=== PATIENT | male | born 1960 | race Caucasian/White ===

== ENCOUNTER → 2017-12-08 16:53 | Outpatient (CLI) | payer OTHER, SELFPAY ==
[2017-12-08 17:28] LABS: Absolute Lymphocyte Count 2.37 X10^3/ul (0.83-4.51); Absolute Neutrophil Count 6.5 X10^3/uL (2.0-7.7); Basophil# 0.03 X10^3/uL; Basophil% 0.3 % (0-1); Eosinophil# 0.15 X10^3/uL; Eosinophils% 1.6 % (0-5); Hematocrit 44.2 % (40-54); Hemoglobin 15.1 g/dl (13.0-16.5); Lymphocyte # 2.37 X10^3/ul (4.0); Lymphocyte % 24.6 % (19-41); Mean Corp Hgb Conc 34.2 g/gl (32-36); Mean Corpuscular Hgb 30.1 pg (27.0-32.0); Mean Corpuscular Volume 88.2 fL (80-94); Mean Platelet Vol. 11.3 fl (6.2-12.0); Monocyte# 0.55 X10^3/uL; Monocyte% 5.7 % (0-10); Neutrophil # 6.51 X10^3/uL (2.7-7.7); Neutrophil % 67.7 % (47-70); Platelet Count 203 K/mm3 (150-450); RBC Distribution Width SD 41.7 fl (35.1-43.9); Red Blood Count 5.01 M/mm3 (4.6-6.2); White Blood Count 9.6 K/mm3 (4.4-11.0)
[2017-12-08 17:31] LABS: POSITIVE COUNT NO; POSITIVE DIFFERENTIAL NO; POSITIVE MORPHOLOGY NO
[2017-12-08 18:34] LABS: AST(SGOT) 20 U/L (15-37); Alanine Aminotransfer ALT/SGPT 25 U/L (16-61); Albumin, Serum 3.4 g/dL (3.2-5.0); Alkaline Phosphatase 89 U/L (45-117); Anion Gap 7 (5-15); BUN 23 mg/dL (7-18); Calcium,Total 8.6 mg/dL (8.5-10.1); Chloride 107 mmol/L (98-107); Creatinine, Serum 0.96 mg/dL (0.70-1.30); EST Glomerular Filtration Rate 85 mL/min (>60); Est Glom Filt Rate - Afr Amer 103 mL/min (>60); Globulin 3.5 g/dL (2.2-4.2); Glucose 74 mg/dL (74-106); Potassium 4.2 mmol/L (3.5-5.1); Protein, Total 6.9 g/dL (6.4-8.2); Sodium Level 142 mmol/L (136-145); Thyroid Stim Hormone (TSH) 1.88 uIU/mL (0.358-3.74)
[2017-12-10 10:21] LABS: Hep C Antibodies <0.1 s/co ratio (0.0-0.9)
== END ==
PROVIDERS: Family Provider Family Medicine Geriatric Medicine; PCP Family Medicine Geriatric Medicine; Visit Provider Family Medicine Geriatric Medicine
DX: I10 Essential (primary) hypertension (principal); Z12.5 Encounter for screening for malignant neoplasm of prostate; Z13.89 Encounter for screening for other disorder
CPT/HCPCS: 36415; 80053; 84153; 84443; 85025; 86803; G0103

== ENCOUNTER → 2018-06-09 16:22 | Outpatient (CLI) | payer OTHER, SELFPAY ==
[2018-06-09 17:22] LABS: Absolute Lymphocyte Count 2.11 X10^3/ul (0.83-4.51); Absolute Neutrophil Count 6.9 X10^3/uL (2.0-7.7); Basophil# 0.03 X10^3/uL; Basophil% 0.3 % (0-1); Eosinophil# 0.15 X10^3/uL; Eosinophils% 1.5 % (0-5); Hematocrit 42.7 % (40-54); Hemoglobin 14.5 g/dl (13.0-16.5); Lymphocyte # 2.11 X10^3/ul (4.0); Lymphocyte % 21.4 % (19-41); Mean Corpuscular Hgb 29.9 pg (27.0-32.0); Mean Platelet Vol. 11.9 fl (6.2-12.0); Monocyte# 0.68 X10^3/uL; Monocyte% 6.9 % (0-10); Neutrophil # 6.85 X10^3/uL (2.7-7.7); Neutrophil % 69.7 % (47-70); Platelet Count 202 K/mm3 (150-450); RBC Distribution Width CV 12.7 % (11.6-14.6); RBC Distribution Width SD 40.1 fl (35.1-43.9); Red Blood Count 4.85 M/mm3 (4.6-6.2); White Blood Count 9.8 K/mm3 (4.4-11.0)
[2018-06-09 17:23] LABS: POSITIVE COUNT NO; POSITIVE DIFFERENTIAL NO; POSITIVE MORPHOLOGY NO
[2018-06-09 17:41] LABS: ALB/GLOB Ratio 0.9 RATIO (0.9-2.4); AST(SGOT) 23 U/L (15-37); Alanine Aminotransfer ALT/SGPT 37 U/L (16-61); Albumin, Serum 3.3 g/dL (3.2-5.0); Alkaline Phosphatase 93 U/L (45-117); Anion Gap 6 (5-15); BUN 17 mg/dL (7-18); BUN/Creat Ratio 19.1 RATIO (10-20); Calcium,Total 8.4 mg/dL (8.5-10.1); Chloride 108 mmol/L (98-107); Creatinine, Serum 0.89 mg/dL (0.70-1.30); EST Glomerular Filtration Rate 92 mL/min (>60); Est Glom Filt Rate - Afr Amer 112 mL/min (>60); Globulin 3.7 g/dL (2.2-4.2); Glucose 81 mg/dL (74-106); Potassium 3.8 mmol/L (3.5-5.1); Sodium Level 139 mmol/L (136-145); Thyroid Stim Hormone (TSH) 2.19 uIU/mL (0.358-3.74)
== END ==
PROVIDERS: Family Provider Family Medicine Geriatric Medicine; PCP Family Medicine Geriatric Medicine; Visit Provider Family Medicine Geriatric Medicine
DX: R53.83 Other fatigue (principal)
CPT/HCPCS: 36415; 80053; 84443; 85025

== ENCOUNTER 2018-11-20 08:35 | Day surgery (SDC) | payer OTHER, SELFPAY ==
[2018-10-29 15:04] VITALS: BMI 40.1
--- NOTE | 2018-11-19 20:01 | HP.PCM_ITS ---
History and Physical Date of Admission: 11/20/18 HISTORY OF PRESENT ILLNESS 58 year old man presents with a lesion on his right elbow that is erythematous and has increased in size over the last several months and has developed irregular borders. He has some discomfort when he bumps it. He is also concerned about a soft tissue mass left posterior neck that has increased in size over the last several months. There is some discomfort when he bumps it. He denies any fever. He denies any trauma. He denies any bleeding or drainage. He presents at this time for further evaluation and treatment. PAST MEDICAL HISTORY Back problem High cholesterol History of prostate disorder History of ulcer disease COPD (chronic obstructive pulmonary disease) Chronic bronchitis PAST SURGICAL HISTORY None. ALLERGIES Penicillins MEDICATIONS atorvastatin baclofen budesonide-formoterol HFA doxepin escitalopram tamsulosin FAMILY HISTORY Other - Alcoholism SOCIAL HISTORY Smoking Status: Former smoker alcohol intake: never substance use type: does not use REVIEW OF SYSTEMS General - Denies fever, fatigue, and weight loss. Eyes - Denies cataracts and glaucoma. ENT - Denies nasal congestion and sore throat. Endocrine - Denies excessive thirst and urination. Skin - Denies skin cancer. Has enlarging lesion right elbow and enlarging soft tissue mass left posterior neck. Musculoskeletal - Has joint pain and back pain. Denies joint stiffness, weakness of muscles and joints, and arthritis. Neuro - Denies headaches. Cardiovascular - Denies chest pain, fatigue, and shortness of breath with exertion. Psych - Denies anxiety and depression. Respiratory - Has chronic cough and shortness of breath. Has sleep apnea. He is a former smoker. Gastrointestinal - Denies nausea, vomiting, diarrhea, and constipation. Hematologic - Denies abnormal bruising and bleeding. Genitourinary - Denies hematuria and urinary frequency. PHYSICAL EXAMINATION General - Alert and Oriented. HEENT - PERRL. EOMI. Throat is clear. No suspicious lesions noted. Neck - Supple and nontender. No cervical adenopathy. On the left posterior neck is a soft tissue mass that measures 2 cm. It is mobile. Mild discomfort when bumped. No ulceration. No evidence of infection at this time. Has some firmness. Skin appears adherent to this soft tissue mass. Lungs - Clear to auscultation. Heart - Regular rate and rhythm. Abdomen - Soft and nondistended. Extremities - FROM. No axillary adenopathy. Radial pulses are palpable. On the right elbow is an erythematous lesion that measures 1.5 cm. Lesion is nodular. It has irregular borders. No ulceration. Mild tenderness when bumped. Patient is right hand dominant. Neuro - CN II-XII grossly intact. Psych - Normal mood and affect. ASSESSMENT 1. 1.5 cm lesion right elbow. 2. 2 cm painful soft tissue mass left posterior neck. 3. Former smoker. PLAN Recommend excision of this lesion right elbow and send it to Pathology for anal ysis to rule out carcinoma. If carcinoma is present, then further excision will be done with skin flap reconstruction. Will also excise the painful soft tissue mass left posterior neck and send it to Pathology as well for analysis to rule out carcinoma. Depending on the amount of overlying adherent skin needs to be removed, reconstruction may be with a local skin flap. Surgery will be done on an outpatient basis under local anesthesia and IV sedation. Patient was informed of the risks and complications of the procedure including alternatives to surgery. These were discussed with the patient personally. Patient voices understanding and wishes to proceed. Some of the risks and complications were included in a form from the [employer] [place] [employer].
[2018-11-20] VITALS (8 sets, daily range): BP systolic 100–127; BP diastolic 64–86; PULSE 78–86; RESP 16–18; TEMP 35.9–36.3; O2SAT 94–98; BMI 41.3
--- NOTE | 2018-11-20 10:20 | LES_PTH ---
PATIENT: AMANDA SANDOVAL [place] [facility] [place][id number] AGE/SX: 58/M ROOM: RE11/20/[address]: Dr. Kadeem Max MD : [id number] BED: DIS: 11/20/2018 SPEC #: [id number] RECD: 11/20/18 15:36 STATUS: ROYA REBela #: [id number] ROXI: 11/20/18 10:[address]: Kdaeem Max DEPT: SURGICAL PATHOLOGY RECD BY: Cal Melgar ENTERED: 11/23/18 08:51 SP TYPE: Lesion OTHR DR: Dr. Desmond De Guzman MD Tissues: A - Skin of arm B - Neck, NOS Procedures: Surgery Specimen Level III HEADER OPERATION: Excision lesion right elbow PRE-OP DIAGNOSIS: 1.5 cm lesion right elbow; 2 cm painful soft tissue mass left posterior neck TISSUE SUBMITTED: A - Right elbow infection, B - 2 cm soft tissue mass left posterior neck MICROSCOPIC DIAGNOSIS A. Right elbow lesion, biopsy: Consistent with ruptured epidermal inclusion cyst with chronic inflammation and foreign body giant cell reaction. B. Soft tissue mass left posterior neck, biopsy: Epidermal inclusion cyst. NOLAN:cluadia 11/24/18 MICROSCOPIC DESCRIPTION Slides are reviewed. GROSS DESCRIPTION A - Received in fixative is one container labeled with the patient's name and designated right elbow infection. The specimen consists of a single guerrero portion of skin and underlying soft tissue measuring 1.3 x 0.8 cm and excised to a depth of 0.6 cm. The skin surface is guerrero with a vague central umbilication. The base of the specimen is inked black and the tissue is serially cross-sectioned. The specimen is totally submitted in one cassette. B - Received in fixative is one container labeled with the patient's name and designated 2 cm soft tissue mass left posterior neck. The specimen consists of a guerrero portion of skin with underlying soft tissue. The skin surface measures 2 x 1.1 cm and contains a longitudinal central incision. The remainder of skin surface is guerrero and smooth. The underlying soft tissue measures 3.1 x 1.5 cm and is excised to a depth of 2.5 cm. The specimen is inked and serially cross-sectioned to reveal a dermal cystic structure measuring 1.2 cm in greatest dimension. The cyst content is guerrero and fairly homogenous. Rn Home Care sections are submitted in two cassettes. / CE:claudia 11/23/18 TC:5 CPT: 81680 x2
[2018-11-20] MEDS: Mupirocin Ointment 22gm Tube 1 APPLIC (11:31)
--- NOTE | 2018-11-20 11:37 | OP.PCM_ITS ---
Report of Operation Date of Procedure: 11/20/18 Pre-Operative Diagnosis: 1. 1.5 cm lesion right elbow. 2. 2 cm painful soft tissue mass left posterior neck. 3. Former smoker. Post-Operative Diagnosis: 1. 1.5 cm infected lesion abscess and bursa right elbow. 2. 3 cm painful cystic lesion left posterior neck. 3. Former smoker. Surgery/Procedure Performed:: 1. Surgical preparation right elbow with incision and drainage and excisional debridement underlying bursa and infected lesion abscess (2.25 cm2). 2. Excision 3 cm painful cystic lesion left posterior neck with 3 cm layered closure. Description of Surgical Findings:: 58 year old man presents with a lesion on his right elbow that is erythematous and has increased in size over the last several months and has developed irregular borders. He has some discomfort when he bumps it. He is also concerned about a soft tissue mass left posterior neck that has increased in size over the last several months. There is some discomfort when he bumps it. He denies any fever. He denies any trauma. He denies any bleeding or drainage. Patient was informed of the risks and complications of the procedure including alternatives to surgery. These were discussed with the patient personally. Patient voices understanding and wishes to proceed. Some of the risks and complications were included in a form from the [place] [employer]. Size of defect right elbow - 1.5 x 1.5 x 0.5 cm. color separation photographer: None Type of Anesthesia:: Local MAC - xylocaine with epinephrine and IV sedation. Specimen's removed: 1. Infected lesion abscess and bursa right elbow to Pathology and Microbiology. 2. Painful cystic lesion left posterior neck to Pathology. Drains: None. Estimated Blood Loss (mL): 10 ml. Description of Procedure: Patient was taken to OR in supine position and was given IV sedation. He was placed in the lateral position. The right elbow and left posterior neck areas were prepped and draped in the usual fashion. SCD's were placed for DVT prophylaxis. Perioperative antibiotics were given intravenously. The lesion right elbow and the soft tissue mass left posterior neck were infiltrated with xylocaine and epinephrine. After waiting 5 minutes for the anesthetic to take effect, I made an elliptical horizontal incision over the soft tissue mass left posterior neck. Dissection was carried into the subcutaneous tissue. The soft tissue mass was cystic in nature and was larger on the inside than what I could palpate clinically. The cystic lesion was multiloculated and adherent to the underlying muscle. It measured 3 cm. I had to extend the incision a little bit to get better exposure due to its size and the depth of the lesion down to and adherent to the muscle. A fair amount of scar tissue was present around the cystic lesion as well and was excised. The cystic lesion was sent to Pathology for analysis to rule out carcinoma. Hemostasis was obtained with electrocautery. The wound was irrigated with saline. The length of the wound for layered closure was 3 cm. I closed the deep subcutaneous tissue with 4-0 Monocryl figure of eight interrupted sutures to close the deep space to minimize seroma formation. The deep dermis and subcutaneous tissue was approximated with 4-0 Monocryl interrupted sutures. The skin was approximated with 4-0 Prolene simple interrupted and vertical mattress interrupted sutures. Antibiotic ointment was applied followed by a gauze dressing. I then proceeded with a frozen section of the right elbow lesion since it was firm and erythematous. I started an intradermal excision. It wasn't a solid lesion as copious pus was expressed from the wound. So no frozen section was done. I then proceeded with further incision and drainage of the abscess along with excisional debridement of the surrounding thinned out tissue as well as underlying abnormal infected bursa with a bursectomy. The underlying fascia and triceps tendinous insertion was intact. No exposed olecranon bone was seen. The size of the right elbow defect after incision and drainage and excisional debridement was 1.5 x 1.5 x 0.5 cm. Tissue was sent to Pathology for analysis to rule out carcinoma and to Microbiology for culture. A positive culture will necessitate antibiotic therapy. The wound was irrigated with saline. Hemostasis was obtained with electrocautery. With the amount of pus present, I don't want to close the wound today. After the infection has been treated and the inflammation has subsided, I can proceed with delayed secondary wound closure and possible skin flap reconstruction. The wound was packed with Aquacel Silver followed by gauze dressing and secured with 4-0 Nylon and 3-0 Nylon tie over stent suture dressing. This was followed by Kerlix gauze and a compression JESUS wrap. Patient tolerated the procedure well and was sent to PACU in satisfactory condition. Patient will be sent home on antibiotics and pain medication. Patient will followup in the office on Friday for a Silver dressing change and to instruct the patient and family on the Silver dressing changes. The left posterior neck sutures will be removed in 1-2 weeks. Will have a discussion of the pathology report and discussion of the Microbiology report. A positive culture will necessitate antibiotic therapy. Grafts/Implants Used: None. - Complications None. - Admit VTE Documentation VTE Present on Admission: No VTE Mechan Device Prophylaxis: SCD's VTE Pharm Prophylaxis ordered?: No Code Visit Surgery Charges CPT - 24790 ICD-10 - S51.001A, M71.021, Z87.891 48286 M71.021, S51.001A, Z87.891 35820 R22.1, Z87.891 00781 R22.1, Z87.891
--- NOTE | 2018-11-20 11:44 | PCM.DC ---
You will use the following diet at home:: No restrictions Discharge Activity: May not drive while taking narcotic pain medications., May Shower - in two days. Wear plastic bag over right arm when showering., - - elevate right arm. no heavy lifting right arm. May shower in (days): 2 - wear plastic bag over right arm when showering. May resume sexual activity in: No Restrictions Weight Bearing Status: Weight bearing as tolerated Lifting Restrictions: 20 lbs. Keep extremity elevated above heart level: Right Arm Call your doctor if your incision/area has: Continuous Slow Oozing, Sudden Increased Bleeding, Increased Pain/ Swelling, Increased Redness, Foul Smelling Discharge, Swelling at the incision site Call your doctor if you observe: Fever of 101 or Higher, Coldness, Increased Pain, Shortness of breath, Chest pain, Calf discomfort, Uncontrolled pain Suture Line Care: - - apply antibiotic ointment to suture line left posterior neck after operative dressing removed in two days. alaniz aquacel silver dressing changes to right elbow after operative dressing removed in office. Change Dressing in (Days):: 2 - left posterior neck dressing only. Remove Dressing in (days):: 3 - will remove right elbow dressing in office. Cleanse incision/area with: - - may get incision wet in the shower in two days. wear plastic bag over right arm when showering. Allergies/Adverse Reactions: Allergies Penicillins Adverse Reaction (Verified 11/20/18 08:54) GI UPSET Medications to take at Discharge atorvastatin 40 mg tablet 40 mg PO DAILY 10/26/18 baclofen 10 mg tablet 10 mg PO DAILY 10/26/18 budesonide-formoterol HFA 80 mcg-4.5 mcg/actuation aerosol inhaler 2 puff INHALATION BID 10/26/18 doxepin 25 mg capsule 25 mg PO QHS 10/26/18 escitalopram 10 mg tablet 10 mg PO DAILY 10/26/18 tamsulosin 0.4 mg capsule 0.8 mg PO QHS cap 10/26/18 Clindamycin HCl [Cleocin] 300 mg PO TID #42 cap 11/20/18 Lactobacillus Acidophilus/Fos [Acidophilus Probiotic Tablet] 1 ea PO BID #30 tab 11/20/18 Oxycodone HCl/Acetaminophen [Percocet 5/325] 1 - 2 tab PO 4X/DAY PRN PRN 5 Days #40 tab 11/20/18 The following prescriptions were given: Oxycodone HCl/Acetaminophen [Percocet 5/325] 1 - 2 tab PO 4X/DAY PRN PRN 5 Days #40 tab PRN Reason: Pain Lactobacillus Acidophilus/Fos [Acidophilus Probiotic Tablet] 1 ea PO BID #30 tab Clindamycin HCl [Cleocin] 300 mg PO TID #42 cap Primary Care Physician: Desmond De Guzman Chi, MD [Primary Care Provider] - Test Results: Test results from this visit will be discussed in further detail at your follow-up appointment, if applicable. Please Follow Up With: Kadeem Max MD When: friday11/23/18. call [phone] for appt. Proposed Discharge Date: 11/20/18
== END 2018-11-20 12:45 | disposition home or self-care (01) ==
LOC: SDC 08:41 → AC 08:58
PROVIDERS: Family Provider Family Medicine Geriatric Medicine; PCP Family Medicine Geriatric Medicine; Referring Provider Surgery; Visit Provider Surgery
PROC: (CPT 11423; principal; 2018-11-20 10:10)
DX: L72.0 Epidermal cyst (principal); L98.9 Disorder of the skin and subcutaneous tissue, unspecified; Z87.891 Personal history of nicotine dependence; E78.00 Pure hypercholesterolemia, unspecified; J44.9 Chronic obstructive pulmonary disease, unspecified; Z79.899 Other long term (current) drug therapy; R52 Pain, unspecified; L90.5 Scar conditions and fibrosis of skin; N40.0 Benign prostatic hyperplasia without lower urinary tract symptoms
CPT/HCPCS: 11423; 12042; 23931; 87070; 87075; 87102; 87176; 87205; 87206; 88304; 88305; J7120; J2405

== ENCOUNTER → 2018-12-10 | Outpatient (CLI) | payer OTHER, SELFPAY ==
[2018-12-09 08:40] VITALS: BMI 41.3
[2018-12-10 17:31] LABS: Absolute Lymphocyte Count 2.27 X10^3/ul (0.83-4.51); Absolute Neutrophil Count 4.4 X10^3/uL (2.0-7.7); Basophil# 0.03 X10^3/uL; Basophil% 0.4 % (0-1); Eosinophil# 0.14 X10^3/uL; Eosinophils% 1.9 % (0-5); Hematocrit 44.2 % (40-54); Hemoglobin 14.7 g/dl (13.0-16.5); Lymphocyte # 2.27 X10^3/ul (4.0); Lymphocyte % 31.1 % (19-41); Mean Corp Hgb Conc 33.3 g/gl (32-36); Mean Corpuscular Hgb 28.7 pg (27.0-32.0); Mean Corpuscular Volume 86.2 fL (80-94); Mean Platelet Vol. 11.4 fl (6.2-12.0); Monocyte# 0.42 X10^3/uL; Monocyte% 5.7 % (0-10); Neutrophil # 4.44 X10^3/uL (2.7-7.7); Neutrophil % 60.8 % (47-70); Platelet Count 227 K/mm3 (150-450); RBC Distribution Width CV 13.1 % (11.6-14.6); RBC Distribution Width SD 40.3 fl (35.1-43.9); Red Blood Count 5.13 M/mm3 (4.6-6.2); White Blood Count 7.3 K/mm3 (4.4-11.0)
[2018-12-10 17:32] LABS: POSITIVE COUNT NO; POSITIVE DIFFERENTIAL NO; POSITIVE MORPHOLOGY NO
[2018-12-10 17:55] LABS: Vitamin D,25 Hydroxy 11.5 ng/mL (29.95-100.01)
[2018-12-10 18:03] LABS: ALB/GLOB Ratio 0.8 RATIO (0.9-2.4); AST(SGOT) 18 U/L (15-37); Alanine Aminotransfer ALT/SGPT 30 U/L (16-61); Albumin, Serum 3.1 g/dL (3.2-5.0); Alkaline Phosphatase 116 U/L (45-117); Anion Gap 5 (5-15); BUN 14 mg/dL (7-18); BUN/Creat Ratio 15.7 RATIO (10-20); Calcium,Total 8.5 mg/dL (8.5-10.1); Chloride 111 mmol/L (98-107); Creatinine, Serum 0.89 mg/dL (0.70-1.30); EST Glomerular Filtration Rate 92 mL/min (>60); Est Glom Filt Rate - Afr Amer 112 mL/min (>60); Globulin 3.8 g/dL (2.2-4.2); Glucose 126 mg/dL (74-106); Potassium 3.9 mmol/L (3.5-5.1); Protein, Total 6.9 g/dL (6.4-8.2); Sodium Level 142 mmol/L (136-145); Thyroid Stim Hormone (TSH) 1.72 uIU/mL (0.358-3.74)
== END | disposition home or self-care (01) ==
LOC: POLAB3 16:29
PROVIDERS: Family Provider Family Medicine Geriatric Medicine; PCP Family Medicine Geriatric Medicine; Visit Provider Family Medicine Geriatric Medicine
DX: E55.9 Vitamin D deficiency, unspecified (principal); R53.83 Other fatigue; Z12.5 Encounter for screening for malignant neoplasm of prostate
CPT/HCPCS: 36415; 80053; 82306; 84153; 84443; 85025; G0103

== ENCOUNTER → 2019-06-10 16:32 | Outpatient (CLI) | payer OTHER, SELFPAY ==
[2019-01-14 16:32] VITALS: BMI 41.3
[2019-06-10 17:29] LABS: Absolute Lymphocyte Count 3.42 X10^3/uL (0.83-4.51); Absolute Neutrophil Count 9.6 X10^3/uL (2.0-7.7); Basophil# 0.04 X10^3/uL; Basophil% 0.3 % (0-1); Eosinophil# 0.06 X10^3/uL; Eosinophils% 0.4 % (0-5); Hematocrit 45.4 % (40-54); Hemoglobin 14.7 g/dL (13.0-16.5); Lymphocyte # 3.42 X10^3/ul (4.0); Lymphocyte % 24.3 % (19-41); Mean Corp Hgb Conc 32.4 g/dL (32-36); Mean Corpuscular Hgb 28.8 pg (27.0-32.0); Mean Corpuscular Volume 88.8 fL (80-94); Mean Platelet Vol. 11.2 fl (6.2-12.0); Monocyte% 6.4 % (0-10); NRBC Flagged by Analyzer 0 % (0-5); Neutrophil # 9.55 X10^3/uL (2.7-7.7); Platelet Count 217 K/mm3 (150-450); RBC Distribution Width SD 42.3 fl (35.1-43.9); Red Blood Count 5.11 M/mm3 (4.6-6.2); White Blood Count 14.1 K/mm3 (4.4-11.0)
[2019-06-10 17:50] LABS: ALB/GLOB Ratio 0.9 RATIO (0.9-2.4); AST(SGOT) 17 U/L (15-37); Alanine Aminotransfer ALT/SGPT 33 U/L (16-61); Albumin, Serum 3.3 g/dL (3.2-5.0); Alkaline Phosphatase 112 U/L (45-117); Anion Gap 6 (5-15); BUN 25 mg/dL (7-18); BUN/Creat Ratio 23.4 RATIO (10-20); Calcium,Total 8.3 mg/dL (8.5-10.1); Chloride 107 mmol/L (98-107); Creatinine, Serum 1.07 mg/dL (0.70-1.30); EST Glomerular Filtration Rate 75 mL/min (>60); Est Glom Filt Rate - Afr Amer 90 mL/min (>60); Globulin 3.7 g/dL (2.2-4.2); Glucose 78 mg/dL (74-106); Potassium 3.7 mmol/L (3.5-5.1); Sodium Level 142 mmol/L (136-145); Thyroid Stim Hormone (TSH) 3.55 uIU/mL (0.358-3.74)
== END ==
PROVIDERS: Family Provider Family Medicine Geriatric Medicine; PCP Family Medicine Geriatric Medicine; Visit Provider Family Medicine Geriatric Medicine
DX: R53.83 Other fatigue (principal)
CPT/HCPCS: 36415; 80053; 84443; 85025

== ENCOUNTER → 2019-06-22 17:30 | Outpatient (CLI) | payer OTHER, SELFPAY ==
[2019-01-14 16:32] VITALS: BMI 41.3
--- NOTE | 2019-06-22 17:33 | CT_ITS ---
STUDY: CT ABDOMEN AND PELVIS WITH CONTRAST REASON FOR EXAM: Male, 59 years old. Left lower quadrant pain RADIATION DOSAGE (If Supplied By Facility): CTDIvol = ( 16.60 ) mGy, DLP = ( 1099.33 ) mGycm TECHNIQUE: Transaxial images were obtained from the dome of the diaphragm to the symphysis pubis without oral contrast. Intravenous contrast was administered. Sagittal and coronal images were reconstructed. Individualized dose optimization techniques were used for this CT. COMPARISON: January 30, 2017. FINDINGS: The visualized lung bases are unremarkable. The visualized portions of the heart are within normal limits. Calcific foci are noted in the liver. 8mm right hepatic cyst. Normal gallbladder and extrahepatic biliary system. Normal spleen. Normal pancreas. Normal bilateral adrenal glands. Up to 2.5 cm cysts in the kidneys. Normal visualized stomach. Normal small intestine. Normal colon. The appendix is visualized and appears normal. Mildly calcified abdominal aorta. Normal inferior vena cava. Normal retroperitoneum. Mild anterior wall thickening of the urinary bladder. The prostate is 4.8 x 5.5 cm. Small fatty umbilical hernia. Normal osseous structures. CT/Abdomen/Pelvis WITH Contrast IMPRESSION: Renal and hepatic cysts. Mild wall thickening of the urinary bladder. Electronically Signed: Bj Baldwin DO at 23:48 EST Tel [phone], Service support ,
== END ==
PROVIDERS: Family Provider Family Medicine Geriatric Medicine; PCP Family Medicine Geriatric Medicine; Referring Provider Family Medicine Geriatric Medicine; Visit Provider Family Medicine Geriatric Medicine
DX: R10.9 Unspecified abdominal pain (principal)
CPT/HCPCS: 74177; Q9967

== ENCOUNTER → 2019-12-15 15:23 | Outpatient (CLI) | payer OTHER, SELFPAY ==
[2019-01-14 16:32] VITALS: BMI 41.3
[2019-12-15 15:53] LABS: Absolute Lymphocyte Count 2.03 X10^3/uL (0.83-4.51); Basophil# 0.06 X10^3/uL; Basophil% 0.6 % (0-1); Eosinophil# 0.18 X10^3/uL; Eosinophils% 1.8 % (0-5); Hematocrit 44.7 % (40-54); Hemoglobin 14.7 g/dL (13.0-16.5); Lymphocyte # 2.03 X10^3/ul (4.0); Lymphocyte % 20.4 % (19-41); Mean Corp Hgb Conc 32.9 g/dL (32-36); Mean Corpuscular Hgb 29.2 pg (27.0-32.0); Mean Corpuscular Volume 88.7 fL (80-94); Mean Platelet Vol. 11.4 fl (6.2-12.0); Monocyte# 0.64 X10^3/uL; Monocyte% 6.4 % (0-10); NRBC Flagged by Analyzer 0 % (0-5); Neutrophil # 6.99 X10^3/uL (2.7-7.7); Neutrophil % 70.5 % (47-70); Platelet Count 217 K/mm3 (150-450); RBC Distribution Width CV 12.9 % (11.6-14.6); RBC Distribution Width SD 41.9 fl (35.1-43.9); Red Blood Count 5.04 M/mm3 (4.6-6.2); White Blood Count 9.9 K/mm3 (4.4-11.0)
[2019-12-15 16:21] LABS: ALB/GLOB Ratio 0.8 RATIO (0.9-2.4); AST(SGOT) 18 U/L (15-37); Alanine Aminotransfer ALT/SGPT 26 U/L (16-61); Albumin, Serum 3.1 g/dL (3.2-5.0); Alkaline Phosphatase 114 U/L (45-117); Anion Gap 6 (5-15); BUN 16 mg/dL (7-18); BUN/Creat Ratio 16.9 RATIO (10-20); Calcium,Total 8.9 mg/dL (8.5-10.1); Chloride 110 mmol/L (98-107); Creatinine, Serum 0.95 mg/dL (0.70-1.30); EST Glomerular Filtration Rate 86 mL/min (>60); Est Glom Filt Rate - Afr Amer 104 mL/min (>60); Globulin 3.8 g/dL (2.2-4.2); Glucose 104 mg/dL (74-106); PSA,Total - Annual Screen 3.14 ng/mL (0.00-4.00); Protein, Total 6.9 g/dL (6.4-8.2); Sodium Level 141 mmol/L (136-145)
== END ==
PROVIDERS: PCP Family Medicine Geriatric Medicine; Visit Provider Family Medicine Geriatric Medicine
DX: R53.83 Other fatigue (principal); Z12.5 Encounter for screening for malignant neoplasm of prostate
CPT/HCPCS: 36415; 80053; 84153; 84443; 85025; G0103

== ENCOUNTER → 2020-06-14 10:43 | Outpatient (CLI) | payer OTHER, SELFPAY ==
[2019-01-14 16:32] VITALS: BMI 41.3
[2020-06-14 18:02] LABS: Absolute Lymphocyte Count 2.26 X10^3/uL (0.83-4.51); Absolute Neutrophil Count 5.5 X10^3/uL (2.0-7.7); Basophil# 0.06 X10^3/uL; Basophil% 0.7 % (0-1); Eosinophils% 2.3 % (0-5); Hematocrit 49.6 % (40-54); Hemoglobin 16.2 g/dL (13.0-16.5); Lymphocyte # 2.26 X10^3/ul (4.0); Lymphocyte % 25.9 % (19-41); Mean Corp Hgb Conc 32.7 g/dL (32-36); Mean Corpuscular Hgb 29.3 pg (27.0-32.0); Mean Corpuscular Volume 89.7 fL (80-94); Monocyte# 0.61 X10^3/uL; NRBC Flagged by Analyzer 0 % (0-5); Neutrophil # 5.54 X10^3/uL (2.7-7.7); Neutrophil % 63.6 % (47-70); Platelet Count 226 K/mm3 (150-450); RBC Distribution Width SD 42.6 fl (35.1-43.9); Red Blood Count 5.53 M/mm3 (4.6-6.2); White Blood Count 8.7 K/mm3 (4.4-11.0)
[2020-06-14 18:22] LABS: ALB/GLOB Ratio 0.9 RATIO (0.9-2.4); AST(SGOT) 14 U/L (15-37); Alanine Aminotransfer ALT/SGPT 28 U/L (16-61); Albumin, Serum 3.4 g/dL (3.2-5.0); Alkaline Phosphatase 125 U/L (45-117); Anion Gap 3 (5-15); BUN 18 mg/dL (7-18); BUN/Creat Ratio 18.7 RATIO (10-20); Calcium,Total 8.8 mg/dL (8.5-10.1); Chloride 110 mmol/L (98-107); Creatinine, Serum 0.96 mg/dL (0.70-1.30); EST Glomerular Filtration Rate 84 mL/min (>60); Est Glom Filt Rate - Afr Amer 102 mL/min (>60); Globulin 3.8 g/dL (2.2-4.2); Glucose 104 mg/dL (74-106); Potassium 3.8 mmol/L (3.5-5.1); Protein, Total 7.2 g/dL (6.4-8.2); Sodium Level 142 mmol/L (136-145); Thyroid Stim Hormone (TSH) 1.91 uIU/mL (0.358-3.74)
[2020-06-16 13:03] LABS: Vitamin D,25 Hydroxy 7.5 ng/mL
== END ==
PROVIDERS: PCP Family Medicine Geriatric Medicine; Visit Provider Family Medicine Geriatric Medicine
DX: R53.83 Other fatigue (principal); E55.9 Vitamin D deficiency, unspecified
CPT/HCPCS: 36415; 80053; 82306; 84443; 85025

== ENCOUNTER → 2020-07-25 10:26 | Outpatient (CLI) | payer OTHER, SELFPAY ==
[2019-01-14 16:32] VITALS: BMI 41.3
== END ==
PROVIDERS: PCP Family Medicine Geriatric Medicine; Referring Provider Family Medicine Geriatric Medicine; Visit Provider Family Medicine Geriatric Medicine
DX: U07.1 COVID-19 (principal)
CPT/HCPCS: 87633; 87635; C9803; U0005; U0003

== ENCOUNTER → 2020-12-20 14:20 | Outpatient (CLI) | payer OTHER, SELFPAY ==
[2019-01-14 16:32] VITALS: BMI 41.3
[2020-12-20 16:03] LABS: Absolute Lymphocyte Count 2.11 X10^3/uL (0.83-4.51); Absolute Neutrophil Count 6.2 X10^3/uL (2.0-7.7); Basophil# 0.05 X10^3/uL; Basophil% 0.6 % (0-1); Eosinophil# 0.11 X10^3/uL; Eosinophils% 1.2 % (0-5); Hematocrit 46.6 % (40-54); Hemoglobin 15.2 g/dL (13.0-16.5); Lymphocyte # 2.11 X10^3/ul (0.83-4.51); Lymphocyte % 23.3 % (19-41); Mean Corp Hgb Conc 32.6 g/dL (32-36); Mean Corpuscular Hgb 29.1 pg (27.0-32.0); Mean Corpuscular Volume 89.1 fL (80-94); Mean Platelet Vol. 11.6 fl (6.2-12.0); Monocyte# 0.52 X10^3/uL; Monocyte% 5.7 % (0-10); NRBC Flagged by Analyzer 0 % (0-5); Neutrophil # 6.24 X10^3/uL (2.7-7.7); Neutrophil % 68.8 % (47-70); Platelet Count 236 K/mm3 (150-450); RBC Distribution Width CV 12.8 % (11.6-14.6); RBC Distribution Width SD 41.8 fl (35.1-43.9); Red Blood Count 5.23 M/mm3 (4.6-6.2); White Blood Count 9.1 K/mm3 (4.4-11.0)
[2020-12-20 16:44] LABS: ALB/GLOB Ratio 0.8 RATIO (0.9-2.4); AST(SGOT) 18 U/L (15-37); Alanine Aminotransfer ALT/SGPT 26 U/L (16-61); Albumin, Serum 3.1 g/dL (3.2-5.0); Alkaline Phosphatase 104 U/L (45-117); Anion Gap 5 (5-15); BUN 16 mg/dL (7-18); BUN/Creat Ratio 13.2 RATIO (10-20); Calcium,Total 8.8 mg/dL (8.5-10.1); Chloride 106 mmol/L (98-107); Creatinine, Serum 1.21 mg/dL (0.70-1.30); EST Glomerular Filtration Rate 64 mL/min (>60); Est Glom Filt Rate - Afr Amer 78 mL/min (>60); Globulin 3.9 g/dL (2.2-4.2); Glucose 84 mg/dL (74-106); Potassium 3.9 mmol/L (3.5-5.1); Sodium Level 142 mmol/L (136-145); Thyroid Stim Hormone (TSH) 1.93 uIU/mL (0.358-3.74)
== END ==
PROVIDERS: PCP Family Medicine Geriatric Medicine; Visit Provider Family Medicine Geriatric Medicine
DX: R53.83 Other fatigue (principal); Z12.5 Encounter for screening for malignant neoplasm of prostate
CPT/HCPCS: 36415; 80053; 84153; 84443; 85025; G0103

== ENCOUNTER → 2021-06-20 09:53 | Outpatient (CLI) | payer OTHER, SELFPAY ==
[2021-06-20 14:09] LABS: Absolute Lymphocyte Count 1.78 X10^3/uL (0.83-4.51); Absolute Neutrophil Count 7.2 X10^3/uL (2.0-7.7); Basophil# 0.04 X10^3/uL; Basophil% 0.4 % (0-1); Eosinophil# 0.12 X10^3/uL; Eosinophils% 1.2 % (0-5); Hematocrit 43.7 % (40-54); Hemoglobin 14.8 g/dL (13.0-16.5); Lymphocyte # 1.78 X10^3/ul (0.83-4.51); Lymphocyte % 18.4 % (19-41); Mean Corp Hgb Conc 33.9 g/dL (32-36); Mean Corpuscular Hgb 29.2 pg (27.0-32.0); Mean Corpuscular Volume 86.2 fL (80-94); Monocyte# 0.55 X10^3/uL; Monocyte% 5.7 % (0-10); NRBC Flagged by Analyzer 0 % (0-5); Neutrophil # 7.18 X10^3/uL (2.7-7.7); Platelet Count 213 K/mm3 (150-450); RBC Distribution Width CV 12.9 % (11.6-14.6); Red Blood Count 5.07 M/mm3 (4.6-6.2); White Blood Count 9.7 K/mm3 (4.4-11.0)
[2021-06-20 14:29] LABS: ALB/GLOB Ratio 0.8 RATIO (0.9-2.4); AST(SGOT) 19 U/L (15-37); Alanine Aminotransfer ALT/SGPT 22 U/L (16-61); Albumin, Serum 2.9 g/dL (3.2-5.0); Alkaline Phosphatase 97 U/L (45-117); Anion Gap 9 (5-15); BUN 16 mg/dL (7-18); BUN/Creat Ratio 14.5 RATIO (10-20); Calcium,Total 8.9 mg/dL (8.5-10.1); Chloride 107 mmol/L (98-107); EST Glomerular Filtration Rate 72 mL/min (>60); Est Glom Filt Rate - Afr Amer 87 mL/min (>60); Globulin 3.8 g/dL (2.2-4.2); Glucose 121 mg/dL (74-106); Potassium 3.9 mmol/L (3.5-5.1); Protein, Total 6.7 g/dL (6.4-8.2); Sodium Level 141 mmol/L (136-145); Thyroid Stim Hormone (TSH) 1.71 uIU/mL (0.358-3.74)
== END ==
PROVIDERS: PCP Family Medicine Geriatric Medicine; Visit Provider Family Medicine Geriatric Medicine
DX: R53.83 Other fatigue (principal)
CPT/HCPCS: 36415; 80053; 84443; 85025

== ENCOUNTER → 2021-07-05 | Outpatient (CLI) | payer OTHER, SELFPAY | END | disposition home or self-care (01) | LOC: LABSPEC 16:53 | PROVIDERS: PCP Family Medicine Geriatric Medicine; Visit Provider Family Medicine Geriatric Medicine | DX: N39.0 Urinary tract infection, site not specified (principal) | CPT/HCPCS: 87086; 87088 ==

== ENCOUNTER → 2021-11-23 | Outpatient (CLI) | payer OTHER, SELFPAY ==
--- NOTE | 2021-11-23 13:59 | ART_ITS ---
Reason For Study: PVD Procedure A bilateral lower extremity continuous wave Doppler with analog waveform analysis,segmental pressures,and ankle brachial indexes with exercise. Left Segmental Pressures Left brachial= 142mmHg. Left posterior tibial artery = 169mmHg. Left dorsalis pedis artery = 165mmHg. Left digit = 122 mmHg. The left dorsalis pedis waveforms are triphasic. The left posterior tibial artery waveforms are triphasic. Right Segmental Pressures Right brachial= 140mmHg. Right posterior tibial artery = 161mmHg. Right dorsalis pedis artery = 149mmHg. Right digit = 115 mmHg. The right dorsalis pedis waveforms are triphasic. The right posterior tibial artery waveforms are triphasic. Indices The right ankle brachial index by the posterior tibial artery is 1.13. The right ankle brachial index by the dorsalis pedis is 1.05. The right digital-brachial index is .81. The right post exercise ankle brachial index is 1.27. The left ankle brachial index by the dorsalis pedis is 1.16. The left ankle brachial index by the posterior tibial artery is 1.19. The left digital-brachial index is .86. The left post exercise ankle brachial index is 1.24. VL/Lower Ext Art Exam w/ Exercise Interpretation Summary Normal right PT and DP ankle-brachial indices at rest of 1.13 and 1.05 respecti vely with normal triphasic Doppler waveforms. Normal right digital brachial index of 0.81. Sherron l post exercise index of 1.27 Normal left PT and DP ankle-brachial indices at rest at 1.16 and 1.19 respectiv aniyah. Normal triphasic left DP and PT Doppler waveforms. Normal left digital brachial index of 0.86. N ormal left post exercise index of 1.24 Ordering Physician: Kyle Hinton Performed By: Joselito Buchanan RVT
--- NOTE | 2021-11-23 14:50 | RAD_ITS ---
STUDY: COMPLETE LUMBOSACRAL SPINE SERIES OF 1504 HOURS ON 11/23/2021 REASON FOR EXAM: 61-year-old male with low back pain. TECHNIQUE: 5 view(s) of the lumbar spine were obtained. COMPARISON: None FINDINGS: Mild thoracolumbar dextroscoliosis. Mild demineralization. No vertebral body fractures or subluxations. Marked narrowing of the L5-S1 intervertebral disc space. Very mild osteophytic degenerative changes of the lumbar spine. Mild degenerative changes of the left L5-S1 facet. The other facets, pedicles and processes are intact. Normal sacrum. Normal sacroiliac joints. RAD/L/S Spine Min 4 Views IMPRESSION: 1. Mild thoracolumbar dextroscoliosis. 2. Mild demineralization and very mild osteophytic degenerative changes of the lumbar spine. 3. No fractures or subluxations. 4. Marked narrowing of the L5-S1 intervertebral disc space with mild degenerative changes of the left L5-S1 facet. 5. The other intervertebral disc spaces, facets, pedicles, and processes are normal. 6. Normal sacrum and sacroiliac joints. Electronically Signed: Yevgeniy Burnett MD at 17:38 EDT ,
== END | disposition home or self-care (01) ==
PROVIDERS: PCP Family Medicine Geriatric Medicine; Referring Provider Podiatrist; Visit Provider Podiatrist
DX: M54.16 Radiculopathy, lumbar region (principal); I73.9 Peripheral vascular disease, unspecified
CPT/HCPCS: 72110; 93924

== ENCOUNTER → 2021-12-26 | Outpatient (CLI) | payer OTHER, SELFPAY ==
[2021-12-26 17:17] LABS: Absolute Lymphocyte Count 2.01 X10^3/uL (0.83-4.51); Absolute Neutrophil Count 6.1 X10^3/uL (2.0-7.7); Basophil# 0.05 X10^3/uL; Basophil% 0.6 % (0-1); Eosinophil# 0.17 X10^3/uL; Eosinophils% 1.9 % (0-5); Hematocrit 43.8 % (40-54); Hemoglobin 14.1 g/dL (13.0-16.5); Lymphocyte # 2.01 X10^3/ul (0.83-4.51); Lymphocyte % 22.6 % (19-41); Mean Corp Hgb Conc 32.2 g/dL (32-36); Mean Corpuscular Hgb 29.1 pg (27.0-32.0); Mean Corpuscular Volume 90.5 fL (80-94); Mean Platelet Vol. 11.5 fl (6.2-12.0); Monocyte# 0.58 X10^3/uL; Monocyte% 6.5 % (0-10); NRBC Flagged by Analyzer 0 % (0-5); Neutrophil # 6.05 X10^3/uL (2.7-7.7); Neutrophil % 68.1 % (47-70); Platelet Count 248 K/mm3 (150-450); RBC Distribution Width CV 12.8 % (11.6-14.6); RBC Distribution Width SD 42.1 fl (35.1-43.9); Red Blood Count 4.84 M/mm3 (4.6-6.2); White Blood Count 8.9 K/mm3 (4.4-11.0)
[2021-12-26 17:21] LABS: Vitamin D,25 Hydroxy 10.1 ng/mL
[2021-12-26 17:28] LABS: ALB/GLOB Ratio 0.9 RATIO (0.9-2.4); AST(SGOT) 21 U/L (15-37); Alanine Aminotransfer ALT/SGPT 26 U/L (16-61); Albumin, Serum 3.2 g/dL (3.2-5.0); Alkaline Phosphatase 93 U/L (45-117); Anion Gap 3 (5-15); BUN 16 mg/dL (7-18); BUN/Creat Ratio 15.4 RATIO (10-20); Calcium,Total 8.9 mg/dL (8.5-10.1); Chloride 108 mmol/L (98-107); Creatinine, Serum 1.04 mg/dL (0.70-1.30); EST Glomerular Filtration Rate 76 mL/min (>60); Est Glom Filt Rate - Afr Amer 93 mL/min (>60); Globulin 3.7 g/dL (2.2-4.2); Glucose 106 mg/dL (74-106); Potassium 4.2 mmol/L (3.5-5.1); Protein, Total 6.9 g/dL (6.4-8.2); Sodium Level 141 mmol/L (136-145); Thyroid Stim Hormone (TSH) 2.15 uIU/mL (0.358-3.74)
== END | disposition home or self-care (01) ==
LOC: POLAB3 12:50
PROVIDERS: PCP Family Medicine Geriatric Medicine; Visit Provider Family Medicine Geriatric Medicine
DX: R53.83 Other fatigue (principal); E55.9 Vitamin D deficiency, unspecified; Z12.5 Encounter for screening for malignant neoplasm of prostate
CPT/HCPCS: 36415; 80053; 82306; 84153; 84443; 85025; G0103

== ENCOUNTER → 2022-01-02 | Outpatient (CLI) | payer OTHER, SELFPAY ==
--- NOTE | 2022-01-02 13:46 | NEURO ---
NCS and/or EMG Patient Report Ordering Doctor: Kyle Hinton DATE OF SERVICE: 01/02/22 Paulo presents for electrodiagnostic testing of the lower limbs. He reports burning sensation in both feet. Electrodiagnostic findings: Peroneal motor nerve demonstrates normal distal latency, amplitude and conduction velocity bilaterally. Normal tibial motor response bilaterally. Normal peroneal and tibial F waves. H reflex within normal limits. Sensory responses are normal On needle EMG, all muscles tested normal lower limbs as well as lumbar paraspinal showed no evidence of denervation with normal motor unit action potentials Electrodiagnostic impression: This is a normal electrodiagnostic study of the lower limbs. There is no electrodiagnostic evidence for peripheral neuropathy or lumbosacral radiculopathy.
== END | disposition home or self-care (01) ==
LOC: PSN 08:50
PROVIDERS: PCP Family Medicine Geriatric Medicine; Visit Provider Podiatrist
DX: M79.2 Neuralgia and neuritis, unspecified (principal); R20.2 Paresthesia of skin
CPT/HCPCS: 95886; 95912

== ENCOUNTER 2022-02-06 16:00 | Outpatient (RCR) | payer OTHER, SELFPAY ==
--- NOTE | 2022-01-02 11:33 | HP.PTEVAL_ITS ---
Patient's Visit Information AMANDA SANDOVAL is a 61 year old M referred to Physical Therapy by Dr. Desmond De Guzman MD with a diagnosis of R lumbar radiculopathy, R foot pain N/T. Date of Evaluation: 01/01/22 Physical Therapist: Zen Freire DPT - Visit Plan Frequency: 2x /Week Duration: 6 Weeks Plan: Start with neutral spine core stability exercises. Add in flexion based exercises as rescue maneuvers. Progress ROM of lumbar spine as tolerated. re check after EMG study is completed. - Subjective Pt. is here today for his initial evaluation with diagnosis R lumbar radiculopathy, R foot pain N/T. Amanda reports having pain in his R foot for a few months ago, no mech of injury. Pt. reports starting out with podiatry who did a vascular test and xray. He felt that this was more of a back issue than a foot issue. He was given lidocaine compound for his feet, some mild change. Xray: degenerative change through out lumbar spine decreased disc height at L4- L5. He reports increased pain with standing and sitting. Decreased pain: with ly ing down and with walking. Minimal pain in AMs, worsens as the day goes on. He is having an EMG study tomorrow as well. He has had some back pain in the past, but is hard to correlate current symptoms to his back. He talks about his foot turning red when it hurts and this reduces with elevation. Pt. is hopeful to reduce foot pain in order to tolerate all recreational and household work activities without limitations. - Pain R foot Pain Intensity (Out of 10): 2 Comment: nerve pain - Objective POSTURE: Pt tafoya reduced lumbar lordosis. Pt. has FH. Equal iliac crest heights. PALPATION: Pt. has slight tenderness to B lumbar paraspinals R worse than L. NEURO: Pt. has decreased sensation to light touch at medial distal LE on R side, normal on L. Pt. had decreased DTR of BLEs both patellar and Achilles. ROM: LUMBAR SPINE: flexion min loss NE, ext min/mod loss increase NW, SB L mod loss increase NW, SB R mod loss increase NW, rotation mod loss bilat increase NW. Tight B HS noted. Normal hip ROM bilaterally. MMT: Pt. has equal distal LE strength without noted myotomal weakness. Core strength- poor. GAIT: Pt. had increased lateral sway of hips, patient slight flexed posture. He reports increased in big toe pain on R side with walking he irritated it. - Special Tests L/S Slump test left side: Negative L/S Slump test right side: Positive L/S Left Straight Leg Raise: Negative L/S Right Straight Leg Raise: Negative Lumbar Standing: Flexion - Mechanical Response: No effect Lumbar Standing: Flexion - Symptoms During Testing: Increases Lumbar Standing: Flexion - Symptoms After Testing: No effect Lumbar Standing: Extension - Mechanical Response: No effect Lumbar Standing: Extension - Symptoms During Testing: Increases Lumbar Standing: Extension - Symptoms After Testing: Worse Lumbar Standing: Right Side Glides - Mechanical Response: No effect Lumbar Standing: Right Side [place] - Symptoms During Testing: Increases Lumbar Standing: Right Side [place] - Symptoms After Testing: No worse Lumbar Standing: Left Side [place] - Mechanical Response: No effect Lumbar Standing: Left Side [place] - Symptoms During Testing: Increases Lumbar Standing: Left Side [place] - Symptoms After Testing: No worse Lumbar Lying: Flexion - Mechanical Response: No effect Lumbar Lying: Flexion - Symptoms During Testing: Decreases Lumbar Lying: Flexion - Symptoms After Testing: Better Lumbar Lying: Extension - Mechanical Response: No effect Lumbar Lying: Extension - Symptoms During Testing: Increases Lumbar Lying: Extension - Symptoms After Testing: Worse - Balance/Special Test Scores Oswestry Low Back Score: 19 - Goals Goal 1:: LTG: Pt. to be I with HEP. Goal Time Frame: 2-4 Weeks Goal 2:: STG: Pt. to have increased lumbar ROM by 25% without increase in symptoms. Goal Time Frame: 2 Weeks Goal 3:: LTG: pt. to be able to stand/walk for unlimited time frames without increase in RLE pain. 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 Goal Time Frame: 2-4 Weeks Goal 5:: LTG: Pt. to have increased core strength to fair in order to reduce stress to lumbar spine with all functional activities. Goal Time Frame: 4-6 Weeks - Rehabilitation Potential Physical Therapy Diagnosis: Pt. appears to have R lumbar radiculopathy at the lower segments of his lumbar spine. Pt. did have reduced symptoms with flexion exercises, and increased symptoms with extension of the lumbar spine. No change in symptoms with ankle mobility and no foot tenderness to palpation. He is to have an EMG study tomorrow which should also assist with diagnosis. Pt. would benefit from PT to work on directional preference to reduce symptoms and core stability to reduce stress to lumbar spine with all standing and functional mobility. Rehabilitation Potential: Good - Anticipated Interventions Patient/Client Instruction: Educate patient on: Condition, Plan of Care, Risk Factors, Benefits of Fitness Program For the Purpose of:: To foster healthy habits, To improve decision making, To facilitate caregiver knowledge, To improve self management, To prevent re- injury, To improve ability to perform tasks related to life management, To improve tolerance to ADL's Therapeutic Exercise to Include: Strength training, Power training, Body mechanics, Postural training, Flexibilty training, Gait and locomotor training, Passive ROM, Active ROM, Dynamic Lumbar Stabilization, John Exercises For the Purpose of:: To decrease pain, To decrease swelling/inflammation, To increase ROM, To improve nutrient delivery to tissue, To increase oxygenation perfusion, To improve muscle performance and motor function, To improve ability to perform ADL's, To improve gait and locomotor functions, To improve health of tissue, To decrease soft tissue restriction, To increase flexibility/ROM Manual Therapy Techniques to Include: Mobilization, Passive ROM, Soft tissue mobilization For the Purpose of:: To decrease pain, To decrease swelling/inflammation, To increase ROM, To improve nutrient delivery to tissue, To increase oxygenation perfusion, To improve muscle performance and motor function, To improve health of tissue, To decrease soft tissue restriction Thank you for the opportunity to evaluate your patient. For Medicare and Medicare HMO plans, please review the plan of care and approve it. It will need to be FAXED BACK to us at [phone] for Medicare purposes. For Medicare only, by signing this I certify the plan of care. Please let me know if there are questions or concerns regarding this plan of care. Physician Signature: Date:
== END 2022-02-06 19:00 | disposition home or self-care (01) ==
LOC: PT 16:00
PROVIDERS: PCP Family Medicine Geriatric Medicine; Referring Provider Family Medicine Geriatric Medicine; Visit Provider Family Medicine Geriatric Medicine
DX: M54.16 Radiculopathy, lumbar region (principal)
CPT/HCPCS: 97110; 97161

== ENCOUNTER → 2022-03-06 | Outpatient (CLI) | payer OTHER, SELFPAY ==
--- NOTE | 2022-03-06 14:50 | RAD_ITS ---
INDICATION: BULLET IN THIGH EXAMINATION/TECHNIQUE: X-RAY - RIGHT XR Femur Min 2 Views 4 VIEWS COMPARISON: None. FINDINGS: SOFT TISSUES: No soft tissue swelling or gas. Radiopaque foreign bodies are seen, no overlying soft tissue opacification, no underlying osseous abnormality.. BONES/JOINTS: No acute fracture or subluxation.. Normal alignment. Preservation of the joint space.. No sclerotic or destructive changes observed. RAD/Femur Min 2 Views IMPRESSION: Radiopaque foreign bodies visualized within the thigh soft tissues, Electronically Signed: William King MD at 15:13 EDT ,
== END | disposition home or self-care (01) ==
PROVIDERS: PCP Family Medicine Geriatric Medicine; Visit Provider Family Medicine Geriatric Medicine
DX: S70.351A Superficial foreign body, right thigh, initial encounter (principal)
CPT/HCPCS: 73552

== ENCOUNTER → 2022-03-22 | Outpatient (CLI) | payer OTHER, SELFPAY ==
--- NOTE | 2022-03-22 12:51 | CT_ITS ---
STUDY: CT LUMBAR SPINE WITHOUT CONTRAST REASON FOR EXAM: Male, 62 years old. SPINAL STENOSIS RADIATION DOSAGE (If Supplied By Facility): CTDIvol = ( 45.52 ) mGy, DLP = ( 1390.54 ) mGycm TECHNIQUE: The patient was scanned in a multi detector CT scanner. High resolution transaxial imaging was performed. Images were obtained from T12 to S1 vertebral level. Sagittal and coronal images were reconstructed. Individualized dose optimization techniques were used for this CT. COMPARISON: None FINDINGS: There is straightening of the normal lumbar lordosis. There is no substantial scoliosis. Normal vertebrae of the lumbar spine. L1-2: Mild degree of disc space narrowing. Minimal anterior spondylosis. No significant stenosis is seen. L2-3: Mild degree of disc space narrowing. Mild degree of spondylosis. No significant stenosis is seen. L3-4: Mild degree of the disc space narrowing. Mild anterior spondylosis. Mild degree of central canal stenosis due to mild degree of diffuse posterior disc bulge and facet joint osteoarthritis as well as hypertrophy of the ligamentum flavum. L4-5: Mild degree of disc space narrowing. Mild degree of the central canal stenosis due to a combination of hypertrophy of the facet joints as well as the ligamentum flavum. Mild degree of diffuse posterior disc bulge. L5-S1: Moderate degree of disc space narrowing and disc degeneration. No evidence of spinal stenosis. Normal visualized paraspinous soft tissue structures. CT/Spine Lumbar without Contrast IMPRESSION: Multilevel degenerative changes, as described above. Electronically Signed: Braydon Parada MD at 14:17 EDT ,
== END | disposition home or self-care (01) ==
PROVIDERS: PCP Family Medicine Geriatric Medicine; Visit Provider Family Medicine Geriatric Medicine
DX: M48.061 Spinal stenosis, lumbar region without neurogenic claudication (principal)
CPT/HCPCS: 72131

== ENCOUNTER → 2022-04-12 | Outpatient (CLI) | payer OTHER, SELFPAY ==
--- NOTE | 2022-04-12 14:17 | RAD_ITS ---
EXAM: XR THORACIC SPINE, 3 VIEWS CLINICAL INDICATION: BACK PAIN TECHNIQUE: Frontal, lateral and swimmer''s views of the thoracic spine. This report was created using [employer] technology. COMPARISON: None. FINDINGS: VERTEBRAE: Unremarkable. Preserved vertebral body height. No fracture. No spondylolisthesis. Preservation of the normal thoracic kyphosis. No significant facet arthropathy. DISC SPACES: Unremarkable. Disc spaces are maintained. RAD/Thoracic Spine 3 Views IMPRESSION: Normal thoracic spine radiographs. Electronically Signed: Aldair Alamo MD at 17:13 EDT ,
== END | disposition home or self-care (01) ==
LOC: RAD 14:14
PROVIDERS: PCP Family Medicine Geriatric Medicine; Referring Provider Family Medicine Geriatric Medicine; Visit Provider Family Medicine Geriatric Medicine
DX: M54.6 Pain in thoracic spine (principal)
CPT/HCPCS: 72072

== ENCOUNTER → 2022-06-26 | Outpatient (CLI) | payer OTHER, SELFPAY ==
[2022-06-26 17:23] LABS: Absolute Lymphocyte Count 1.97 X10^3/uL (0.83-4.51); Absolute Neutrophil Count 7.6 X10^3/uL (2.0-7.7); Basophil# 0.04 X10^3/uL; Basophil% 0.4 % (0-1); Eosinophil# 0.08 X10^3/uL; Eosinophils% 0.8 % (0-5); Hematocrit 45.2 % (40-54); Hemoglobin 14.9 g/dL (13.0-16.5); Lymphocyte # 1.97 X10^3/ul (0.83-4.51); Lymphocyte % 19.2 % (19-41); Mean Corpuscular Hgb 29.1 pg (27.0-32.0); Mean Corpuscular Volume 88.3 fL (80-94); Mean Platelet Vol. 11.3 fl (6.2-12.0); Monocyte# 0.58 X10^3/uL; Monocyte% 5.6 % (0-10); NRBC Flagged by Analyzer 0 % (0-5); Neutrophil # 7.55 X10^3/uL (2.7-7.7); Neutrophil % 73.4 % (47-70); Platelet Count 229 K/mm3 (150-450); RBC Distribution Width CV 13.2 % (11.6-14.6); RBC Distribution Width SD 42.9 fl (35.1-43.9); Red Blood Count 5.12 M/mm3 (4.6-6.2); White Blood Count 10.3 K/mm3 (4.4-11.0)
[2022-06-26 18:12] LABS: ALB/GLOB Ratio 0.9 RATIO (0.9-2.4); AST(SGOT) 10 U/L (15-37); Alanine Aminotransfer ALT/SGPT 22 U/L (16-61); Albumin, Serum 3.2 g/dL (3.2-5.0); Alkaline Phosphatase 93 U/L (45-117); Anion Gap 7 (5-15); BUN 18 mg/dL (7-18); BUN/Creat Ratio 18.8 RATIO (10-20); Calcium,Total 9.1 mg/dL (8.5-10.1); Chloride 107 mmol/L (98-107); Creatinine, Serum 0.96 mg/dL (0.70-1.30); EST Glomerular Filtration Rate 84 mL/min (>60); Est Glom Filt Rate - Afr Amer 101 mL/min (>60); Globulin 3.5 g/dL (2.2-4.2); Glucose 115 mg/dL (74-106); Potassium 3.4 mmol/L (3.5-5.1); Protein, Total 6.7 g/dL (6.4-8.2); Sodium Level 139 mmol/L (136-145); Thyroid Stim Hormone (TSH) 1.74 uIU/mL (0.358-3.74)
== END | disposition home or self-care (01) ==
LOC: POLAB3 13:46
PROVIDERS: PCP Family Medicine Geriatric Medicine; Visit Provider Family Medicine Geriatric Medicine
DX: R53.83 Other fatigue (principal)
CPT/HCPCS: 36415; 80053; 84443; 85025

== ENCOUNTER → 2022-12-31 | Outpatient (CLI) | payer OTHER, SELFPAY ==
[2022-12-31 16:13] LABS: Absolute Neutrophil Count 6.3 X10^3/uL (2.0-7.7); Basophil# 0.06 X10^3/uL; Basophil% 0.7 % (0-1); Eosinophil# 0.23 X10^3/uL; Eosinophils% 2.5 % (0-5); Hematocrit 45.9 % (40-54); Hemoglobin 14.5 g/dL (13.0-16.5); Mean Corp Hgb Conc 31.6 g/dL (32-36); Mean Corpuscular Hgb 27.9 pg (27.0-32.0); Mean Corpuscular Volume 88.4 fL (80-94); Mean Platelet Vol. 10.7 fl (6.2-12.0); Monocyte# 0.51 X10^3/uL; Monocyte% 5.6 % (0-10); NRBC Flagged by Analyzer 0 % (0-5); Neutrophil # 6.27 X10^3/uL (2.7-7.7); Neutrophil % 68.9 % (47-70); Platelet Count 243 K/mm3 (150-450); RBC Distribution Width CV 13.3 % (11.6-14.6); RBC Distribution Width SD 43.3 fl (35.1-43.9); Red Blood Count 5.19 M/mm3 (4.6-6.2); White Blood Count 9.1 K/mm3 (4.4-11.0)
[2022-12-31 16:48] LABS: ALB/GLOB Ratio 0.8 RATIO (0.9-2.4); AST(SGOT) 18 U/L (15-37); Alanine Aminotransfer ALT/SGPT 21 U/L (16-61); Albumin, Serum 3.1 g/dL (3.2-5.0); Alkaline Phosphatase 119 U/L (45-117); Anion Gap 4 (5-15); BUN 17 mg/dL (7-18); BUN/Creat Ratio 16.2 RATIO (10-20); Chloride 110 mmol/L (98-107); Creatinine, Serum 1.05 mg/dL (0.70-1.30); EST Glomerular Filtration Rate 75 mL/min (>60); Est Glom Filt Rate - Afr Amer 91 mL/min (>60); Globulin 3.7 g/dL (2.2-4.2); Glucose 101 mg/dL (74-106); PSA,Total - Annual Screen 4.17 ng/mL (0.00-4.00); Potassium 4.2 mmol/L (3.5-5.1); Protein, Total 6.8 g/dL (6.4-8.2); Sodium Level 140 mmol/L (136-145); Thyroid Stim Hormone (TSH) 1.83 uIU/mL (0.358-3.74)
== END | disposition home or self-care (01) ==
LOC: LAB 15:51
PROVIDERS: PCP Family Medicine Geriatric Medicine; Referring Provider Family Medicine Geriatric Medicine; Visit Provider Family Medicine Geriatric Medicine
DX: R53.83 Other fatigue (principal)
CPT/HCPCS: 36415; 80053; 84153; 84443; 85025; G0103

== ENCOUNTER → 2023-07-02 | Outpatient (CLI) | payer OTHER, SELFPAY ==
[2023-07-02 11:05] LABS: Absolute Lymphocyte Count 1.74 X10^3/uL (0.83-4.51); Absolute Neutrophil Count 7.1 X10^3/uL (2.0-7.7); Basophil# 0.04 X10^3/uL; Basophil% 0.4 % (0-1); Eosinophil# 0.08 X10^3/uL; Eosinophils% 0.8 % (0-5); Hematocrit 47.3 % (40-54); Hemoglobin 14.7 g/dL (13.0-16.5); Lymphocyte # 1.74 X10^3/ul (0.83-4.51); Lymphocyte % 18.4 % (19-41); Mean Corp Hgb Conc 31.1 g/dL (32-36); Mean Corpuscular Hgb 27.6 pg (27.0-32.0); Mean Corpuscular Volume 88.9 fL (80-94); Monocyte# 0.47 X10^3/uL; NRBC Flagged by Analyzer 0 % (0-5); Neutrophil # 7.12 X10^3/uL (2.7-7.7); Neutrophil % 75.1 % (47-70); Platelet Count 218 K/mm3 (150-450); RBC Distribution Width CV 13.2 % (11.6-14.6); RBC Distribution Width SD 42.7 fl (35.1-43.9); Red Blood Count 5.32 M/mm3 (4.6-6.2); White Blood Count 9.5 K/mm3 (4.4-11.0)
[2023-07-02 11:52] LABS: ALB/GLOB Ratio 0.8 RATIO (0.9-2.4); AST(SGOT) 16 U/L (15-37); Alanine Aminotransfer ALT/SGPT 22 U/L (16-61); Albumin, Serum 3.2 g/dL (3.2-5.0); Alkaline Phosphatase 110 U/L (45-117); Anion Gap 7 (5-15); BUN 15 mg/dL (7-18); BUN/Creat Ratio 16.5 RATIO (10-20); Calcium,Total 8.7 mg/dL (8.5-10.1); Chloride 109 mmol/L (98-107); Creatinine, Serum 0.91 mg/dL (0.70-1.30); EST Glomerular Filtration Rate 89 mL/min (>60); Est Glom Filt Rate - Afr Amer 108 mL/min (>60); Glucose 115 mg/dL (74-106); PSA,Total- Diagnostic 4.39 ng/mL (0.0-4.0); Protein, Total 7.2 g/dL (6.4-8.2); Sodium Level 140 mmol/L (136-145); Thyroid Stim Hormone (TSH) 2.87 uIU/mL (0.358-3.74)
== END | disposition home or self-care (01) ==
LOC: POLAB3 09:24
PROVIDERS: PCP Family Medicine Geriatric Medicine; Visit Provider Family Medicine Geriatric Medicine
DX: R97.20 Elevated prostate specific antigen [PSA] (principal); R53.83 Other fatigue; E55.9 Vitamin D deficiency, unspecified
CPT/HCPCS: 36415; 80053; 82306; 84153; 84443; 85025

== ENCOUNTER → 2023-08-08 | Outpatient (CLI) | payer OTHER, SELFPAY ==
--- OUTSIDE RECORDS SUMMARY | 2023-08-08 07:20 | XMS RPT_ITS | CCD ---
Author Name Unknown Address [address] [place] [address] Organization [facility] Care Team Providers Care Retail Administrative Assistant Name Role Phone DENIA, DR HECTOR Kerr Attending Unavaila ble DENIA, DR HECTOR Kerr Primary Care Unavaila ble DENIA, DR HECTOR Kerr Admitting Unavaila ble DENIA, DR HECTOR Kerr Attending Unavaila ble DENIA, DR HECTOR Kerr Primary Care Unavaila ble DENIA, DR HECTOR Kerr Admitting Unavaila ble Unavailable Primary Care Provider Unavailabl e Allergies Allergy Classification Reported Allergen(s) Allergy Type Date of Onset Reaction(s) Facility (1 source) Penicillins Drug Intolerance 2 GI Upset [facility] Work Phone: Medications Current Medications Medication Drug Class(es) Dates Sig (Normalized) Sig (Original) cyclobenzaprine hydrochloride 10 mg oral tablet (1 source) Muscle Relaxant Start: 04-06-2022 End: 04-11-2022 take 1 tablet by mouth every eight hours as needed cyclobenzaprine (FLEXERIL) 10 mg tablet Take 1 tablet by mouth every 8 hours as needed for up to 5 days. 10 tablet 0 04/06/2022 04/11/2022 Active Completed/Discontinued Medications Medication Drug Class(es) Dates Sig (Normalized) Sig (Original) 200 actuat albuterol 0.09 mg/actuat dry powder inhaler (1 source) beta2-Adrenergic Agonist albuterol sulfate 90 mcg/actuation breath activated powder inhaler Inhale as instructed. 0 Active Problems Problem Classification Problem Date Documented Da te Episodic/Chronic Spondylosis; intervertebral disc disorders; other back problems (1 source) Acute thoracic back pain; Translations: [Pain in thoracic spine] Episodic Results Test Name Value Interpretation Reference Range Facil ity Vital Signs Date Time Vital Sign Value Performing Clinician Arnaldo anderson 04-06-2022 09:26-0400 Body temperature 97 [degF] Denae Mcdaniel SOLUTION ARCHITECT.RAILROAD REPAIRER Work Phone: [facility] 04-06-2022 09:26-0400 Body weight 127.46 kg Denae Mcdaniel SOLUTION ARCHITECT.RAILROAD REPAIRER Work Phone: [facility] 04-06-2022 09:26-0400 Diastolic blood pressure 84 mm[Hg] Denae Mcdaniel SOLUTION ARCHITECT.RAILROAD REPAIRER Work Phone: [facility] 04-06-2022 09:26-0400 Heart rate 78 /min Denae Mcdaniel SOLUTION ARCHITECT.RAILROAD REPAIRER Work Phone: [facility] 04-06-2022 09:26-0400 Respiratory rate 18 /min Denae Mcdaniel SOLUTION ARCHITECT.RAILROAD REPAIRER Work Phone: [facility] 04-06-2022 09:26-0400 SaO2% (BldA) [Mass fraction] 98 % Denae Mcdaniel SOLUTION ARCHITECT.RAILROAD REPAIRER Work Phone: [facility] 04-06-2022 09:26-0400 Systolic blood pressure 142 mm[Hg] Denae Mcdaniel SOLUTION ARCHITECT.RAILROAD REPAIRER Work Phone: [facility] Encounters Encounter Date Encounter Type Care Provider Facility Start: 04-06-2022 End: 04-06-2022 ambulatory Facility:[facility] Start: 04-06-2022 End: 04-06-2022 Patient encounter procedure Denae Mcdaniel APRN.RAILROAD REPAIRER Work Phone: [facility] Plan of Treatment Date Care Activity Detail Author Start: 03-21-2022 Influenza vaccination INFLUENZA (#1) [facility] Start: 2013 PROSTATE CANCER SCRE ENING DISCUSSION PROSTATE CANCER SCREENING DISCUSSION [facility] Start: 01-23-2008 SHINGRIX VACCINE (1 of 2) SHINGRIX V ACCINE (1 of 2) [facility] Start: 2003 COLOGUARD (FIT-DNA) COLOGUARD (FIT-D NA) [facility] Start: 2003 Colonoscopy COLONOSCOPY [facility] Start: 2003 COLORECTAL CANCER SCREENING COLORECTAL CANCER SCREENING [facility] Start: [address] COLONOGRAPHY [facility] Start: 2003 DIABETES SCREEN DIABETES SCREEN [facility] Start: 2003 FECAL OCCULT BLOOD FECAL OCCULT BLOO D [facility] Start: 2003 SIGMOIDOSCOPY SIGMOIDOSCOPY [facility] Start: 1993 LIPID SCREEN LIPID SCREEN [facility] Start: 1977 Urine microalbumin profile DTAP,TDAP ,TD (1 - Tdap) [facility] Start: 01-23-1976 HEPATITIS C SCREENING HEPATITIS C SC REENING [facility] Start: 01-23-1976 HIV SCREENING HIV SCREENING [facility] Start: 1970 Adult depression scr eening assessment DEPRESSION SCREENING [facility] Start: 1960 COVID-19 VACCINE (#1) COVID-19 VACCI NE (#1) [facility] Payers Date Payer Category Payer Private Health Insurance [employer] PPO [id number] 2022-Present [phone] [address] [place] [address] PPO [id number] 2022 Private Health Insurance [id number] 1960 Unknown [id number] 1960 Unknown [id number] Unknown [id number] Social History Date Type Detail Facility Start: 04-06-2022 Tobacco smoking status NHIS Ex-smoker [facility] Work Phone: History of tobacco use Current smoker [facility] Work Phone: History of tobacco use Cigarette Smoker [facility] Work Phone: Start: 1960 Sex Assigned At Not on file C [facility] NEGATED: Highlighted rowStart: NINF History of tobacco use Passive smoker [facility] Work Phone: Progress note 04-06-2022 Note Date & Type Note Facility 04-06-2022 Note HNO ID: [id number] Author: Denae Mcdaniel APRN.RAILROAD REPAIRER Service: ? Author Type: Nurse Practitioner Type: Progress Notes Filed: 04/06/2022 9:50 AM Note Text: This note was created using [employer]. Subjective Amanda Pollard is a 62 year old male. 62 year old male with PMH hyperlipidemia, BPH, presents for back pain. Acute onset 5 days ago Left upper back States when he woke up in the morning he felt tight Aching pain Has used ice. States that he has had similar in past. 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 Denies inability to ambulate, fever or chills, drug usage, or history of DM. Denies sx. Denies skin rash or lesions. The history is provided by the patient. Back Pain This is a recurrent problem. The current episode started more than 2 days ago. The problem occurs constantly. The problem has not changed since onset.The pain is present in the thoracic spine. The quality of the pain is described as aching and stabbing. The pain is at a severity of 7/10. The pain is mild. The symptoms are aggravated by bending, twisting and certain positions. The pain is The same all the time. Stiffness is present All day. Pertinent negatives include no chest pain, no fever, no numbness, no weight loss, no headaches, no abdominal pain, no abdominal swelling, no bowel incontinence, no perianal numbness, no bladder incontinence, no dysuria, no pelvic pain, no leg pain, no paresthesias, no paresis, no tingling and no weakness. He has tried ice for the symptoms. The treatment provided no relief. Risk factors include poor posture, lack of exercise and obesity. No past medical history on file. No past surgical history on file. ALLERGIES Penicillins MEDICATIONS baclofen (LIORESAL) 10 mg tablet TAKE 1 TABLET ORALLY ONCE PER DAY FOR 7 DAYS TAKE AT BEDTIME. pantoprazole DR (PROTONIX) 40 mg tablet TAKE 1 TABLET ORALLY ONCE PER DAY FOR 7 DAYS pravastatin (PRAVACHOL) 40 mg tablet Take 40 mg by mouth daily at bedtime. tamsulosin (FLOMAX) 0.4 mg TAKE 2 CAPSULES ORALLY ONCE PER DAY FOR 90 DAYS AT BEDTIME topiramate (TOPAMAX) 25 mg tablet Take 25 mg by mouth once daily. albuterol sulfate 90 mcg/actuation breath activated powder inhaler Inhale as instructed. cyclobenzaprine (FLEXERIL) 10 mg tablet Take 1 tablet by mouth every 8 hours as needed for up to 5 days. lidocaine (SALONPAS) 4 % patch Apply 1 Patch as directed once daily for 5 days. Remove patch after 12 hours predniSONE (DELTASONE) 10 mg tablet Take 4 tabs daily for 3 days, then 2 tabs daily for 3 days, then 1 tab daily for 3 days with food. No family history on file. Social History Tobacco Use Smoking status: Former Types: Cigarettes Passive exposure: Never Review of Systems Constitutional: Negative for activity change, appetite change, chills, fever and weight loss. Eyes: Negative for photophobia, pain, discharge, redness, itching and visual disturbance. Respiratory: Negative for apnea, cough, choking and chest tightness. Cardiovascular: Negative for chest pain. Gastrointestinal: Negative for abdominal pain, bowel incontinence, diarrhea, nausea and vomiting. Genitourinary: Negative for bladder incontinence, dysuria and pelvic pain. Musculoskeletal: Positive for back pain. Skin: Negative for color change, pallor, rash and wound. Allergic/Immunologic: Negative for environmental allergies, food allergies and immunocompromised state. Neurological: Negative for tingling, weakness, numbness, headaches and paresthesias. Hematological: Negative for adenopathy. Does not bruise/bleed easily. Psychiatric/Behavioral: Negative for agitation and behavioral problems. Objective BP 142/84 Pulse 78 Temp 36.1 ?C (97 ?F) Resp 18 Wt 127.5 kg (281 lb) SpO2 98% Physical Exam Vitals and nursing note reviewed. Constitutional: General: He is not in acute distress. Appearance: Normal appearance. He is not ill-appearing, toxic-appearing or diaphoretic. HENT: Head: Normocephalic and atraumatic. Right Ear: External ear normal. Left Ear: External ear normal. Nose: Nose normal. No congestion or rhinorrhea. Mouth/Throat: Mouth: Mucous membranes are moist. Pharynx: Oropharynx is clear. No oropharyngeal exudate or posterior oropharyngeal erythema. Eyes: General: Right eye: No discharge. Left eye: No discharge. Extraocular Movements: Extraocular movements intact. Conjunctiva/sclera: Conjunctivae normal. Pupils: Pupils are equal, round, and reactive to light. Cardiovascular: Rate and Rhythm: Normal rate and regular rhythm. Pulses: Normal pulses. Heart sounds: Normal heart sounds. No murmur heard. No friction rub. No gallop. Pulmonary: Effort: Pulmonary effort is normal. No respiratory distress. Breath sounds: Normal breath sounds. No stridor. No wheezing, rhonchi or rales. Chest: Chest wall: No tenderness. Abdominal: General: Ab (more content not included)... [facility] History of Present illness Narrative 04-06-2022 Denae Mcdaniel APRN.RAILROAD REPAIRER - 04/06/2022 9:32 AM EDT Note Date & Type Note Facility 04-06-2022 History of Presen t illness Narrative This note was created using [employer]. Subjective Amanda Pollard is a 62 year old male. 62 year old male with PMH hyperlipidemia, BPH, presents for back pain. Acute onset 5 days ago Left upper back States when he woke up in the morning he felt tight Aching pain Has used ice. States that he has had similar in past. 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 Denies inability to ambulate, fever or chills, drug usage, or history of DM. Denies sx. Denies skin rash or lesions. The history is provided by the patient. Back Pain This is a recurrent problem. The current episode started more than 2 days ago. The problem occurs constantly. The problem has not changed since onset.The pain is present in the thoracic spine. The quality of the pain is described as aching and stabbing. The pain is at a severity of 7/10. The pain is mild. The symptoms are aggravated by bending, twisting and certain positions. The pain is The same all the time. Stiffness is present All day. Pertinent negatives include no chest pain, no fever, no numbness, no weight loss, no headaches, no abdominal pain, no abdominal swelling, no bowel incontinence, no perianal numbness, no bladder incontinence, no dysuria, no pelvic pain, no leg pain, no paresthesias, no paresis, no tingling and no weakness. He has tried ice for the symptoms. The treatment provided no relief. Risk factors include poor posture, lack of exercise and obesity. No past medical history on file. No past surgical history on file. ALLERGIES Penicillins MEDICATIONS baclofen (LIORESAL) 10 mg tablet TAKE 1 TABLET ORALLY ONCE PER DAY FOR 7 DAYS TAKE AT BEDTIME. pantoprazole DR (PROTONIX) 40 mg tablet TAKE 1 TABLET ORALLY ONCE PER DAY FOR 7 DAYS pravastatin (PRAVACHOL) 40 mg tablet Take 40 mg by mouth daily at bedtime. tamsulosin (FLOMAX) 0.4 mg TAKE 2 CAPSULES ORALLY ONCE PER DAY FOR 90 DAYS AT BEDTIME topiramate (TOPAMAX) 25 mg tablet Take 25 mg by mouth once daily. albuterol sulfate 90 mcg/actuation breath activated powder inhaler Inhale as instructed. cyclobenzaprine (FLEXERIL) 10 mg tablet Take 1 tablet by mouth every 8 hours as needed for up to 5 days. lidocaine (SALONPAS) 4 % patch Apply 1 Patch as directed once daily for 5 days. Remove patch after 12 hours predniSONE (DELTASONE) 10 mg tablet Take 4 tabs daily for 3 days, then 2 tabs daily for 3 days, then 1 tab daily for 3 days with food. No family history on file. Social History Tobacco Use Smoking status: Former Types: Cigarettes Passive exposure: Never Review of Systems Constitutional: Negative for activity change, appetite change, chills, fever and weight loss. Eyes: Negative for photophobia, pain, discharge, redness, itching and visual disturbance. Respiratory: Negative for apnea, cough, choking and chest tightness. Cardiovascular: Negative for chest pain. Gastrointestinal: Negative for abdominal pain, bowel incontinence, diarrhea, nausea and vomiting. Genitourinary: Negative for bladder incontinence, dysuria and pelvic pain. Musculoskeletal: Positive for back pain. Skin: Negative for color change, pallor, rash and wound. Allergic/Immunologic: Negative for environmental allergies, food allergies and immunocompromised state. Neurological: Negative for tingling, weakness, numbness, headaches and paresthesias. Hematological: Negative for adenopathy. Does not bruise/bleed easily. Psychiatric/Behavioral: Negative for agitation and behavioral problems. Objective BP 142/84 Pulse 78 Temp 36.1 C (97 F) Resp 18 Wt 127.5 kg (281 lb) SpO2 98% Physical Exam Vitals and nursing note reviewed. Constitutional: General: He is not in acute distress. Appearance: Normal appearance. He is not ill-appearing, toxic-appearing or diaphoretic. HENT: Head: Normocephalic and atraumatic. Right Ear: External ear normal. Left Ear: External ear normal. Nose: Nose normal. No congestion or rhinorrhea. Mouth/Throat: Mouth: Mucous membranes are moist. Pharynx: Oropharynx is clear. No oropharyngeal exudate or posterior oropharyngeal erythema. Eyes: General: Right eye: No discharge. Left eye: No discharge. Extraocular Movements: Extraocular movements intact. Conjunctiva/sclera: Conjunctivae normal. Pupils: Pupils are equal, round, and reactive to light. Cardiovascular: Rate and Rhythm: Normal rate and regular rhythm. Pulses: Normal pulses. Heart sounds: Normal heart sounds. No murmur heard. No friction rub. No gallop. Pulmonary: Effort: Pulmonary effort is normal. No respiratory distress. Breath sounds: Normal breath sounds. No stridor. No wheezing, rhonchi or rales. Chest: Chest wall: No tenderness. Abdominal: General: Abdomen is flat. There is no distension. Palpations: Abdomen is soft. There is no mass. Tenderness: There is no abdominal tenderness. There is no guarding or rebound. Hernia: No hernia is present. Musculoskeletal: General: No swelling, tenderness, deformity or signs of injury. Normal range of motion. Cervical back: Normal range of motion and neck supple. No rigidity or tenderness. Right lower leg: No edema. Left lower leg: No edema. Comments: Diffuse upper left thoracic paraspinal muscle tenderness and tightness No midline cervical, thoracici or lumbar TTP Ambulatory as well. Neuro intact. Sensation intact. Lymphadenopathy: Cervical: No cervical adenopathy. Skin: General: Skin is warm and dry. Capillary Refill: Capillary refill takes less than 2 seconds. Coloration: Skin is not jaundiced or pale. Findings: No bruising, lesion or rash. Neurological: General: No focal deficit present. Mental Status: He is alert and oriented to person, place, and time. Cranial Nerves: No cranial nerve deficit. Sensory: No sensory deficit. Motor: No weakness. Coordination: Coordination normal. Gait: Gait normal. Deep Tendon Reflexes: Reflexes normal. Psychiatric: Mood and Affect: Mood normal. Behavior: Behavior normal. Thought Content: Thought content normal. Assessment and Plan ASSESSMENT/PLAN: 1. Acute left-sided thoracic back pain - ICD9: 724.1, ICD10: M54.6 Thoracic Muscular No red flags - Ice for localized tenderness - Warm moist heat for 20 min three times a day - Prednisone burst- see orders - Muscle relaxant- see orders Lidocaine patches - Patient given instructions use of medications as ordered, back care exercise program, weight loss, improved posture, proper lifting techniques, intermittent use of heat, and avoiding sleeping on a heating pad - Follow up in 3 days or sooner if symptoms persist or worsen Denae Mcdaniel APRN.LUKAS documented in this encounter [facility] Evaluation note Note Date & Type Note Facility documented in this encounter [facility] Summary Purpose Family History No Family History Records FoundNo Family History Records Found Advance Directives No Advanced Directives Records FoundNo Advanced Directives Records Found Additional Source Comments (unrecognized sect ion and content) No Status Records FoundNo Status Records Found INFORMATION SOURCE (unrecogn ized section and content) DATE CREATED AUTHOR AUTHOR'S ORGANIZ ATION 04/20/2022 [facility] Source Comments (unrecognize d section and content) In the event this informatio n is protected by the Federal Confidentiality of Alcohol and Drug Abuse Patient Records regulations: The Federal rules restrict any use of the information to criminally investigate or prosecute any alcohol or drug abuse patient.[facility] Reason for Visit (unrecogniz ed section and content) FOR RECORDS PERTAINING TO PATIENTS WHO ARE OR HAVE BEEN ENROLLED IN A CHEMICAL DEPENDENCY/SUBSTANCEABUSE PROGRAM, SOME INFORMATION MAY BE OMITTED. This clinical summary was aggregated from multiple sources. Caution should be exercised in using it in the provision of clinical care. This summary normalizes information from multiple sources, and as a consequence, information in this document may materially change the coding, format and clinical context of patient data. In addition, data may be omitted in some cases. CLINICAL DECISIONS SHOULD BE BASED ON THE PRIMARY CLINICAL RECORDS. [facility] [employer] [facility]. provides no warranty or guarantee of the accuracy or completeness of information in this document.
== END | disposition home or self-care (01) ==
LOC: PSN 07:09
PROVIDERS: PCP Family Medicine Geriatric Medicine; Referring Provider Family Medicine Geriatric Medicine; Visit Provider Family Medicine Geriatric Medicine
DX: R68.83 Chills (without fever) (principal)
CPT/HCPCS: 87631

== ENCOUNTER 2023-09-05 07:24 | Day surgery (SDC) | payer OTHER, SELFPAY ==
--- NOTE | 2023-09-05 | COLBX_PTH ---
PATHOLOGY RESULTS PATIENT: AMANDA SANDOVAL LOC: EN U#:[id number] AGE/SX: 63/M ROOM: RE09/05/[address]: Dr. Payam Marino MD : 1960 BED: DIS: 09/05/2023 SPEC #: [id number] RECD: 09/05/23 13:24 STATUS: ROYA KELLIE #: [id number] ROXI: 09/05/23 00:[address]: Payam Marino DEPT: SURGICAL PATHOLOGY RECD BY: Son Woodward ENTERED: 09/08/23 08:00 SP TYPE: COLON BX OTHR DR: Dr. Desmond De Guzman MD Tissues: Sigmoid colon biopsy Sigmoid colon biopsy Procedures: Surgery Specimen Level IV HEADER OPERATION: Colonoscopy - open access, biopsy PRE-OP DIAGNOSIS: Screening, history of colon polyps TISSUE SUBMITTED: A - Sigmoid colon polyp biopsy, B - Sigmoid mucosa 18.0 cm biopsy MICROSCOPIC DIAGNOSIS A. Sigmoid colon polyp, biopsy: Fragments of hyperplastic polyp. B. Sigmoid mucosa at 18.0 cm, biopsy: Fragments of hyperplastic polyp. AM:claudia 09/09/2023 MICROSCOPIC DESCRIPTION Slides are reviewed. GROSS DESCRIPTION A - Received in fixative is one container labeled with the patient's name and designated sigmoid colon polyp. The specimen consists of multiple irregular fragments of light guerrero soft tissue that in aggregate measure 0.8 x 0.3 x 0.1 cm. The specimen is totally submitted in one cassette. B - Received in fixative is one container labeled with the patient's name and designated sigmoid mucosa biopsy. The specimen consists of multiple irregular fragments of light guerrero soft tissue that in aggregate measure 1.5 x 0.4 x 0.1 cm. The specimen is totally submitted in one cassette. / SJ:claudia 09/08/2023 TC:5 [facility]: [id number] [id number]
--- OUTSIDE RECORDS SUMMARY | 2023-09-05 07:42 | XMS RPT_ITS | CCD ---
Author Name Unknown Address [address] [place] [address] Organization [facility] Care Team Providers Care Circuit Manager Name Role Phone DENIA, DR HECTOR Kerr [...] source) Penicillins Drug Intolerance 2 GI Upset [facility] Work Phone: Medications Current Medications Medication [...] 09:26-0400 Body temperature 97 [degF] Denae Mcdaniel AIX SYSTEM ADMINISTRATOR.WEATHER FORECASTER Work Phone: [facility] 04-06-2022 09:26-0400 Body weight 127.46 kg Denae Mcdaniel AIX SYSTEM ADMINISTRATOR.WEATHER FORECASTER Work Phone: [facility] 04-06-2022 09:26-0400 Diastolic blood pressure 84 mm[Hg] Denae Mcdaniel AIX SYSTEM ADMINISTRATOR.WEATHER FORECASTER Work Phone: [facility] 04-06-2022 09:26-0400 Heart rate 78 /min Denae Mcdaniel AIX SYSTEM ADMINISTRATOR.WEATHER FORECASTER Work Phone: [facility] 04-06-2022 09:26-0400 Respiratory rate 18 /min Denae Mcdaniel AIX SYSTEM ADMINISTRATOR.WEATHER FORECASTER Work Phone: [facility] 04-06-2022 09:26-0400 SaO2% (BldA) [Mass fraction] 98 % Denae Mcdaniel AIX SYSTEM ADMINISTRATOR.WEATHER FORECASTER Work Phone: [facility] 04-06-2022 09:26-0400 Systolic blood pressure 142 mm[Hg] Denae Mcdaniel AIX SYSTEM ADMINISTRATOR.WEATHER FORECASTER Work Phone: [facility] Encounters Encounter Date Encounter Type Care Provider Facility Start: 04-06-2022 End: 04-06-2022 ambulatory Facility:[facility] Start: 04-06-2022 End: 04-06-2022 Patient encounter procedure Denae Mcdaniel APRN.WEATHER FORECASTER Work Phone: [facility] Plan of Treatment Date Care Activity Detail Author Start: 03-21-2022 Influenza vaccination INFLUENZA (#1) [facility] Start: 2013 PROSTATE CANCER SCRE ENING DISCUSSION PROSTATE CANCER SCREENING DISCUSSION [facility] Start: 01-23-2008 SHINGRIX VACCINE (1 of 2) SHINGRIX V ACCINE (1 of 2) [facility] Start: 2003 COLOGUARD (FIT-DNA) COLOGUARD (FIT-D NA) [facility] Start: 2003 Colonoscopy COLONOSCOPY [facility] Start: 2003 COLORECTAL CANCER SCREENING COLORECTAL CANCER SCREENING [facility] Start: [address] COLONOGRAPHY [facility] Start: 2003 DIABETES SCREEN DIABETES SCREEN [facility] Start: 2003 FECAL OCCULT BLOOD FECAL OCCULT BLOO D [facility] Start: 2003 SIGMOIDOSCOPY SIGMOIDOSCOPY [facility] Start: 1993 LIPID SCREEN LIPID SCREEN [facility] Start: 1977 Urine microalbumin profile DTAP,TDAP ,TD (1 - Tdap) [facility] Start: 01-23-1976 HEPATITIS C SCREENING HEPATITIS C SC REENING [facility] Start: 01-23-1976 HIV SCREENING HIV SCREENING [facility] Start: 1970 Adult depression scr eening assessment DEPRESSION SCREENING [facility] Start: 1960 COVID-19 VACCINE (#1) COVID-19 VACCI NE (#1) [facility] Payers Date Payer Category Payer Private Health Insurance [employer] PPO [id number] 2022-Present [phone] [address] [place] [address] PPO [id number] 2022 Private Health Insurance [id number] 1960 Unknown [id number] 1960 Unknown [id number] Unknown 2083 Social History Date Type Detail Facility Start: 04-06-2022 Tobacco smoking status NHIS Ex-smoker [facility] Work Phone: History of tobacco use Current smoker [facility] Work Phone: History of tobacco use Cigarette Smoker [facility] Work Phone: Start: 1960 Sex Assigned At Not on file [facility] NEGATED: Highlighted rowStart: NINF History of tobacco use Passive smoker [facility] Work Phone: Progress note 04-06-2022 Note Date & Type Note Facility 04-06-2022 Note HNO ID: [id number] Author: Denae Mcdaniel APRN.WEATHER FORECASTER Service: ? Author Type: Nurse Practitioner Type: Progress Notes Filed: 04/06/2022 9:50 AM Note Text: This note was created using [employer]riter. Subjective Amanda Pollard is a 62 year [...] Abdominal: General: Ab (more content not included)... [facility] History of Present illness Narrative 04-06-2022 Denae Mcdaniel APRN.WEATHER FORECASTER - 04/06/2022 9:32 AM EDT Note Date & Type Note Facility 04-06-2022 History of Presen t illness Narrative This note was created using [employer]riter. Subjective Amanda Pollard is a 62 year [...] Denae Mcdaniel APRN.LUKAS documented in this encounter [facility] Evaluation note Note Date & Type Note Facility documented in this encounter [facility] Summary Purpose Family History No Family History Records FoundNo Family History Records Found Advance Directives No Advanced Directives Records FoundNo Advanced Directives Records Found Additional Source Comments (unrecognized sect ion and content) No Status Records FoundNo Status Records Found INFORMATION SOURCE (unrecogn ized section and content) DATE CREATED AUTHOR AUTHOR'S ORGANIZ ATION 04/20/2022 [facility] Source Comments (unrecognize d section and content) In the event this informatio n is protected by the Federal Confidentiality of Alcohol and Drug Abuse Patient Records regulations: The Federal rules restrict any use of the information to criminally investigate or prosecute any alcohol or drug abuse patient.[facility] Reason for Visit (unrecogniz ed section [...] BE BASED ON THE PRIMARY CLINICAL RECORDS. [facility] [employer] [facility]. provides no warranty or guarantee of the accuracy or completeness of information in this document.
[2023-09-05 07:48] VITALS: BP 132/76; PULSE 88; RESP 16; TEMP 36.2; O2SAT 100; BMI 44.1
[2023-09-05] MEDS: Lactated Ringers 1,000 ML 15 ML IV (07:52)
--- NOTE | 2023-09-05 08:31 | HP.PCM_ITS ---
[facility] - General General Date of Admission: 09/05/23 HPI Narrative AMANDA POLLARD, is a 63 M who presents for screening colonoscopy. He confirms his preappointment questionnaire that he has not experienced any change in his bowel habits-and particularly denies any notice of blood. He has had prior colonoscopy approximately 4 years ago with gastroenterology and was found to have a benign polyp not otherwise specified . He was given a 4 to 5-year follow-up and presents today for that purpose. He also denies any family history of GI illness to include diverticulitis, inflammatory bowel disease, or colon cancer. Lastly he confirms that his prep was completed successfully and that his output is now clear/slightly cloudy. Mr. Pollard does note a remote history of a laparotomy for a perforated upper GI ulcer. He shares that he was kept on antacids for many years but then successfu lly treated for H. pylori and has had no reflux issues since his 30s. He has not undergone an EGD. He does have a remote smoking history of 40 pack years. [facility] Medical History (Updated 09/05/23 @ 08:[address] Payam Marino MD) Alcohol use Arthritis Back pain Back problem BPH (benign prostatic hyperplasia) Chronic bronchitis COPD (chronic obstructive pulmonary disease) Easy bruising Former smoker Heartburn High cholesterol History of pain when walking History of steroid therapy History of stress test History of ulceration Pain Prostate disease Restless legs Shortness of breath on exertion Tinnitus Wears glasses Home Medications atorvastatin 40 mg tablet 40 mg PO DAILY 10/26/18 [History Last Taken Unknown] tamsulosin 0.4 mg capsule (Flomax) 0.8 mg PO QHS 10/26/18 [History Last Taken Unknown] albuterol sulfate 90 mcg/actuation aerosol inhaler 2 puff inhalation Q4H PRN shortness of breath or wheezing 07/31/23 [History Last Taken Unknown] gabapentin 300 mg capsule 300 mg PO QHS 07/31/23 [History Last Taken Unknown] melatonin 10 mg tablet,extended release 10 mg PO QHS 07/31/23 [History Last Taken Unknown] Allergy/AdvReac Type Severity Reaction Status Date / Time latex Allergy Rash Verified 09/05/23 07:47 Penicillins AdvReac GI UPSET Verified 09/05/23 07:47 Family History Other Alcoholism Surgical History (Updated 08/29/23 @ 13:25 by Paz Franco) History of tonsillectomy and adenoidectomy Hx of colonoscopy Hx of elbow surgery Social History (Updated 07/31/23 @ 12:54 by Vane Summers) household members: spouse Smoking Status: Former smoker alcohol intake: never substance use type: does not use additional social history: DOES NOT USE ASPIRIN DOES USE IBUPROFEN Past Medical/Surgical History Planned Operation Planned Operative Procedure/s: CSCOPE OA S.O.S: No Previous Hospitalizations/Surgeries HX Hospitalizations: No HX of Surgeries: duodenal ulcer surgery colonoscopy Any Problems With Anesthesia: No You/Your Family Experience Fever (Hyperthermia) With Anes: No Cholinesterase deficiency: No Cardiovascular Hx Chest Pain within Last 2 months: No Hx of Irregular Heartbeat and/or Afib: No Hx Heart Attack: No Hx Congestive Heart Failure: No Hx Rheumatic Fever: No Hx Hypertension: No Hx Internal Defibrillator: No Hx Pacemaker: No Hx Cardiac Catheterization: No Hx Cardiac Surgery/Stents/Etc.: No Hx Stress Test: Yes (20 yrs ago) Hx Pain in Legs when Walking/Leg Cramps: Yes Respiratory Chronic Cough: No HX of Shortness of Breath: Yes (sob with 2 flights of stairs) Hoarseness: No Hx Chronic Obstructive Pulmonary Disease (COPD): Yes Hx Asthma: No Hx Emphysema: No Hx Sleep Apnea: No Hx Respiratory Tract Infection/Cold (presently): Yes (BRONCHITIS/RELATED TO COPD) Do You Snore Loudly (louder than talking or can be heard): Yes Do You Often Feel Tired/ Fatigued/ Sleepy Dring Daytime?: No Has Anyone Observed You Stop Breathing During Sleep?: No Result (for STOP score): Negative Hx Smoking: Yes (quit 8 months ago) Smoking Status: Former smoker Gastrointestinal Hx Gastrointestinal Disorders: No Hx Gastrointestinal Bleed: Yes (in the past) Hx Ulcer: Yes (in the past) Hx Hiatal Hernia: No Difficulty Chewing/Swallowing: No Special diet followed at home: No Hx Unplanned Weight Loss of 20#: No HX Unplanned Weight Gain of 20#: No Neurological Hx Seizures: No HX Syncope/Blackout Spells/Unconsciousness: No Hx Transient Ischemic Attacks (TIA): No Hx Multiple Sclerosis: No Hx Parkinson's Disease: No Hx Head/Neck Injury: No Hx Headaches: No Hx Back Injury/Pain: Yes (chronic back pain) Recent Onset of Speech Difficulty: No Restless Legs: No Does patient have nerve stimulator: No Blood Disorder Hx Leukemia: No Bleeding Tendencies: No Hx Deep Vein Thrombosis: No Hx High Cholesterol: Yes (on med) Blood Transmitted Disease: No Hx Hepatitis: No Hx Cirrhosis: No Hx Anemia: No Hx Blood Disorders: No Reproduction : No Genitourinary Hx Renal Disease: No (enlarged prostate) Musculoskeletal Hx Arthritis: No Hx Rheumatoid Arthritis: No Hx Gout: No Recent Onset of an Orthopedic Problem: No Endocrine Hx Diabetes: No Thyroid Disease: No Hx Steroid Therapy: No Psycho/Social Hx Substance Use: No Hx Alcohol Use: No Hx Anxiety: Yes (on med) Hx Depression: No Mental Illness: No Hx Dementia: No Miscellaneous Hx Cancer: No Recent Exposure to Contagious Disease: No Hx of C-Diff: No Any Loose Teeth: No Allergies latex Allergy (Verified 09/05/23 07:47) Rash Penicillins Adverse Reaction (Verified 09/05/23 07:47) GI UPSET Discharge Is Pt Admitted From a [facility]fp, or a Prison: No After D/C, Where Do you Plan to Go: Return Home From the [facility] History Number of Risk Factors: 5 Vital Signs Vital Signs Vital Signs: 09/05/23 07:48 09/05/23 07:48 Temperature 97.1 F L Temperature Source Temporal Pulse Rate 88 Respiratory Rate 16 Respiratory Pattern Normal Blood Pressure 132/76 H Blood Pressure Mean 94 Blood Pressure Source Monitor Blood Pressure Position Semi-Fowlers Blood Pressure Location Right Arm Pulse Ox 100 Oxygen Delivery Method Room Air Weight Weight: 265 lb Body Mass Index (BMI) 44.1 Physical Exam Const alert, oriented x3 and no apparent distress Resp normal respiratory effort GI GI Narrative: Obese, laparotomy incision well-healed, nondistended, soft, nontender to palpation x 4 quadrants Assessment & Plan Assessment/Plan (1) Encounter for screening for malignant neoplasm of colon: PLAN: Patient is a 63-year-old male who presents for screening/surveillance as he does have a history of a benign colon polyp at his last colonoscopy approximately 5 years ago. He has had no change to his bowel habits. He has completed a prep in anticipation of today's procedure. I briefly shared with him that there may be a loose indication to pursue EGD at the time of his next colonoscopy given his history of perforated upper GI ulcer, smoking history, and status as a male. He says he will give some thought to this. For now we will proceed with endoscopy suite for planned colonoscopy as discussed in greater detail in HPI above. (2) History of colon polyps: Surgery Risks - Colonoscopy Risks Include but are not Limited To: Risks include but are not limited to: Bleeding, perforation requiring further surgery, inability to complete colonoscopy requiring barium enema.
[2023-09-05 09:30] VITALS: BP 132/76; BP 160/54; PULSE 85; RESP 16; TEMP 36.1; O2SAT 95
--- NOTE | 2023-09-05 09:32 | OP.COLON_ITS ---
Patient Name: Paulo Pollard Procedure Date: 09/05/2023 8:09 AM Date of : 1960 Age: 63 Procedure: Colonoscopy Indications: High risk colon cancer surveillance: Personal history of colonic polyps Providers: Payam Marino MD Referring MD: Desmond De Guzman MD Medicines: See the Anesthesia note for documentation of the administered medications Patient Profile: Refer to note in patient chart for documentation of history and physical. Last Colonoscopy: more than 3 years ago. Complications: No immediate complications. Estimated blood loss: Minimal. Procedure: Pre-Anesthesia Assessment: - The heart rate, respiratory rate, oxygen saturations, blood pressure, adequacy of pulmonary ventilation, and response to care were monitored throughout the procedure. After I obtained informed consent, the scope was passed under direct vision. Throughout the procedure, the patient's blood pressure, pulse, and oxygen saturations were monitored continuously. The Colonoscope was introduced through the anus and advanced to the cecum, identified by the appendiceal orifice, ileocecal valve and palpation. The colonoscopy was somewhat difficult due to significant looping. Successful completion of the procedure was aided by using manual pressure. The patient tolerated the procedure well. The quality of the bowel preparation was adequate to identify polyps. Scope In: 8:43:04 AM Scope Withdrawal Time 0 hours 22 minutes 59 seconds Scope Out: 9:24:38 AM Total Procedure Duration Time 0 hours 41 minutes 34 seconds Findings: The digital rectal exam findings include enlarged prostate. Pertinent negatives include normal sphincter tone. A 5 mm polyp was found in the sigmoid colon. The polyp was sessile. Biopsies were taken with a cold forceps for histology. Estimated blood loss was minimal. A 5 mm polypoid lesion was found in the sigmoid colon. The lesion was sessile. No bleeding was present. Mucosa was biopsied with a cold forceps for histology. One specimen bottle was sent to pathology. Internal hemorrhoids were found during retroflexion. The hemorrhoids were Grade I (internal hemorrhoids that do not prolapse). No biopsies or other specimens were collected for this exam. Impression: - Enlarged prostate found on digital rectal exam. - One 5 mm polyp in the sigmoid colon. Biopsied. - Likely benign polypoid lesion in the sigmoid colon. Biopsied. - Internal hemorrhoids. No specimens collected. Recommendation: - Discharge patient to home (via wheelchair). - Resume previous diet today. - Continue present medications. - Await pathology results. - Repeat colonoscopy date to be determined after pending pathology results are reviewed for surveillance based on pathology results. - Telephone my office for pathology results in 1 week. Procedure Code(s): --- Professional --- 91042, Colonoscopy, flexible; with biopsy, single or multiple Diagnosis Code(s): --- Professional --- Z86.010, Personal history of colonic polyps D12.5, Benign neoplasm of sigmoid colon D49.0, Neoplasm of unspecified behavior of digestive system K64.0, First degree hemorrhoids N40.0, Benign prostatic hyperplasia without lower urinary tract symptoms CPT copyright 2021 [employer]. All rights reserved. The codes documented in this report are preliminary and upon c developer review may be revised to meet current compliance requirements. Payam Marino MD 09/05/2023 9:32:31 AM This report has been signed electronically. Number of Addenda: 0 Note Initiated On: 09/05/2023 8:09 AM
--- NOTE | 2023-09-05 09:33 | OP.CCLET_ITS ---
09/05/2023 Desmond De Guzman MD [address] [place] [address] Re : Colonoscopy procedure for Paulo Pollard Dear Dr. De Guzman This procedure was performed on Tuesday, September 05, 2023. My impressions and recommendations are as follows: Impressions : - Enlarged prostate found on digital rectal exam. - One 5 mm polyp in the sigmoid colon. Biopsied. - Likely benign polypoid lesion in the sigmoid colon. Biopsied. - Internal hemorrhoids. No specimens collected. Recommendations : - Discharge patient to home (via wheelchair). - Resume previous diet today. - Continue present medications. - Await pathology results. - Repeat colonoscopy date to be determined after pending pathology results are reviewed for surveillance based on pathology results. - Telephone my office for pathology results in 1 week. My findings are described in the full procedure note, which is enclosed. If I can be of further assistance, please feel free to contact me at Doctor phone number(s): , Work: . Sincerely, Payam Marino MD 09/05/2023 9:32:31 AM This report has been signed electronically.
[2023-09-05 09:35] VITALS: BP 113/59; BP 132/76; PULSE 91; RESP 16; O2SAT 98
[2023-09-05 09:41] VITALS: BP 113/65; BP 132/76; PULSE 78; RESP 16; TEMP 36.6; O2SAT 99
[2023-09-05 09:52] VITALS: BP 132/76
== END 2023-09-05 10:28 | disposition home or self-care (01) ==
LOC: EN 07:26 → AC 07:26
PROVIDERS: PCP Family Medicine Geriatric Medicine; Referring Provider Family Medicine Geriatric Medicine; Visit Provider Surgery
PROC: 0DJD8ZZ Inspection of Lower Intestinal Tract, Via Natural or Artificial Opening Endoscopic (ICD-10-PCS; CPT 45378; principal; 2023-09-05 08:25)
DX: Z12.11 Encounter for screening for malignant neoplasm of colon (principal); J44.9 Chronic obstructive pulmonary disease, unspecified; K63.5 Polyp of colon; Z86.010 Personal history of colon polyps; Z87.891 Personal history of nicotine dependence; K64.0 First degree hemorrhoids; N40.0 Benign prostatic hyperplasia without lower urinary tract symptoms; E78.00 Pure hypercholesterolemia, unspecified; Z79.899 Other long term (current) drug therapy
CPT/HCPCS: 45380; 88305; J7120; J2405

== ENCOUNTER → 2023-11-28 | Outpatient (CLI) | payer OTHER, SELFPAY ==
--- NOTE | 2023-11-28 14:56 | RAD_ITS ---
STUDY: X-RAY CHEST REASON FOR EXAM: Male, 63 years old. SOB TECHNIQUE: PA and lateral views of the chest. COMPARISON: None. FINDINGS: The lungs are clear and expanded. There is no demonstrated pleural abnormality. Normal size heart. Normal mediastinum and anusha. Normal visualized pulmonary arteries. Normal visualized aortic arch and descending thoracic aorta. Normal visualized thoracic spine. Normal visualized ribs, clavicles, and shoulders. There is no demonstrated abnormality of the visualized soft tissue structures of the upper abdomen. RAD/Chest PA and Lateral IMPRESSION: Normal x-ray examination of the chest. Electronically Signed: Levi Kennedy MD at 15:13 EDT ,
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
== END | disposition home or self-care (01) ==
LOC: RAD 14:51
PROVIDERS: PCP Family Medicine Geriatric Medicine; Referring Provider Family Medicine Geriatric Medicine; Visit Provider Family Medicine Geriatric Medicine
DX: M25.561 Pain in right knee (principal); R06.02 Shortness of breath
CPT/HCPCS: 71046; 73562

== ENCOUNTER → 2024-01-05 | Outpatient (CLI) | payer OTHER, SELFPAY ==
[2024-01-05 10:14] LABS: Absolute Lymphocyte Count 2.21 X10^3/uL (0.83-4.51); Absolute Neutrophil Count 6.6 X10^3/uL (2.0-7.7); Basophil# 0.05 X10^3/uL; Basophil% 0.5 % (0-1); Eosinophil# 0.14 X10^3/uL; Eosinophils% 1.5 % (0-5); Hematocrit 47.9 % (40-54); Hemoglobin 15.2 g/dL (13.0-16.5); Lymphocyte # 2.21 X10^3/ul (0.83-4.51); Lymphocyte % 23.1 % (19-41); Mean Corp Hgb Conc 31.7 g/dL (32-36); Mean Corpuscular Hgb 28.5 pg (27.0-32.0); Mean Corpuscular Volume 89.9 fL (80-94); Mean Platelet Vol. 10.3 fl (6.2-12.0); Monocyte# 0.59 X10^3/uL; Monocyte% 6.2 % (0-10); NRBC Flagged by Analyzer 0 % (0-5); Neutrophil # 6.55 X10^3/uL (2.7-7.7); Neutrophil % 68.3 % (47-70); Platelet Count 234 K/mm3 (150-450); RBC Distribution Width CV 13.2 % (11.6-14.6); RBC Distribution Width SD 43.5 fl (35.1-43.9); Red Blood Count 5.33 M/mm3 (4.6-6.2); White Blood Count 9.6 K/mm3 (4.4-11.0)
[2024-01-05 10:41] LABS: Vitamin D,25 Hydroxy 9.4 ng/mL
[2024-01-05 12:23] LABS: ALB/GLOB Ratio 0.8 RATIO (0.9-2.4); AST(SGOT) 13 U/L (15-37); Alanine Aminotransfer ALT/SGPT 24 U/L (16-61); Albumin, Serum 3.3 g/dL (3.2-5.0); Alkaline Phosphatase 89 U/L (45-117); Anion Gap 6 (5-15); BUN 17 mg/dL (7-18); BUN/Creat Ratio 16.8 RATIO (10-20); Calcium,Total 9.5 mg/dL (8.5-10.1); Chloride 104 mmol/L (98-107); Cholesterol 175 mg/dL (200); Creatinine, Serum 1.01 mg/dL (0.70-1.30); EST Glomerular Filtration Rate 79 mL/min (>60); Est Glom Filt Rate - Afr Amer 95 mL/min (>60); Glucose 129 mg/dL (74-106); High Density Lipoprotein 48 mg/dL; Potassium 4.2 mmol/L (3.5-5.1); Protein, Total 7.3 g/dL (6.4-8.2); Sodium Level 140 mmol/L (136-145); Thyroid Stim Hormone (TSH) 2.48 uIU/mL (0.358-3.74); Triglycerides 138 mg/dL; Very Low Density Lipoprotein 28 mg/dL (5-40)
== END | disposition home or self-care (01) ==
PROVIDERS: PCP Family Medicine Geriatric Medicine; Referring Provider Family Medicine Geriatric Medicine; Visit Provider Family Medicine Geriatric Medicine
DX: R53.83 Other fatigue (principal); E55.9 Vitamin D deficiency, unspecified
CPT/HCPCS: 36415; 80053; 80061; 82306; 84443; 85025

== ENCOUNTER 2024-02-05 16:30 | Outpatient (RCR) | payer SELFPAY, OTHER | END 2024-02-05 19:00 | disposition home or self-care (01) | LOC: PT 16:30 | PROVIDERS: PCP Family Medicine Geriatric Medicine; Referring Provider Family Medicine Geriatric Medicine; Visit Provider Family Medicine Geriatric Medicine | DX: M17.11 Unilateral primary osteoarthritis, right knee (principal) | CPT/HCPCS: 97110; 97162 ==

== ENCOUNTER → 2024-04-16 | Outpatient (CLI) | payer OTHER, SELFPAY ==
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
== END | disposition home or self-care (01) ==
LOC: CT 18:45
PROVIDERS: PCP Family Medicine Geriatric Medicine; Referring Provider Family Medicine Geriatric Medicine; Visit Provider Family Medicine Geriatric Medicine
DX: M25.561 Pain in right knee (principal)
CPT/HCPCS: 73700

== ENCOUNTER → 2024-04-26 | Outpatient (CLI) | payer OTHER, SELFPAY | END | disposition home or self-care (01) | LOC: POLAB3 16:09 | PROVIDERS: PCP Family Medicine Geriatric Medicine; Visit Provider Family Medicine Geriatric Medicine | DX: R68.83 Chills (without fever) (principal) | CPT/HCPCS: 87631 ==

== ENCOUNTER → 2024-07-05 | Outpatient (CLI) | payer OTHER, SELFPAY ==
[2024-07-05 15:40] LABS: Absolute Lymphocyte Count 1.63 X10^3/uL (0.83-4.51); Absolute Neutrophil Count 8.4 X10^3/uL (2.0-7.7); Basophil# 0.04 X10^3/uL; Basophil% 0.4 % (0-1); Eosinophil# 0.21 X10^3/uL; Eosinophils% 1.9 % (0-5); Hematocrit 45.3 % (40-54); Hemoglobin 14.2 g/dL (13.0-16.5); Lymphocyte # 1.63 X10^3/ul (0.83-4.51); Lymphocyte % 14.9 % (19-41); Mean Corp Hgb Conc 31.3 g/dL (32-36); Mean Corpuscular Hgb 28.3 pg (27.0-32.0); Mean Corpuscular Volume 90.2 fL (80-94); Mean Platelet Vol. 10.8 fl (6.2-12.0); Monocyte# 0.63 X10^3/uL; Monocyte% 5.8 % (0-10); NRBC Flagged by Analyzer 0 % (0-5); Neutrophil # 8.35 X10^3/uL (2.7-7.7); Neutrophil % 76.5 % (47-70); Platelet Count 225 K/mm3 (150-450); RBC Distribution Width CV 13.4 % (11.6-14.6); RBC Distribution Width SD 44.7 fl (35.1-43.9); Red Blood Count 5.02 M/mm3 (4.6-6.2); White Blood Count 10.9 K/mm3 (4.4-11.0)
[2024-07-05 16:31] LABS: PSA,Total- Diagnostic 6.51 ng/mL (0.0-4.0)
[2024-07-05 16:39] LABS: ALB/GLOB Ratio 0.8 RATIO (0.9-2.4); AST(SGOT) 12 U/L (15-37); Alanine Aminotransfer ALT/SGPT 20 U/L (16-61); Alkaline Phosphatase 98 U/L (45-117); Anion Gap 3 (5-15); BUN 19 mg/dL (7-18); BUN/Creat Ratio 19.3 RATIO (10-20); Chloride 107 mmol/L (98-107); Cholesterol 170 mg/dL (200); Creatinine, Serum 0.99 mg/dL (0.70-1.30); EST Glomerular Filtration Rate 81 mL/min (>60); Est Glom Filt Rate - Afr Amer 98 mL/min (>60); Globulin 3.9 g/dL (2.2-4.2); Glucose 167 mg/dL (74-106); High Density Lipoprotein 46 mg/dL; Potassium 4.1 mmol/L (3.5-5.1); Protein, Total 6.9 g/dL (6.4-8.2); Sodium Level 139 mmol/L (136-145); Triglycerides 238 mg/dL; Very Low Density Lipoprotein 48 mg/dL (5-40)
[2024-07-05 19:12] LABS: Vitamin D,25 Hydroxy 26.6 ng/mL
[2024-07-06 10:06] LABS: Hemoglobin A1c 6.3 % (3.8-5.6)
== END | disposition home or self-care (01) ==
PROVIDERS: PCP Family Medicine Geriatric Medicine; Visit Provider Nurse Practitioner
DX: R53.83 Other fatigue (principal); E55.9 Vitamin D deficiency, unspecified; E78.5 Hyperlipidemia, unspecified; R97.20 Elevated prostate specific antigen [PSA]; R73.09 Other abnormal glucose
CPT/HCPCS: 36415; 80053; 80061; 82306; 83036; 84153; 84443; 85025

== ENCOUNTER → 2024-08-06 | Outpatient (CLI) | payer OTHER, SELFPAY ==
--- NOTE | 2024-08-06 06:50 | CT_ITS ---
STUDY: LOW DOSE CT LUNG CANCER SCREENING REASON FOR EXAM: Male, 64 years old. Personal history of nicotine dependence. Former smoker. Patient smoked 1 pack per day for 35 years. COPD. RADIATION DOSAGE (If Supplied By Facility): CTDIvol = ( 4.02 ) mGy, DLP = ( 144.96 ) mGycm TECHNIQUE: No contrast was administered. Low dose technique was utilized (average mAS-38 and kVp 120). 1.25 mm axial source images with a slice interval of 1.25-mm were reconstructed in lung windows. 2.5 mm axial source images with a slice interval of 2.5-mm were reconstructed in lung windows. 5.0 mm axial source images with a slice interval of 5.0-mm were reconstructed in soft tissue windows. COMPARISON: Comparison is made with prior chest radiograph dated November 28, 2023. NODULES: No suspicious nodules are seen. Emphysema: Hyperinflation. Emphysematous changes more pronounced in the upper lobes. Linear density in the anterior aspect of the right lower lobe extending to the pleural surface. This most likely a transscarring. There is also evidence of linear scarring in the posterior medial segment of the right lower lobe. Endobronchial lesion: None Aorta: Minimal atherosclerotic plaque of the aortic arch. CORONARY ARTERIES: Coronary artery calcification coronary calcification. Heart: Unremarkable. Pulmonary artery: Unremarkable. Mediastinal nodes: Small mediastinal lymph nodes. Other chest and abdominal findings: CT/Low Dose CT Lung Screening IMPRESSION: Lung-RADS category 2 - Continue annual screening with LDCT in 12 months. IMPORTANT NOTES FOR USE: ACR Lung-RADS Version 1.1 Assessment Categories Release Date: 2018 Category: Coded 0-4 bases on nodule(s) with highest degree of suspicion. Negative screen is defined as categories 1 and 2; a positive screen is defined as categories 3 and 4. Category 3 and 4A nodules that are unchanged on interval CT should be coded as category 2, and individuals returned to screening in 12 months. Category 4X: Category 3 or 4 nodules with additional imaging findings that increase the suspicion of lung cancer, such as spiculation, GGN that doubles in size in 1 year, enlarged lymph notes, etc. Category Modifiers: S (significant finding unrelated to lung cancer) Electronically Signed: Braydon Parada MD at 11:21 EST ,
== END | disposition home or self-care (01) ==
PROVIDERS: PCP Family Medicine Geriatric Medicine; Referring Provider Internal Medicine Pulmonary Disease; Visit Provider Internal Medicine Pulmonary Disease
DX: Z87.891 Personal history of nicotine dependence (principal)
CPT/HCPCS: 71271

== ENCOUNTER → 2024-08-31 | Outpatient (CLI) | payer OTHER, SELFPAY ==
[2024-08-31 17:50] LABS: D-Dimer Quantitative (DVT/PE) 0.55 FEU/ug/m (0.27-0.49)
== END | disposition home or self-care (01) ==
LOC: POLAB3 16:33
PROVIDERS: PCP Family Medicine Geriatric Medicine; Visit Provider Family Medicine Geriatric Medicine
DX: R06.02 Shortness of breath (principal); R68.83 Chills (without fever)
CPT/HCPCS: 36415; 85379; 87631

== ENCOUNTER → 2024-09-02 | Outpatient (CLI) | payer OTHER, SELFPAY ==
--- NOTE | 2024-09-02 12:52 | CT_ITS ---
PROCEDURE: CTA CHEST W/WO CONTRAST TECHNIQUE: CTA imaging of the chest with intravenous contrast. 3D reconstructions. CONTRAST: 100 cc of Isovue 370. COMPARISON: None. FINDINGS: Hardware: None. Lymph nodes: No mediastinal hilar or axillary lymphadenopathy. Heart: Normal heart size. No pericardial effusion. Coronary artery calcification. RV/LV Diameter Ratio: N/A Thoracic Aorta: No thoracic aortic aneurysm or dissection. Pulmonary Vessels: No evidence of acute pulmonary emboli through the major subsegmental branches. Most Proximal Level of Embolus (if embolus present): N/A Lungs and Airways: The lungs are normally expanded and clear. Pleura: No pleural effusion. No pneumothorax. Upper Abdomen: Small cyst in the upper anterior medial aspect of the left kidney. Patient is status post cholecystectomy. Bones: Degenerative changes of the thoracic spine. CT/CTA Chest W/WO Contrast IMPRESSION: No evidence of pulmonary embolism. One or more dose reduction techniques were used (e.g., Automated exposure contr ol, adjustment of the mA and/or kV according to patient size, use of iterative reconstruction technique). Reading Location: [place] [id number]
== END | disposition home or self-care (01) ==
LOC: CT 12:51
PROVIDERS: PCP Family Medicine Geriatric Medicine; Referring Provider Family Medicine Geriatric Medicine; Visit Provider Family Medicine Geriatric Medicine
DX: R79.89 Other specified abnormal findings of blood chemistry (principal)
CPT/HCPCS: 71275; Q9967

== ENCOUNTER 2024-09-11 09:44 | Emergency (ER) | payer OTHER, SELFPAY ==
[2024-09-11 09:45] VITALS: BP 188/102; PULSE 94; RESP 18; TEMP 37; O2SAT 100; BMI 45.8
--- NOTE | 2024-09-11 10:15 | CT_ITS ---
EXAM: BRAIN/HEAD WITHOUT CONTRAST CLINICAL HISTORY: Headache with hypertension COMPARISON: None. TECHNIQUE: Noncontrast images of the head with multiplanar reconstructions. Dose reduction techniques were used including intermediate exposure control (AEC),iterative reconstruction technique, and/or mA and/or KV dose adjustments based on patient's size. FINDINGS: CT HEAD FINDINGS: No acute intracranial hemorrhage, mass, mass effect, midline shift or pathologic extra-axial fluid collection. No hydrocephalus. Age- appropriate cerebral volume and white matter. Visualized paranasal sinuses and mastoid air cells are clear. The calvarium is grossly intact. CT/Brain/Head without Contrast IMPRESSION: No CT evidence of acute intracranial pathology. Reading Location: [facility]
--- NOTE | 2024-09-11 10:16 | EKG12_ITS ---
Test Reason : HTN Blood Pressure : */* mmHG Vent. Rate : 87 BPM Atrial Rate : 87 BPM P-R Int : 170 ms QRS Dur : 98 ms QT Int : 364 ms P-R-T Axes : 53 40 47 degrees QTcB Int : 438 ms Normal sinus rhythm Normal ECG Confirmed by Payam Yeung ([id number]), technical editor [facility] [place] ([id number]) on 09/13/2024 10:17:38 AM Referred By: Confirmed By: Payam Yeung
--- NOTE | 2024-09-11 10:17 | EX.ED.DYSGE1 ---
HPI History of Present Illness Chief Complaint: Hypertension Narrative Narrative: 64-year-old male past medical history of hyperlipidemia, COPD presents with fluctuating blood pressure. He states that he was seeing his rfid technician and his primary care provider and always had slightly elevated blood pressure just above normal/borderline. He has been having problems with shortness of breath and cough. He states he recently had a CTA of his lungs which did not show a blood clot. He had a D-dimer performed as an outpatient which was slightly elevated. While he was put on an antibiotic and prednisone, and his elevated blood pressure was thought to be secondary to medication, he saw his primary care provider and it was elevated as well. He has been on losartan 100 mg which she takes at night since Friday, approximately 6 days ago. He was concerned because he still had constant chest tightness consistent with his COPD, but his blood pressure was fluctuating. This morning when he took it it was 98 systolic, but then he took it again and it was in the 160s. When he came to the emergency department was elevated in the 180s but has now lowered to 154 systolic. States he has slight headache, or as if he is lightheaded and is going to get a headache. No exacerbating or alleviating factors. [facility] Medical History Hypertension Tinnitus Wears glasses Alcohol use History of steroid therapy Arthritis Prostate disease Easy bruising Restless legs Back pain Heartburn History of ulceration Former smoker Shortness of breath on exertion History of pain when walking History of stress test Pain BPH (benign prostatic hyperplasia) High cholesterol COPD (chronic obstructive pulmonary disease) Chronic bronchitis Back problem Home Medications ?Medication ?Instructions ?Recorded ?Last Taken ?Type tamsulosin 0.4 mg capsule (Flomax) 0.8 mg PO QHS 10/26/18 Unknown History albuterol sulfate 90 mcg/actuation 2 puff inhalation Q4H PRN 07/31/23 Unknown History aerosol inhaler shortness of breath or wheezing gabapentin 300 mg capsule 300 mg PO QHS 07/31/23 Unknown History melatonin 10 mg tablet,extended 10 mg PO QHS 07/31/23 Unknown History release cholecalciferol (vitamin D3) 25 25 mcg PO QDAY 01/27/24 Unknown History mcg (1,000 unit) tablet (Vitamin D3) pravastatin 40 mg tablet 40 mg PO QHS 01/27/24 Unknown History Allergy/AdvReac Type Severity Reaction Status Date / Time latex Allergy Rash Verified 09/11/24 09:44 Penicillins AdvReac GI UPSET Verified 09/11/24 09:44 Family History Other Alcoholism Surgical History S/P laparotomy Hx of elbow surgery History of tonsillectomy and adenoidectomy Hx of colonoscopy Social History household members: spouse Smoking Status: Former smoker alcohol intake: never substance use type: does not use additional social history: DOES NOT USE ASPIRIN DOES USE IBUPROFEN ROS ROS ED ROS Narrative Constitutional: No fever, no chills. HEENT: No sore throat. No neck pain. No loss of vision. Cardiovascular: Positive chest tightness/chest pain. No palpitations. No pedal edema. Respiratory: Positive cough, no shortness of breath. Abdominal: No abdominal pain. No nausea. No vomiting. Genitourinary: No dysuria. No hematuria. Musculoskeletal: No myalgias. No arthralgias. Neurologic: Positive headaches. No dizziness. Positive lightheadedness. Skin: No rash. No change in color. EXAM Physical Exam Narrative Exam Narrative: Afebrile. Vital signs noted. Nontoxic-appearing. HEENT: Normocephalic. Atraumatic. PERRL, EOMI. Neck soft and supple. No point tenderness or step off. Cardiovascular: Regular rate and rhythm. No murmurs, rubs, or gallops appreciated. Respiratory: No tachypnea. Lungs clear to auscultation bilaterally. Gastrointestinal: Abdomen soft, nontender, with normoactive bowel sounds. No rebound or guarding. Neurological: Awake. Alert. Nonfocal, nonlateralizing. Moves all extremities. Skin: No rash. Normal color. No pallor. Musculoskeletal: No pedal edema. Full range of motion extremities. Const Vital Signs: 09/11/24 09:45 09/11/24 09:50 09/11/24 10:53 Temperature 98.6 F Temperature Source Temporal Pulse Rate 94 86 Respiratory Rate 18 12 Respiratory Effort Short of Breath Respiratory Pattern Normal Blood Pressure 188/102 H 159/71 H Blood Pressure Mean 130 100 Pulse Ox 100 99 Oxygen Delivery Method Room Air Room Air MDM MDM MDM Narrative Medical decision making narrative: Differential diagnosis includes but not limited to asymptomatic labile hypertension versus ACS versus COPD exacerbation versus hypertensive encephalopathy versus hypertensive intracranial hemorrhage. Blood pressure currently is 154 systolic. Pulse ox 100% on room air. Comprehensive workup was pursued. EKG was obtained and interpreted by myself independently as normal sinus rhythm at 87 bpm without ectopy or acute ST changes. No STEMI. QTc normal at 438 ms. I reviewed his laboratory work and he has a normal white count of 9.9 with hemoglobin 15.6, hematocrit 48.6, platelet count 228. Sodium is normal at 139 with potassium 4.1, normal BUN of 16 and creatinine 0.96. Glucose is elevated at 123 but he has a low anion gap of 4 so I doubt diabetic ketoacidosis. AST low at 10 which I think is nonspecific. High-sensitivity troponin is 6. I do not feel he needs serial enzymes. He has had the chest tightness and shortness of breath associated with his COPD for greater than 6 hours. I reviewed the radiology report of the CT of the brain and there is no acute process, no hemorrhage. Chest x-ray interpreted by myself independently shows no pneumonia or pneumothorax. I reviewed the radiology report which confirms my independent interpretation. While it comments on vascular congestion possibly, his pulse ox is 99% on room air 200% on room air. Repeat examination at approximately 11:45 AM shows his systolic blood pressure at 129. At this point in time, I do feel he can follow-up with his primary care provider regarding his blood pressure. He was told to take his blood pressure twice a day, once in the morning and once in the evening and keep a log for his primary care provider. He has a follow-up appointment on Friday, 3 days from now. Return instructions to the emergency department were reviewed. Disposition is discharged home in stable condition. History & Record Review Discussion w/independent historian: Patient Lab Data Attestation: I reviewed the patient's lab results. Labs: Laboratory Results - last 24 hr 09/11/24 10:00 WBC 9.9 RBC 5.47 Hgb 15.6 Hct 48.6 MCV 88.8 MCH 28.5 MCHC 32.1 RDW Std Deviation 42.5 RDW Coeff of Ryan 13.0 Plt Count 228 MPV 10.7 Immature Gran % (Auto) 0.900 Neut % (Auto) 67.8 Lymph % (Auto) 22.9 [place] % (Auto) 6.0 Eos % (Auto) 1.9 Baso % (Auto) 0.5 Absolute Neuts (auto) 6.7 Absolute Lymphs (auto) 2.26 Nucleated RBC % 0 Sodium 139 Potassium 4.1 Chloride 106 Carbon Dioxide 28.0 Anion Gap 4 L BUN 16 Creatinine 0.96 Estim Creat Clear Calc 91.50 Est GFR (MDRD) Af Amer 101 Est GFR (MDRD) Non-Af 83 BUN/Creatinine Ratio 16.6 Glucose 123 H Calcium 8.9 Total Bilirubin 0.50 AST 10 L ALT 20 Alkaline Phosphatase 97 Troponin I High Sens 6 Total Protein 7.0 Albumin 3.2 Globulin 3.8 Albumin/Globulin Ratio 0.8 L Radiography Diagnostic Testing: Clinical Impression(s) from Imaging Studies Brain CT 09/11/24 10:15 IMPRESSION: No CT evidence of acute intracranial pathology. [facility] 09/11/24 10:35 IMPRESSION: Cardiomegaly with moderate pulmonary vascular congestion. Reading Location: [facility] Discharge Plan Triage Chief Complaint: Hypertension ED Provider: Aldair Bryan Dx/Rx/DC Orders Clinical Impression: Labile blood pressure, Headache Instructions: ED High Blood Pressure Hypertension, ED Pain, Acute, Uncertain Cause Prescriptions: No Action tamsulosin [Flomax] 0.4 mg capsule 0.8 mg PO QHS gabapentin 300 mg capsule 300 mg PO QHS albuterol sulfate 90 mcg/actuation HFA aerosol inhaler 2 puff inhalation Q4H PRN (Reason: shortness of breath or wheezing) melatonin 10 mg tablet extended release 10 mg PO QHS pravastatin 40 mg tablet 40 mg PO QHS cholecalciferol (vitamin D3) [Vitamin D3] 25 mcg (1,000 unit) tablet 25 mcg PO QDAY Primary Care Provider: Desmond De Guzman Chi Referrals: Desmond De Guzman Chi, MD [Primary Care Provider] - 09/14/24 Activity Restrictions/Additional Instructions: Keep a log of your blood pressure for your primary care provider. Only take it twice a day, once in the morning, and once in the evening preferably at the same time. Return to the emergency department with elevated blood pressure reading above 200 systolic, increasing chest pain, shortness of breath, or any new or worsening symptoms. Continue your losartan as previously directed. Print Language: Mongolian Disposition Disposition: Home, Self Care
--- NOTE | 2024-09-11 10:35 | RAD_ITS ---
PROCEDURE: CHEST 1 VIEW (PORTABLE) REASON FOR EXAM: Shortness of breath TECHNIQUE: Frontal view of the chest. COMPARISON: 11/28/2023 FINDINGS: Heart size is moderately enlarged. The mediastinal contour is unremarkable. Pulmonary vasculature is congested. The bones are unremarkable. RAD/Chest 1 View (Portable) IMPRESSION: Cardiomegaly with moderate pulmonary vascular congestion. Reading Location: [facility]
[2024-09-11 10:37] LABS: Absolute Lymphocyte Count 2.26 X10^3/uL (0.83-4.51); Absolute Neutrophil Count 6.7 X10^3/uL (2.0-7.7); Basophil# 0.05 X10^3/uL; Basophil% 0.5 % (0-1); Eosinophil# 0.19 X10^3/uL; Eosinophils% 1.9 % (0-5); Hematocrit 48.6 % (40-54); Hemoglobin 15.6 g/dL (13.0-16.5); Lymphocyte # 2.26 X10^3/ul (0.83-4.51); Lymphocyte % 22.9 % (19-41); Mean Corp Hgb Conc 32.1 g/dL (32-36); Mean Corpuscular Hgb 28.5 pg (27.0-32.0); Mean Corpuscular Volume 88.8 fL (80-94); Mean Platelet Vol. 10.7 fl (6.2-12.0); Monocyte# 0.59 X10^3/uL; NRBC Flagged by Analyzer 0 % (0-5); Neutrophil # 6.71 X10^3/uL (2.7-7.7); Neutrophil % 67.8 % (47-70); Platelet Count 228 K/mm3 (150-450); RBC Distribution Width SD 42.5 fl (35.1-43.9); Red Blood Count 5.47 M/mm3 (4.6-6.2); White Blood Count 9.9 K/mm3 (4.4-11.0)
[2024-09-11 10:52] LABS: ALB/GLOB Ratio 0.8 RATIO (0.9-2.4); AST(SGOT) 10 U/L (15-37); Alanine Aminotransfer ALT/SGPT 20 U/L (16-61); Albumin, Serum 3.2 g/dL (3.2-5.0); Alkaline Phosphatase 97 U/L (45-117); Anion Gap 4 (5-15); BUN 16 mg/dL (7-18); BUN/Creat Ratio 16.6 RATIO (10-20); Calcium,Total 8.9 mg/dL (8.5-10.1); Chloride 106 mmol/L (98-107); Creatinine, Serum 0.96 mg/dL (0.70-1.30); EST Glomerular Filtration Rate 83 mL/min (>60); Est Glom Filt Rate - Afr Amer 101 mL/min (>60); Globulin 3.8 g/dL (2.2-4.2); Glucose 123 mg/dL (74-106); Potassium 4.1 mmol/L (3.5-5.1); Sodium Level 139 mmol/L (136-145); Troponin-I HS 6 pg/mL (3.0-78.0)
[2024-09-11 10:53] VITALS: BP 159/71; PULSE 86; RESP 12; O2SAT 99
[2024-09-11 11:51] VITALS: BP 127/74; PULSE 74; RESP 14; TEMP 36.9; O2SAT 96
== END 2024-09-11 12:07 | disposition home or self-care (01) ==
PROVIDERS: Emergency Provider Emergency Medicine; PCP Family Medicine Geriatric Medicine; Visit Provider Emergency Medicine
DX: I10 Essential (primary) hypertension (principal); J44.9 Chronic obstructive pulmonary disease, unspecified; Z87.891 Personal history of nicotine dependence; E78.00 Pure hypercholesterolemia, unspecified; R51.9 Headache, unspecified; N40.0 Benign prostatic hyperplasia without lower urinary tract symptoms; Z79.899 Other long term (current) drug therapy
CPT/HCPCS: 70450; 71045; 80053; 84484; 85025; 93005; 99284; A4216

== ENCOUNTER → 2024-10-11 | Outpatient (CLI) | payer OTHER, SELFPAY | END | disposition home or self-care (01) | LOC: POLAB3 15:35 | PROVIDERS: PCP Family Medicine Geriatric Medicine; Visit Provider Family Medicine Geriatric Medicine | DX: R68.83 Chills (without fever) (principal) | CPT/HCPCS: 87631 ==

== ENCOUNTER → 2024-10-21 | Outpatient (CLI) | payer OTHER, SELFPAY ==
[2024-10-22 13:08] LABS: PSA, Free 0.96 ng/mL; PSA, Free % 18.3 % (.)
== END | disposition home or self-care (01) ==
LOC: LAB 11:54
PROVIDERS: PCP Family Medicine Geriatric Medicine; Referring Provider Family Medicine Geriatric Medicine; Visit Provider Family Medicine Geriatric Medicine
DX: N40.1 Benign prostatic hyperplasia with lower urinary tract symptoms (principal)
CPT/HCPCS: 36415; 84153; 84154

== ENCOUNTER → 2024-12-15 | Outpatient (CLI) | payer OTHER, SELFPAY ==
[2024-12-15 17:19] LABS: Microalbumin,Random Urine 94.2 mg/L (NO RANGE EST.); Microalbumin:Creatinine Ratio 514.8 mg/g CRE
== END | disposition home or self-care (01) ==
LOC: LAB 15:29
PROVIDERS: PCP Family Medicine Geriatric Medicine; Referring Provider Family Medicine Geriatric Medicine; Visit Provider Family Medicine Geriatric Medicine
DX: E11.65 Type 2 diabetes mellitus with hyperglycemia (principal)
CPT/HCPCS: 82043; 82570

== ENCOUNTER → 2024-12-22 | Outpatient (CLI) | payer OTHER, SELFPAY ==
--- NOTE | 2024-12-22 11:05 | RAD_ITS ---
PROCEDURE: HIP, UNI W/ PELVIS 2-3 VIEWS 12/22/2024 REASON FOR EXAM: PAIN TECHNIQUE: Three views of the left hip COMPARISON: None FINDINGS: No displaced fracture or traumatic malalignment. Mild joint space narrowing in both hips. Phleboliths project over the pelvis. There are punctate metallic fragments in the right thigh. RAD/HIP, UNI W/ Pelvis 2-3 Views IMPRESSION: 1. No displaced fracture. 2. Mild bilateral hip osteoarthritis. 3. Punctate metallic fragments in the right thigh soft tissues. Reading Location: [id number]
--- OUTSIDE RECORDS SUMMARY | 2024-12-22 20:25 | XMS RPT_ITS | CCD ---
Author Organization [facility] Care Team Providers Care Taxicab Dispatcher Name Role Phone Dr. Desmond Fraire Chi Primary Care Provider Dr. Guillermo Lo Attending Provider Dr. Kyle Hinton Referring Provider Unavailable Primary Care Provider UnavailDr. Desmond Donahue Chi Primary Care Provider Vane Summers Attending Provider Unavailable Dr. Desmond Fraire Chi Referring Provider Dr. Payam Marino Attending Provider Dr. Payam Marino Other Provider [phone] Dr. Desmond Fraire MD, Chi Primary Care Provider Najma Delaney Attending Provider Dr. Guillermo Lai MD, V Attending Provider Dr. Guillermo Lai MD, V Referring Provider [phone] Dr. Desmond Fraire MD, Chi Attending Provider Dr. Desmond Fraire MD, Chi Referring Provider Aldair Bryan MD Attending Provider Aldair Bryan MD Emergency Provider [phone] GAB, DESMOND CHI Consulting Unavailable GAB, DESMOND CHI Referring Unavailable MIMI ALFORD MD Admitting Unavailable MIMI ALFORD MD Attending Unavailable MIMI ALFORD MD Primary Care Unavailable PROVIDER, UNKNOWN Consulting Unavailable PROVIDER, UNKNOWN Consulting Unavailable Gab, Desmond Chi Attending Unavailable Gab, Desmond Chi Referring Unavailable Gab, Desmond Chi Primary Care Unavailable Gab, Desmond Chi Attending Unavailable Gab, Desmond Chi Referring Unavailable Gab, Desmond Chi Primary Care Unavailable Gab, Desmond Chi Attending Unavailable Gab, Desmond Chi Referring Unavailable Gab, Desmond Chi Primary Care Unavailable Payam Marino Attending Unavailable Gab, Desmond Chi Referring Unavailable Gab, Desmond Chi Primary Care Unavailable Heath Bourne Attending Unavailable Gab, Desmond Chi Referring Unavailable Gab, Desmond Chi Primary Care Unavailable Gab, Desmond Chi Attending Unavailable Gab, Desmond Chi Referring Unavailable Gab, Desmond Chi Primary Care Unavailable Gab, Desmond Chi Attending Unavailable Gab, Desmond Chi Primary Care Unavailable Najma Delaney Attending Unavailable Gab, Desmond Chi Primary Care Unavailable Aldair Bryan Attending Unavailable Gab, Desmond Chi Primary Care Unavailable Gab, Desmond Chi Primary Care Unavailable Guillermo Lai V Attending Unavailable SibiliaGuillermo V Referring Unavailable Gab, Desmond Chi Attending Unavailable Gab, Desmond Chi Primary Care Unavailable Gba, Desmond Chi Attending Unavailable Gab, Desmond Chi Referring Unavailable Gab, Desmond Chi Primary Care Unavailable Gab, Desmond Chi Attending Unavailable Gab, Desmond Chi Primary Care Unavailable Gab, Desmond Chi Referring Unavailable Gab, Desmond Chi Attending Unavailable Gab, Desmond Chi Primary Care Unavailable Gab, Desmond Chi Attending Unavailable Gab, Desmond Chi Primary Care Unavailable Gab, Desmond Chi Referring Unavailable Allergies Allergy Classification Reported Allergen(s) Allergy Type Date of Onset Reaction(s) Facility (14 sources) Penicillins; Translations: [Penicillins] Propensity to adverse reactions [address] [facility] Work Phone: (4 sources) Latex Allergy to substance 4 [facility] (1 source) Penicillin Drug Allergy [facility] Repository (1 source) Latex Drug allergy (disorder) [address] [place] [address] Repository Medications Current Medications Medication Drug Class(es) Dates Sig (Normalized) Sig (Original) [id number] actuat albuterol 0.09 mg/actuat metered dose inhaler (5 sources) beta2-Adrenergic Agonist Start: 07-31-2023 Albuterol Sulfate 90 mcg/actuation HFA aerosol inhaler Active 2 NMA INHALATION Q4H as needed for shortness of breath or wheezing July 31, 2023 1:00am Start: 07-31-2023 take 1 puff(s) by in halation every four hours Albuterol Sulfate Active 2 PUFF INHALATION Q4H July 31, 2023 12:00am albuterol sulfat e 90 mcg/actuation breath activated powder inhaler Inhale as instructed. 0 Active Comment on above: Inhale as instructed . 120 actuat budesonide 0.08 mg/actuat / formoterol fumarate 0.0045 mg/actuat metered dose inhaler (9 sources) Corticosteroid, beta2-Adrenergic Agonist Start: 2018 take 1 puff(s) by inhalation twice daily Budesonide-Formoterol (Symbicort) 80-4.5 mcg/actuation HFA aerosol inhaler Active 2 PUFF INHALATION TWICE A DAY October 25, 2018 11:00pm cholecalciferol 0.025 mg oral tablet (2 sources) Vitamin D Start: 2023 take 1 tablet by mouth once daily Cholecalciferol (Vitamin D3) (Vitamin D3) 25 mcg (1,000 unit) tablet Active 25 ug PO daily January 27, 2024 12:00am cyclobenzaprine hydrochloride 10 mg oral tablet (1 source) Muscle Relaxant Start: 2021 End: 2021 take 1 tablet by mouth every eight hours as needed cyclobenzaprine (FLEXERIL) 10 mg tablet Take 1 tablet by mouth every 8 hours as needed for up to 5 days. 10 tablet 0 04/06/2022 04/11/2022 Active Comment on above: Take 1 tablet by iris th every 8 hours as needed for up to 5 days. diazePAM 5 mg oral tablet (1 source) Benzodiazepine Start: 2023 take 1 tablet by mouth once Diazepam (Valium) 5 mg tablet Active 5 MG PO ONCE July 31, 2023 12:00am gabapentin 300 mg oral capsule (4 sources) Anti-epileptic Agent Start: 2023 take 1 capsule by mouth at bedtime Gabapentin 300 mg capsule Active 300 mg PO AT BEDTIME July 31, 2023 1:00am Lactobac Acidoph-Fructooligos (9 sources) Start: 2018 Lactobac Acidoph-Fructooligos Active 1 EACH PO TWICE A DAY November 20, 2018 11:41am Start: 11-20-2018 Lactobac Acido ph-Fructooligos Active 1 EACH PO TWICE A DAY November 19, 2018 11:00pm Start: 11-20-2018 Lactobac Acido ph-Fructooligos Active 1 EACH PO TWICE A DAY November 20, 2018 12:00am lidocaine 0.04 mg/mg medicated patch (1 source) Antiarrhythmic, Amide Local Anesthetic Start: 04-06-2022 End: 04-11-2022 apply 1 dose transdermal route once daily, then apply 1 dose transdermal route every twelve hours lidocaine (SALONPAS) 4 % patch Apply 1 Patch as directed once daily for 5 days. Remove patch after 12 hours 5 Patch 0 04/06/2022 04/11/2022 Active Comment on above: Apply 1 Patch as dir ected once daily for 5 days. Remove patch after 12 hours melatonin 10 mg extended release oral tablet (4 sources) Start: 07-31-2023 take 1 tablet by mouth at bedtime Melatonin 10 mg tablet extended release Active 10 mg PO AT BEDTIME July 31, 2023 1:00am pravastatin sodium 40 mg oral tablet (3 sources) HMG-CoA Reductase Inhibitor Start: 01-27-2024 take 1 tablet by mouth at bedtime Pravastatin 40 mg tablet Active 40 mg PO AT BEDTIME January 27, 2024 12:00am Start: 03-15-2022 take 1 tablet by iris th once daily at bedtime pravastatin (PRAVACHOL) 40 mg tablet Take 40 mg by mouth daily at bedtime. 0 03/15/2022 Active Comment on above: Take 40 mg by mouth daily at bedtime. predniSONE 10 mg oral tablet (1 source) Start: 04-06-2022 predniSONE (DELTASONE) 10 mg tablet Take 4 tabs daily for 3 days, then 2 tabs daily for 3 days, then 1 tab daily for 3 days with food. 21 tablet 0 04/06/2022 Active Start: 04-06-2022 predniSONE (DE LTASONE) 10 mg tablet Take 4 tabs daily for 3 days, then 2 tabs daily for 3 days, then 1 tab daily for 3 days with food. 21 tablet 0 04/06/2022 Active Comment on above: Take 4 tabs daily fo r 3 days, then 2 tabs daily for 3 days, then 1 tab daily for 3 days with food. topiramate 25 mg oral tablet (2 sources) Start: 07-31-2023 take 25 mg by mouth once daily Topiramate Active 25 MG PO DAILY July 31, 2023 12:00am Start: 02-12-2022 take 1 tablet by iris once daily topiramate (TOPAMAX) 25 mg tablet Take 25 mg by mouth once daily. 0 02/12/2022 Active Comment on above: Take 25 mg by mouth once daily. Completed/Discontinued Medications Medication Drug Class(es) Dates Sig (Normalized) Sig (Original) acetaminophen 325 mg / oxyCODONE hydrochloride 5 mg oral tablet (20 sources) Opioid Agonist Start: 11-23-2018 End: 12-01-2018 take 1-2 tablets by mouth once daily as needed for pain Oxycodone-Acetamino phen (Percocet) 5-325 mg tablet Discontinued 0 PO 4 TIMES DAILY as needed for pain 40 November 25, 2018 November 30, 2018 12:00am December 01, 2018 12:06am 1-2 tabs PO 4X/DAY PRN; 40 tabs (forty) Dispense 11/25/18 Start: 11-20-2018 End: 11-25-2018 Oxycodone-Acetaminophen 1 TA BLET tablet Discontinued 1 - 2 {tbl} PO 4 TIMES DAILY NEEDED as needed for Pain 40 November 20, 2018 11:41am November 24, 2018 12:00am November 25, 2018 12:06am 40 tabs (forty) Start: 11-20-2018 End: 11-25-2018 take 1 tablet by mouth four times daily as needed Oxycodone-Acetaminophen Discontinued 1 - 2 TABLET PO 4 TIMES DAILY NEEDED 40 November 20, 2018 10:41am November 24, 2018 11:06pm 40 tabs (forty) atorvastatin 40 mg oral tablet (12 sources) HMG-CoA Reductase Inhibitor Start: 10-26-2018 End: 01-27-2024 take 1 tablet by mouth once daily Atorvastatin 40 mg tablet Discontinued 40 mg PO DAILY October 26, 2018 12:00am January 27, 2024 3:14pm baclofen 10 mg oral tablet (13 sources) gamma-Aminobutyric Acid-ergic Agonist Start: 10-26-2018 End: 07-31-2023 take 1 tablet by mouth once daily Baclofen 10 mg tablet Discontinued 10 mg PO DAILY October 26, 2018 12:00am July 31, 2023 1:59pm Comment on above: TAKE 1 TABLET ORALLY ONCE PER DAY FOR 7 DAYS TAKE AT BEDTIME. clindamycin 300 mg oral capsule (12 sources) Lincosamide Antibacterial Start: 11-20-2018 End: 01-14-2019 take 1 capsule by mouth three times daily Clindamycin Hcl 300 MG capsule Discontinued 300 mg PO THREE TIMES A DAY November 20, 2018 12:00am January 14, 2019 4:32pm doxepin hydrochloride 25 mg oral capsule (12 sources) Tricyclic Antidepressant Start: 10-26-2018 End: 07-31-2023 take 1 capsule by mouth at bedtime Doxepin 25 mg capsule Discontinued 25 mg PO AT BEDTIME October 26, 2018 12:00am July 31, 2023 2:02pm escitalopram 10 mg oral tablet (12 sources) Serotonin Reuptake Inhibitor Start: 10-26-2018 End: 07-31-2023 take 1 tablet by mouth once daily Escitalopram Oxalate 10 mg tablet Discontinued 10 mg PO DAILY October 26, 2018 12:00am July 31, 2023 1:59pm nystatin [id number] unt/ml oral suspension (12 sources) Polyene Antifungal Start: 12-02-2018 End: 12-30-2018 take [id number] [IU] by mouth three times daily Nystatin 100,000 unit/mL suspension Discontinued [id number] U PO THREE TIMES A DAY 210 December 02, 2018 12:00am December 29, 2018 12:00am December 30, 2018 12:06am swish and swallow pantoprazole 40 mg delayed release oral tablet (1 source) Proton Pump Inhibitor Start: 01-05-2022 take 1 tablet by mouth once daily pantoprazole DR (PROTONIX) 40 mg tablet TAKE 1 TABLET ORALLY ONCE PER DAY FOR 7 DAYS 0 01/05/2022 Active Comment on above: TAKE 1 TABLET ORALLY ONCE PER DAY FOR 7 DAYS tamsulosin hydrochloride 0.4 mg oral capsule (13 sources) alpha-Adrenergic Dwain Start: 03-15-2022 take 2 capsules by mouth once daily at bedtime tamsulosin (FLOMAX) 0.4 mg TAKE 2 CAPSULES ORALLY ONCE PER DAY FOR 90 DAYS AT BEDTIME 0 03/15/2022 Active Start: 10-26-2018 take 2 capsules by m outh at bedtime Tamsulosin (Flomax) 0.4 mg capsule Active 0.8 mg PO AT BEDTIME October 26, 2018 12:00am Comment on above: TAKE 2 CAPSULES ORAL LY ONCE PER DAY FOR 90 DAYS AT BEDTIME Problems Active Problems Problem Classification Problem Date Documented Date Episodic/Chronic Abdominal hernia (2 sources) Umbilical hernia; Translations: [Umbilical hernia without obstruction or gangrene] 01-27-2024 Episodic Comment on above: Patient is a 64-year -old male who presents for evaluation of possible ventral hernia, however, on exam this appears to be primarily his diastases of the rectus muscles. Inferiorly, I do identify a small hernia but this appears stable in size. This hernia is identified in CT imaging available from 2017 at roughly the same size. However, I have recommended to Mr. Sandoval that he consider an elective repair once several other health items are optimized. Notably, I have recommended that he proceed with additional evaluation for his knee discomfort as it is severely limiting his mobility while at the same time I have recommended that he began looking to lose weight. I shared with him that there is a inflection point around a BMI of 40 for abdominal hernia repairs and the risk for recurrence. Mr. Sandoval expresses understanding and agrees to a follow-up in 6 months to reevaluate. In the interim I have provided him with red flag warning signs that should move him to the emergency department should anything develop in that time, however, I do take encouragement for the fact that this appears to have been stable for the last 7+ years. Acute and unspecified renal failure (1 source) Acute kidney failure, unspecified; Translations: [Acute kidney failure, unspecified] Onset: 12-12-2024 Episodic Allergic reactions (1 source) Allergy status to penicillin; Translations: [Allergy status to penicillin] Onset: 12-12-2024 Episodic Chronic obstructive pulmonary disease and bronchiectasis (1 source) Chronic obstructive pulmonary disease, unspecified; Translations: [Chronic obstructive pulmonary disease, unspecified] Onset: 12-12-2024 Chronic Diabetes mellitus with complications (5 sources) Type 2 diabetes mellitus with hyperosmolarity without nonketotic hyperglycemic-hyperos molar coma (NKHHC); Translations: [Type 2 diabetes mellitus with hyperglycemia] Onset: 12-12-2024 Chronic Disorders of lipid metabolism (1 source) Pure hypercholesterolemia, unspecified; Translations: [Pure hypercholesterolemia, unspecified] Onset: 12-12-2024 Chronic Essential hypertension (2 sources) Essential (primary) hypertension; Translations: [Essential (primary) hypertension] Onset: 09-23-2024 Chronic Fluid and electrolyte disorders (1 source) Hypo-osmolality and hyponatremia; Translations: [Hypo-osmolality and hyponatremia] Onset: 12-12-2024 Episodic Headache; including migraine (2 sources) Headache; Translations: [Headache] 09-19-2024 Episodic Hyperplasia of prostate (1 source) Benign prostatic hyperplasia with lower urinary tract symptoms; Translations: [Benign prostatic hyperplasia with lower urinary tract symptoms] Onset: 10-26-2024 Chronic Malaise and fatigue (1 source) Other fatigue; Translations: [Other fatigue] Onset: 12-06-2024 Episodic Neoplasms of unspecified nature or uncertain behavior (12 sources) Neoplastic disease; Translations: [Neoplasm of unspecified behavior of bone, soft tissue, and skin] 11-21-2018 Episodic Comment on above: 1.5 cm lesion right elbow Open wounds of extremities (12 sources) Open wound of elbow with complication; Translations: [Unspecified open wound of right elbow, initial encounter] 11-21-2018 Episodic Osteoarthritis (1 source) Unilateral primary osteoarthritis, right knee; Translations: [Unilateral primary osteoarthritis, right knee] Onset: 12-06-2024 Chronic Other and unspecified benign neoplasm (3 sources) History of polyp of colon; Translations: [Personal history of colonic polyps] 09-05-2023 Episodic Other and unspecified benign neoplasm (1 source) Personal history of colonic polyps; Translations: [Personal history of colonic polyps] 09-05-2023 Episodic Other circulatory disease (2 sources) Labile blood pressure; Translations: [Other specified symptoms and signs involving the circulatory and respiratory systems] 09-19-2024 Episodic Other connective tissue disease (12 sources) Abscess of bursa of elbow; Translations: [Abscess of bursa, right elbow] 11-21-2018 Episodic Other connective tissue disease (2 sources) Diastasis recti; Translations: [Separation of muscle (nontraumatic), other site] 01-27-2024 Episodic Comment on above: Patient seems to be primarily concerned for a hernia that is actually represented by diastases of the rectus muscles. Patient is advised that any intervention undertaken for diastases is largely cosmetic. I reassured him that this should not pose any risk to his bowel. Other nervous system disorders (1 source) Other chronic pain; Translations: [Other chronic pain] Onset: 12-12-2024 Chronic Other non-traumatic joint disorders (1 source) Pain in right knee; Translations: [Pain in right knee] Onset: 12-06-2024 Episodic Other nutritional; endocrine; and metabolic disorders (1 source) Body mass index (BMI) 40.0-44.9, adult; Translations: [Body mass index [BMI]40.0-44.9, adult] Onset: 12-12-2024 Chronic Other nutritional; endocrine; and metabolic disorders (1 source) Morbid (severe) obesity due to excess calories; Translations: [Morbid (severe) obesity due to excess calories] Onset: 12-12-2024 Chronic Other skin disorders (12 sources) Mass of neck; Translations: [Localized swelling, mass and lump, neck] 11-21-2018 Episodic Comment on above: 2 cm painful soft ti ssue mass left posterior neck Other skin disorders (12 sources) Epidermoid cyst; Translations: [Epidermal cyst] 12-04-2018 Episodic Comment on above: 1.5 cm ruptured epid ermal inclusion cyst right elbow2 cm painful epidermal inclusion cyst left posterior neck Residual codes; unclassified (1 source) Chills (without fever); Translations: [Chills (without fever)] Onset: 12-06-2024 Episodic Spondylosis; intervertebral disc disorders; other back problems (3 sources) Acute thoracic back pain; Translations: [Pain in thoracic spine] Onset: 12-12-2024 Episodic Unclassified (1 source) Other intervertebral disc degeneration, lumbar region with discogenic back pain only; Translations: [Other intervertebral disc degeneration, lumbar region with discogenic back pain only] Onset: 12-12-2024 Past or Other Problems Problem Classification Problem Date Documented Da te Episodic/Chronic Other lower respiratory disease (1 source) Shortness of breath; Translations: [Shortness of breath] Onset: 09-15-2024 Episodic Other screening for suspected conditions (not mental disorders or infectious disease) (6 sources) Patient encounter status; Translations: [Encounter for screening for malignant neoplasm of colon] Onset: 09-16-2024 07-31-2023 Episodic Screening and history of mental health and substance abuse codes (14 sources) Ex-smoker; Translations: [Personal history of nicotine dependence] Onset: 08-30-2024 11-21-2018 Episodic Results Test Name Value Interpretation Reference Range Facility Microalb:Creat Ratio,Random URon 12-15-2024 Creatinine [Mass/Vol] 183.00 mg/dL Normal 39.00- 259.0 0 [facility] Comment on above: Performed By: #### L 502.0250 ####[facility] [id number] [place], [place], [address] MALB:CREAT 514.8 mg/g CRE Normal [facility] Comment on above: Performed By: #### L 502.0250 ####[facility] [address] [place], [place], [id number] MICROALBUMIN,UR 94.2 mg/L Normal NO RANGE EST. [facility] Comment on above: Performed By: #### L 502.0250 ####[facility] [address] [place], [place], [id number] BMP with eGFR DAILYon 2024 AGE 64 years Normal [facility] Comment on above: Performed By: #### 2 [id number] #### [facility],[address] [place] [address] Anion gap [Moles/Vol] 15 mmol/L Normal 10 - 20 [facility] Comment on above: Performed By: #### 2 [id number] #### [facility],[address] [place] [address] BMP with eGFR DAILY Normal [facility] Comment on above: Result Comment: BASI C METABOLIC PANEL Performed By: #### 2 [id number] #### [facility],[address] [place] [address] Calcium [Mass/Vol] 9.2 mg/dL Normal 8.5 - 10.1 [facility] Comment on above: Performed By: #### 2 [id number] #### [facility],[address] [place] [address] Chloride [Moles/Vol] 101 mmol/L Normal 98 - 107 [facility] Comment on above: Performed By: #### 2 [id number] #### [facility],[address] [place], [place] [id number] CO2 [Moles/Vol] 23.8 mmol/L Normal 21.0 - 32.0 [facility] Comment on above: Performed By: #### 2 [id number] #### [facility],[address] [place] [address] Creatinine [Mass/Vol] 0.80 mg/dL Normal 0.70 - 1.30 [facility] Comment on above: Performed By: #### 2 [id number] #### [facility],[address] [place] [address] GFR/1.73 sq M.predicted among non-blacks MDRD (S/P/Bld) [Vol rate/Area] mL/min/{1.73_m2} Normal 60 - 999 [facility] Comment on above: Performed By: #### 2 [id number] #### [facility],[address] [place] [address] Result Comment: ACCO RDING TO THE NATIONAL KIDNEY DISEASE EDUCATION PROGRAM(NKDE), A NORMAL eGFR IS A VALUE GREATER THAN OR EQUAL TO 60 ML/MIN/1.73 SQ METERS. CHRONIC KIDNEY DISEASE: <60mL/MIN/1.73 SQ METERS KIDNEY FAILURE: <15mL/MIN/1.73 SQ METERS THIS TEST SHOULD ONLY BE USED FOR PATIENTS 18 YEARS OF AGE AND OLDER. Glucose [Mass/Vol] 286 mg/dL High 74 - 106 [facility] Comment on above: Performed By: #### 2 [id number] #### [facility],[address] [place], [place] [id number] Potassium [Moles/Vol] 3.9 mmol/L Normal 3.5 - 5.1 [facility] Comment on above: Performed By: #### 2 01305 #### [facility],[address] [place] [address] Sodium [Moles/Vol] 136 mmol/L Normal 136 - 145 [facility] Comment on above: Performed By: #### 2 [id number] #### [facility],[address] [place] [address] Urea nitrogen [Mass/Vol] 13 mg/dL Normal 7 - 18 [facility] Comment on above: Performed By: #### 2 [id number] #### [facility],[address] [place], [place] [id number] CBC + DIFF DAILYon 5 Baso # 0.01 x10EE3/UL Normal 0.00 - 0.10 [facility] Comment on above: Performed By: #### 2 [id number] #### [facility],[address] [place], [place] [id number] Basophils/100 WBC (Bld) 0.2 % Normal 0.0 - 2.0 [facility] Comment on above: Performed By: #### 2 [id number] #### [facility],[address] [place] [address] CBC + DIFF DAILY Normal [facility] Comment on above: Result Comment: CBC- COMPLETE BLOOD COUNT Performed By: #### 2 [id number] #### [facility],[address] [place] [address] EO # 0.16 x10EE3/UL Normal 0.00 - 0.50 [facility] Comment on above: Performed By: #### 2 [id number] #### [facility],[address] [place] [address] Eosinophils/100 WBC (Bld) 2.4 % Normal 0.0 - 7.0 [facility] Comment on above: Performed By: #### 2 [id number] #### [facility],[address] [place] [address] Erythrocyte distribution width (RBC) [Ratio] 13.7 % Normal 12.0 - 15.6 [facility] Comment on above: Performed By: #### 2 [id number] #### [facility],[address] [place] [address] Hematocrit (Bld) [Volume fraction] 34.8 % Low 40.0 - 52.0 [facility] Comment on above: Performed By: #### 2 [id number] #### [facility],[address] [place] [address] Hemoglobin (Bld) [Mass/Vol] 12.4 g/dL Low 13.0 - 17.5 [facility] Comment on above: Performed By: #### 2 [id number] #### [facility],[address] [place] [address] Lymph # 1.44 x10EE3/UL Normal 0.80 - 2.80 [facility] Comment on above: Performed By: #### 2 [id number] #### [facility],[address] [place] [address] Lymphocytes/100 WBC (Bld) 21.0 % Normal 20.0 - 45.0 [facility] Comment on above: Performed By: #### 2 19702 #### [facility],[address] [place] [address] MANUAL DIFF N/A Normal [facility] Comment on above: Performed By: #### 2 [id number] #### [facility],[address] [place] [address] MCH (RBC) [Entitic mass] 31 pg Normal 27 - 33 [facility] Comment on above: Performed By: #### 2 [id number] #### [facility],[address] [place] [address] MCHC 36 X10 3 Normal 32 - 36 [facility] Comment on above: Performed By: #### 2 [id number] #### [facility],[address] [place] [address] MCV (RBC) [Entitic vol] 85 fL Normal 81 - 98 [facility] Comment on above: Performed By: #### 2 [id number] #### [facility],[address] [place] [address] [place] # 0.51 x10EE3/UL Normal 0.20 - 1.00 [facility] Comment on above: Performed By: #### 2 24575 #### [facility],[address] [place] [address]605 MONOS % 7.5 % Normal 0.0 - 10.0 [facility] Comment on above: Performed By: #### 2 04676 #### [facility],[address] [place] [address] 21271 Morphology Jensen (Bld) [Interp] N/A Normal [facility] Comment on above: Performed By: #### 2 52642 #### [facility],[address] [place] [address] 80056 Neut # 4.75 x10EE3/UL Normal 1.50 - 7.10 [facility] Comment on above: Performed By: #### 2 65543 #### [address] [address] Neutrophils/100 WBC (Bld) 69.0 % Normal 46.0 - 76.0 [facility] Comment on above: Performed By: #### 2 19400 #### [facility],[address] [place] [address] 37117 PLATELET 182 x10EE3/UL Normal 150 - 450 [facility] Comment on above: Performed By: #### 2 13349 #### [facility],[address] [place] [address] 58476 Platelet mean volume (Bld) [Entitic vol] 8.8 fL Normal 6.4 - 10.5 [facility] Comment on above: Result Comment: AUTO MATED DIFFERENTIAL Performed By: #### 2 73668 #### [facility],[address] [place] [address] 05235 RBC 4.08 x 10EE6/UL Low 4.50 - 6.00 [facility] Comment on above: Performed By: #### 2 62151 #### [facility],[address] [place] [address] 26238 WBC 6.9 x 10EE3/UL Normal 4.5 - 10.8 [facility] Comment on above: Performed By: #### 2 11939 #### [facility],[address] [place] [address] 92571 BMP with eGFRon 12-11-2024 AGE 64 years Normal [facility] Comment on above: Performed By: #### 2 90828 ####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 interpreted by the radiologist. Interpretation time: 23:29 12/10/2024. Laboratory Tests: CBC + DIFF Final ROXI: 12/10/2024 21:35:00 EDT MsgRcvd: 12/10/2024 22:19 EDT Lab Test Result Reference Status Received Comments 12/10/2024 22:19 CBC-COMPLETE CBC + DIFF Final EDT BLOOD COUNT 3 of 13 Narrative Lab Test Result Reference Status Received Comments 12/10/2024 22:19 WBC 7.5 x 10/UL 4.5 - 10.8 Final EDT 12/10/2024 22:19 RBC 4.62 x 10/UL 4.50 - 6.00 Final EDT 12/10/2024 22:19 HEMOGLOBIN 14.2 g/dl 13.0 - 17.5 Final EDT 12/10/2024 22:19 HEMATOCRIT 40.0 % 40.0 - 52.0 Final EDT 12/10/2024 22:19 MCV 87 fl 81 - 98 Final EDT 12/10/2024 22:19 MCH 31 pg 27 - 33 Final EDT 12/10/2024 22:19 MCHC 35 X10 3 32 - 36 Final EDT 12/10/2024 22:19 RDW/CV 13.7 % 12.0 - 15.6 Final EDT 12/10/2024 22:19 PLATELET 229 x10/UL 150 - 450 Final EDT 12/10/2024 22:19 AUTOMATED MPV 9.6 fl 6.4 - 10.5 Final EDT DIFFERENTIAL 77.8 % 12/10/2024 22:19 NEUT % 46.0 - 76.0 Final Above high normal EDT 12.8 % 12/10/2024 22:19 (more content not included)... Normal [facility] ED SUPER BILLon 12-11-2024 [facility] [address] [place] [address] [phone] 12/10/2024 Patient: AMANDA SANDOVAL Sex: Male : 1960 Age: 64y Facility Professional Category Item Description Code Code Quantity Fee Total Drugs Normal Saline 821321 2 $0.00 $0.00 1000cc (701827) Nurse/E/M EMERGENCY 156005 1 $0.00 $0.00 DEPT VISIT HIGH SEVERITYFUNCJ (68026-95) Nurse/IV/IM/Infusions Hydration 360228 3 $0.00 $0.00 additional hour (41666) Nurse/IV/IM/Infusions IM/SQ (37632) 732927 2 $0.00 $0.00 Nurse/IV/IM/Infusions IVP additional 368751 1 $0.00 $0.00 push (10819) Nurse/IV/IM/Infusions IVP initial (04675) 934437 1 $0.00 $0.00 Nurse/IV/IM/Infusions IVP same med 532427 1 $0.00 $0.00 (31 min apart) (56925) Grand $0.00 Total 1 of 2 [facility] Providers Amanda Ontiveros D.O. Chief Complaint BACK PAIN. Principal Diagnosis New onset, poorly controlled type 2 diabetes with hyperglycemia. 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 ICD-10 Codes M47.896: Other spondylosis, lumbar region 2 of 2 Normal [facility] ED VISIT SUMMARYon ED VISIT SUMMARY Visit Overview Visit Overview [place] [address] 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 Patient fell on Friday but denies any injury and went to the chiropractor on Friday.) ALLERGIES Penicillins HOME MEDICATIONS of 4 Visit Overview Contrave 8 mg-90 mg tablet,extended release: PLEASE SEE ATTACHED FOR DETAILED DIRECTIONS gabapentin 300 mg capsule: TAKE 1 CAPSULE BY MOUTH TWICE A DAY losartan 100 mg tablet: TAKE 1 TABLET BY MOUTH EVERY DAY pravastatin 40 mg tablet: TAKE 1 TABLET BY MOUTH AT BEDTIME tamsulosin 0.4 mg capsule: TAKE 2 CAPSULES ORALLY ONCE PER DAY FOR 90 DAYS AT BEDTIME PAST MEDICAL HISTORY / PROBLEMS Back Pain COPD - Chronic Obstructive Pulmonary Disease Hypercholesterolemia Hypertension Immunizations: up-to-date Prostate Disease See nurses notes PAST SURGICAL HISTORY Adenoidectomy Duodenal Ulcer Perforation: Performed 1981 Tonsillectomy SOCIAL HISTORY Smoking status: No Alcohol use: No Drug use: No ED COURSE MEDICATIONS GIVEN IN EMERGENCY DEPARTMENT 21:43 12/10/24 IV NS 0.9 % 1000 mL 999 mL/hr 21:44 12/10/24 Ondansetron IVP 4 mg 21:46 12/10/24 HYDROmorphone (Dilaudid) IVP 0.5 mg 22:46 12/10/24 Regular Insulin Subcut 8 unit 00:11 12/11/24 IV NS 0.9 % 1000 mL 999 mL/hr 2 of 4 Visit Overview 01:30 12/11/24 Regular Insulin Subcut 5 unit 01:34 12/11/24 Flomax PO 0.8 mg 01:49 12/11/24 Losartan PO 100 mg 01:49 12/11/24 HYDROmorphone (Dilaudid) IVP 0.5 mg IV SITE INFORMATION 21:29 12/10/24 Site #1 right AC, 18g. Saline lock. INTAKE OUTPUT REASSESMENT (most recent) 21:31 12/10/24. ( Patient presents to ER with low back pain that radiates down left leg. Pain started when he bent down to pick something up 1 week prior. He does report he slipped but did not fall on Friday.). GENERAL / NEURO / PSYCH: Alert. Oriented X 4. Appears in no acute distress. HEENT: No facial asymmetry noted. RESPIRATORY: Respirations not labored. Chest nontender. Breath sounds within normal limits. CVS: Normal sinus rhythm noted. Capillary refill less than 2 seconds. Pulses within normal limits. GI / : Abdomen soft and nontender and normal bowel sounds. Pain with urination (hesitancy due to enlarged prostate with some pain). SKIN: Skin is warm and dry. VITAL SIGNS First Vitals Last Vitals Temp 20:46 12/10/24 Temp 02:10 12/11/24 BP 20:46 12/10/24 145/126 BP 02:10 12/11/24 HR 20:46 12/10/24 122 HR 02:10 12/11/24 RR 20:46 12/10/24 RR 02:10 12/11/24 20 O2 Sat 20:46 12/10/24 O2 Sat 02:10 12/11/24 Pain 20:46 12/10/24 Pain 02:10 12/11/24 4 ETCO2 20:46 12/10/24 ETCO2 02:10 12/11/24 GCS 20:46 12/10/24 GCS 02:10 12/11/24 RTS 20:46 12/10/24 RTS 02:10 12/11/24 PROCEDURES NURSING INTERVENTIONS LABS / STUDIES LABS / STUDIES ORDERED 3 of 4 Visit Overview BMP CBC w Diff CMP CT L-Spine wo Cont Ketones, Serum Urinalysis LABS - ABNORMAL RESULTS BMP with eGFR GLUCOSE 526 mg/dl () , CMP with eGFR GLUCOSE 824 mg/dl () CLINICAL IMPRESSION ACUTE FLARE OF MODERATE SECONDARY DEGENERATIVE JOINT DISEASE INVOLVING THE LUMBAR SPINE NEW ONSET, POORLY CONTROLLED TYPE 2 DIABETES WITH HYPERGLYCEMIA 4 of 4 Normal [facility] ED VITALS FLOW SHEET 12-11 ED VITALS FLOW SHEET Vitals Vital Sign Flow Sheet [facility] [address] [place] [address] [phone] 12/10/2024 [id number] Sex[facility] Male : 1960 Age: 64y Measurements Wt: 117.9 kg, Ht/Grabiel: 65.0 in, BMI: 43.27 Measured Time BP MAP HR RR O2Sat ETCO2 Temp Pain GCS RTS 02:10 12/11/2024 20 4 02:05 12/11/2024 103 95% 02:00 12/11/2024 103 95% 01:55 12/11/2024 115 98% 01:53 12/11/2024 162/93 105 113 01:50 12/11/2024 107 95% 00:55 12/11/2024 112 96% 00:53 12/11/2024 196/104 134 101 00:50 12/11/2024 102 98% 00:45 12/11/2024 105 98% 00:40 12/11/2024 100 97% 00:38 12/11/2024 178/97 124 100 00:35 12/11/2024 101 98% 00:30 12/11/2024 103 97% 00:25 12/11/2024 100 96% 1 of 4 Vitals Measured Time BP MAP HR RR O2Sat ETCO2 Temp Pain GCS RTS 00:23 12/11/2024 187/105 130 97 00:20 12/11/2024 101 97% 00:15 12/11/2024 99 97% 00:10 12/11/2024 99 98% 00:09 12/11/2024 193/96 129 100 00:00 12/11/2024 101 97% 23:55 12/10/2024 98 96% 23:25 12/10/2024 101 95% 23:23 12/10/2024 156/94 116 96 23:20 12/10/2024 101 96% 23:15 12/10/2024 95 96% 23:10 12/10/2024 97 95% 23:08 12/10/2024 162/88 112 93 23:05 12/10/2024 100 98% 23:00 12/10/2024 98 95% 22:55 12/10/2024 101 96% 22:53 12/10/2024 151/85 98 101 22:50 12/10/2024 100 94% 22:46 12/10/2024 137/92 107 105 22:45 12/10/2024 100 96% 22:40 12/10/2024 101 94% 22:35 12/10/2024 109 94% 22:31 12/10/2024 161/99 119 104 22:30 12/10/2024 108 94% 22:25 12/10/2024 105 93% 2 of 4 Vitals Measured Time BP MAP HR RR O2Sat ETCO2 Temp Pain GCS RTS 22:20 12/10/2024 111 94% 22:16 12/10/2024 168/112 130 105 22:15 12/10/2024 109 96% 22:14 12/10/2024 105 95% 22:09 12/10/2024 107 99% 22:04 12/10/2024 105 96% 22:00 12/10/2024 130/73 81 102 22:00 12/10/2024 104 93% 21:55 12/10/2024 108 92% 21:50 12/10/2024 116 93% 21:45 12/10/2024 115/68 83 110 21:45 12/10/2024 112 95% 21:40 12/10/2024 109 94% 21:31 12/10/2024 112/64 82 118 21:30 12/10/2024 119 96% 21:26 12/10/2024 131/72 90 120 21:25 12/10/2024 127 93% 21:20 12/10/2024 119 94% 21:16 12/10/2024 136/70 94 116 21:15 12/10/2024 113 95% 21:12 12/10/2024 139/90 106 125 18 95% RA 98.0 F 8 21:10 12/10/2024 117 96% 21:05 12/10/2024 119 96% 21:01 12/10/2024 142/87 103 118 21:00 12/10/2024 116 95% 3 of 4 Vitals Measured Time BP MAP HR RR O2Sat ETCO2 Temp Pain GCS RTS 20:59 12/10/2024 139/90 106 113 20:55 12/10/2024 128 95% 20:50 12/10/2024 120 95% 20:46 12/10/2024 145/126 131 122 4 of 4 Normal [facility] HEMOGLOBIN A1C (POM)on 12-11 Glucose [Mass/Vol] 314.9 mg/dL High 0.0 - 0.0 [facility] Comment on above: Result Comment: Do HEMOGLOBIN A1C REFERENCE RANGESBLDo Suggested Diagnosis HbA1c(%) HbA1C (mmol/mol Diabetic >/=6.5 >/=48 Prediabetes 5.7 - 6.4 39 - 47 Normal <5.7 <39 Performed By: #### 2 [id number] ####[facility],[address] [place] [address] HbA1c (Bld) [Mass fraction] 12.6 % High 0.0 - 6.5 [facility] Comment on above: Performed By: #### 2 84993 ####[facility],[address] [place] [address] CBC + DIFFon 12-10-2024 Baso # 0.02 x10EE3/UL Normal 0.00 - 0.10 [facility] Comment on above: Performed By: #### 2 76147 #### [facility],[address] [place] [address] Basophils/100 WBC (Bld) 0.3 % Normal 0.0 - 2.0 [facility] Comment on above: Performed By: #### 2 56060 #### [facility],[address] [place] [address] CBC + DIFF Normal [facility] Comment on above: Result Comment: CBC- COMPLETE BLOOD COUNT Performed By: #### 2 53329 #### [facility],[address] [place] [address] EO # 0.11 x10EE3/UL Normal 0.00 - 0.50 [facility] Comment on above: Performed By: #### 2 34720 #### [facility],[address] [place] [address] Eosinophils/100 WBC (Bld) 1.5 % Normal 0.0 - 7.0 [facility] Comment on above: Performed By: #### 2 62055 #### [facility],[address] [place] [address] Erythrocyte distribution width (RBC) [Ratio] 13.7 % Normal 12.0 - 15.6 [facility] Comment on above: Performed By: #### 2 53553 #### [facility],[address] [place] [address] Hematocrit (Bld) [Volume fraction] 40.0 % Normal 40.0 - 52.0 [facility] Comment on above: Performed By: #### 2 69017 #### [facility],[address] [place] [address] Hemoglobin (Bld) [Mass/Vol] 14.2 g/dL Normal 13.0 - 17.5 [facility] Comment on above: Performed By: #### 2 46740 #### [facility],[address] [place] [address] Lymph # 0.95 x10EE3/UL Normal 0.80 - 2.80 [facility] Comment on above: Performed By: #### 2 99400 #### [facility],[address] [place], [place] [id number] Lymphocytes/100 WBC (Bld) 12.8 % Low 20.0 - 45.0 [facility] Comment on above: Performed By: #### 2 30414 #### [facility],[address] [place] [address] MANUAL DIFF N/A Normal [facility] Comment on above: Performed By: #### 2 10277 #### [facility],[address] [place], [place] [id number] MCH (RBC) [Entitic mass] 31 pg Normal 27 - 33 [facility] Comment on above: Performed By: #### 2 71917 #### [facility],[address] [place] [address] MCHC 35 X10 3 Normal 32 - 36 [facility] Comment on above: Performed By: #### 2 15296 #### [facility],[address] [place] [address] MCV (RBC) [Entitic vol] 87 fL Normal 81 - 98 [facility] Comment on above: Performed By: #### 2 63506 #### [facility],[address] [place] [address] [place] # 0.56 x10EE3/UL Normal 0.20 - 1.00 [facility] Comment on above: Performed By: #### 2 97088 #### [facility],[address] [place] [address]143 MONOS % 7.6 % Normal 0.0 - 10.0 [facility] Comment on above: Performed By: #### 2 13681 #### [facility],[address] [place] [address]57 Morphology Jensen (Bld) [Interp] N/A Normal [facility] Comment on above: Performed By: #### 2 60531 #### [facility],[address] [place] [address]252 Neut # 5.80 x10EE3/UL Normal 1.50 - 7.10 [facility] Comment on above: Performed By: #### 2 34845 #### [facility],[address] [place] [address] Neutrophils/100 WBC (Bld) 77.8 % High 46.0 - 76.0 [facility] Comment on above: Performed By: #### 2 74538 #### [facility],[address] [place] [address]302 PLATELET 229 x10EE3/UL Normal 150 - 450 [facility] Comment on above: Performed By: #### 2 95310 #### [facility],[address] [place] [address] 73408 Platelet mean volume (Bld) [Entitic vol] 9.6 fL Normal 6.4 - 10.5 [facility] Comment on above: Result Comment: AUTO MATED DIFFERENTIAL Performed By: #### 2 42196 #### [facility],[address] [place] [address] 58257 RBC 4.62 x 10EE6/UL Normal 4.50 - 6.00 [facility] Comment on above: Performed By: #### 2 95502 #### [facility],[address] [place] [address] 98454 WBC 7.5 x 10EE3/UL Normal 4.5 - 10.8 [facility] Comment on above: Performed By: #### 2 53923 #### [facility],[address] [place] [address] 45239 CMP with eGFRon 12-10-2024 AGE 64 years Normal [facility] Comment on above: Performed By: #### 2 84654 #### [facility],[address] [place] [address] 66233 Albumin [Mass/Vol] 2.9 g/dL Low 3.4 - 5.0 [facility] Comment on above: Performed By: #### 2 59658 #### [facility],[address] [place] [address]48 Albumin/Globulin [Mass ratio] 0.8 {ratio} Low 0.9 - 1.6 [facility] Comment on above: Performed By: #### 2 19757 #### [facility],[address] [place] [address] 47938 ALK PHOS 138 U/L High 46 - 116 [facility] Comment on above: Performed By: #### 2 55893 #### [facility],[address] [place] [address] 12063 ALT [Catalytic activity/Vol] 34 U/L Normal 16 - 63 [facility] Comment on above: Performed By: #### 2 52118 #### [facility],[address] [place] [address] 97260 Anion gap [Moles/Vol] 14 mmol/L Normal 10 - 20 [facility] Comment on above: Performed By: #### 2 81291 #### [facility],[address] [place] [address] 06015 AST [Catalytic activity/Vol] 15 U/L Normal 15 - 37 [facility] Comment on above: Performed By: #### 2 27598 #### [facility],[address] [place] [address] 23076 B/C RATIO 14 ratio Normal 0 - 30 [facility] Comment on above: Performed By: #### 2 32600 #### [facility],[address] [place] [address]13 Bilirubin [Mass/Vol] 0.7 mg/dL Normal 0.2 - 1.0 [facility] Comment on above: Performed By: #### 2 40018 #### [facility],[address] [place] [address]65 Calcium [Mass/Vol] 9.1 mg/dL Normal 8.5 - 10.1 [facility] Comment on above: Performed By: #### 2 40476 #### [facility],[address] [place] [address] 14293 Chloride [Moles/Vol] 96 mmol/L Low 98 - 107 [facility] Comment on above: Performed By: #### 2 13949 #### [facility],[address] [place] [address] 56099 CMP with eGFR Normal [facility] Comment on above: Result Comment: COMP REHENSIVE METABOLIC PANEL Performed By: #### 2 43357 #### [facility],[address] [place] [address] 68174 CO2 [Moles/Vol] 25.3 mmol/L Normal 21.0 - 32.0 [facility] Comment on above: Performed By: #### 2 00866 #### [address] [address] Creatinine [Mass/Vol] 1.51 mg/dL High 0.70 - 1.30 [facility] Comment on above: Performed By: #### 2 14469 #### [address] [address] eGFR 46 ML/MINUTE Low 60 - 999 [facility] Comment on above: Performed By: #### 2 50735 #### [address] [address] eGFR(AA) 56 ML/MINUTE Low 60 - 999 [facility] Comment on above: Result Comment: ACCO RDING TO THE NATIONAL KIDNEY DISEASE EDUCATION PROGRAM(NKDE), A NORMAL eGFR IS A VALUE GREATER THAN OR EQUAL TO 60 ML/MIN/1.73 SQ METERS. CHRONIC KIDNEY DISEASE: <60mL/MIN/1.73 SQ METERS KIDNEY FAILURE: <15mL/MIN/1.73 SQ METERS THIS TEST SHOULD ONLY BE USED FOR PATIENTS 18 YEARS OF AGE AND OLDER. Performed By: #### 2 20918 #### [address] [address] Globulin (S) [Mass/Vol] 3.7 g/dL Normal 1.5 - 3.8 [facility] Comment on above: Performed By: #### 2 41419 #### [address] [address] Glucose [Mass/Vol] 824 mg/dL Critically high 74 - 106 [facility] Comment on above: Result Comment: { CA LLED TO LEONOR IDAMOND BY SO AT 2229 { READ BACK BY LEONOR DIAMOND RA AT 2229 Performed By: #### 2 58406 #### [address] [address] Potassium [Moles/Vol] 4.8 mmol/L Normal 3.5 - 5.1 [facility] Comment on above: Performed By: #### 2 27178 #### [facility],[address] [place] [address]16 Protein [Mass/Vol] 6.6 g/dL Normal 6.4 - 8.2 [facility] Comment on above: Performed By: #### 2 09609 #### [facility],[address] [place] [address]34 Sodium [Moles/Vol] 130 mmol/L Low 136 - 145 [facility] Comment on above: Performed By: #### 2 78888 #### [address] [address] Urea nitrogen [Mass/Vol] 21 mg/dL High 7 - 18 [facility] Comment on above: Performed By: #### 2 42401 #### [place] [id number] CT LUMBAR W/O CONTRAST CT LUMBAR W/O CONTRAST [place] [address] Patient: AMANDA SANDOVAL Phone#: : 1960 Age: 64 Gender: M Pt. Type: ER Account: [id number] Location: [facility] Ordering: AMANDA ONTIVEROS Exam Date: 12/10/2024/22:07 Family Phys: DESMOND FRAIRE Charge Code: 610035 Physician: Chelan Order #: [id number] Dose#: [id number] PROCEDURE: CT LUMBAR SPINE WITHOUT CONTRAST COMPARISON: None. INDICATIONS: Pain in back. TECHNIQUE: After obtaining the patient's consent, multi-planar CT images were created without intravenous contrast material. All CT scans at this facility use dose modulation, iterative reconstruction, and/or weight based dosing when appropriate to reduce radiation dose to as low as reasonably achievable. IV CONTRAST: No IV contrast used,0ml TOTAL DOSE: 61.30 CTDIvol(mGy) FINDINGS: PARASPINAL AREA: Normal with no visible mass. BONES: Vertebral bodies are maintained in height and alignment. No fracture or subluxation. Schmorl's node is seen at the inferior endplate of L1. OTHER: Low-attenuation lesions in the kidneys, incompletely characterized without contrast. Atherosclerotic calcifications of the aorta. LUMBAR DISC LEVELS: L1-L2: Disc height loss contributes to at least mild osseous foraminal narrowing L2-L3: No significant disc/facet abnormality, spinal stenosis, or foraminal stenosis. L3-L4: Disc height loss and circumferential disc bulge contributes to moderate bilateral osseous foraminal narrowing there is at least mild to moderate spinal canal narrowing L4-L5: No significant disc/facet abnormality, spinal stenosis, or foraminal stenosis. L5-S1: Disc height loss posterior disc osteophyte complex contributes to at least moderate bilateral osseous foraminal narrowing. CONCLUSION: 1. No acute osseous abnormality 2. Multilevel degenerative changes of the lumbar spine. There appears to be spinal canal narrowing at L3-4. Consider follow-up MRI for further characterization. 3. L5-S1 at least moderate osseous foraminal narrowing. [place] [address] Patient: AMANDA SANDOVAL Phone#: : 1960 Age: 64 Gender: M Pt. Type: ER Account: [id number] Location: [facility] Ordering: AMANDA ONTIVEROS Exam Date: 12/10/2024/22:07 Family Phys: DESMOND FRAIRE Charge Code: 326248 Physician: Chelan Order #: [id number] Dose#: [id number] Dictated by: Delia Agosto MD on 12/11/2024 at 15:15 Approved by: Delia Agosto MD on 12/11/2024 at 15:21 Normal [facility] KETONE, BLOOD, QUALon 2024 Ketones Ql (U) Negative Normal HERB - NEGATIVE [facility] Comment on above: Result Comment: SPEC IMEN SERUM Performed By: #### 2 75661 #### [facility],[address] [place] [address] URINALYSISon 12-10-2024 Bilirubin Ql (U) Negative Normal NORMAL: NEGATIVE [facility] Comment on above: Performed By: #### 2 86239 ####[facility],[address] [place], [place] [address] Clarity (U) clear Normal NORMAL: CLEAR [facility] Comment on above: Performed By: #### 2 81932 ####[facility],[address] [place] [address] Color (U) p.yel Normal NORMAL: YELLOW [facility] Comment on above: Performed By: #### 2 01510 ####[facility],[address] [place], [place] [address] Glucose Ql (U) 1000 Abnormal NORMAL: NORMAL [facility] Comment on above: Performed By: #### 2 45256 ####[facility],[address] [place] [address] Hemoglobin Ql (U) Negative Normal NORMAL: NEGATIVE [facility] Comment on above: Performed By: #### 2 71167 ####[facility],[address] [place] [address] Ketone 5 Abnormal NORMAL: NEGATIVE [facility] Comment on above: Performed By: #### 2 56466 ####[facility],[address] [place] [address] Leukocytes Negative Normal NORMAL: NEGATIVE [facility] Comment on above: Performed By: #### 2 06170 ####[facility],[address] [place] [address] Nitrite Ql (U) Negative Normal NORMAL: NEGATIVE [facility] Comment on above: Performed By: #### 2 18776 ####[facility],[address] [place] [address] pH (U) 6 [pH] Normal NORMAL: 5.0-8.0 [facility] Comment on above: Performed By: #### 2 14728 ####[facility],[address] [place] [address] Protein Ql (U) Negative Normal NORMAL: NEGATIVE [facility] Comment on above: Performed By: #### 2 10474 ####[facility],[address] [place] [address] Sp [place] 1.010 Normal NORMAL: 1.010-1.030 [facility] Comment on above: Performed By: #### 2 15910 ####[facility],[address] [place] [address] Specimen Type R Normal [facility] Comment on above: Performed By: #### 2 32320 ####[facility],[address] [place] [address] Urinalysis dipstick W Reflex Microscopic panel (U) NOT INDICATED Normal [facility] Comment on above: Performed By: #### 2 44368 ####[facility],[address] [place] [address] Urobilinog NORM Normal NORMAL: NORMAL [facility] Comment on above: Performed By: #### 2 66300 ####[facility],[address] [place], [place] [address] PSA Total+%Freeon 10-22-2024 PSA, FREE 0.96 ng/mL Normal N/A [facility] Comment on above: Result Comment: Jeanine BANDA methodology. Performed By: #### L 3110.0500 #### [facility] [address] [place], [address] PSA, FREE % 18.3 Normal . [facility] Comment on above: Result Comment: The table below lists the probability of prostate cancer for men with non-suspicious LOPEZ results and total PSA between 4 and 10 ng/mL, by patient age (Og et al, JAY 1998, 279:1542). % Free PSA 50-64 yr 65-75 yr 0.00-10.00% 56% 55% 10.01-15.00% 24% 35% 15.01-20.00% 17% 23% 20.01-25.00% 10% 20% >25.00% 5% 9% Please note: Og et al did not make specific recommendations regarding the use of percent free PSA for any other population of men. Performed at: [facility] [address] [place], [place] [id number] Assistant Store Director: Dontrell Kent PhD, Phone: [phone] Performed By: #### L 3110.0500 #### [facility] [address] [place], [address] PSA, TOTAL ULTR 5.260 ng/mL Abnormal 0.000-4.000 [facility] Comment on above: Result Comment: Jeanine BANDA methodology. According to the [employer], Serum PSA should decrease and remain at undetectable levels after radical prostatectomy. The AUA defines biochemical recurrence as an initial PSA value 0.200 ng/mL or greater followed by a subsequent confirmatory PSA value 0.200 ng/mL or greater. Values obtained with different assay methods or kits cannot be used interchangeably. Results cannot be interpreted as absolute evidence of the presence or absence of malignant disease. Performed By: #### L 3110.0500 #### [facility] [address] [place], [address] Free PSA/Total PSA [Mass fra ction]Ordered By: Desmond Fraire on 10-21-2024 % Free Prostate Specific Ag Calc 18.3 % . [facility] Comment on above: The table below list s the probability of prostate cancer formen with non-suspicious LOPEZ results and total PSA between4 and 10 ng/mL, by patient age (Og et al, JAY 1998,279:1542). % Free PSA 50-64 yr 65-75 yr 0.00-10.00% 56% 55% 10.01-15.00% 24% 35% 15.01-20.00% 17% 23% 20.01-25.00% 10% 20% >25.00% 5% 9%Please note: Og et al did not make specific recommendations regarding the use of percent free PSA for any other population of men.Performed at: [facility] [id number] [place], [place] [id number] Director: Dontrell Kent PhD, Phone: [phone] Free prostate specific antig en (PSA) measurementOrdered By: Desmond Fraire on 10-21-2024 Free Prostate Specific Antigen 0.96 ng/mL N/A [facility] Comment on above: Anny ECLIA methodol ogy. PSA, totalOrdered By: Desmond grove on 10-21-2024 Prostate Specific Ag, Ultra-Sensitv 5.260 ng/mL High 0.000-4.000 [facility] Comment on above: Anny ECLIA methodol ogy.According to the [employer], Serum PSAshould decrease and remain at undetectable levels afterradical prostatectomy. The AUA defines biochemicalrecurrence as an initial PSA value 0.200 ng/mL or greaterfollowed by a subsequent confirmatory PSA value 0.200 ng/mLor greater. Values obtained with different assay methods orkits cannot be used interchangeably. Results cannot beinterpreted as absolute evidence of the presence or absenceof malignant disease. Influenza virus A and B and SARS-CoV-2 (COVID-19) and Respiratory syncytial virus RNAOrdered By: Desmond Fraire on 10-11-2024 SARS-CoV-2 (COVID-19) RNA SHARON+probe Ql (Unsp spec) [facility] M100.678on 10-11-2024 M100.678 Pending SARS-CoV-2 (COVID 19) Negative INFLUENZA A Negative INFLUENZA B Negative RSV PCR Negative Normal [facility] Comment on above: Performed By: #### M 100.678 #### [facility] [address] [facility] [place], [address] 12 Lead EKGon 09-11-2024 12 Lead EKG [facility] Cardi[facility] Services [address] [place] [address] 12 Lead EKG 09/11/24 1055 MR#: [id number] Acct: [id number] Name: AMANDA SANDOVAL Rep #: [id number] : 1960 64 From: Payam Yeung MD Attending Dr: Status: DEP ER Ordering Dr: Aldair Bryan MD Date: 09/11/24 Location: ED Sex: M C Admitted: Test Reason : HTN Blood Pressure : */* mmHG Vent. Rate : 87 BPM Atrial Rate : 87 BPM P-R Int : 170 ms QRS Dur : 98 ms QT Int : 364 ms P-R-T Axes : 53 40 47 degrees QTcB Int : 438 ms Normal sinus rhythm Normal ECG Confirmed by Payam Yeung ([id number]), news editor ELMA ELAINE ([id number]) on 09/13/2024 10:17:38 AM Referred By: Confirmed By: Payam Yeung 09/13/24 1017 Date Payam Yeung MD CC: Dr. Aldair Bryan MD; Dr. Desmond Fraire MD Signed Normal [facility] Absolute neutrophil countOrd ered By: Adlair Bryan on 09-11-2024 Neutrophils (Bld) [#/Vol] 6.7 10*3/uL 2.0-7.7 [facility] Albumin to globulin ratioOrd ered By: Aldair Bryan on 09-11-2024 Albumin/Globulin [Mass ratio] 0.8 {ratio} Low 0.9-2.4 [facility] Comment on above: Order Comment: 'TROP ' Serial specimen #1, #2 or #3: 1 Performed By: #### L 100.0100, L501.4020, L500.4050 ####[facility] [address] [place], [place], [address] Automated blood erythrocyte countOrdered By: Aldair Bryan on 09-11-2024 RBC (Bld) [#/Vol] 5.47 10*6/uL Normal 4.6-6.2 [facility] Comment on above: Performed By: #### L 100.0100, L501.4020, L500.4050 ####[facility] [address] [place], [place], [address] Automated blood hematocrit ( percentage)Ordered By: Aldair Bryan on 09-11-2024 Hematocrit (Bld) [Volume fraction] 48.6 % Normal 40-54 [facility] Comment on above: Performed By: #### L 100.0100, L501.4020, L500.4050 ####[facility] [address] [place], [address] Automated lymphocyte count a s percentage of total leukocytesOrdered By: Aldair Randi on 09-11-2024 Lymphocytes/100 WBC (Bld) 22.9 % Normal 19-41 [facility] Comment on above: Performed By: #### L 100.0100, L501.4020, L500.4050 ####[facility] [address] [place], [address] Basophil percentageOrdered B y: Aldair Bryan on 09-11-2024 Basophils/100 WBC (Bld) 0.5 % Normal 0-1 [facility] Comment on above: Performed By: #### L 100.0100, L501.4020, L500.4050 ####[facility] [address] [place], [address] Bilirubin, totalOrdered By: Aldair Bryan on 09-11-2024 Bilirubin [Mass/Vol] 0.50 mg/dL Normal 0.20-1.00 [facility] Comment on above: For patients on eltr ombopag therapy, use of Dimension [place] TBIL is not recommended. Order Comment: 'TROP ' Serial specimen #1, #2 or #3: 1 Result Comment: For patients on eltrombopag therapy, use of Dimension [place] TBIL is not recommended. Performed By: #### L 100.0100, L501.4020, L500.4050 ####[facility] [address] [place], [address] Blood urea nitrogen (BUN)/cr eatinine ratioOrdered By: Aldair Bryan on 09-11-2024 Urea nitrogen/Creatinine [Mass ratio] 16.6 mg/mg 10-20 [facility] Brain/Head without Contrasto n 09-11-2024 Brain/Head without Contrast [facility] Imaging Services [address] [place] [address] Brain/Head without Contrast MR#: [id number] Acct: [id number] Name: AMANDA SANDOVAL Rep #: [id number] : 1960 M 64 From: Jun Muñiz MD PCP: Dr. Desmond Fraire MD Status: REG ER Study: Brain/Head without Contrast Date of Exam: 08/22 09/14 Exam# [id number] Ordering Dr: Aldair Bryan MD EXAM: BRAIN/HEAD WITHOUT CONTRAST CLINICAL HISTORY: Headache with hypertension COMPARISON: None. TECHNIQUE: Noncontrast images of the head with multiplanar reconstructions. Dose reduction techniques were used including intermediate exposure control (AEC),iterative reconstruction technique, and/or mA and/or KV dose adjustments based on patient's size. FINDINGS: CT HEAD FINDINGS: No acute intracranial hemorrhage, mass, mass effect, midline shift or pathologic extra-axial fluid collection. No hydrocephalus. Age- appropriate cerebral volume and white matter. Visualized paranasal sinuses and mastoid air cells are clear. The calvarium is grossly intact. CT/Brain/Head without Contrast IMPRESSION: No CT evidence of acute intracranial pathology. Reading Location: [facility] CC: Dr. Aldair Bryan MD; Dr. Desmond Fraire MD Education Administrative Assistant: Signed Normal [facility] CBC W/Diff, Automatedon 08-22 Absolute Lymph 2.26 X10 3/uL Normal 0.83-4.51 [facility] Comment on above: Performed By: #### L 100.0100, L501.4020, L500.4050 ####[facility] [address] [place], [address] Absolute Neut 6.7 X10 3/uL Normal 2.0-7.7 [facility] Comment on above: Performed By: #### L 100.0100, L501.4020, L500.4050 ####[facility] [address] [place], [address] IG% 0.900 Normal 0.0-0.9 [facility] Comment on above: Result Comment: IG% - Immature Granulocytes (promyelocytes, myelocytes and metamyelocytes) > 1% indicates that a LEFT SHIFT is Present. Performed By: #### L 100.0100, L501.4020, L500.4050 ####[facility] [address] [place], [address] Nucleated RBC (Bld) [#/Vol] 0 10*3/uL Normal 0-5 [facility] Comment on above: Performed By: #### L 100.0100, L501.4020, L500.4050 ####[facility] [address] [place], [address] RDW SD 42.5 fl Normal 35.1-43.9 [facility] Comment on above: Performed By: #### L 100.0100, L501.4020, L500.4050 ####[facility] [address] [place], [address] Carbon dioxide measurementOr dered By: Aldair Bryan on 09-11-2024 CO2 [Moles/Vol] 28.0 mmol/L Normal 21.0-32.0 [facility] Comment on above: Order Comment: 'TROP ' Serial specimen #1, #2 or #3: 1 Performed By: #### L 100.0100, L501.4020, L500.4050 ####[facility] [address] [place], [address] Chest 1 View (Portable)on Chest 1 View (Portable) [facility] Imaging Services [address] [place] [address] Chest 1 View (Portable) MR#: [id number] Acct: [id number] Name: AMANDA SANDOVAL Rep #: [id number] : 1960 M 64 From: Jun Muñiz MD PCP: Dr. Desmond Fraire MD Status: REG ER Study: Chest 1 View (Portable) Date of Exam: 09/11/24 Exam# [id number] Ordering Dr: Aldair Bryan MD PROCEDURE: CHEST 1 VIEW (PORTABLE) REASON FOR EXAM: Shortness of breath TECHNIQUE: Frontal view of the chest. COMPARISON: 11/28/2023 FINDINGS: Heart size is moderately enlarged. The mediastinal contour is unremarkable. Pulmonary vasculature is congested. The bones are unremarkable. RAD/Chest 1 View (Portable) IMPRESSION: Cardiomegaly with moderate pulmonary vascular congestion. Reading Location: [facility] CC: Dr. Aldair Bryan MD; Dr. Desmond Fraire MD Education Administrative Assistant: Signed Normal [facility] Chloride measurementOrdered By: Aldair Bryan on 09-11-2024 Chloride [Moles/Vol] 106 mmol/L Normal 98-107 [facility] Comment on above: Order Comment: 'TROP ' Serial specimen #1, #2 or #3: 1 Performed By: #### L 100.0100, L501.4020, L500.4050 ####[facility] [address] [place], [address] Comprehensive Metabolic Prof ilon 09-11-2024 ALK P 97 U/L Normal 45-117 [facility] Comment on above: Order Comment: 'TROP ' Serial specimen #1, #2 or #3: 1 Performed By: #### L 100.0100, L501.4020, L500.4050 ####[facility] [address] [place], [address] BUN/CRE 16.6 RATIO Normal 10-20 [facility] Comment on above: Order Comment: 'TROP ' Serial specimen #1, #2 or #3: 1 Performed By: #### L 100.0100, L501.4020, L500.4050 ####[facility] [address] [place], [address] CA,Total 8.9 mg/dL Normal 8.5-10.1 [facility] Comment on above: Order Comment: 'TROP ' Serial specimen #1, #2 or #3: 1 Performed By: #### L 100.0100, L501.4020, L500.4050 ####[facility] [address] [place], [address] ECRCL 91.50 ml/min Normal [facility] Comment on above: Order Comment: 'TROP ' Serial specimen #1, #2 or #3: 1 Performed By: #### L 100.0100, L501.4020, L500.4050 ####[facility] [address] [place], [address] EST GFR - AA 101 mL/min Normal >60 [facility] Comment on above: Order Comment: 'TROP ' Serial specimen #1, #2 or #3: 1 Result Comment: Afri can Chinese GFR Calc Performed By: #### L 100.0100, L501.4020, L500.4050 ####[facility] [address] [place], [address] GAP 4 Low 5-15 [facility] Comment on above: Order Comment: 'TROP ' Serial specimen #1, #2 or #3: 1 Performed By: #### L 100.0100, L501.4020, L500.4050 ####[facility] [address] [place], [address] GFR/1.73 sq M.predicted among non-blacks MDRD (S/P/Bld) [Vol rate/Area] 83 mL/min/{1.73_m2} Normal >60 [facility] Comment on above: Order Comment: 'TROP ' Serial specimen #1, #2 or #3: 1 Result Comment: Non- GFR Calc Performed By: #### L 100.0100, L501.4020, L500.4050 ####[facility] [address] [place], [address] T PROT 7.0 g/dL Normal 6.4-8.2 [facility] Comment on above: Order Comment: 'TROP ' Serial specimen #1, #2 or #3: 1 Performed By: #### L 100.0100, L501.4020, L500.4050 ####[facility] [address] [place], [address] Comprehensive Metabolic Prof ilOrdered By: Aldair Bryan on 09-11-2024 AST [Catalytic activity/Vol] 10 U/L Low 15-37 [facility] Comment on above: Order Comment: 'TROP ' Serial specimen #1, #2 or #3: 1 Performed By: #### L 100.0100, L501.4020, L500.4050 ####[facility] [address] [facility] [place], [address] Emergency Department Summary on 09-11-2024 Emergency Department Summary [facility] Medical Records Department [address] [place] [address] Emergency Department Summary 09/11/24 MR#: [id number] Acct: [id number] Name: AMANDA SANDOVAL Rep #: [id number] : 1960 64 From: Aldair Bryan MD PCP: Dr. Desmond Fraire MD Status:REG ER Location: ED HPI History of Present Illness Chief Complaint: Hypertension Narrative Narrative: 64-year-old male past medical history of hyperlipidemia, COPD presents with fluctuating blood pressure. 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 He has been having problems with shortness of breath and cough. He states he recently had a CTA of his lungs which did not show a blood clot. He had a D-dimer performed as an outpatient which was slightly elevated. While he was put on an antibiotic and prednisone, and his elevated blood pressure was thought to be secondary to medication, he saw his primary care provider and it was elevated as well. He has been on losartan 100 mg which she takes at night since Friday, approximately 6 days ago. He was concerned because he still had constant chest tightness consistent with his COPD, but his blood pressure was fluctuating. This morning when he took it it was 98 systolic, but then he took it again and it was in the 160s. When he came to the emergency department was elevated in the 180s but has now lowered to 154 systolic. States he has slight headache, or as if he is lightheaded and is going to get a headache. No exacerbating or alleviating factors. PFSH PFSH Medical History Hypertension Tinnitus Wears glasses Alcohol use History of steroid therapy Arthritis Prostate disease Easy bruising Restless legs Back pain Heartburn History of ulceration Former smoker Shortness of breath on exertion History of pain when walking History of stress test Pain BPH (benign prostatic hyperplasia) High cholesterol COPD (chronic obstructive pulmonary disease) Chronic bronchitis Back problem Home Medications ???Medication ???Instructions ???Recorded ???Last Taken ???Type tamsulosin 0.4 mg capsule (Flomax) 0.8 mg PO QHS 10/26/18 Unknown H istory albuterol sulfate 90 mcg/actuation 2 puff inhalation Q4H PRN Unknown History aerosol inhaler shortness of breath or wheezing gabapentin 300 mg capsule 300 mg PO QHS 07/31/23 Unknown His tory melatonin 10 mg tablet,extended 10 mg PO QHS 07/31/23 Unknown Hist ory release cholecalciferol (vitamin D3) 25 25 mcg PO QDAY 01/27/24 Unknown Hi story mcg (1,000 unit) tablet (Vitamin D3) pravastatin 40 mg tablet 40 mg PO QHS 01/27/24 Unknown Hist ory Allergy/AdvReac Type Severity Reaction Status Date / Time latex Allergy Rash Verified 09/11/24 09:44 Penicillins AdvReac GI UPSET Verified 09/11/24 09:44 Family History Other Alcoholism Surgical History S/P laparotomy Hx of elbow surgery History of tonsillectomy and adenoidectomy Hx of colonoscopy Social History household members: spouse Smoking Status: Former smoker alcohol intake: never substance use type: does not use additional social history: DOES NOT USE ASPIRIN DOES USE IBUPROFEN ROS ROS ED ROS Narrative Constitutional: No fever, no chills. HEENT: No sore throat. No neck pain. No loss of vision. Cardiovascular: Positive chest tightness/chest pain. No palpitations. No pedal edema. Respiratory: Positive cough, no shortness of breath. Abdominal: No abdominal pain. No nausea. No vomiting. Genitourinary: No dysuria. No hematuria. Musculoskeletal: No myalgias. No arthralgias. Neurologic: Positive headaches. No dizziness. Positive lightheadedness. Skin: No rash. No change in color. EXAM Physical Exam Narrative Exam Narrative: Afebrile. Vital signs noted. Nontoxic-appearing. HEENT: Normocephalic. Atraumatic. PERRL, EOMI. Neck soft and supple. No point tenderness or step off. Cardiovascular: Regular rate and rhythm. No murmurs, rubs, or gallops appreciated. Respiratory: No tachypnea. Lungs clear to auscultation bilaterally. Gastrointestinal: Abdomen soft, nontender, with normoactive bowel sounds. No rebound or guarding. Neurological: Awake. Alert. Nonfocal, nonlateralizing. Moves all extremities. Skin: No rash. Normal color. No pallor. Musculoskeletal: No pedal edema. Full range of motion extremities. Const Vital Signs: 09/11/24 09:45 09/11/24 09:50 09/11/24 10:53 Temperature 98.6 F Temperature Source Temporal Pulse Rate 94 86 Respiratory Rate 18 12 Respiratory Effort Sh (more content not included)... Normal [facility] Eosinophil percentageOrdered By: Aldair Bryan on 09-11-2024 Eosinophils/100 WBC (Bld) 1.9 % Normal 0-5 [facility] Comment on above: Performed By: #### L 100.0100, L501.4020, L500.4050 ####[facility] [address] [place], [address] Erythrocyte distribution wid th ratioOrdered By: Aldair Bryan on 09-11-2024 Erythrocyte distribution width (RBC) [Ratio] 13.0 % Normal 11.6-14.6 [facility] Comment on above: Performed By: #### L 100.0100, L501.4020, L500.4050 ####[facility] [address] [place], [address] Erythrocyte distribution wid th standard deviationOrdered By: Aldair Gonzalezdago on 09-11-2024 Erythrocyte distribution width (RBC) [Entitic vol] 42.5 fL 35.1-43.9 [facility] Estimated glomerular filtrat ion rate (GFR) AmericanOrdered By: Aldair Bryan on 09-11-2024 Estimated GFR (MDRD) Amer 101 mL/min >60 [facility] Comment on above: GFR Calc Estimation of creatinine beryl aranceOrdered By: Aldair Bryan on 09-11-2024 Estimated Creatinine Clearance Calc 91.50 ml/min [facility] Glomerular filtration rate ( GFR) estimationOrdered By: Aldair Bryan on 09-11-2024 Estimated GFR (MDRD) Non-Af Amer 83 mL/min >60 [facility] Comment on above: Non- GFR Calc Glucose measurementOrdered B y: Aldair Bryan on 09-11-2024 Glucose [Mass/Vol] 123 mg/dL High 74-106 [facility] Comment on above: Fasting Glucose resu lt from 100 to 125 mg/dL suggests IMPAIRED HOMEOSTASIS per A.D.A. criteria. Order Comment: 'TROP ' Serial specimen #1, #2 or #3: 1 Result Comment: Fast ing Glucose result from 100 to 125 mg/dL suggests IMPAIRED HOMEOSTASIS per A.D.A. criteria. Performed By: #### L 100.0100, L501.4020, L500.4050 ####[facility] [address] [place], [address] Hemoglobin measurementOrdere d By: Aldair Bryan on 09-11-2024 Hemoglobin (Bld) [Mass/Vol] 15.6 g/dL Normal 13.0-16.5 [facility] Comment on above: Performed By: #### L 100.0100, L501.4020, L500.4050 ####[facility] [address] [place], [address] Immature granulocytes/100 WB C Auto (Bld)Ordered By: Aldair Bryan on 09-11-2024 Immature granulocytes/100 WBC (Bld) 0.900 % 0.0-0.9 [facility] [facility] Comment on above: IG% - Immature Granu locytes (promyelocytes, myelocytes and metamyelocytes) > 1% indicates that a LEFT SHIFT is Present. L501.4020on 09-11-2024 TROPONIN-I HS 6 pg/mL Normal 3.0-78.0 [facility] Comment on above: Order Comment: 'TROP ' Serial specimen #1, #2 or #3: 1 Result Comment: Catarino harman Note: New Test Units and Gender Specific Reference Ranges. For more information see Policy Stat Procedure [place] High Sensitivity Troponin (TNIH) and attachments. Performed By: #### L 100.0100, L501.4020, L500.4050 ####[facility] [address] [place], [address] Lymphocytes Auto (Unsp spec) [#/Vol]Ordered By: Aldair Bryan on 09-11-2024 Lymphocytes (Bld) [#/Vol] 2.26 10*3/uL 0.83-4.51 [facility] MCV (mean corpuscular volume ) determinationOrdered By: Aldair Bryan on 09-11-2024 MCV (RBC) [Entitic vol] 88.8 fL Normal 80-94 [facility] Comment on above: Performed By: #### L 100.0100, L501.4020, L500.4050 ####[facility] [address] [place], [address] Mean corpuscular hemoglobin (MCH) determinationOrdered By: Aldair Bryan on 09-11-2024 MCH (RBC) [Entitic mass] 28.5 pg Normal 27.0-32.0 [facility] Comment on above: Performed By: #### L 100.0100, L501.4020, L500.4050 ####[facility] [address] [place], [address] Mean corpuscular hemoglobin concentration (MCHC) determinationOrdered By: Aldair Bryan on 09-11-2024 MCHC (RBC) [Mass/Vol] 32.1 g/dL Normal 32-36 [facility] Comment on above: Performed By: #### L 100.0100, L501.4020, L500.4050 ####[facility] [address] [place], [address] Mean platelet volume determi nationOrdered By: Aldair Bryan on 09-11-2024 Platelet mean volume (Bld) [Entitic vol] 10.7 fL Normal 6.2-12.0 [facility] Comment on above: Performed By: #### L 100.0100, L501.4020, L500.4050 ####[facility] [address] [place], [address] Monocyte percentageOrdered B y: Aldair Bryan on 09-11-2024 Monocytes/100 WBC (Bld) 6.0 % Normal 0-10 [facility] Comment on above: Performed By: #### L 100.0100, L501.4020, L500.4050 ####[facility] [address] [place], [address] Neutrophil percentageOrdered By: Aldair Bryan on 09-11-2024 Neutrophils/100 WBC (Bld) 67.8 % Normal 47-70 [facility] Comment on above: Performed By: #### L 100.0100, L501.4020, L500.4050 ####[facility] [address] [place], [address] Nucleated red blood cell per centageOrdered By: Aldair Bryan on 09-11-2024 Nucleated RBC/100 WBC (Bld) [Ratio] 0 % 0-5 [facility] Platelet countOrdered By: Santos Bryan on 09-11-2024 Platelets (Bld) [#/Vol] 228 10*3/uL Normal 150-450 [facility] Comment on above: Performed By: #### L 100.0100, L501.4020, L500.4050 ####[facility] [address] [place], [address] Potassium measurementOrdered By: Aldair Bryan on 09-11-2024 Potassium [Moles/Vol] 4.1 mmol/L Normal 3.5-5.1 [facility] Comment on above: Order Comment: 'TROP ' Serial specimen #1, #2 or #3: 1 Performed By: #### L 100.0100, L501.4020, L500.4050 ####[facility] [address] [place], [address] Serum anion gap measurementO rdered By: Aldair Bryan on 09-11-2024 Anion gap [Moles/Vol] 4 mmol/L Low 5-15 [facility] Serum globulin measurementOr dered By: Aldair Bryan on 09-11-2024 Globulin (S) [Mass/Vol] 3.8 g/dL Normal 2.2-4.2 [facility] Comment on above: Order Comment: 'TROP ' Serial specimen #1, #2 or #3: 1 Performed By: #### L 100.0100, L501.4020, L500.4050 ####[facility] [address] [place], [address] Serum or plasma alanine smith otransferase (ALT) measurementOrdered By: Aldair Bryan on 09-11-2024 ALT [Catalytic activity/Vol] 20 U/L Normal 16-61 [facility] Comment on above: Order Comment: 'TROP ' Serial specimen #1, #2 or #3: 1 Performed By: #### L 100.0100, L501.4020, L500.4050 ####[facility] [address] [place], [address] Serum or plasma albumin mak urement (mass/volume)Ordered By: Aldair Bryan on 09-11-2024 Albumin [Mass/Vol] 3.2 g/dL Normal 3.2-5.0 [facility] Comment on above: Order Comment: 'TROP ' Serial specimen #1, #2 or #3: 1 Performed By: #### L 100.0100, L501.4020, L500.4050 ####[facility] [address] [place], [address] Serum or plasma alkaline carmen sphatase measurementOrdered By: Aldair Bryan on 09-11-2024 ALP [Catalytic activity/Vol] 97 U/L 45-117 [facility] Serum or plasma calcium mak urement (mass/volume)Ordered By: Aldair Bryan on 09-11-2024 Calcium [Mass/Vol] 8.9 mg/dL 8.5-10.1 [facility] Serum or plasma creatinine m easurement (mass/volume)Ordered By: Aldair Bryan on 09-11-2024 Creatinine [Mass/Vol] 0.96 mg/dL Normal 0.70-1.30 [facility] Comment on above: The validity of the calculated GFR & GFRAA in patients over 70 years has not been determined. Clinical correlation is essential. Order Comment: 'TROP ' Serial specimen #1, #2 or #3: 1 Result Comment: The validity of the calculated GFR GFRAA in patients over 70 years has not been determined. Clinical correlation is essential. Performed By: #### L 100.0100, L501.4020, L500.4050 ####[facility] [address] [place], [address] Serum or plasma urea nitroge n measurement (mass/volume)Ordered By: Aldair Bryan on 09-11-2024 Urea nitrogen [Mass/Vol] 16 mg/dL Normal 7-18 [facility] Comment on above: Order Comment: 'TROP ' Serial specimen #1, #2 or #3: 1 Performed By: #### L 100.0100, L501.4020, L500.4050 ####[facility] [address] [place], [address] Sodium levelOrdered By: Aldair Bryan on 09-11-2024 Sodium [Moles/Vol] 139 mmol/L Normal 136-145 [facility] Comment on above: Order Comment: 'TROP ' Serial specimen #1, #2 or #3: 1 Performed By: #### L 100.0100, L501.4020, L500.4050 ####[facility] [address] [place], [address] Total proteinOrdered By: Danielle Bryan on 09-11-2024 Protein [Mass/Vol] 7.0 g/dL 6.4-8.2 [facility] Troponin IOrdered By: Aldair camacho on 09-11-2024 Troponin I High Sensitivity 6 pg/mL 3.0-78.0 [facility] Comment on above: Please Note: New Emilia t Units and Gender Specific Reference Ranges. For more information see Policy Stat Procedure [place] High Sensitivity Troponin (TNIH) and attachments. White blood cell (WBC) count Ordered By: Aldair Bryan on 09-11-2024 WBC (Bld) [#/Vol] 9.9 10*3/uL Normal 4.4-11.0 [facility] Comment on above: Performed By: #### L 100.0100, L501.4020, L500.4050 ####[facility] [address] [place], [address] CTA Chest W/WO Contraston CTA Chest W/WO Contrast [facility] Imaging Services [address] [place] [address] CTA Chest W/WO Contrast MR#: [id number] Acct: [id number] Name: AMANDA SANDOVAL Rep #: [id number] : 1960 M 64 From: Braydon oscar MD PCP: Dr. Desmond Fraire MD Status: REG CLI Study: CTA Chest W/WO Contrast Date of Exam: 09/02/24 Exam# [id number] Ordering Dr: Desmond Fraire MD PROCEDURE: CTA CHEST W/WO CONTRAST TECHNIQUE: CTA imaging of the chest with intravenous contrast. 3D reconstructions. CONTRAST: 100 cc of Isovue 370. COMPARISON: None. FINDINGS: Hardware: None. Lymph nodes: No mediastinal hilar or axillary lymphadenopathy. Heart: Normal heart size. No pericardial effusion. Coronary artery calcification. RV/LV Diameter Ratio: N/A Thoracic Aorta: No thoracic aortic aneurysm or dissection. Pulmonary Vessels: No evidence of acute pulmonary emboli through the major subsegmental branches. Most Proximal Level of Embolus (if embolus present): N/A Lungs and Airways: The lungs are normally expanded and clear. Pleura: No pleural effusion. No pneumothorax. Upper Abdomen: Small cyst in the upper anterior medial aspect of the left kidney. Patient is status post cholecystectomy. Bones: Degenerative changes of the thoracic spine. CT/CTA Chest W/WO Contrast IMPRESSION: No evidence of pulmonary embolism. One or more dose reduction techniques were used (e.g., Automated exposure control, adjustment of the mA and/or kV according to patient size, use of iterative reconstruction technique). Reading Location: [place] [address] CC: Dr. Desmond Fraire MD Education Administrative Assistant: Signed Normal [facility] D-Dimer Quantitative (DVT/PE )on 08-31-2024 D-DIMER QUANT 0.55 FEU/ug/m Invalid Interpretation Code 0.27-0.49 [facility] Comment on above: Result Comment: D-Di samina ELEVATED (>0.49): Additional studies and clinical assessments are indicated to conclude diagnosis of: Deep Vein Thrombosis (DVT) or Pulmonary Embolism (PE) CRITICAL VALUE CALLED TO DR. FRAIRE 08/31/24 1749 Otilia Staley. RESULTS READ BACK BY SAME. Performed By: #### L 300.8000, M100.678 ####[facility] [address] [facility]. [place], [place], [id number] D-dimer measurement for deep venous thrombosisOrdered By: Desmond Fraire on 08-31-2024 D-Dimer Quantitative (PE/DVT) 0.55 FEU/ug/m High 0.27-0.49 [facility] Comment on above: D-Dimer ELEVATED (>0 .49): Additional studies and clinicalassessments are indicated to conclude diagnosis of:Deep Vein Thrombosis (DVT) or Pulmonary Embolism (PE)CRITICAL VALUE CALLED TO DR. FRAIRE08/31/24 1749 Otilia Staley.RESULTS READ BACK BY SAME. Influenza virus A and B and SARS-CoV-2 (COVID-19) and Respiratory syncytial virus RNAOrdered By: Desmond Fraire on 08-31-2024 SARS-CoV-2 (COVID-19) RNA SHARON+probe Ql (Unsp spec) [facility] M100.678on 08-31-2024 M100.678 SARS-CoV-2 (COVID 19 ) Negative INFLUENZA A Negative INFLUENZA B Negative RSV PCR Negative Normal [facility] Comment on above: Performed By: #### L 300.8000, M100.678 ####[facility] [address] [facility] [place], [place], [id number] Low Dose CT Lung Screeningon 08-06-[address] Lung Screening [facility] Imaging Services [address] [place], [place] [address] Low Dose CT Lung Screening MR#: [id number] Acct: [id number] Name: AMANDA SANDOVAL Rep #: [id number] : 1960 M 64 From: Braydon oscar MD PCP: Dr. Desmond Fraire MD Status: [facility] Study: Low Dose CT Lung Screening Date of Exam: 08/06 Exam# [id number] Ordering [place]: [place] [id number] STUDY: LOW DOSE CT LUNG CANCER SCREENING REASON FOR EXAM: Male, 64 years old. Personal history of nicotine dependence. Former smoker. Patient smoked 1 pack per day for 35 years. COPD. RADIATION DOSAGE (If Supplied By Facility): CTDIvol = ( 4.02 ) mGy, DLP = ( 144.96 ) mGycm TECHNIQUE: No contrast was administered. Low dose technique was utilized (average mAS-38 and kVp 120). 1.25 mm axial source images with a slice interval of 1.25-mm were reconstructed in lung windows. 2.5 mm axial source images with a slice interval of 2.5-mm were reconstructed in lung windows. 5.0 mm axial source images with a slice interval of 5.0-mm were reconstructed in soft tissue windows. COMPARISON: Comparison is made with prior chest radiograph dated November 28, 2023. NODULES: No suspicious nodules are seen. Emphysema: Hyperinflation. Emphysematous changes more pronounced in the upper lobes. Linear density in the anterior aspect of the right lower lobe extending to the pleural surface. This most likely a transscarring. There is also evidence of linear scarring in the posterior medial segment of the right lower lobe. Endobronchial lesion: None Aorta: Minimal atherosclerotic plaque of the aortic arch. CORONARY ARTERIES: Coronary artery calcification coronary calcification. Heart: Unremarkable. Pulmonary artery: Unremarkable. Mediastinal nodes: Small mediastinal lymph nodes. Other chest and abdominal findings: CT/Low Dose CT Lung Screening IMPRESSION: Lung-RADS category 2 - Continue annual screening with LDCT in 12 months. IMPORTANT NOTES FOR USE: ACR Lung-RADS Version 1.1 Assessment Categories Release Date: 2018 Category: Coded 0-4 bases on nodule(s) with highest degree of suspicion. Negative screen is defined as categories 1 and 2; a positive screen is defined as categories 3 and 4. Category 3 and 4A nodules that are unchanged on interval CT should be coded as category 2, and individuals returned to screening in 12 months. Category 4X: Category 3 or 4 nodules with additional imaging findings that increase the suspicion of lung cancer, such as spiculation, GGN that doubles in size in 1 year, enlarged lymph notes, etc. Category Modifiers: S (significant finding unrelated to lung cancer) Electronically Signed: Braydon Parada MD at 11:21 EST , CC: Dr. Guillermo Lai MD; Dr. Desmond Fraire MD Education Administrative Assistant: Signed Normal [facility] Hemoglobin A1con 07-06-2024 HbA1c (Bld) [Mass fraction] 6.3 % High 3.8-5.6 [facility] Comment on above: Order Comment: BLOOD IN LABADD ON FROM 07/05/24 [id number] Result Comment: Norm al < 5.7 % Prediabetic 5.7 - 6.4 % Diabetic >or= 6.5 % Please note range changes. Performed By: #### L 500.4050, L500.4100, L100.0100, L501.9520, L501.9985, L506.1000 ####[facility] [address] [place], [address] 12-TI-Wecyvoi DOrdered By: Mamta Fraire on 07-05-2024 Vitamin D 25-Hydroxy 26.6 ng/mL [facility] Comment on above: Vitamin D 25(OH) Sta tus Range Deficiency <20 ng/mL (50nmol/L) Insufficiency 20 - 30 ng/mL (50 - 75 nmol/L) Sufficiency 30 - 100 ng/mL (75 - 250 nmol/L) Toxicity >100 ng/mL (>250 nmol/L) Absolute neutrophil countOrd ered By: Desmond Fraire on 07-05-2024 Neutrophils (Bld) [#/Vol] 8.4 10*3/uL High 2.0-7.7 [facility] Albumin to globulin ratioOrd ered By: Desmond Fraire on 07-05-2024 Albumin/Globulin [Mass ratio] 0.8 {ratio} Low 0.9-2.4 [facility] Basophil percentageOrdered B y: Desmond Fraire on 07-05-2024 Basophils/100 WBC (Bld) 0.4 % 0-1 [facility] Bilirubin, totalOrdered By: Desmond Fraire on 07-05-2024 Bilirubin [Mass/Vol] 0.30 mg/dL 0.20-1.00 [facility] Comment on above: For patients on eltr ombopag therapy, use of Dimension [place] TBIL is not recommended. Blood urea nitrogen (BUN)/cr eatinine ratioOrdered By: Desmond Fraire on 07-05-2024 Urea nitrogen/Creatinine [Mass ratio] 19.3 mg/mg 10-20 [facility] CBC W/Diff, Automatedon 06-20 Absolute Lymph 1.63 X10 3/uL Normal 0.83-4.51 [facility] Comment on above: Performed By: #### L 500.4050, L500.4100, L100.0100, L501.9520, L501.9985, L506.1000 #### [facility] [address] [place], [address] Absolute Neut 8.4 X10 3/uL High 2.0-7.7 [facility] Comment on above: Performed By: #### L 500.4050, L500.4100, L100.0100, L501.9520, L501.9985, L506.1000 #### [facility] [address] [place], [address] Basophils/100 WBC (Bld) 0.4 % Normal 0-1 [facility] Comment on above: Performed By: #### L 500.4050, L500.4100, L100.0100, L501.9520, L501.9985, L506.1000 #### [facility] [address] [place], [address] Eosinophils/100 WBC (Bld) 1.9 % Normal 0-5 [facility] Comment on above: Performed By: #### L 500.4050, L500.4100, L100.0100, L501.9520, L501.9985, L506.1000 #### [facility] [address] [place], [address] Erythrocyte distribution width (RBC) [Ratio] 13.4 % Normal 11.6-14.6 [facility] Comment on above: Performed By: #### L 500.4050, L500.4100, L100.0100, L501.9520, L501.9985, L506.1000 #### [facility] [address] [place], [address] Hematocrit (Bld) [Volume fraction] 45.3 % Normal 40-54 [facility] Comment on above: Performed By: #### L 500.4050, L500.4100, L100.0100, L501.9520, L501.9985, L506.1000 #### [facility] [address] [place], [address] Hemoglobin (Bld) [Mass/Vol] 14.2 g/dL Normal 13.0-16.5 [facility] Comment on above: Performed By: #### L 500.4050, L500.4100, L100.0100, L501.9520, L501.9985, L506.1000 #### [facility] [address] [place], [address] IG% 0.500 Normal 0.0-0.9 [facility] Comment on above: Result Comment: IG% - Immature Granulocytes (promyelocytes, myelocytes and metamyelocytes) > 1% indicates that a LEFT SHIFT is Present. Performed By: #### L 500.4050, L500.4100, L100.0100, L501.9520, L501.9985, L506.1000 #### [facility] [address] [place], [address] Lymphocytes/100 WBC (Bld) 14.9 % Low 19-41 [facility] Comment on above: Performed By: #### L 500.4050, L500.4100, L100.0100, L501.9520, L501.9985, L506.1000 #### [facility] [address] [place], [address] MCH (RBC) [Entitic mass] 28.3 pg Normal 27.0-32.0 [facility] Comment on above: Performed By: #### L 500.4050, L500.4100, L100.0100, L501.9520, L501.9985, L506.1000 #### [facility] [address] [place], [address] MCHC (RBC) [Mass/Vol] 31.3 g/dL Low 32-36 [facility] Comment on above: Performed By: #### L 500.4050, L500.4100, L100.0100, L501.9520, L501.9985, L506.1000 #### [facility] [address] [place], [address] MCV (RBC) [Entitic vol] 90.2 fL Normal 80-94 [facility] Comment on above: Performed By: #### L 500.4050, L500.4100, L100.0100, L501.9520, L501.9985, L506.1000 #### [facility] [address] [place], [address] Monocytes/100 WBC (Bld) 5.8 % Normal 0-10 [facility] Comment on above: Performed By: #### L 500.4050, L500.4100, L100.0100, L501.9520, L501.9985, L506.1000 #### [facility] [address] [place], [address] Neutrophils/100 WBC (Bld) 76.5 % High 47-70 [facility] Comment on above: Performed By: #### L 500.4050, L500.4100, L100.0100, L501.9520, L501.9985, L506.1000 #### [facility] [address] [place], [address] Nucleated RBC (Bld) [#/Vol] 0 10*3/uL Normal 0-5 [facility] Comment on above: Performed By: #### L 500.4050, L500.4100, L100.0100, L501.9520, L501.9985, L506.1000 #### [facility] [address] [place], [address] Platelet mean volume (Bld) [Entitic vol] 10.8 fL Normal 6.2-12.0 [facility] Comment on above: Performed By: #### L 500.4050, L500.4100, L100.0100, L501.9520, L501.9985, L506.1000 #### [facility] [address] [place], [address] Platelets (Bld) [#/Vol] 225 10*3/uL Normal 150-450 [facility] Comment on above: Performed By: #### L 500.4050, L500.4100, L100.0100, L501.9520, L501.9985, L506.1000 #### [facility] [address] [place], [address] RBC (Bld) [#/Vol] 5.02 10*6/uL Normal 4.6-6.2 [facility] Comment on above: Performed By: #### L 500.4050, L500.4100, L100.0100, L501.9520, L501.9985, L506.1000 #### [facility] [address] [place], [address] RDW SD 44.7 fl High 35.1-43.9 [facility] Comment on above: Performed By: #### L 500.4050, L500.4100, L100.0100, L501.9520, L501.9985, L506.1000 #### [facility] [address] [place], [address] WBC (Bld) [#/Vol] 10.9 10*3/uL Normal 4.4-11.0 [facility] Comment on above: Performed By: #### L 500.4050, L500.4100, L100.0100, L501.9520, L501.9985, L506.1000 #### [facility] [address] [place], [address] Carbon dioxide measurementOr dered By: Desmond Gab on 07-05-2024 CO2 [Moles/Vol] 29.0 mmol/L 21.0-32.0 [facility] Chloride measurementOrdered By: Desmond Fraire on 07-05-2024 Chloride [Moles/Vol] 107 mmol/L 98-107 [facility] Comprehensive Metabolic Prof ilon 07-05-2024 Albumin [Mass/Vol] 3.0 g/dL Low 3.2-5.0 [facility] Comment on above: Performed By: #### L 500.4050, L500.4100, L100.0100, L501.9520, L501.9985, L506.1000 #### [facility] [address] [place], [address] Albumin/Globulin [Mass ratio] 0.8 {ratio} Low 0.9-2.4 [facility] Comment on above: Performed By: #### L 500.4050, L500.4100, L100.0100, L501.9520, L501.9985, L506.1000 #### [facility] [address] [place], [address] ALK P 98 U/L Normal 45-117 [facility] Comment on above: Performed By: #### L 500.4050, L500.4100, L100.0100, L501.9520, L501.9985, L506.1000 #### [facility] [address] [place], [address] ALT [Catalytic activity/Vol] 20 U/L Normal 16-61 [facility] Comment on above: Performed By: #### L 500.4050, L500.4100, L100.0100, L501.9520, L501.9985, L506.1000 #### [facility] [address] [place], [address] AST [Catalytic activity/Vol] 12 U/L Low 15-37 [facility] Comment on above: Performed By: #### L 500.4050, L500.4100, L100.0100, L501.9520, L501.9985, L506.1000 #### [facility] [address] [place], [address] Bilirubin [Mass/Vol] 0.30 mg/dL Normal 0.20-1.00 [facility] Comment on above: Result Comment: For patients on eltrombopag therapy, use of Dimension [place] TBIL is not recommended. Performed By: #### L 500.4050, L500.4100, L100.0100, L501.9520, L501.9985, L506.1000 #### [facility] [address] [place], [address] BUN/CRE 19.3 RATIO Normal 10-20 [facility] Comment on above: Performed By: #### L 500.4050, L500.4100, L100.0100, L501.9520, L501.9985, L506.1000 #### [facility] [address] [place], [address] CA,Total 9.0 mg/dL Normal 8.5-10.1 [facility] Comment on above: Performed By: #### L 500.4050, L500.4100, L100.0100, L501.9520, L501.9985, L506.1000 #### [facility] [address] [place], [address] Chloride [Moles/Vol] 107 mmol/L Normal 98-107 [facility] Comment on above: Performed By: #### L 500.4050, L500.4100, L100.0100, L501.9520, L501.9985, L506.1000 #### [facility] [address] [place], [address] CO2 [Moles/Vol] 29.0 mmol/L Normal 21.0-32.0 [facility] Comment on above: Performed By: #### L 500.4050, L500.4100, L100.0100, L501.9520, L501.9985, L506.1000 #### [facility] [address] [place], [address] Creatinine [Mass/Vol] 0.99 mg/dL Normal 0.70-1.30 [facility] Comment on above: Result Comment: The validity of the calculated GFR GFRAA in patients over 70 years has not been determined. Clinical correlation is essential. Performed By: #### L 500.4050, L500.4100, L100.0100, L501.9520, L501.9985, L506.1000 #### [facility] [address] [place], [address] EST GFR - AA 98 mL/min Normal >60 [facility] Comment on above: Result Comment: Afri can Chinese GFR Calc Performed By: #### L 500.4050, L500.4100, L100.0100, L501.9520, L501.9985, L506.1000 #### [facility] [address] [place], [address] GAP 3 Low 5-15 [facility] Comment on above: Performed By: #### L 500.4050, L500.4100, L100.0100, L501.9520, L501.9985, L506.1000 #### [facility] [address] [place], [address] GFR/1.73 sq M.predicted among non-blacks MDRD (S/P/Bld) [Vol rate/Area] 81 mL/min/{1.73_m2} Normal >60 [facility] Comment on above: Result Comment: Non- GFR Calc Performed By: #### L 500.4050, L500.4100, L100.0100, L501.9520, L501.9985, L506.1000 #### [facility] [address] [place], [address] Globulin (S) [Mass/Vol] 3.9 g/dL Normal 2.2-4.2 [facility] Comment on above: Performed By: #### L 500.4050, L500.4100, L100.0100, L501.9520, L501.9985, L506.1000 #### [facility] [address] [place], [address] Glucose [Mass/Vol] 167 mg/dL High 74-106 [facility] Comment on above: Result Comment: Fast ing Glucose result greater than or equal to 126 mg/dL suggests DIABETES MELLITUS per A.D.A. criteria. Performed By: #### L 500.4050, L500.4100, L100.0100, L501.9520, L501.9985, L506.1000 #### [facility] [address] [place], [address] Potassium [Moles/Vol] 4.1 mmol/L Normal 3.5-5.1 [facility] Comment on above: Performed By: #### L 500.4050, L500.4100, L100.0100, L501.9520, L501.9985, L506.1000 #### [facility] [address] [place], [address] Sodium [Moles/Vol] 139 mmol/L Normal 136-145 [facility] Comment on above: Performed By: #### L 500.4050, L500.4100, L100.0100, L501.9520, L501.9985, L506.1000 #### [facility] [address] [place], [address] T PROT 6.9 g/dL Normal 6.4-8.2 [facility] Comment on above: Performed By: #### L 500.4050, L500.4100, L100.0100, L501.9520, L501.9985, L506.1000 #### [facility] [address] [place], [address] Urea nitrogen [Mass/Vol] 19 mg/dL High 7-18 [facility] Comment on above: Performed By: #### L 500.4050, L500.4100, L100.0100, L501.9520, L501.9985, L506.1000 #### [facility] [address] [place], [address] Diagnostic total prostate sp ecific antigen (PSA) measurementOrdered By: Najma Delaney on 07-05-2024 Prostate Specific Antigen Total 6.51 ng/mL High 0.0-4.0 [facility] Comment on above: This test was perfor med using the TPSA assay method for the[employer] chemistry system. Values obtained with differentassay methods cannot be used interchangably.When changing PSA assays in the course of monitoring apatient, additional sequential testing should be carriedout to confirm baseline values. Eosinophil percentageOrdered By: Desmond Fraire on 07-05-2024 Eosinophils/100 WBC (Bld) 1.9 % 0-5 [facility] Erythrocyte distribution wid th ratioOrdered By: Desmond Fraire on 07-05-2024 Erythrocyte distribution width (RBC) [Ratio] 13.4 % 11.6-14.6 [facility] Erythrocyte distribution wid th standard deviationOrdered By: Desmond Fraire on 07-05-2024 Erythrocyte distribution width (RBC) [Entitic vol] 44.7 fL High 35.1-43.9 [facility] Estimated glomerular filtrat ion rate (GFR) AmericanOrdered By: Desmond Fraire on 07-05-2024 Estimated GFR (MDRD) Amer 98 mL/min >60 [facility] Comment on above: GFR Calc Glomerular filtration rate ( GFR) estimationOrdered By: Desmond Fraire on 07-05-2024 Estimated GFR (MDRD) Non-Af Amer 81 mL/min >60 [facility] Comment on above: Non- GFR Calc Glucose measurementOrdered B y: Desmond Fraire on 07-05-2024 Glucose [Mass/Vol] 167 mg/dL High 74-106 [facility] Comment on above: Fasting Glucose resu lt greater than or equal to 126 mg/dL suggests DIABETES MELLITUS per A.D.A. criteria. Hematocrit Auto (Bld) [Volum e fraction]Ordered By: Desmond Gab on 07-05-2024 Hematocrit (Bld) [Volume fraction] 45.3 % 40-54 [facility] Hemoglobin A1c percentageOrd ered By: Desmond Gab on 07-05-2024 HbA1c (Bld) [Mass fraction] 6.3 % High 3.8-5.6 [facility] Comment on above: Normal < 5.7 % Predi abetic 5.7 - 6.4 % Diabetic >or= 6.5 % Please note range changes. Hemoglobin measurementOrdere d By: Desmond Fraire on 07-05-2024 Hemoglobin (Bld) [Mass/Vol] 14.2 g/dL 13.0-16.5 [facility] High density lipoprotein (HD L) measurementOrdered By: Desmond Gab on 07-05-2024 Cholesterol in HDL [Mass/Vol] 46 mg/dL >40 [facility] Comment on above: The drugs N-Acetylcy steine and Metamizole may falsely depress this assay. Reference Range HDL <40 mg/dL Low HDL Cholesterol HDL >or= 60 mg/dL High HDL Cholesterol Immature granulocytes/100 WB C Auto (Bld)Ordered By: Desmond Gab on 07-05-2024 Immature granulocytes/100 WBC (Bld) 0.500 % 0.0-0.9 [facility] Comment on above: IG% - Immature Granu locytes (promyelocytes, myelocytes and metamyelocytes) > 1% indicates that a LEFT SHIFT is Present. Laboratory - Chemistry and C hemistry - challengeOrdered By: Desmond Fraire on 07-05-2024 AST [Catalytic activity/Vol] 12 U/L Low 15-37 [facility] Lipid Profileon 07-05-2024 Cholesterol [Mass/Vol] 170 mg/dL Normal 200 [facility] Comment on above: Result Comment: <200 mg/dL Desirable 200-240 mg/dL Borderline >240 mg/dL High Risk Performed By: #### L 500.4050, L500.4100, L100.0100, L501.9520, L501.9985, L506.1000 #### [facility] [address] [place], [address] Cholesterol in HDL [Mass/Vol] 46 mg/dL Normal [facility] Comment on above: Result Comment: The drugs N-Acetylcysteine and Metamizole may falsely depress this assay. Reference Range HDL <40 mg/dL Low HDL Cholesterol HDL >or= 60 mg/dL High HDL Cholesterol Performed By: #### L 500.4050, L500.4100, L100.0100, L501.9520, L501.9985, L506.1000 #### [facility] [address] [place], [address] Cholesterol in LDL [Mass/Vol] 76 mg/dL Normal 0-130 [facility] Comment on above: Performed By: #### L 500.4050, L500.4100, L100.0100, L501.9520, L501.9985, L506.1000 #### [facility] [address] [place], [address] Cholesterol in VLDL [Mass/Vol] 48 mg/dL High 5-40 [facility] Comment on above: Performed By: #### L 500.4050, L500.4100, L100.0100, L501.9520, L501.9985, L506.1000 #### [facility] [address] [place], [address] Triglyceride [Mass/Vol] 238 mg/dL High [facility] Comment on above: Result Comment: The drugs N-Acetylcysteine and Metamizole may falsely depress this assay. Serum Triglycerides Reference Interval Normal <150 mg/dL Borderline high 150 - 199 mg/dL High 200 - 499 mg/dL Very High > or = 500 mg/dL Performed By: #### L 500.4050, L500.4100, L100.0100, L501.9520, L501.9985, L506.1000 #### [facility] [place], [address] Low density lipoprotein (LDL ) cholesterol measurementOrdered By: Desmond Fraire on 07-05-2024 Cholesterol in LDL [Mass/Vol] 76 mg/dL 0-130 [facility] Lymphocytes Auto (Unsp spec) [#/Vol]Ordered By: Desmond Fraire on 07-05-2024 Lymphocytes (Bld) [#/Vol] 1.63 10*3/uL 0.83-4.51 [facility] Lymphocytes/100 WBC Auto (Un sp spec)Ordered By: Desmond Fraire on 07-05-2024 Lymphocytes/100 WBC (Bld) 14.9 % Low 19-41 [facility] MCV (mean corpuscular volume ) determinationOrdered By: Desmond Fraire on 07-05-2024 MCV (RBC) [Entitic vol] 90.2 fL 80-94 [facility] Mean corpuscular hemoglobin (MCH) determinationOrdered By: Desmond Fraire on 07-05-2024 MCH (RBC) [Entitic mass] 28.3 pg 27.0-32.0 [facility] Mean corpuscular hemoglobin concentration (MCHC) determinationOrdered By: Desmond Fraire on 07-05-2024 MCHC (RBC) [Mass/Vol] 31.3 g/dL Low 32-36 [facility] Mean platelet volume determi nationOrdered By: Desmnod Fraire on 07-05-2024 Platelet mean volume (Bld) [Entitic vol] 10.8 fL 6.2-12.0 [facility] Monocyte percentageOrdered B y: Desmond Fraire on 07-05-2024 Monocytes/100 WBC (Bld) 5.8 % 0-10 [facility] Neutrophil percentageOrdered By: Desmond Fraire on 07-05-2024 Neutrophils/100 WBC (Bld) 76.5 % High 47-70 [facility] Nucleated red blood cell per centageOrdered By: Desmond Fraire on 07-05-2024 Nucleated RBC/100 WBC (Bld) [Ratio] 0 % 0-5 [facility] PSA,Total- Diagnosticon 06-20 PSA, DIAGNOSTIC 6.51 ng/mL High 0.0-4.0 [facility] Comment on above: Result Comment: This test was performed using the TPSA assay method for the [employer] chemistry system. Values obtained with different assay methods cannot be used interchangably. When changing PSA assays in the course of monitoring a patient, additional sequential testing should be carried out to confirm baseline values. Performed By: #### L 501.9986 #### [facility] [address] [place], [address] Platelet countOrdered By: Edson Fraire on 07-05-2024 Platelets (Bld) [#/Vol] 225 10*3/uL 150-450 [facility] Potassium measurementOrdered By: Desmond Fraire on 07-05-2024 Potassium [Moles/Vol] 4.1 mmol/L 3.5-5.1 [facility] RBC Auto (Bld) [#/Vol]Ordere d By: Desmond Fraire on 07-05-2024 RBC (Bld) [#/Vol] 5.02 10*6/uL 4.6-6.2 [facility] Serum anion gap measurementO rdered By: Desmond Fraire 07-05-2024 Anion gap [Moles/Vol] 3 mmol/L Low 5-15 [facility] Serum globulin measurementOr dered By: Desmond Fraire 07-05-2024 Globulin (S) [Mass/Vol] 3.9 g/dL 2.2-4.2 [facility] Serum or plasma alanine smith otransferase (ALT) measurementOrdered By: Desmond Fraire 07-05-2024 ALT [Catalytic activity/Vol] 20 U/L 16-61 [facility] Serum or plasma albumin mak urement (mass/volume)Ordered By: Desmond Fraire 07-05-2024 Albumin [Mass/Vol] 3.0 g/dL Low 3.2-5.0 [facility] Serum or plasma alkaline carmen sphatase measurementOrdered By: Desmond Fraire 07-05-2024 ALP [Catalytic activity/Vol] 98 U/L 45-117 [facility] Serum or plasma calcium mak urement (mass/volume)Ordered By: Desmond Fraire on 07-05-2024 Calcium [Mass/Vol] 9.0 mg/dL 8.5-10.1 [facility] Serum or plasma cholesterol measurement (mass/volume)Ordered By: Desmond Fraire on 07-05-2024 Cholesterol [Mass/Vol] 170 mg/dL <200 [facility] Comment on above: <200 mg/dL Desirable 200-240 mg/dL Borderline >240 mg/dL High Risk Serum or plasma creatinine m easurement (mass/volume)Ordered By: Desmond Fraire on 07-05-2024 Creatinine [Mass/Vol] 0.99 mg/dL 0.70-1.30 [facility] Comment on above: The validity of the calculated GFR & GFRAA in patients over 70 years has not been determined. Clinical correlation is essential. Serum or plasma urea nitroge n measurement (mass/volume)Ordered By: Desmond Fraire on 07-05-2024 Urea nitrogen [Mass/Vol] 19 mg/dL High 7-18 [facility] Sodium levelOrdered By: Desmond Fraire on 07-05-2024 Sodium [Moles/Vol] 139 mmol/L 136-145 [facility] TSH QnOrdered By: Desmond Fraire o n 07-05-2024 Thyroid Stimulating Hormone (TSH) 1.580 uIU/mL 0.358-3.740 [facility] Thyroid Stim Hormone (TSH)on 07-05-2024 TSH 1.580 uIU/mL Normal 0.358-3.740 [facility] Comment on above: Performed By: #### L 500.4050, L500.4100, L100.0100, L501.9520, L501.9985, L506.1000 ####[facility] [address] [place], [place], [id number] Total proteinOrdered By: Desmond Fraire on 07-05-2024 Protein [Mass/Vol] 6.9 g/dL 6.4-8.2 [facility] Triglycerides measurementOrd ered By: Desmond Fraire on 07-05-2024 Triglyceride [Mass/Vol] 238 mg/dL High <199 [facility] Comment on above: The drugs N-Acetylcy steine and Metamizole may falsely depress this assay.Serum Triglycerides Reference Interval Normal <150 mg/dL Borderline high 150 - 199 mg/dL High 200 - 499 mg/dL Very High > or = 500 mg/dL Very low density lipoprotein (VLDL) cholesterol measurementOrdered By: Desmond Fraire on 07-05-2024 VLDL Cholesterol 48 mg/dL High 5-40 [facility] Vitamin D,25 Hydroxyon 07-05 Vitamin D 25-OH 26.6 ng/mL Normal [facility] Comment on above: Result Comment: Scarlet min D 25(OH) Status Range Deficiency <20 ng/mL (50nmol/L) Insufficiency 20 - 30 ng/mL (50 - 75 nmol/L) Sufficiency 30 - 100 ng/mL (75 - 250 nmol/L) Toxicity >100 ng/mL (>250 nmol/L) Performed By: #### L 500.4050, L500.4100, L100.0100, L501.9520, L501.9985, L506.1000 ####[facility] [id number] [place], [place], [address] White blood cell (WBC) count Ordered By: Desmond Fraire on 07-05-2024 WBC (Bld) [#/Vol] 10.9 10*3/uL 4.4-11.0 [facility] M100.678on 04-26-2024 M100.678 Pending SARS-CoV-2 (COVID 19) Negative INFLUENZA A Negative INFLUENZA B Negative RSV PCR Negative Normal [facility] Comment on above: Performed By: #### M 100.678 #### [facility] [address] [place], [place], [address] Orthopedic Visit Reporton Orthopedic Visit Report [facility] [address] [place] [address] [address] [place], [place] [address] OFFICE VISIT Date of Service: 04/19/24 MR#: [id number] Acct: [id number] Name: AMANDA SANDOVAL Rep #: [id number] : 1960 Provider: Dr. Heath Fountain so, DO Age/Sex: 64/M Location: [facility] Status: Signed Intake Vital Signs 01/27/24 15:13 04/19/24 08:24 Height 5 ft 5 in 5 ft 5 in Weight: 275 lb 268 lb BMI 45.7 44.6 BP 153/89 H Blood Pressure Location Rt brachial Position Sitting Respiration 18 Intake Visit Reasons: RIGHT KNEE Accompanied by: Self Is patient in pain?: Yes Pain scale (1-10): 4 Allergies latex Allergy (Verified 04/19/24 08:26) Rash Penicillins Adverse Reaction (Verified 04/19/24 08:26) GI UPSET Medications ???Medication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 60 mg/dL High HDL Cholesterol Performed By: #### L 506.1000, L500.4100, L500.4050, L501.9520, L100.0100 ####[facility] [address] [place], [address] Cholesterol in LDL [Mass/Vol] 99 mg/dL Normal 0-130 [facility] Comment on above: Performed By: #### L 506.1000, L500.4100, L500.4050, L501.9520, L100.0100 ####[facility] [address] [place], [address] Cholesterol in VLDL [Mass/Vol] 28 mg/dL Normal 5-40 [facility] Comment on above: Performed By: #### L 506.1000, L500.4100, L500.4050, L501.9520, L100.0100 ####[facility] [address] [place], [address] Triglyceride [Mass/Vol] 138 mg/dL Normal [facility] Comment on above: Result Comment: The drugs N-Acetylcysteine and Metamizole may falsely depress this assay. Serum Triglycerides Reference Interval Normal <150 mg/dL Borderline high 150 - 199 mg/dL High 200 - 499 mg/dL Very High > or = 500 mg/dL Performed By: #### L 506.1000, L500.4100, L500.4050, L501.9520, L100.0100 ####[facility] [address] [place], [address] Thyroid Stim Hormone (TSH)on 01-05-2024 TSH 2.48 uIU/mL Normal 0.358-3.74 [facility] Comment on above: Performed By: #### L 506.1000, L500.4100, L500.4050, L501.9520, L100.0100 ####[facility] [address] [place], [address] Vitamin D,25 Hydroxyon 01-04 Vitamin D 25-OH 9.4 ng/mL Normal [facility] Comment on above: Result Comment: Scarlet min D 25(OH) Status Range Deficiency <20 ng/mL (50nmol/L) Insufficiency 20 - 30 ng/mL (50 - 75 nmol/L) Sufficiency 30 - 100 ng/mL (75 - 250 nmol/L) Toxicity >100 ng/mL (>250 nmol/L) Performed By: #### L 506.1000, L500.4100, L500.4050, L501.9520, L100.0100 ####[facility] [address] [place], [address] Laboratory - Microbiology an d Antimicrobial susceptibilityOrdered By: Desmond Fraire on 08-08-2023 SARS-CoV-2 (COVID-19) RNA SHARON+probe Ql (Unsp spec) [facility] Absolute lymphocyte countOrd ered By: Desmond Fraire on 07-02-2023 Lymphocytes Auto (Unsp spec) [#/Vol] 1.74 10*3/uL 0.83-4.51 [facility] Basophil percentageOrdered B y: Desmond Fraire on 07-02-2023 Basophils/100 WBC (Bld) 0.4 % 0-1 [facility] Bilirubin [Mass/Vol] 0.60 mg/dL 0.20-1.00 [facility] Comment on above: For patients on eltr ombopag therapy, use of Dimension [place] TBIL is not recommended. Chloride [Moles/Vol] 109 mmol/L 98-107 [facility] Eosinophils/100 WBC (Bld) 0.8 % 0-5 [facility] Glucose [Mass/Vol] 115 mg/dL 74-106 [facility] Comment on above: Fasting Glucose resu lt from 100 to 125 mg/dL suggests IMPAIRED HOMEOSTASIS per A.D.A. criteria. Neutrophils (Bld) [#/Vol] 7.1 10*3/uL 2.0-7.7 [facility] Neutrophils/100 WBC (Bld) 75.1 % 47-70 [facility] Potassium [Moles/Vol] 4.0 mmol/L 3.5-5.1 [facility] Protein [Mass/Vol] 7.2 g/dL 6.4-8.2 [facility] Sodium [Moles/Vol] 140 mmol/L 136-145 [facility] WBC (Bld) [#/Vol] 9.5 10*3/uL 4.4-11.0 [facility] Blood erythrocytes count (nu mber/volume)Ordered By: Desmond Fraire on 07-02-2023 RBC (Bld) [#/Vol] 5.32 10*6/uL 4.6-6.2 [facility] Blood hemoglobin measurement (mass/volume)Ordered By: Desmond Fraire on 07-02-2023 Hemoglobin (Bld) [Mass/Vol] 14.7 g/dL 13.0-16.5 [facility] Blood lymphocytes/100 leukoc ytesOrdered By: Desmond Fraire on 07-02-2023 Lymphocytes/100 WBC (Bld) 18.4 % 19-41 [facility] Blood monocytes/100 leukocyt esOrdered By: Desmond Fraire on 07-02-2023 Monocytes/100 WBC (Bld) 5.0 % 0-10 [facility] Blood platelet mean volumeOr dered By: Desmond Fraire on 07-02-2023 Platelet mean volume (Bld) [Entitic vol] 11.0 fL 6.2-12.0 [facility] Determination of erythrocyte mean corpuscular volume (MCV)Ordered By: Desmond Fraire on 07-02-2023 MCV (RBC) [Entitic vol] 88.9 fL 80-94 [facility] Hematocrit Auto (Bld) [Volum e fraction]Ordered By: Desmond Fraire on 07-02-2023 Hematocrit (Bld) [Volume fraction] 47.3 % 40-54 [facility] Laboratory - Chemistry and C hemistry - challengeOrdered By: Desmond Fraire on 07-02-2023 ALP [Catalytic activity/Vol] 110 U/L 45-117 [facility] ALT [Catalytic activity/Vol] 22 U/L 16-61 [facility] CO2 [Moles/Vol] 24.0 mmol/L 21.0-32.0 [facility] Globulin (S) [Mass/Vol] 4.0 g/dL 2.2-4.2 [facility] Urea nitrogen/Creatinine [Mass ratio] 16.5 mg/mg 10-20 [facility] Laboratory - Hematology and Cell countsOrdered By: Desmond Fraire on 07-02-2023 Erythrocyte distribution width (RBC) [Entitic vol] 42.7 fL 35.1-43.9 [facility] Erythrocyte distribution width (RBC) [Ratio] 13.2 % 11.6-14.6 [facility] Immature granulocytes/100 WBC (Bld) 0.300 % 0.0-0.9 [facility] Comment on above: IG% - Immature Granu locytes (promyelocytes, myelocytes and metamyelocytes) > 1% indicates that a LEFT SHIFT is Present. MCH (RBC) [Entitic mass] 27.6 pg 27.0-32.0 [facility] Nucleated RBC/100 WBC (Bld) [Ratio] 0 % 0-5 [facility] MCHC Auto (RBC) [Mass/Vol]Or dered By: Desmond Fraire on 07-02-2023 MCHC (RBC) [Mass/Vol] 31.1 g/dL 32-36 [facility] No Panel InformationOrdered By: Desmond Fraire on 07-02-2023 Estimated GFR (MDRD) Amer 108 mL/min >60 [facility] Comment on above: GFR Calc Estimated GFR (MDRD) Non-Af Amer 89 mL/min >60 [facility] Comment on above: Non- GFR Calc Prostate Specific Antigen Total 4.39 ng/mL 0.0-4.0 [facility] Comment on above: This test was perfor med using the TPSA assay method for the[facility] chemistry [facility]. Values obtained with differentassay methods cannot be used interchangably.When changing PSA assays in the course of monitoring apatient, additional sequential testing should be carriedout to confirm baseline values. Thyroid Stimulating Hormone (TSH) 2.87 uIU/mL 0.358-3.74 [facility] Vitamin D 25-Hydroxy 10.0 ng/mL [facility] Comment on above: Vitamin D 25(OH) Sta tus Range Deficiency <20 ng/mL (50nmol/L) Insufficiency 20 - 30 ng/mL (50 - 75 nmol/L) Sufficiency 30 - 100 ng/mL (75 - 250 nmol/L) Toxicity >100 ng/mL (>250 nmol/L) Platelets bldOrdered By: Desmond Fraire on 07-02-2023 Platelets (Bld) [#/Vol] 218 10*3/uL 150-450 [facility] Serum or plasma albumin mak urement (mass/volume)Ordered By: Desmond Fraire on 07-02-2023 Albumin [Mass/Vol] 3.2 g/dL 3.2-5.0 [facility] Serum or plasma albumin/glob ulin mass ratioOrdered By: Desmond Fraire on 07-02-2023 Albumin/Globulin [Mass ratio] 0.8 {ratio} 0.9-2.4 [facility] Serum or plasma calcium mak urement (mass/volume)Ordered By: Desmond Fraire on 07-02-2023 Calcium [Mass/Vol] 8.7 mg/dL 8.5-10.1 [facility] Serum or plasma creatinine m easurement (mass/volume)Ordered By: Desmond Fraire on 07-02-2023 Creatinine [Mass/Vol] 0.91 mg/dL 0.70-1.30 [facility] Comment on above: The validity of the calculated GFR & GFRAA in patients over 70 years has not been determined. Clinical correlation is essential. Serum or plasma urea nitroge n measurement (mass/volume)Ordered By: Desmond Fraire on 07-02-2023 Urea nitrogen [Mass/Vol] 15 mg/dL 7-18 [facility] Thin prep Papanicolaou smear with manual screeningOrdered By: Desmond Fraire on 07-02-2023 Thin prep Papanicolaou smear with manual screening 16 U/L 15-37 [facility] Thin prep Papanicolaou smear with manual screening 7 5-15 [facility] Absolute lymphocyte countOrd ered By: Dr. Fraire on 12-31-2022 Lymphocytes Auto (Unsp spec) [#/Vol] 2.00 10*3/uL 0.83-4.51 [facility] Basophil percentageOrdered B y: Dr. Fraire on 12-31-2022 Basophils/100 WBC (Bld) 0.7 % 0-1 [facility] Bilirubin [Mass/Vol] 0.30 mg/dL 0.20-1.00 [facility] Comment on above: For patients on eltr ombopag therapy, use of Dimension [place] TBIL is not recommended. Chloride [Moles/Vol] 110 mmol/L 98-107 [facility] Eosinophils/100 WBC (Bld) 2.5 % 0-5 [facility] Glucose [Mass/Vol] 101 mg/dL 74-106 [facility] Comment on above: Fasting Glucose resu lt from 100 to 125 mg/dL suggests IMPAIRED HOMEOSTASIS per A.D.A. criteria. Neutrophils (Bld) [#/Vol] 6.3 10*3/uL 2.0-7.7 [facility] Neutrophils/100 WBC (Bld) 68.9 % 47-70 [facility] Potassium [Moles/Vol] 4.2 mmol/L 3.5-5.1 [facility] Protein [Mass/Vol] 6.8 g/dL 6.4-8.2 [facility] Sodium [Moles/Vol] 140 mmol/L 136-145 [facility] WBC (Bld) [#/Vol] 9.1 10*3/uL 4.4-11.0 [facility] Blood erythrocytes count (nu mber/volume)Ordered By: Dr. Fraire on 12-31-2022 RBC (Bld) [#/Vol] 5.19 10*6/uL 4.6-6.2 [facility] Blood hemoglobin measurement (mass/volume)Ordered By: Dr. Fraire on 12-31-2022 Hemoglobin (Bld) [Mass/Vol] 14.5 g/dL 13.0-16.5 [facility] Blood lymphocytes/100 leukoc ytesOrdered By: Dr. Fraire on 12-31-2022 Lymphocytes/100 WBC (Bld) 22.0 % 19-41 [facility] Blood monocytes/100 leukocyt esOrdered By: Dr. Fraire on 12-31-2022 Monocytes/100 WBC (Bld) 5.6 % 0-10 [facility] Blood platelet mean volumeOr dered By: Dr. Fraire on 12-31-2022 Platelet mean volume (Bld) [Entitic vol] 10.7 fL 6.2-12.0 [facility] Determination of erythrocyte mean corpuscular volume (MCV)Ordered By: Dr. Fraire on 12-31-2022 MCV (RBC) [Entitic vol] 88.4 fL 80-94 [facility] Hematocrit Auto (Bld) [Volum e fraction]Ordered By: Dr. Fraire on 12-31-2022 Hematocrit (Bld) [Volume fraction] 45.9 % 40-54 [facility] Laboratory - Chemistry and C hemistry - challengeOrdered By: Dr. Fraire on 12-31-2022 ALP [Catalytic activity/Vol] 119 U/L 45-117 [facility] ALT [Catalytic activity/Vol] 21 U/L 16-61 [facility] CO2 [Moles/Vol] 26.0 mmol/L 21.0-32.0 [facility] Globulin (S) [Mass/Vol] 3.7 g/dL 2.2-4.2 [facility] Urea nitrogen/Creatinine [Mass ratio] 16.2 mg/mg 10-20 [facility] - Hematology and Cell countsOrdered By: Dr. Fraire on 12-31-2022 Erythrocyte distribution width (RBC) [Entitic vol] 43.3 fL 35.1-43.9 [facility] Erythrocyte distribution width (RBC) [Ratio] 13.3 % 11.6-14.6 [facility] Immature granulocytes/100 WBC (Bld) 0.300 % 0.0-0.9 [facility] Comment on above: IG% - Immature Granu locytes (promyelocytes, myelocytes and metamyelocytes) > 1% indicates that a LEFT SHIFT is Present. MCH (RBC) [Entitic mass] 27.9 pg 27.0-32.0 [facility] Nucleated RBC/100 WBC (Bld) [Ratio] 0 % 0-5 [facility] MCHC Auto (RBC) [Mass/Vol]Or dered By: Dr. Fraire on 12-31-2022 MCHC (RBC) [Mass/Vol] 31.6 g/dL 32-36 [facility] No Panel InformationOrdered By: Dr. Fraire on 12-31-2022 Estimated GFR (MDRD) Amer 91 mL/min >60 [facility] Comment on above: GFR Calc Estimated GFR (MDRD) Non-Af Amer 75 mL/min >60 [facility] Comment on above: Non- GFR Calc Prostate Specific Antigen Screen 4.17 ng/mL 0.00-4.00 [facility] Comment on above: This test was perfor med using the TPSA assay method for the[employer] chemistry system. Values obtained with differentassay methods cannot be used interchangably.When changing PSA assays in the course of monitoring apatient, additional sequential testing should be carriedout to confirm baseline values. Thyroid Stimulating Hormone (TSH) 1.83 uIU/mL 0.358-3.74 [facility] Platelets bldOrdered By: Dr. Fraire on 12-31-2022 Platelets (Bld) [#/Vol] 243 10*3/uL 150-450 [facility] Serum or plasma albumin mak urement (mass/volume)Ordered By: Dr. Fraire on 12-31-2022 Albumin [Mass/Vol] 3.1 g/dL 3.2-5.0 [facility] Serum or plasma albumin/glob ulin mass ratioOrdered By: Dr. Fraire on 12-31-2022 Albumin/Globulin [Mass ratio] 0.8 {ratio} 0.9-2.4 [facility] Serum or plasma calcium mak urement (mass/volume)Ordered By: Dr. Fraire on 12-31-2022 Calcium [Mass/Vol] 9.0 mg/dL 8.5-10.1 [facility] Serum or plasma creatinine m easurement (mass/volume)Ordered By: Dr. Fraire on 12-31-2022 Creatinine [Mass/Vol] 1.05 mg/dL 0.70-1.30 [facility] Comment on above: The validity of the calculated GFR & GFRAA in patients over 70 years has not been determined. Clinical correlation is essential. Serum or plasma urea nitroge n measurement (mass/volume)Ordered By: Dr. Fraire on 12-31-2022 Urea nitrogen [Mass/Vol] 17 mg/dL 7-18 [facility] Thin prep Papanicolaou smear with manual screeningOrdered By: Dr. Fraire on 12-31-2022 Thin prep Papanicolaou smear with manual screening 18 U/L 15-37 [facility] Thin prep Papanicolaou smear with manual screening 4 5-15 [facility] Absolute lymphocyte counton 06-26-2022 Lymphocytes Auto (Unsp spec) [#/Vol] 1.97 10*3/uL 0.83-4.51 [facility] Work Phone: [phone] Basophil percentageon 2021 Basophils/100 WBC (Bld) 0.4 % 0-1 [facility] Work Phone: Bilirubin [Mass/Vol] 0.50 mg/dL 0.20-1.00 [facility] Work Phone: Comment on above: For patients on eltr ombopag therapy, use of Dimension [place] TBIL is not recommended. Chloride [Moles/Vol] 107 mmol/L 98-107 [facility] Work Phone: Eosinophils/100 WBC (Bld) 0.8 % 0-5 [facility] Work Phone: Glucose [Mass/Vol] 115 mg/dL 74-106 [facility] Work Phone: [phone] Comment on above: Fasting Glucose resu lt from 100 to 125 mg/dL suggests IMPAIRED HOMEOSTASIS per A.D.A. criteria. Neutrophils (Bld) [#/Vol] 7.6 10*3/uL 2.0-7.7 [facility] Work Phone: Neutrophils/100 WBC (Bld) 73.4 % 47-70 [facility] Work Phone: Potassium [Moles/Vol] 3.4 mmol/L 3.5-5.1 [facility] Work Phone: Protein [Mass/Vol] 6.7 g/dL 6.4-8.2 [facility] Work Phone: Sodium [Moles/Vol] 139 mmol/L 136-145 [facility] Work Phone: WBC (Bld) [#/Vol] 10.3 10*3/uL 4.4-11.0 [facility] Work Phone: Blood erythrocytes count (nu mber/volume)on 06-26-2022 RBC (Bld) [#/Vol] 5.12 10*6/uL 4.6-6.2 [facility] Work Phone: Blood hemoglobin measurement (mass/volume)on 06-26-2022 Hemoglobin (Bld) [Mass/Vol] 14.9 g/dL 13.0-16.5 [facility] Work Phone: Blood lymphocytes/100 leukoc yteson 06-26-2022 Lymphocytes/100 WBC (Bld) 19.2 % 19-41 [facility] Work Phone: Blood monocytes/100 leukocyt eson 06-26-2022 Monocytes/100 WBC (Bld) 5.6 % 0-10 [facility] Work Phone: Blood platelet mean volumeon 06-26-2022 Platelet mean volume (Bld) [Entitic vol] 11.3 fL 6.2-12.0 [facility] Work Phone: Determination of erythrocyte mean corpuscular volume (MCV)on 06-26-2022 MCV (RBC) [Entitic vol] 88.3 fL 80-94 [facility] Work Phone: Hematocrit Auto (Bld) [Volum e fraction]on 06-26-2022 Hematocrit (Bld) [Volume fraction] 45.2 % 40-54 [facility] Work Phone: Laboratory - Chemistry and C hemistry - challengeon 06-26-2022 ALP [Catalytic activity/Vol] 93 U/L 45-117 [facility] Work Phone: ALT [Catalytic activity/Vol] 22 U/L 16-61 [facility] Work Phone: CO2 [Moles/Vol] 25.0 mmol/L 21.0-32.0 [facility] Work Phone: Globulin (S) [Mass/Vol] 3.5 g/dL 2.2-4.2 [facility] Work Phone: Urea nitrogen/Creatinine [Mass ratio] 18.8 mg/mg 10-20 [facility] Work Phone: Laboratory - Hematology and Cell countson 06-26-2022 Erythrocyte distribution width (RBC) [Entitic vol] 42.9 fL 35.1-43.9 [facility] Work Phone: Erythrocyte distribution width (RBC) [Ratio] 13.2 % 11.6-14.6 [facility] Work Phone: Immature granulocytes/100 WBC (Bld) 0.600 % 0.0-0.9 [facility] Work Phone: Comment on above: IG% - Immature Granu locytes (promyelocytes, myelocytes and metamyelocytes) > 1% indicates that a LEFT SHIFT is Present. MCH (RBC) [Entitic mass] 29.1 pg 27.0-32.0 [facility] Work Phone: Nucleated RBC/100 WBC (Bld) [Ratio] 0 % 0-5 [facility] Work Phone: MCHC Auto (RBC) [Mass/Vol]on 06-26-2022 MCHC (RBC) [Mass/Vol] 33.0 g/dL 32-36 [facility] Work Phone: No Panel Informationon 06-26 Estimated GFR (MDRD) Amer 101 mL/min >60 [facility] Work Phone: Comment on above: GFR Calc Estimated GFR (MDRD) Non-Af Amer 84 mL/min >60 [facility] Work Phone: Comment on above: Non- GFR Calc Thyroid Stimulating Hormone (TSH) 1.74 uIU/mL 0.358-3.74 [facility] Work Phone: Platelets bldon 06-26-2022 Platelets (Bld) [#/Vol] 229 10*3/uL 150-450 [facility] Work Phone: Serum or plasma albumin mak urement (mass/volume)on 06-26-2022 Albumin [Mass/Vol] 3.2 g/dL 3.2-5.0 [facility] Work Phone: Serum or plasma albumin/glob ulin mass ratioon 06-26-2022 Albumin/Globulin [Mass ratio] 0.9 {ratio} 0.9-2.4 [facility] Work Phone: Serum or plasma calcium mak urement (mass/volume)on 06-26-2022 Calcium [Mass/Vol] 9.1 mg/dL 8.5-10.1 [facility] Work Phone: Serum or plasma creatinine m easurement (mass/volume)on 06-26-2022 Creatinine [Mass/Vol] 0.96 mg/dL 0.70-1.30 [facility] Work Phone: Comment on above: The validity of the calculated GFR & GFRAA in patients over 70 years has not been determined. Clinical correlation is essential. Serum or plasma urea nitroge n measurement (mass/volume)on 06-26-2022 Urea nitrogen [Mass/Vol] 18 mg/dL 7-18 [facility] Work Phone: Thin prep Papanicolaou smear with manual screeningon 06-26-2022 Thin prep Papanicolaou smear with manual screening 10 U/L 15-37 [facility] Work Phone: Thin prep Papanicolaou smear with manual screening 7 5-15 [facility] Work Phone: CNOVon 04-06-2022 CNOV Office Visit ([facility] ) AMANDA SANDOVAL ([id number]) 1960 Date Time Provider Department 04/06/22 9:15 AM DENAE SONI [facility] During your visit today, we recorded the following information about you: Temperature Pulse Respiration Blood pressure 97 degrees 78/minute 18/minute 142/84 Weight 127.5 kg Denae Soni APRN.CNP 04/06/2022 9:50 AM Signed This note was created using WEbookriter. Subjective Amanda Sandoval is a 62 year old male. 62 [...] rhythm. Pulses: Normal pulses. Heart sounds: Normal hear (more content not included)... Normal [facility] Absolute lymphocyte counton 12-26-2021 Lymphocytes Auto (Unsp spec) [#/Vol] 2.01 10*3/uL 0.83-4.51 [facility] Work Phone: Basophil percentageon 2021 Basophils/100 WBC (Bld) 0.6 % 0-1 [facility] Work Phone: Bilirubin [Mass/Vol] 0.30 mg/dL 0.20-1.00 [facility] Work Phone: Comment on above: For patients on eltr ombopag therapy, use of Dim[employer] [place] TBIL is not recommended. Chloride [Moles/Vol] 108 mmol/L 98-107 [facility] Work Phone: Eosinophils/100 WBC (Bld) 1.9 % 0-5 [facility] Work Phone: Glucose [Mass/Vol] 106 mg/dL 74-106 [facility] Work Phone: Comment on above: Fasting Glucose resu lt from 100 to 125 mg/dL suggests IMPAIRED HOMEOSTASIS per A.D.A. criteria. Neutrophils (Bld) [#/Vol] 6.1 10*3/uL 2.0-7.7 [facility] Work Phone: Neutrophils/100 WBC (Bld) 68.1 % 47-70 [facility] Work Phone: Potassium [Moles/Vol] 4.2 mmol/L 3.5-5.1 [facility] Work Phone: [phone] Protein [Mass/Vol] 6.9 g/dL 6.4-8.2 [facility] Work Phone: Sodium [Moles/Vol] 141 mmol/L 136-145 [facility] Work Phone: WBC (Bld) [#/Vol] 8.9 10*3/uL 4.4-11.0 [facility] Work Phone: Blood erythrocytes count (nu mber/volume)on 12-26-2021 RBC (Bld) [#/Vol] 4.84 10*6/uL 4.6-6.2 [facility]: Blood hemoglobin measurement (mass/volume)on 12-26-2021 Hemoglobin (Bld) [Mass/Vol] 14.1 g/dL 13.0-16.5 [facility] Work Phone: Blood lymphocytes/100 leukoc yteson 12-26-2021 Lymphocytes/100 WBC (Bld) 22.6 % 19-41 [facility] Work Phone: Blood monocytes/100 leukocyt eson 12-26-2021 Monocytes/100 WBC (Bld) 6.5 % 0-10 [facility] Work Phone: Blood platelet mean volumeon 12-26-2021 Platelet mean volume (Bld) [Entitic vol] 11.5 fL 6.2-12.0 [facility] Work Phone: Determination of erythrocyte mean corpuscular volume (MCV)on 12-26-2021 MCV (RBC) [Entitic vol] 90.5 fL 80-94 [facility] Work Phone: Hematocrit Auto (Bld) [Volum e fraction]on 12-26-2021 Hematocrit (Bld) [Volume fraction] 43.8 % 40-54 [facility] Work Phone: [phone] Laboratory - Chemistry and C hemistry - challengeon 12-26-2021 ALP [Catalytic activity/Vol] 93 U/L 45-117 [facility] Work Phone: [phone] ALT [Catalytic activity/Vol] 26 U/L 16-61 [facility] Work Phone: CO2 [Moles/Vol] 30.0 mmol/L 21.0-32.0 [facility] Work Phone: Globulin (S) [Mass/Vol] 3.7 g/dL 2.2-4.2 [facility] Work Phone: Urea nitrogen/Creatinine [Mass ratio] 15.4 mg/mg 10-20 [facility] Work Phone: Laboratory - Hematology and Cell countson 12-26-2021 Erythrocyte distribution width (RBC) [Entitic vol] 42.1 fL 35.1-43.9 [facility] Work Phone: Erythrocyte distribution width (RBC) [Ratio] 12.8 % 11.6-14.6 [facility] Work Phone: Immature granulocytes/100 WBC (Bld) 0.300 % 0.0-0.9 [facility] Work Phone: Comment on above: IG% - Immature Granu locytes (promyelocytes, myelocytes and metamyelocytes) > 1% indicates that a LEFT SHIFT is Present. MCH (RBC) [Entitic mass] 29.1 pg 27.0-32.0 [facility] Work Phone: Nucleated RBC/100 WBC (Bld) [Ratio] 0 % 0-5 [facility] Work Phone: MCHC Auto (RBC) [Mass/Vol]on 12-26-2021 MCHC (RBC) [Mass/Vol] 32.2 g/dL 32-36 [facility] Work Phone: No Panel Informationon 12-26 Estimated GFR (MDRD) Amer 93 mL/min >60 [facility] Work Phone: Comment on above: GFR Calc Estimated GFR (MDRD) Non-Af Amer 76 mL/min >60 [facility] Work Phone: Comment on above: Non- GFR Calc Prostate Specific Antigen Screen 2.90 ng/mL 0.00-4.00 [facility] Work Phone: Comment on above: This test was perfor med using the TPSA assay method for the[employer] chemistry system. Values obtained with differentassay methods cannot be used interchangably.When changing PSA assays in the course of monitoring apatient, additional sequential testing should be carriedout to confirm baseline values. Thyroid Stimulating Hormone (TSH) 2.15 uIU/mL 0.358-3.74 [facility] Work Phone: Vitamin D 25-Hydroxy 10.1 ng/mL [facility] Work Phone: Comment on above: Vitamin D 25(OH) Sta tus Range Deficiency <20 ng/mL (50nmol/L) Insufficiency 20 - 30 ng/mL (50 - 75 nmol/L) Sufficiency 30 - 100 ng/mL (75 - 250 nmol/L) Toxicity >100 ng/mL (>250 nmol/L) Platelets bldon 12-26-2021 Platelets (Bld) [#/Vol] 248 10*3/uL 150-450 [facility] Work Phone: Serum or plasma albumin mak urement (mass/volume)on 12-26-2021 Albumin [Mass/Vol] 3.2 g/dL 3.2-5.0 [facility] Work Phone: Serum or plasma albumin/glob ulin mass ratioon 12-26-2021 Albumin/Globulin [Mass ratio] 0.9 {ratio} 0.9-2.4 [facility] Work Phone: Serum or plasma calcium mak urement (mass/volume)on 12-26-2021 Calcium [Mass/Vol] 8.9 mg/dL 8.5-10.1 [facility] Work Phone: Serum or plasma creatinine m easurement (mass/volume)on 12-26-2021 Creatinine [Mass/Vol] 1.04 mg/dL 0.70-1.30 [facility] Work Phone: Comment on above: The validity of the calculated GFR & GFRAA in patients over 70 years has not been determined. Clinical correlation is essential. Serum or plasma urea nitroge n measurement (mass/volume)on 12-26-2021 Urea nitrogen [Mass/Vol] 16 mg/dL 7-18 [facility] Work Phone: Thin prep Papanicolaou smear with manual screeningon 12-26-2021 Thin prep Papanicolaou smear with manual screening 21 U/L 15-37 [facility] Work Phone: Thin prep Papanicolaou smear with manual screening 3 5-15 [facility] Work Phone: Vital Signs Date Time Vital Sign Value Performing Clinician Faci lity 09-11-2024 11:51-0500 Body temperature 98.5 [degF] Dr. Desmond Fraire MD Work Phone: [facility] 09-11-2024 11:51-0500 Diastolic blood pressure 74 mm[Hg] Dr. Desmond Fraire MD Work Phone: [facility] 09-11-2024 11:51-0500 Heart rate 74 /min Dr. Desmond Fraire MD Work Phone: [facility] 09-11-2024 11:51-0500 Respiratory rate 14 /min Dr. Desmond Fraire MD Work Phone: [facility] 09-11-2024 11:51-0500 SaO2% (BldA) [Mass fraction] 96 % Dr. Desmond Fraire MD Work Phone: [facility] 09-11-2024 11:51-0500 Systolic blood pressure 127 mm[Hg] Dr. Desmond Fraire MD Work Phone: [facility] 09-11-2024 09:45-0500 Body height [address] Desmond Fraire MD Work Phone: [facility] 09-11-2024 09:45-0500 Body mass index (BMI) [Ratio] 45.8 kg/m2 Dr. Desmond Fraire MD Work Phone: [facility] 09-11-2024 09:45-0500 Body weight 124.[address] Desmond Fraire MD Work Phone: [facility] 09-05-2023 09:41-0500 Body temperature 98 [degF] Dr. Desmond Fraire Work Phone: [facility] 09-05-2023 09:41-0500 Diastolic blood pressure 65 mm[Hg] Dr. Desmond Fraire Work Phone: [facility] 09-05-2023 09:41-0500 Heart rate 78 /min Dr. Desmond Fraire Work Phone: [facility] 09-05-2023 09:41-0500 Respiratory rate 16 /min Dr. Desmond Fraire Work Phone: [facility] 09-05-2023 09:41-0500 SaO2% (BldA) [Mass fraction] 99 % Dr. Desmond Fraire Work Phone: [facility] 09-05-2023 09:41-0500 Systolic blood pressure 113 mm[Hg] Dr. Desmond Fraire Work Phone: [phone] [place] [address] 09-05-2023 07:48-0500 Body height 165.[address] Desmond Fraire Work Phone: [phone] [place] [address] 09-05-2023 07:48-0500 Body mass index (BMI) [Ratio] 44.1 kg/m2 Dr. Desmond Fraire Work Phone: [phone] [place] [address] 09-05-2023 07:48-0500 Body weight 120.[address] Desmond Fraire Work Phone: [phone] [place] [address] 07-31-2023 13:11-0500 Body height 165.[address] Desmond Fraire Work Phone: [facility] 07-31-2023 13:11-0500 Body mass index (BMI) [Ratio] 43.7 kg/m2 Dr. Desmond Fraire Work Phone: [facility] 07-31-2023 13:11-0500 Body weight 119.[address] Desmond Fraire Work Phone: [facility] 04-06-2022 09:26-0400 Body temperature 97 [degF] Denae Soni APRNErastoPOPULATION HEALTH COACH Work Phone: [facility] 04-06-2022 09:26-0400 Body weight 127.46 kg Denae Soni ACUTE CARE PHYSICAL THERAPIST.POPULATION HEALTH COACH Work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 Dr. Desmond Fraire MD Primary Care Provider Active Start: September 02, 2024 End: September 02, 2024 Dr. Desmond Fraire MD Attending Provider Active Start: September 02, 2024 End: September 02, 2024 Dr. Desmnod Fraire MD Referring Provider Active Start: September 02, 2024 End: September 02, 2024 Team Status: Inactive Member Role Status Dates Dr. Desmond Fraire MD Primary Care Provider Active Start: September 11, 2024 End: September 11, 2024 Aldair Bryan MD Attending Provider Active Star t: September 11, 2024 End: September 11, 2024 Aldair Bryan MD Emergency Provider Active Star t: September 11, 2024 End: September 11, 2024 Team Status: Inactive Member Role Status Dates Dr. Desmond Fraire MD Primary Care Provider Active Start: October 11, 2024 End: October 11, 2024 Dr. Desmond Fraire MD Attending Provider Active Start: October 11, 2024 End: October 11, 2024 Team Status: Inactive Member Role Status Dates Dr. Desmond Fraire MD Primary Care Provider Active Start: October 21, 2024 End: October 21, 2024 Dr. Desmond Fraire MD Attending Provider Active Start: October 21, 2024 End: October 21, 2024 Dr. Desmond Fraire MD Referring Provider Active Start: October 21, 2024 End: October 21, 2024 FOR RECORDS PERTAINING TO PATIENTS WHO ARE [...] ON THE PRIMARY CLINICAL RECORDS. [facility] [employer] [facility]. provides no warranty or guarantee of the accuracy or completeness of information in this document.
== END | disposition home or self-care (01) ==
LOC: RAD 11:03
PROVIDERS: PCP Family Medicine Geriatric Medicine; Referring Provider Anesthesiology Pain Medicine; Visit Provider Anesthesiology Pain Medicine
DX: M25.552 Pain in left hip (principal)
CPT/HCPCS: 73502

== ENCOUNTER → 2025-01-05 | Outpatient (CLI) | payer OTHER, SELFPAY ==
[2025-01-05 18:00] LABS: Absolute Neutrophil Count 7.9 X10^3/uL (2.0-7.7); Basophil# 0.07 X10^3/uL; Basophil% 0.6 % (0-1); Eosinophil# 0.12 X10^3/uL; Eosinophils% 1.1 % (0-5); Hematocrit 40.2 % (40-54); Hemoglobin 13.1 g/dL (13.0-16.5); Lymphocyte % 18.5 % (19-41); Mean Corp Hgb Conc 32.6 g/dL (32-36); Mean Platelet Vol. 10.7 fl (6.2-12.0); Monocyte# 0.66 X10^3/uL; Monocyte% 6.1 % (0-10); NRBC Flagged by Analyzer 0 % (0-5); Neutrophil # 7.92 X10^3/uL (2.7-7.7); Neutrophil % 73.1 % (47-70); Platelet Count 254 K/mm3 (150-450); RBC Distribution Width SD 47.3 fl (35.1-43.9); Red Blood Count 4.37 M/mm3 (4.6-6.2); White Blood Count 10.8 K/mm3 (4.4-11.0)
[2025-01-05 18:36] LABS: ALB/GLOB Ratio 1.4 RATIO (0.9-2.4); AST(SGOT) 20 U/L (<=37); Alanine Aminotransfer ALT/SGPT 16 U/L (<=46); Albumin, Serum 3.9 g/dL (3.4-4.8); Alkaline Phosphatase 73 U/L (40-129); Anion Gap 13 (5-15); BUN 23 mg/dL (4-19); BUN/Creat Ratio 23.5 RATIO (10-20); Calcium,Total 9.5 mg/dL (7.6-11.0); Carbon Dioxide 22.3 mmol/L (21.0-32.0); Chloride 102 mmol/L (98-108); Creatinine, Serum 0.97 mg/dL (0.70-1.20); EST Glomerular Filtration Rate 86 (>60); Globulin 2.9 g/dL (2.2-4.2); Glucose 91 mg/dL (70-99); Potassium 4.3 mmol/L (3.3-5.1); Protein, Total 6.7 g/dL (5.9-8.4); Sodium Level 137 mmol/L (133-145); Total Bilirubin 0.43 mg/dL (0.00-1.30)
[2025-01-05 18:54] LABS: Cholesterol 167 mg/dL (<=200); High Density Lipoprotein 44 mg/dL; Low Density Lipoprotein Calc. 101 mg/dL; Triglycerides 111 mg/dL; Very Low Density Lipoprotein 22 mg/dL (5-40); cholesterol:hdl ratio screen 3.77
[2025-01-05 18:56] LABS: Vitamin D,25 Hydroxy 32.5 ng/mL (30-100)
[2025-01-05 19:15] LABS: Hemoglobin A1c 9.1 % (<=5.6)
== END | disposition home or self-care (01) ==
LOC: LAB 17:11
PROVIDERS: PCP Family Medicine Geriatric Medicine; Referring Provider Family Medicine Geriatric Medicine; Visit Provider Family Medicine Geriatric Medicine
DX: E78.5 Hyperlipidemia, unspecified (principal); E11.65 Type 2 diabetes mellitus with hyperglycemia; I10 Essential (primary) hypertension; E55.9 Vitamin D deficiency, unspecified
CPT/HCPCS: 36415; 80053; 80061; 82306; 83036; 84443; 85025

== ENCOUNTER → 2025-01-06 | Outpatient (CLI) | payer OTHER, SELFPAY ==
--- OUTSIDE RECORDS SUMMARY | 2025-01-06 17:33 | XMS RPT_ITS | CCD ---
Author Organization [facility] Care Team Providers [employer] Supervisor Name Role Phone Dr. Desmond Fraire Chi Primary Care Provider Dr. Guillermo Lo Attending Provider Dr. Kyle Hinton Referring Provider Unavailable Primary Care Provider UnavailDr. Desmond Donahue Chi Primary Care Provider Vane Summers Attending Provider Unavailable Dr. Desmond Fraire Chi Referring Provider Dr. Payam Marino Attending Provider Dr. Payam Marino Other Provider Dr. Desmond Fraire MD, Chi Primary Care Provider Najma Delaney Attending Provider Dr. Guillermo Lai MD, V Attending Provider [phone] Dr. Guillermo Lai MD, V Referring Provider [phone] Dr. Desmond Fraire MD, Chi Attending Provider Dr. Desmond Fraire MD, Chi Referring Provider [phone] Aldair Bryan MD Attending Provider Aldair Bryan MD Emergency Provider DESMOND FRAIRE CHI Referring Unavailable MIMI ALFORD MD Admitting Unavailable MIMI ALFORD MD Primary Care Unavailable MIMI ALFORD MD Attending Unavailable DESMOND FRAIRE [facility] Consulting Unavailable PROVIDER, UNKNOWN Consulting Unavailable PROVIDER, UNKNOWN Consulting Unavailable Dr. Desmond Fraire MD, Chi Primary Care Provider [phone] Dr. Brenden Amador MD Attending Provider Perry GUERRERO, Dr. Wilcox Referring Provider Gab, Desmond Chi Attending Unavailable Gab, Desmond Chi Primary Care Unavailable Gab, Desmond Chi Primary Care Unavailable Gab, Desmond Chi Referring Unavailable Payam Marino Attending Unavailable Gab, Desmond Chi Primary Care Unavailable Gab, Desmond Chi Referring Unavailable Heath Bourne Attending Unavailable Gab, Desmond Chi Attending Unavailable Gab, Desmond Chi Referring Unavailable Gab, Desmond Chi Primary Care Unavailable Gab, Desmond Chi Primary Care Unavailable Aldair Bryan Attending Unavailable Gab, Desmond Chi Attending Unavailable Gab, Desmond Chi Primary Care Unavailable Gab, Desmond Chi Attending Unavailable Gab, Desmond Chi Referring Unavailable Gab, Desmond Chi Primary Care Unavailable Gab, Desmond Chi Attending Unavailable Gab, Desmond Chi Referring Unavailable Gab, Desmond Chi Primary Care Unavailable Brenden Amador Attending Unavailable Gab, Desmond Chi Primary Care Unavailable Brenden Amador Referring Unavailable Gab, Desmond Chi Primary Care Unavailable Gab, Desmond Chi Referring Unavailable Gab, Desmond Chi Attending Unavailable Gab, Desmond Chi Primary Care Unavailable Gab, Desmond Chi Attending Unavailable Gab, Desmond Chi Attending Unavailable Gab, Desmond Chi Primary Care Unavailable Gab, Desmond Chi Referring Unavailable Gab, Desmond Chi Attending Unavailable Gab, Desmond Chi Primary Care Unavailable Gab, Desmond Chi Referring Unavailable Gab, Desmond Chi Attending Unavailable Gab, Desmond Chi Primary Care Unavailable Gab, Desmond Chi Referring Unavailable Najma Delaney Attending Unavailable Gab, Desmond Chi Primary Care Unavailable Gab, Desmond Chi Primary Care Unavailable Sibilia, Guillermo V Referring Unavailable Sibilia, Guillermo V Attending Unavailable Gab, Desmond Chi Primary Care Unavailable Gab, Desmond Chi Referring Unavailable Gab, Desmond Chi Attending Unavailable Allergies Allergy Classification Reported Allergen(s) Allergy Type Date of Onset Reaction(s) Facility (16 sources) Penicillins; Translations: [Penicillins] Propensity to adverse reactions 0 GI Upset [facility] Work Phone: (6 sources) Latex Allergy to substance 4 [facility] (1 source) Penicillin Drug Allergy [facility] (1 source) Latex Drug allergy (disorder) 5 [facility] Repository Medications Current Medications Medication Drug Class(es) Dates Sig (Normalized) Sig (Original) [id number] 200 actuat albuterol 0.09 mg/actuat metered dose inhaler (7 sources) beta2-Adrenergic Agonist Start: 07-31-2023 Albuterol Sulfate [...] 2018 11:00pm cholecalciferol 0.025 mg oral tablet (4 sources) Vitamin D Start: 2023 take 1 [...] 2023 12:00am gabapentin 300 mg oral capsule (6 sources) Anti-epileptic Agent Start: 2023 take 1 [...] melatonin 10 mg extended release oral tablet (6 sources) Start: 07-31-2023 take 1 tablet by mouth at bedtime Melatonin 10 mg tablet extended release Active 10 mg PO AT BEDTIME July 31, 2023 1:00am pravastatin sodium 40 mg oral tablet (5 sources) HMG-CoA Reductase Inhibitor Start: 01-27-2024 take 1 tablet by mouth at bedtime Pravastatin 40 mg tablet Active 40 mg PO AT BEDTIME January 27, 2024 12:00am Start: 03-15-2022 take 1 tablet by iris once daily at bedtime pravastatin (PRAVACHOL) 40 [...] 2 TABLET PO 4 TIMES DAILY NEEDED November 20, 2018 10:41am November 24, 2018 11:06pm 40 tabs (forty) atorvastatin 40 mg oral tablet (14 sources) HMG-CoA Reductase Inhibitor Start: 10-26-2018 End: 01-27-2024 take 1 tablet by mouth once daily Atorvastatin 40 mg tablet Discontinued 40 mg PO DAILY October 26, 2018 12:00am January 27, 2024 3:14pm baclofen 10 mg oral tablet (15 sources) gamma-Aminobutyric Acid-ergic Agonist Start: 10-26-2018 End: 07-31-2023 take 1 tablet by mouth once daily Baclofen 10 mg tablet Discontinued 10 mg PO DAILY October 26, 2018 12:00am July 31, 2023 1:59pm Comment on above: TAKE 1 TABLET ORALLY ONCE PER DAY FOR 7 DAYS TAKE AT BEDTIME. clindamycin 300 mg oral capsule (14 sources) Lincosamide Antibacterial Start: 11-20-2018 End: 01-14-2019 take 1 capsule by mouth three times daily Clindamycin Hcl 300 MG capsule Discontinued 300 mg PO THREE TIMES A DAY November 20, 2018 12:00am January 14, 2019 4:32pm doxepin hydrochloride 25 mg oral capsule (14 sources) Tricyclic Antidepressant Start: 10-26-2018 End: 07-31-2023 take 1 capsule by mouth at bedtime Doxepin 25 mg capsule Discontinued 25 mg PO AT BEDTIME October 26, 2018 12:00am July 31, 2023 2:02pm escitalopram 10 mg oral tablet (14 sources) Serotonin Reuptake Inhibitor Start: 10-26-2018 End: 07-31-2023 take 1 tablet by mouth once daily Escitalopram Oxalate 10 mg tablet Discontinued 10 mg PO DAILY October 26, 2018 12:00am July 31, 2023 1:59pm nystatin [id number] unt/ml oral suspension (14 sources) Polyene Antifungal Start: 12-02-2018 End: 12-30-2018 take [id number] [IU] by mouth three times daily Nystatin 100,000 unit/mL suspension Discontinued [id number] U PO THREE TIMES A DAY December 02, 2018 12:00am December 29, 2018 [...] DAYS tamsulosin hydrochloride 0.4 mg oral capsule (15 sources) alpha-Adrenergic Dwain Start: 08-26-2022 take 2 capsules by mouth once daily [...] Problem Date Documented Date Episodic/Chronic Abdominal hernia (4 sources) Umbilical hernia; Translations: [Umbilical hernia without [...] unspecified; Translations: [Acute kidney failure, unspecified] Onset: 12-10-2024 Episodic Allergic reactions (1 source) Allergy status to penicillin; Translations: [Allergy status to penicillin] Onset: 12-10-2024 Episodic Chronic obstructive pulmonary disease and bronchiectasis (1 source) Chronic obstructive pulmonary disease, unspecified; Translations: [Chronic obstructive pulmonary disease, unspecified] Onset: 12-10-2024 Chronic Diabetes mellitus with complications (6 sources) Type 2 diabetes mellitus with hyperosmolarity without nonketotic hyperglycemic-hyperos molar coma (NKHHC); Translations: [Type 2 diabetes mellitus with hyperglycemia] Onset: 12-10-2024 Chronic Disorders of lipid metabolism (2 sources) Pure hypercholesterolemia, unspecified; Translations: [Hyperlipidemia, unspecified] Onset: 12-10-2024 Chronic Essential hypertension (3 sources) Essential (primary) hypertension; Translations: [Essential (primary) hypertension] Onset: 09-23-2024 Chronic Fluid and electrolyte disorders (1 source) Hypo-osmolality and hyponatremia; Translations: [Hypo-osmolality and hyponatremia] Onset: 12-10-2024 Episodic Headache; including migraine (4 sources) Headache; Translations: [Headache] 09-19-2024 Episodic Hyperplasia of prostate (1 source) Benign prostatic hyperplasia with lower urinary tract symptoms; Translations: [Benign prostatic hyperplasia with lower urinary tract symptoms] Onset: 10-26-2024 Chronic Malaise and fatigue (1 source) Other fatigue; Translations: [Other fatigue] Onset: 12-06-2024 Episodic Neoplasms of unspecified nature or uncertain behavior (14 sources) Neoplastic disease; Translations: [Neoplasm of unspecified behavior of bone, soft tissue, and skin] 11-21-2018 Episodic Comment on above: 1.5 cm lesion right elbow Nutritional deficiencies (1 source) Vitamin D deficiency, unspecified; Translations: [Vitamin D deficiency, unspecified] Onset: 01-05-2025 Chronic Open wounds of extremities (14 sources) Open wound of elbow with complication; Translations: [Unspecified open wound of right elbow, initial encounter] 11-21-2018 Episodic Osteoarthritis (1 source) Unilateral primary osteoarthritis, right knee; Translations: [Unilateral primary osteoarthritis, right knee] Onset: 01-04-2025 Chronic Other and unspecified benign neoplasm (5 sources) History of polyp of colon; Translations: [Personal history of colonic polyps] 09-05-2023 Episodic Other and unspecified benign neoplasm (1 source) Personal history of colonic polyps; Translations: [Personal history of colonic polyps] 09-05-2023 Episodic Other circulatory disease (4 sources) Labile blood pressure; Translations: [Other specified symptoms and signs involving the circulatory and respiratory systems] 09-19-2024 Episodic Other connective tissue disease (14 sources) Abscess of bursa of elbow; Translations: [Abscess of bursa, right elbow] 11-21-2018 Episodic Other connective tissue disease (4 sources) Diastasis recti; Translations: [Separation of muscle [...] chronic pain; Translations: [Other chronic pain] Onset: 12-10-2024 Chronic Other non-traumatic joint disorders (1 source) Pain in left hip; Translations: [Pain in left hip] Onset: 12-24-2024 Episodic Other non-traumatic joint disorders (1 source) Pain in right knee; Translations: [Pain in right knee] Onset: 12-06-2024 Episodic Other nutritional; endocrine; and metabolic disorders (1 source) Body mass index (BMI) 40.0-44.9, adult; Translations: [Body mass index [BMI]40.0-44.9, adult] Onset: 12-10-2024 Chronic Other nutritional; endocrine; and metabolic disorders (1 source) Morbid (severe) obesity due to excess calories; Translations: [Morbid (severe) obesity due to excess calories] Onset: 12-10-2024 Chronic Other skin disorders (14 sources) Mass of neck; Translations: [Localized swelling, mass and lump, neck] 11-21-2018 Episodic Comment on above: 2 cm painful soft ti ssue mass left posterior neck Other skin disorders (14 sources) Epidermoid cyst; Translations: [Epidermal cyst] 12-04-2018 Episodic Comment on above: 1.5 cm ruptured epid ermal inclusion cyst right elbow2 cm painful epidermal inclusion cyst left posterior neck Residual codes; unclassified (1 source) Chills (without fever); Translations: [Chills (without fever)] Onset: 12-06-2024 Episodic Spondylosis; intervertebral disc disorders; other back problems (3 sources) Acute thoracic back pain; Translations: [Pain in thoracic spine] Onset: 12-10-2024 Episodic Unclassified (1 source) Other intervertebral disc degeneration, lumbar region with discogenic back pain only; Translations: [Other intervertebral disc degeneration, lumbar region with discogenic back pain only] Onset: 12-10-2024 Past or Other Problems Problem Classification Problem Date Documented Da te Episodic/Chronic Other lower respiratory disease (1 source) Shortness of breath; Translations: [Shortness of breath] Onset: 09-15-2024 Episodic Other screening for suspected conditions (not mental disorders or infectious disease) (8 sources) Patient encounter status; Translations: [Encounter for screening for malignant neoplasm of colon] Onset: 09-16-2024 07-31-2023 Episodic Screening and history of mental health and substance abuse codes (16 sources) Ex-smoker; Translations: [Personal history of nicotine dependence] Onset: 08-30-2024 11-21-2018 Episodic Results Test Name Value Interpretation Reference Range Facility CBC W/Diff, Automatedon 12-19 Absolute Lymph 2.00 X10 3/uL Normal 0.83-4.51 [facility] Comment on above: Performed By: #### L 502.0250, L501.9985, L500.4050, L501.9520, L506.1001, L500.4100, L100.0100 ####[facility] [address] [place], [address] Absolute Neut 7.9 X10 3/uL High 2.0-7.7 [facility] Comment on above: Performed By: #### L 502.0250, L501.9985, L500.4050, L501.9520, L506.1001, L500.4100, L100.0100 ####[facility] [address] [place], [address] Basophils/100 WBC (Bld) 0.6 % Normal 0-1 [facility] Comment on above: Performed By: #### L 502.0250, L501.9985, L500.4050, L501.9520, L506.1001, L500.4100, L100.0100 ####[facility] [address] [place], [address] Eosinophils/100 WBC (Bld) 1.1 % Normal 0-5 [facility] Comment on above: Performed By: #### L 502.0250, L501.9985, L500.4050, L501.9520, L506.1001, L500.4100, L100.0100 ####[facility] [address] [place], [address] Erythrocyte distribution width (RBC) [Ratio] 14.0 % Normal 11.6-14.6 [facility] Comment on above: Performed By: #### L 502.0250, L501.9985, L500.4050, L501.9520, L506.1001, L500.4100, L100.0100 ####[facility] [address] [place], [address] Hematocrit (Bld) [Volume fraction] 40.2 % Normal 40-54 [facility] Comment on above: Performed By: #### L 502.0250, L501.9985, L500.4050, L501.9520, L506.1001, L500.4100, L100.0100 ####[facility] [address] [place], [address] Hemoglobin (Bld) [Mass/Vol] 13.1 g/dL Normal 13.0-16.5 [facility] Comment on above: Performed By: #### L 502.0250, L501.9985, L500.4050, L501.9520, L506.1001, L500.4100, L100.0100 ####[facility] [address] [place], [address] IG% 0.600 Normal 0.0-0.9 [facility] Comment on above: Result Comment: IG% - Immature Granulocytes (promyelocytes, myelocytes and metamyelocytes) > 1% indicates that a LEFT SHIFT is Present. Performed By: #### L 502.0250, L501.9985, L500.4050, L501.9520, L506.1001, L500.4100, L100.0100 ####[facility] [address] [place], [address] Lymphocytes/100 WBC (Bld) 18.5 % Low 19-41 [facility] Comment on above: Performed By: #### L 502.0250, L501.9985, L500.4050, L501.9520, L506.1001, L500.4100, L100.0100 ####[facility] [address] [place], [address] MCH (RBC) [Entitic mass] 30.0 pg Normal 27.0-32.0 [facility] Comment on above: Performed By: #### L 502.0250, L501.9985, L500.4050, L501.9520, L506.1001, L500.4100, L100.0100 ####[facility] [address] [place], [address] MCHC (RBC) [Mass/Vol] 32.6 g/dL Normal 32-36 [facility] Comment on above: Performed By: #### L 502.0250, L501.9985, L500.4050, L501.9520, L506.1001, L500.4100, L100.0100 ####[facility] [address] [place], [address] MCV (RBC) [Entitic vol] 92.0 fL Normal 80-94 [facility] Comment on above: Performed By: #### L 502.0250, L501.9985, L500.4050, L501.9520, L506.1001, L500.4100, L100.0100 ####[facility] [address] [place], [address] Monocytes/100 WBC (Bld) 6.1 % Normal 0-10 [facility] Comment on above: Performed By: #### L 502.0250, L501.9985, L500.4050, L501.9520, L506.1001, L500.4100, L100.0100 ####[facility] [address] [place], [address] Neutrophils/100 WBC (Bld) 73.1 % High 47-70 [facility] Comment on above: Performed By: #### L 502.0250, L501.9985, L500.4050, L501.9520, L506.1001, L500.4100, L100.0100 ####[facility] [address] [place], [address] Nucleated RBC (Bld) [#/Vol] 0 10*3/uL Normal 0-5 [facility] Comment on above: Performed By: #### L 502.0250, L501.9985, L500.4050, L501.9520, L506.1001, L500.4100, L100.0100 ####[facility] [address] [place], [address] Platelet mean volume (Bld) [Entitic vol] 10.7 fL Normal 6.2-12.0 [facility] Comment on above: Performed By: #### L 502.0250, L501.9985, L500.4050, L501.9520, L506.1001, L500.4100, L100.0100 ####[facility] [address] [place], [address] Platelets (Bld) [#/Vol] 254 10*3/uL Normal 150-450 [facility] Comment on above: Performed By: #### L 502.0250, L501.9985, L500.4050, L501.9520, L506.1001, L500.4100, L100.0100 ####[facility] [address] [place], [address] RBC (Bld) [#/Vol] 4.37 10*6/uL Low 4.6-6.2 [facility] Comment on above: Performed By: #### L 502.0250, L501.9985, L500.4050, L501.9520, L506.1001, L500.4100, L100.0100 ####[facility] [address] [place], [place], [phone](215) RDW SD 47.3 fl High 35.1-43.9 [facility] Comment on above: Performed By: #### L 502.0250, L501.9985, L500.4050, L501.9520, L506.1001, L500.4100, L100.0100 ####[facility] [address] [place], [place], [phone](288) WBC (Bld) [#/Vol] 10.8 10*3/uL Normal 4.4-11.0 [facility] Comment on above: Performed By: #### L 502.0250, L501.9985, L500.4050, L501.9520, L506.1001, L500.4100, L100.0100 ####[facility] [address] [place], [address] Comprehensive Metabolic Prof ilon 01-05-2025 Albumin [Mass/Vol] 3.9 g/dL Normal 3.4-4.8 [facility] Comment on above: Performed By: #### L 502.0250, L501.9985, L500.4050, L501.9520, L506.1001, L500.4100, L100.0100 ####[facility] [address] [place], [address] Albumin/Globulin [Mass ratio] 1.4 {ratio} Normal 0.9-2.4 [facility] Comment on above: Performed By: #### L 502.0250, L501.9985, L500.4050, L501.9520, L506.1001, L500.4100, L100.0100 ####[facility] [address] [place], [address] ALK PHOS 73 U/L Normal 40-129 [facility] Comment on above: Performed By: #### L 502.0250, L501.9985, L500.4050, L501.9520, L506.1001, L500.4100, L100.0100 ####[facility] [address] [place], [address] ALT [Catalytic activity/Vol] 16 U/L Normal <=46 [facility] Comment on above: Performed By: #### L 502.0250, L501.9985, L500.4050, L501.9520, L506.1001, L500.4100, L100.0100 ####[facility] [address] [place], [address] AST [Catalytic activity/Vol] 20 U/L Normal <=37 [facility] Comment on above: Performed By: #### L 502.0250, L501.9985, L500.4050, L501.9520, L506.1001, L500.4100, L100.0100 ####[facility] [address] [place], [place], [phone](617) Bilirubin [Mass/Vol] 0.43 mg/dL Normal 0.00-1.30 [facility] Comment on above: Performed By: #### L 502.0250, L501.9985, L500.4050, L501.9520, L506.1001, L500.4100, L100.0100 ####[facility] [address] [place], [address] BUN/CRE 23.5 RATIO High 10-20 [facility] Comment on above: Performed By: #### L 502.0250, L501.9985, L500.4050, L501.9520, L506.1001, L500.4100, L100.0100 ####[facility] [address] [place], [address] Calcium [Mass/Vol] 9.5 mg/dL Normal 7.6-11.0 [facility] Comment on above: Performed By: #### L 502.0250, L501.9985, L500.4050, L501.9520, L506.1001, L500.4100, L100.0100 ####[facility] [address] [place], [address] Chloride [Moles/Vol] 102 mmol/L Normal 98-108 [facility] Comment on above: Performed By: #### L 502.0250, L501.9985, L500.4050, L501.9520, L506.1001, L500.4100, L100.0100 ####[facility] [address] [place], [address] CO2 [Moles/Vol] 22.3 mmol/L Normal 21.0-32.0 [facility] Comment on above: Performed By: #### L 502.0250, L501.9985, L500.4050, L501.9520, L506.1001, L500.4100, L100.0100 ####[facility] [address] [place], [address] Creatinine [Mass/Vol] 0.97 mg/dL Normal 0.70-1.20 [facility] Comment on above: Performed By: #### L 502.0250, L501.9985, L500.4050, L501.9520, L506.1001, L500.4100, L100.0100 ####[facility] [address] [place], [address] GAP 13 Normal 5-15 [facility] Comment on above: Performed By: #### L 502.0250, L501.9985, L500.4050, L501.9520, L506.1001, L500.4100, L100.0100 ####[facility] [address] [place], [address] GFR/1.73 sq M.predicted among non-blacks MDRD (S/P/Bld) [Vol rate/Area] 86 mL/min/{1.73_m2} Normal >60 [facility] Comment on above: Result Comment: mL/m in/1.73m2 CKD-EPI Creatinine Equation (2020) Performed By: #### L 502.0250, L501.9985, L500.4050, L501.9520, L506.1001, L500.4100, L100.0100 ####[facility] [address] [place], [address] Globulin (S) [Mass/Vol] 2.9 g/dL Normal 2.2-4.2 [facility] Comment on above: Performed By: #### L 502.0250, L501.9985, L500.4050, L501.9520, L506.1001, L500.4100, L100.0100 ####[facility] [address] [place], [address] Glucose [Mass/Vol] 91 mg/dL Normal 70-99 [facility] Comment on above: Performed By: #### L 502.0250, L501.9985, L500.4050, L501.9520, L506.1001, L500.4100, L100.0100 ####[facility] [address] [place], [address] Potassium [Moles/Vol] 4.3 mmol/L Normal 3.3-5.1 [facility] Comment on above: Performed By: #### L 502.0250, L501.9985, L500.4050, L501.9520, L506.1001, L500.4100, L100.0100 ####[facility] [address] [place], [address] Sodium [Moles/Vol] 137 mmol/L Normal 133-145 [facility] Comment on above: Performed By: #### L 502.0250, L501.9985, L500.4050, L501.9520, L506.1001, L500.4100, L100.0100 ####[facility] [address] [place], [address] T PROT 6.7 g/dL Normal 5.9-8.4 [facility] Comment on above: Performed By: #### L 502.0250, L501.9985, L500.4050, L501.9520, L506.1001, L500.4100, L100.0100 ####[facility] [address] [place], [address] Urea nitrogen [Mass/Vol] 23 mg/dL High 4-19 [facility] Comment on above: Performed By: #### L 502.0250, L501.9985, L500.4050, L501.9520, L506.1001, L500.4100, L100.0100 ####[facility] [address] [place], [address] Hemoglobin A1con 01-05-2025 HbA1c (Bld) [Mass fraction] 9.1 % High <=5.6 [facility] Comment on above: Result Comment: Norm al < 5.7 % Prediabetic 5.7 - 6.4 % Diabetic >or= 6.5 % Please note range changes. Performed By: #### L 502.0250, L501.9985, L500.4050, L501.9520, L506.1001, L500.4100, L100.0100 ####[facility] [address] [place], [address] Lipid Profileon 01-05-2025 CHOL:HDL 3.77 Normal [facility] Comment on above: Performed By: #### L 502.0250, L501.9985, L500.4050, L501.9520, L506.1001, L500.4100, L100.0100 ####[facility] [address] [place], [address] Cholesterol [Mass/Vol] 167 mg/dL Normal <=200 [facility] Comment on above: Result Comment: Chol esterol level, Desirable <200 mg/dL Borderline high cholesterol 200-239 mg/dL High cholesterol >=240 mg/dL Recommendations of the NCEP Adult Treatment Panel for the following risk-cutoff thresholds for the [place] population. Performed By: #### L 502.0250, L501.9985, L500.4050, L501.9520, L506.1001, L500.4100, L100.0100 ####[facility] [address] [place], [address] Cholesterol in HDL [Mass/Vol] 44 mg/dL Normal [facility] Comment on above: Result Comment: [place] onal Cholesterol Education Program (NCEP) guidelines: <40 mg/dL: Low HDL-cholesterol (major risk factor for CHD) >= 60 mg/dL: High HDL-cholesterol (negative risk factor for CHD) HDL-cholesterol is affected by a number of factors, e.g. smoking, exercise, hormones, sex and age. Performed By: #### L 502.0250, L501.9985, L500.4050, L501.9520, L506.1001, L500.4100, L100.0100 ####[facility] [address] [place], [address] Cholesterol in LDL [Mass/Vol] 101 mg/dL Normal [facility] Comment on above: Result Comment: Bord nbdsmt=589-240 mg/dL Higher Lefr=472 mg/dL or greater Performed By: #### L 502.0250, L501.9985, L500.4050, L501.9520, L506.1001, L500.4100, L100.0100 ####[facility] [address] [place], [address] Cholesterol in VLDL [Mass/Vol] 22 mg/dL Normal 5-40 [facility] Comment on above: Performed By: #### L 502.0250, L501.9985, L500.4050, L501.9520, L506.1001, L500.4100, L100.0100 ####[facility] [address] [place], [address] Triglyceride [Mass/Vol] 111 mg/dL Normal [facility] Comment on above: Result Comment: The drugs N-Acetylcysteine and Metamizole may falsely depress this assay. Normal range: <150 mg/dL Borderline High: 150-199 mg/dL High: 200-499 mg/dL Very High: >500 mg/dL Performed By: #### L 502.0250, L501.9985, L500.4050, L501.9520, L506.1001, L500.4100, L100.0100 ####[facility] [address] [place], [place], [phone] Microalb:Creat Ratio,Random URon 01-05-2025 MALB:CREAT Normal [facility] Comment on above: Result Comment: PT. UTO Performed By: #### L 502.0250, L501.9985, L500.4050, L501.9520, L506.1001, L500.4100, L100.0100 ####[facility] [address] [place], [address] MICROALBUMIN,UR Normal NO RANGE EST. [facility] Comment on above: Result Comment: PT. UTO Performed By: #### L 502.0250, L501.9985, L500.4050, L501.9520, L506.1001, L500.4100, L100.0100 ####[facility] [address] [place], [address] UR CREAT Normal 39.00-259.0 0 [facility] Comment on above: Result Comment: PT. UTO Performed By: #### L 502.0250, L501.9985, L500.4050, L501.9520, L506.1001, L500.4100, L100.0100 ####[facility] [address] [place], [address] Thyroid Stim Hormone (TSH)on 01-05-2025 TSH 1.410 uIU/mL Normal 0.300-4.200 [facility] Comment on above: Performed By: #### L 502.0250, L501.9985, L500.4050, L501.9520, L506.1001, L500.4100, L100.0100 ####[facility] [address] [place], [address] Vitamin D,25 Hydroxyon 01-05 Vitamin D 25-OH 32.5 ng/mL Normal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 Order Comment: 'TROP ' Serial specimen #1, #2 or #3: 1 Performed By: #### L 500.4050, L100.0100, L501.4020 ####[facility] [address] [place], [address] Comprehensive Metabolic Prof ilOrdered By: Aldair Bryan on 09-11-2024 AST [Catalytic activity/Vol] 10 U/L Low 15-37 [facility] Comment on above: Order Comment: 'TROP ' Serial specimen #1, #2 or #3: 1 Performed By: #### L 500.4050, L100.0100, L501.4020 ####[facility] [address] [place], [address] Emergency Department Summary on 09-11-2024 Emergency Department Summary [facility] Medical Records Department [address] [place] [address] Emergency Department Summary 09/11/24 MR#: [id number] Acct: [id number] Name: AMANDA SANDOVAL Rep #: [id number] : 1960 64 From: Aldair Bryan MD PCP: Dr. Desmond Fraire MD Status:REG ER Location: ED HPI History of Present Illness Chief Complaint: Hypertension Narrative Narrative: 64-year-old male past medical history of hyperlipidemia, COPD presents with fluctuating blood pressure. 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 No exacerbating or alleviating factors. [facility] Medical History Hypertension Tinnitus Wears glasses Alcohol [...] Effort Sh (more content not included)... Normal [facility] Eosinophil percentageOrdered By: Aldair Bryan on 09-11-2024 Eosinophils/100 WBC (Bld) 1.9 % Normal 0-5 [facility] Comment on above: Performed By: #### L 500.4050, L100.0100, L501.4020 ####[facility] [address] [place], [place], [address] Erythrocyte distribution wid th ratioOrdered By: Aldair Bryan on 09-11-2024 Erythrocyte distribution width (RBC) [Ratio] 13.0 % Normal 11.6-14.6 [facility] Comment on above: Performed By: #### L 500.4050, L100.0100, L501.4020 ####[facility] [address] [place], [place], [address] Erythrocyte distribution wid th standard deviationOrdered By: Aldair Bryan on 09-11-2024 Erythrocyte distribution width (RBC) [Entitic vol] 42.5 fL 35.1-43.9 [facility] Erythrocyte distribution width (RBC) [Ratio] 42.5 fl 35.1-43.9 [facility] Estimated glomerular filtrat ion rate (GFR) AmericanOrdered By: Aldair Bryan on 09-11-2024 Estimated GFR (MDRD) Amer 101 mL/min >60 [facility] Comment on above: GFR Calc Estimation of creatinine beryl aranceOrdered By: Aldair Bryan on 09-11-2024 Estimated Creatinine Clearance Calc 91.50 ml/min [facility] Glomerular filtration rate ( GFR) estimationOrdered By: Aldair Bryan on 09-11-2024 GFR/1.73 sq M.predicted among non-blacks MDRD (S/P/Bld) [Vol rate/Area] 83 mL/min/{1.73_m2} Normal >60 [facility] Comment on above: Non- GFR Calc Order Comment: 'TROP ' Serial specimen #1, #2 or #3: 1 Result Comment: Non- GFR Calc Performed By: #### L 500.4050, L100.0100, L501.4020 ####[facility] [address] [place], [address] Estimated GFR (MDRD) Non-Af Amer 83 mL/min >60 [facility] Comment on above: Non- GFR Calc Glucose measurementOrdered B y: Aldair Bryan on 09-11-2024 Glucose [Mass/Vol] 123 mg/dL High 74-106 [facility] Comment on above: Fasting Glucose resu lt from 100 to 125 mg/dL suggests IMPAIRED HOMEOSTASIS per A.D.A. criteria. Order Comment: 'TROP ' Serial specimen #1, #2 or #3: 1 Result Comment: Fast ing Glucose result from 100 to 125 mg/dL suggests IMPAIRED HOMEOSTASIS per A.D.A. criteria. Performed By: #### L 500.4050, L100.0100, L501.4020 ####[facility] [address] [place], [address] Hemoglobin measurementOrdere d By: Aldair Bryan on 09-11-2024 Hemoglobin (Bld) [Mass/Vol] 15.6 g/dL Normal 13.0-16.5 [facility] Comment on above: Performed By: #### L 500.4050, L100.0100, L501.4020 ####[facility] [address] [place], [address] Immature granulocytes/100 WB C Auto (Bld)Ordered By: Aldair Bryan on 09-11-2024 Immature granulocytes/100 WBC (Bld) 0.900 % 0.0-0.9 [facility] Comment on above: IG% - Immature Granu locytes (promyelocytes, myelocytes and metamyelocytes) > 1% indicates that a LEFT SHIFT is Present. L501.4020on 09-11-2024 TROPONIN-I HS 6 pg/mL Normal 3.0-78.0 [facility] Comment on above: Order Comment: 'TROP ' Serial specimen #1, #2 or #3: 1 Result Comment: Catarino harman Note: New Test Units and Gender Specific Reference Ranges. For more information see Policy Stat Procedure [place] High Sensitivity Troponin (TNIH) and attachments. Performed By: #### L 500.4050, L100.0100, L501.4020 ####[facility] [address] [place], [address] Lymphocytes Auto (Unsp spec) [#/Vol]Ordered By: Aldair Bryan on 09-11-2024 Lymphocytes (Bld) [#/Vol] 2.26 10*3/uL 0.83-4.51 [facility] MCV (mean corpuscular volume ) determinationOrdered By: Aldair Bryan on 09-11-2024 MCV (RBC) [Entitic vol] 88.8 fL Normal 80-94 [facility] Comment on above: Performed By: #### L 500.4050, L100.0100, L501.4020 ####[facility] [address] [place], [address] Mean corpuscular hemoglobin (MCH) determinationOrdered By: Aldair Bryan on 09-11-2024 MCH (RBC) [Entitic mass] 28.5 pg Normal 27.0-32.0 [facility] Comment on above: Performed By: #### L 500.4050, L100.0100, L501.4020 ####[facility] [address] [place], [address] Mean corpuscular hemoglobin concentration (MCHC) determinationOrdered By: Aldair Bryan on 09-11-2024 MCHC (RBC) [Mass/Vol] 32.1 g/dL Normal 32-36 [facility] Comment on above: Performed By: #### L 500.4050, L100.0100, L501.4020 ####[facility] [address] [place], [address] Mean platelet volume determi nationOrdered By: Aldair Bryan on 09-11-2024 Platelet mean volume (Bld) [Entitic vol] 10.7 fL Normal 6.2-12.0 [facility] Comment on above: Performed By: #### L 500.4050, L100.0100, L501.4020 ####[facility] [address] [place], [address] Monocyte percentageOrdered B y: Aldair Bryan on 09-11-2024 Monocytes/100 WBC (Bld) 6.0 % Normal 0-10 [facility] Comment on above: Performed By: #### L 500.4050, L100.0100, L501.4020 ####[facility] [address] [place], [address] Neutrophil percentageOrdered By: Aldair Bryan on 09-11-2024 Neutrophils/100 WBC (Bld) 67.8 % Normal 47-70 [facility] Comment on above: Performed By: #### L 500.4050, L100.0100, L501.4020 ####[facility] [address] [place], [address] Nucleated red blood cell per centageOrdered By: Aldair Bryan on 09-11-2024 Nucleated RBC/100 WBC (Bld) [Ratio] 0 % 0-5 [facility] Platelet countOrdered By: Santos Bryan on 09-11-2024 Platelets (Bld) [#/Vol] 228 10*3/uL Normal 150-450 [facility] Comment on above: Performed By: #### L 500.4050, L100.0100, L501.4020 ####[facility] [address] [place], [address] Potassium measurementOrdered By: Aldair Bryan on 09-11-2024 Potassium [Moles/Vol] 4.1 mmol/L Normal 3.5-5.1 [facility] Comment on above: Order Comment: 'TROP ' Serial specimen #1, #2 or #3: 1 Performed By: #### L 500.4050, L100.0100, L501.4020 ####[facility] [address] [place], [address] Serum anion gap measurementO rdered By: Aldair Bryan on 09-11-2024 Anion gap [Moles/Vol] 4 mmol/L Low 5-15 [facility] Serum globulin measurementOr dered By: Aldair Bryan on 09-11-2024 Globulin (S) [Mass/Vol] 3.8 g/dL Normal 2.2-4.2 [facility] Comment on above: Order Comment: 'TROP ' Serial specimen #1, #2 or #3: 1 Performed By: #### L 500.4050, L100.0100, L501.4020 ####[facility] [address] [place], [address] Serum or plasma alanine smith otransferase (ALT) measurementOrdered By: Aldair Bryan on 09-11-2024 ALT [Catalytic activity/Vol] 20 U/L Normal 16-61 [facility] Comment on above: Order Comment: 'TROP ' Serial specimen #1, #2 or #3: 1 Performed By: #### L 500.4050, L100.0100, L501.4020 ####[facility] [address] [facility] [place], [address] Serum or plasma albumin mak urement (mass/volume)Ordered By: Aldair Bryan on 09-11-2024 Albumin [Mass/Vol] 3.2 g/dL Normal 3.2-5.0 [facility] Comment on above: Order Comment: 'TROP ' Serial specimen #1, #2 or #3: 1 Performed By: #### L 500.4050, L100.0100, L501.4020 ####[facility] [address] [facility] [place], [address] Serum or plasma alkaline carmen sphatase measurementOrdered By: Aldair Bryan on 09-11-2024 ALP [Catalytic activity/Vol] 97 U/L 45-117 [facility] Serum or plasma calcium mak urement (mass/volume)Ordered By: Aldair Bryan on 09-11-2024 Calcium [Mass/Vol] 8.9 mg/dL 8.5-10.1 [facility] Serum or plasma creatinine m easurement (mass/volume)Ordered By: Aldair Bryan on 09-11-2024 Creatinine [Mass/Vol] 0.96 mg/dL Normal 0.70-1.30 [facility] Comment on above: The validity of the calculated GFR & GFRAA in patients over 70 years has not been determined. Clinical correlation is essential. Order Comment: 'TROP ' Serial specimen #1, #2 or #3: 1 Result Comment: The validity of the calculated GFR GFRAA in patients over 70 years has not been determined. Clinical correlation is essential. Performed By: #### L 500.4050, L100.0100, L501.4020 ####[facility] [address] [place], [place], [id number] Serum or plasma urea nitroge n measurement (mass/volume)Ordered By: Aldair Bryan on 09-11-2024 Urea nitrogen [Mass/Vol] 16 mg/dL Normal 7-18 [facility] Comment on above: Order Comment: 'TROP ' Serial specimen #1, #2 or #3: 1 Performed By: #### L 500.4050, L100.0100, L501.4020 ####[facility] [address] [place], [place], [address] Sodium levelOrdered By: Aldair Bryan on 09-11-2024 Sodium [Moles/Vol] 139 mmol/L Normal 136-145 [facility] Comment on above: Order Comment: 'TROP ' Serial specimen #1, #2 or #3: 1 Performed By: #### L 500.4050, L100.0100, L501.4020 ####[facility] [address] [place], [address] Total proteinOrdered By: Danielle Bryan on 09-11-2024 Protein [Mass/Vol] 7.0 g/dL 6.4-8.2 [facility] Troponin IOrdered By: Aldair camacho on 09-11-2024 Troponin I 6 pg/mL 3.0-78.0 [facility] Comment on above: Please Note: [place] t Units and Gender Specific Reference Ranges. For more information see Policy Stat Procedure [place] High Sensitivity Troponin (TNIH) and attachments. Troponin I High Sensitivity 6 pg/mL 3.0-78.0 [facility] Comment on above: Please Note: [place] t Units and Gender Specific Reference Ranges. For more information see Policy Stat Procedure [place] High Sensitivity Troponin (TNIH) and attachments. White blood cell (WBC) count Ordered By: Aldair Bryan on 09-11-2024 WBC (Bld) [#/Vol] 9.9 10*3/uL Normal 4.4-11.0 [facility] Comment on above: Performed By: #### L 500.4050, L100.0100, L501.4020 ####[facility] [address] [facility] [place], [place], [address] CTA Chest W/WO Contraston CTA Chest W/WO Contrast [facility] Imaging Services [address] [place], [place] [address] CTA Chest W/WO Contrast MR#: [id number] Acct: [id number] Name: AMANDA SANDOVAL Rep #: [id number] : 1960 M 64 From: Braydon oscar MD PCP: Dr. Desmond Fraire MD Status: [facility] CLI Study: CTA Chest W/WO Contrast Date of Exam: 09/02/24 Exam# [id number] Ordering Dr: Desmond Fraire MD PROCEDURE: CTA [...] use of iterative reconstruction technique). Reading Location: [place] [address] CC: Dr. Desmond Fraire MD [employer]: Signed Normal [facility] D-Dimer Quantitative (DVT/PE )on 08-31-2024 D-DIMER QUANT 0.55 FEU/ug/m Invalid Interpretation Code 0.27-0.49 [facility] Comment on above: Result Comment: D-Di samina ELEVATED (>0.49): Additional studies and clinical assessments are indicated to conclude diagnosis of: Deep Vein Thrombosis (DVT) or Pulmonary Embolism (PE) CRITICAL VALUE CALLED TO DR. FRAIRE 08/31/24 174Ross Staley. RESULTS READ BACK BY SAME. Performed By: #### L 300.8000, M100.678 ####[facility] [address] [place], [place], [address] D-dimer measurement for deep venous thrombosisOrdered By: Desmond Fraire on 08-31-2024 D-Dimer Quantitative (PE/DVT) 0.55 FEU/ug/m High 0.27-0.49 [facility] Comment on above: D-Dimer ELEVATED (>0 .49): Additional studies and clinicalassessments are indicated to conclude diagnosis of:Deep Vein Thrombosis (DVT) or Pulmonary Embolism (PE)CRITICAL VALUE CALLED TO DR. FRAIRE08/31/24 174Ross Staley.RESULTS READ BACK BY HAYLEY. Influenza virus A and B and SARS-CoV-2 (COVID-19) and Respiratory syncytial virus RNAOrdered By: Desmond Fraire on 08-31-2024 SARS-CoV-2 (COVID-19) RNA SHARON+probe Ql (Unsp spec) [facility] M100.678on 08-31-2024 M100.678 SARS-CoV-2 (COVID 19 ) Negative INFLUENZA A Negative INFLUENZA B Negative RSV PCR Negative Normal [facility] Comment on above: Performed By: #### L 300.8000, M100.678 ####[facility] [address] [facility] [place], [address] Lung Screeningon 08-06-[address] Lung Screening [facility] Imaging Services [address] [place], [place] [address] Low Dose CT Lung Screening MR#: [id number] Acct: [id number] Name: AMANDA SANDOVAL Rep #: [id number] : 1960 M 64 From: Braydon oscar MD PCP: Dr. Desmond Fraire MD Status: [facility] Study: Low Dose CT Lung Screening Date of Exam: 08/06 Exam# [id number] Ordering Dr: [place] [id number] STUDY: LOW DOSE CT LUNG CANCER SCREENING [...] Signed: Braydon Parada MD at 11:21 EST Reading Location ID and State: [address] [place] [address] , Service support , CC: Dr. Guillermo Lai MD; Dr. Desmond Fraire MD [employer]: Signed Normal [facility] Hemoglobin A1con 07-06-2024 HbA1c (Bld) [Mass fraction] 6.3 % High 3.8-5.6 [facility] Comment on above: Order Comment: BLOOD IN LABADD ON FROM 07/05/24 [id number] Result Comment: Norm al < 5.7 % Prediabetic 5.7 - 6.4 % Diabetic >or= 6.5 % Please note range changes. Performed By: #### L 500.4050, L500.4100, L100.0100, L501.9520, L501.9985, L506.1000 ####[facility] [address] [place], [address] 57-BW-Ucccjek DOrdered By: Mamta Fraire on 07-05-2024 Vitamin D 25-Hydroxy 26.6 ng/mL [facility] Comment on above: Vitamin D 25(OH) Sta tus Range Deficiency <20 ng/mL (50nmol/L) Insufficiency 20 - 30 ng/mL (50 - 75 nmol/L) Sufficiency 30 - 100 ng/mL (75 - 250 nmol/L) Toxicity >100 ng/mL (>250 nmol/L) Absolute neutrophil countOrd ered By: Desmond Fraire on 07-05-2024 Neutrophils (Bld) [#/Vol] 8.4 10*3/uL High 2.0-7.7 [facility] Albumin to globulin ratioOrd ered By: Desmond Fraire on 07-05-2024 Albumin/Globulin [Mass ratio] 0.8 {ratio} Low 0.9-2.4 [facility] Basophil percentageOrdered B y: Desmond Fraire on 07-05-2024 Basophils/100 WBC (Bld) 0.4 % 0-1 [facility] Bilirubin, totalOrdered By: Desmond Fraire on 07-05-2024 Bilirubin [Mass/Vol] 0.30 mg/dL 0.20-1.00 [facility] Comment on above: For patients on eltr ombopag therapy, use of Dimension [place] TBIL is not recommended. Blood urea nitrogen (BUN)/cr eatinine ratioOrdered By: Desmond Fraire on 07-05-2024 Urea nitrogen/Creatinine [Mass ratio] 19.3 mg/mg 10-20 [facility] CBC W/Diff, Automatedon 06-20 Absolute Lymph 1.63 X10 3/uL Normal 0.83-4.51 [facility] Comment on above: Performed By: #### L 500.4050, L500.4100, L100.0100, L501.9520, L501.9985, L506.1000 #### [facility] [address] [place], [address] Absolute Neut 8.4 X10 3/uL High 2.0-7.7 [facility] Comment on above: Performed By: #### L 500.4050, L500.4100, L100.0100, L501.9520, L501.9985, L506.1000 #### [facility] [address] [place], [address] Basophils/100 WBC (Bld) 0.4 % Normal 0-1 [facility] Comment on above: Performed By: #### L 500.4050, L500.4100, L100.0100, L501.9520, L501.9985, L506.1000 #### [facility] [address] [place], [address] Eosinophils/100 WBC (Bld) 1.9 % Normal 0-5 [facility] Comment on above: Performed By: #### L 500.4050, L500.4100, L100.0100, L501.9520, L501.9985, L506.1000 #### [facility] [address] [place], [address] Erythrocyte distribution width (RBC) [Ratio] 13.4 % Normal 11.6-14.6 [facility] Comment on above: Performed By: #### L 500.4050, L500.4100, L100.0100, L501.9520, L501.9985, L506.1000 #### [facility] [address] [place], [address] Hematocrit (Bld) [Volume fraction] 45.3 % Normal 40-54 [facility] Comment on above: Performed By: #### L 500.4050, L500.4100, L100.0100, L501.9520, L501.9985, L506.1000 #### [facility] [address] [place], [address] Hemoglobin (Bld) [Mass/Vol] 14.2 g/dL Normal 13.0-16.5 [facility] Comment on above: Performed By: #### L 500.4050, L500.4100, L100.0100, L501.9520, L501.9985, L506.1000 #### [facility] [address] [place], [address] IG% 0.500 Normal 0.0-0.9 [facility] Comment on above: Result Comment: IG% - Immature Granulocytes (promyelocytes, myelocytes and metamyelocytes) > 1% indicates that a LEFT SHIFT is Present. Performed By: #### L 500.4050, L500.4100, L100.0100, L501.9520, L501.9985, L506.1000 #### [facility] [address] [place], [address] Lymphocytes/100 WBC (Bld) 14.9 % Low 19-41 [facility] Comment on above: Performed By: #### L 500.4050, L500.4100, L100.0100, L501.9520, L501.9985, L506.1000 #### [facility] [address] [place], [address] MCH (RBC) [Entitic mass] 28.3 pg Normal 27.0-32.0 [facility] Comment on above: Performed By: #### L 500.4050, L500.4100, L100.0100, L501.9520, L501.9985, L506.1000 #### [facility] [address] [place], [address] MCHC (RBC) [Mass/Vol] 31.3 g/dL Low 32-36 [facility] Comment on above: Performed By: #### L 500.4050, L500.4100, L100.0100, L501.9520, L501.9985, L506.1000 #### [facility] [address] [place], [address] MCV (RBC) [Entitic vol] 90.2 fL Normal 80-94 [facility] Comment on above: Performed By: #### L 500.4050, L500.4100, L100.0100, L501.9520, L501.9985, L506.1000 #### [facility] [address] [place], [address] Monocytes/100 WBC (Bld) 5.8 % Normal 0-10 [facility] Comment on above: Performed By: #### L 500.4050, L500.4100, L100.0100, L501.9520, L501.9985, L506.1000 #### [facility] [address] [place], [address] Neutrophils/100 WBC (Bld) 76.5 % High 47-70 [facility] Comment on above: Performed By: #### L 500.4050, L500.4100, L100.0100, L501.9520, L501.9985, L506.1000 #### [facility] [address] [place], [address] Nucleated RBC (Bld) [#/Vol] 0 10*3/uL Normal 0-5 [facility] Comment on above: Performed By: #### L 500.4050, L500.4100, L100.0100, L501.9520, L501.9985, L506.1000 #### [facility] [address] [place], [address] Platelet mean volume (Bld) [Entitic vol] 10.8 fL Normal 6.2-12.0 [facility] Comment on above: Performed By: #### L 500.4050, L500.4100, L100.0100, L501.9520, L501.9985, L506.1000 #### [facility] [address] [place], [address] Platelets (Bld) [#/Vol] 225 10*3/uL Normal 150-450 [facility] Comment on above: Performed By: #### L 500.4050, L500.4100, L100.0100, L501.9520, L501.9985, L506.1000 #### [facility] [address] [place], [address] RBC (Bld) [#/Vol] 5.02 10*6/uL Normal 4.6-6.2 [facility] Comment on above: Performed By: #### L 500.4050, L500.4100, L100.0100, L501.9520, L501.9985, L506.1000 #### [facility] [address] [place], [address] RDW SD 44.7 fl High 35.1-43.9 [facility] Comment on above: Performed By: #### L 500.4050, L500.4100, L100.0100, L501.9520, L501.9985, L506.1000 #### [facility] [address] [place], [address] WBC (Bld) [#/Vol] 10.9 10*3/uL Normal 4.4-11.0 [facility] Comment on above: Performed By: #### L 500.4050, L500.4100, L100.0100, L501.9520, L501.9985, L506.1000 #### [facility] [address] [place], [address] Carbon dioxide measurementOr dered By: Desmond Fraire on 07-05-2024 CO2 [Moles/Vol] 29.0 mmol/L 21.0-32.0 [facility] Chloride measurementOrdered By: Desmond Fraire on 07-05-2024 Chloride [Moles/Vol] 107 mmol/L 98-107 [facility] Comprehensive Metabolic Prof ilon 07-05-2024 Albumin [Mass/Vol] 3.0 g/dL Low 3.2-5.0 [facility] Comment on above: Performed By: #### L 500.4050, L500.4100, L100.0100, L501.9520, L501.9985, L506.1000 #### [facility] [address] [place], [address] Albumin/Globulin [Mass ratio] 0.8 {ratio} Low 0.9-2.4 [facility] Comment on above: Performed By: #### L 500.4050, L500.4100, L100.0100, L501.9520, L501.9985, L506.1000 #### [facility] [address] [place], [address] ALK P 98 U/L Normal 45-117 [facility] Comment on above: Performed By: #### L 500.4050, L500.4100, L100.0100, L501.9520, L501.9985, L506.1000 #### [facility] [address] [place], [address] ALT [Catalytic activity/Vol] 20 U/L Normal 16-61 [facility] Comment on above: Performed By: #### L 500.4050, L500.4100, L100.0100, L501.9520, L501.9985, L506.1000 #### [facility] [address] [place], [address] AST [Catalytic activity/Vol] 12 U/L Low 15-37 [facility] Comment on above: Performed By: #### L 500.4050, L500.4100, L100.0100, L501.9520, L501.9985, L506.1000 #### [facility] [address] [place], [address] Bilirubin [Mass/Vol] 0.30 mg/dL Normal 0.20-1.00 [facility] Comment on above: Result Comment: For patients on eltrombopag therapy, use of Dimension [place] TBIL is not recommended. Performed By: #### L 500.4050, L500.4100, L100.0100, L501.9520, L501.9985, L506.1000 #### [facility] [address] [place], [address] BUN/CRE 19.3 RATIO Normal 10-20 [facility] Comment on above: Performed By: #### L 500.4050, L500.4100, L100.0100, L501.9520, L501.9985, L506.1000 #### [facility] [address] [place], [address] CA,Total 9.0 mg/dL Normal 8.5-10.1 [facility] Comment on above: Performed By: #### L 500.4050, L500.4100, L100.0100, L501.9520, L501.9985, L506.1000 #### [facility] [address] [place], [address] Chloride [Moles/Vol] 107 mmol/L Normal 98-107 [facility] Comment on above: Performed By: #### L 500.4050, L500.4100, L100.0100, L501.9520, L501.9985, L506.1000 #### [facility] [address] [place], [address] CO2 [Moles/Vol] 29.0 mmol/L Normal 21.0-32.0 [facility] Comment on above: Performed By: #### L 500.4050, L500.4100, L100.0100, L501.9520, L501.9985, L506.1000 #### [facility] [address] [place], [address] Creatinine [Mass/Vol] 0.99 mg/dL Normal 0.70-1.30 [facility] Comment on above: Result Comment: The validity of the calculated GFR GFRAA in patients over 70 years has not been determined. Clinical correlation is essential. Performed By: #### L 500.4050, L500.4100, L100.0100, L501.9520, L501.9985, L506.1000 #### [facility] [address] [place], [address] EST GFR - AA 98 mL/min Normal >60 [facility] Comment on above: Result Comment: Afri can Greek GFR Calc Performed By: #### L 500.4050, L500.4100, L100.0100, L501.9520, L501.9985, L506.1000 #### [facility] [address] [place], [place], [id number] (076) GAP 3 Low 5-15 [facility] Comment on above: Performed By: #### L 500.4050, L500.4100, L100.0100, L501.9520, L501.9985, L506.1000 #### [facility] [address] [place], [address] GFR/1.73 sq M.predicted among non-blacks MDRD (S/P/Bld) [Vol rate/Area] 81 mL/min/{1.73_m2} Normal >60 [facility] Comment on above: Result Comment: Non- GFR Calc Performed By: #### L 500.4050, L500.4100, L100.0100, L501.9520, L501.9985, L506.1000 #### [facility] [address] [place], [address] Globulin (S) [Mass/Vol] 3.9 g/dL Normal 2.2-4.2 [facility] Comment on above: Performed By: #### L 500.4050, L500.4100, L100.0100, L501.9520, L501.9985, L506.1000 #### [facility] [address] [place], [address] Glucose [Mass/Vol] 167 mg/dL High 74-106 [facility] Comment on above: Result Comment: Fast ing Glucose result greater than or equal to 126 mg/dL suggests DIABETES MELLITUS per A.D.A. criteria. Performed By: #### L 500.4050, L500.4100, L100.0100, L501.9520, L501.9985, L506.1000 #### [facility] [address] [place], [address] Potassium [Moles/Vol] 4.1 mmol/L Normal 3.5-5.1 [facility] Comment on above: Performed By: #### L 500.4050, L500.4100, L100.0100, L501.9520, L501.9985, L506.1000 #### [facility] [address] [place], [address] Sodium [Moles/Vol] 139 mmol/L Normal 136-145 [facility] Comment on above: Performed By: #### L 500.4050, L500.4100, L100.0100, L501.9520, L501.9985, L506.1000 #### [facility] [address] [place], [address] T PROT 6.9 g/dL Normal 6.4-8.2 [facility] Comment on above: Performed By: #### L 500.4050, L500.4100, L100.0100, L501.9520, L501.9985, L506.1000 #### [facility] [address] [place], [address] Urea nitrogen [Mass/Vol] 19 mg/dL High 7-18 [facility] Comment on above: Performed By: #### L 500.4050, L500.4100, L100.0100, L501.9520, L501.9985, L506.1000 #### [facility] [address] [place], [address] Diagnostic total prostate sp ecific antigen (PSA) measurementOrdered By: Najma Delaney on 07-05-2024 Prostate Specific Antigen Total 6.51 ng/mL High 0.0-4.0 [facility] Comment on above: This test was perfor med using the TPSA assay method for [employer] chemistry system. Values obtained with differentassay methods cannot be used interchangably.When changing PSA assays in the course of monitoring apatient, additional sequential testing should be carriedout to confirm baseline values. Eosinophil percentageOrdered By: Desmond Fraire on 07-05-2024 Eosinophils/100 WBC (Bld) 1.9 % 0-5 [facility] Erythrocyte distribution wid th ratioOrdered By: Desmond Fraire on 07-05-2024 Erythrocyte distribution width (RBC) [Ratio] 13.4 % 11.6-14.6 [facility] Erythrocyte distribution wid th standard deviationOrdered By: Desmond Fraire on 07-05-2024 Erythrocyte distribution width (RBC) [Entitic vol] 44.7 fL High 35.1-43.9 [facility] Estimated glomerular filtrat ion rate (GFR) AmericanOrdered By: Desmond Fraire on 07-05-2024 Estimated GFR (MDRD) Amer 98 mL/min >60 [facility] Comment on above: GFR Calc Glomerular filtration rate ( GFR) estimationOrdered By: Desmond Fraire on 07-05-2024 Estimated GFR (MDRD) Non-Af Amer 81 mL/min >60 [facility] Comment on above: Non- GFR Calc Glucose measurementOrdered B y: Desmond Fraire on 07-05-2024 Glucose [Mass/Vol] 167 mg/dL High 74-106 [facility] Comment on above: Fasting Glucose resu lt greater than or equal to 126 mg/dL suggests DIABETES MELLITUS per A.D.A. criteria. Hematocrit Auto (Bld) [Volum e fraction]Ordered By: Desmond Fraire on 07-05-2024 Hematocrit (Bld) [Volume fraction] 45.3 % 40-54 [facility] Hemoglobin A1c percentageOrd ered By: Desmond Fraire on 07-05-2024 HbA1c (Bld) [Mass fraction] 6.3 % High 3.8-5.6 [facility] Comment on above: Normal < 5.7 % Predi abetic 5.7 - 6.4 % Diabetic >or= 6.5 % Please note range changes. Hemoglobin measurementOrdere d By: Desmond Fraire on 07-05-2024 Hemoglobin (Bld) [Mass/Vol] 14.2 g/dL 13.0-16.5 [facility] High density lipoprotein (HD L) measurementOrdered By: Desmond Fraire on 07-05-2024 Cholesterol in HDL [Mass/Vol] 46 mg/dL >40 [facility] Comment on above: The drugs N-Acetylcy steine and Metamizole may falsely depress this assay. Reference Range HDL <40 mg/dL Low HDL Cholesterol HDL >or= 60 mg/dL High HDL Cholesterol Immature granulocytes/100 WB C Auto (Bld)Ordered By: Desmond Fraire on 07-05-2024 Immature granulocytes/100 WBC (Bld) 0.500 % 0.0-0.9 [facility] Comment on above: IG% - Immature Granu locytes (promyelocytes, myelocytes and metamyelocytes) > 1% indicates that a LEFT SHIFT is Present. Laboratory - Chemistry and C hemistry - challengeOrdered By: Desmond Fraire on 07-05-2024 AST [Catalytic activity/Vol] 12 U/L Low 15-37 [facility] Lipid Profileon 07-05-2024 Cholesterol [Mass/Vol] 170 mg/dL Normal 200 [facility] Comment on above: Result Comment: <200 mg/dL Desirable 200-240 mg/dL Borderline >240 mg/dL High Risk Performed By: #### L 500.4050, L500.4100, L100.0100, L501.9520, L501.9985, L506.1000 #### [facility] [address] [place], [address] Cholesterol in HDL [Mass/Vol] 46 mg/dL Normal [facility] Comment on above: Result Comment: The drugs N-Acetylcysteine and Metamizole may falsely depress this assay. Reference Range HDL <40 mg/dL Low HDL Cholesterol HDL >or= 60 mg/dL High HDL Cholesterol Performed By: #### L 500.4050, L500.4100, L100.0100, L501.9520, L501.9985, L506.1000 #### [facility] [address] [place], [address] Cholesterol in LDL [Mass/Vol] 76 mg/dL Normal 0-130 [facility] Comment on above: Performed By: #### L 500.4050, L500.4100, L100.0100, L501.9520, L501.9985, L506.1000 #### [facility] [address] [place], [address] Cholesterol in VLDL [Mass/Vol] 48 mg/dL High 5-40 [facility] Comment on above: Performed By: #### L 500.4050, L500.4100, L100.0100, L501.9520, L501.9985, L506.1000 #### [facility] [address] [place], [address] Triglyceride [Mass/Vol] 238 mg/dL High [facility] Comment on above: Result Comment: The drugs N-Acetylcysteine and Metamizole may falsely depress this assay. Serum Triglycerides Reference Interval Normal <150 mg/dL Borderline high 150 - 199 mg/dL High 200 - 499 mg/dL Very High > or = 500 mg/dL Performed By: #### L 500.4050, L500.4100, L100.0100, L501.9520, L501.9985, L506.1000 #### [facility] [address] [place], [address] Low density lipoprotein (LDL ) cholesterol measurementOrdered By: Desmond Fraire on 07-05-2024 Cholesterol in LDL [Mass/Vol] 76 mg/dL 0-130 [facility] Lymphocytes Auto (Unsp spec) [#/Vol]Ordered By: Desmond Fraire on 07-05-2024 Lymphocytes (Bld) [#/Vol] 1.63 10*3/uL 0.83-4.51 [facility] Lymphocytes/100 WBC Auto (Un sp spec)Ordered By: Desmond Fraire on 07-05-2024 Lymphocytes/100 WBC (Bld) 14.9 % Low 19-41 [facility] MCV (mean corpuscular volume ) determinationOrdered By: Desmond Fraire on 07-05-2024 MCV (RBC) [Entitic vol] 90.2 fL 80-94 [facility] Mean corpuscular hemoglobin (MCH) determinationOrdered By: [facility] on 07-05-2024 MCH (RBC) [Entitic mass] 28.3 pg 27.0-32.0 [facility] Mean corpuscular hemoglobin concentration (MCHC) determinationOrdered By: [facility] on 07-05-2024 MCHC (RBC) [Mass/Vol] 31.3 g/dL Low 32-36 [facility] Mean platelet volume determi nationOrdered By: [facility] on 07-05-2024 Platelet mean volume (Bld) [Entitic vol] 10.8 fL 6.2-12.0 [facility] Monocyte percentageOrdered B y: Desmond Fraire on 07-05-2024 Monocytes/100 WBC (Bld) 5.8 % 0-10 [facility] Neutrophil percentageOrdered By: [facility] on 07-05-2024 Neutrophils/100 WBC (Bld) 76.5 % High 47-70 [facility] Nucleated red blood cell per centageOrdered By: [facility] on 07-05-2024 Nucleated RBC/100 WBC (Bld) [Ratio] 0 % 0-5 [facility] PSA,Total- Diagnosticon 12 PSA, DIAGNOSTIC 6.51 ng/mL High 0.0-4.0 [facility] Comment on above: Result Comment: This test was performed using the TPSA assay method for the [employer] chemistry system. Values obtained with different assay methods cannot be used interchangably. When changing PSA assays in the course of monitoring a patient, additional sequential testing should be carried out to confirm baseline values. Performed By: #### L 501.9940 #### [facility] [address] [place], [address] Platelet countOrdered By: Edson Fraire on 07-05-2024 Platelets (Bld) [#/Vol] 225 10*3/uL 150-450 [facility] Potassium measurementOrdered By: Desmond Fraire on 07-05-2024 Potassium [Moles/Vol] 4.1 mmol/L 3.5-5.1 [facility] RBC Auto (Bld) [#/Vol]Ordere d By: Desmond Fraire on 07-05-2024 RBC (Bld) [#/Vol] 5.02 10*6/uL 4.6-6.2 [facility] Serum anion gap measurementO rdered By: Desmond Fraire on 07-05-2024 Anion gap [Moles/Vol] 3 mmol/L Low 5-15 [facility] Serum globulin measurementOr dered By: Desmond Fraire on 07-05-2024 Globulin (S) [Mass/Vol] 3.9 g/dL 2.2-4.2 [facility] Serum or plasma alanine smith otransferase (ALT) measurementOrdered By: Desmond Fraire 07-05-2024 ALT [Catalytic activity/Vol] 20 U/L 16-61 [facility] Serum or plasma albumin mak urement (mass/volume)Ordered By: Desmond Fraire on 07-05-2024 Albumin [Mass/Vol] 3.0 g/dL Low 3.2-5.0 [facility] Serum or plasma alkaline carmen sphatase measurementOrdered By: Desmond Fraire on 07-05-2024 ALP [Catalytic activity/Vol] 98 U/L 45-117 [facility] Serum or plasma calcium mak urement (mass/volume)Ordered By: Desmond Fraire 07-05-2024 Calcium [Mass/Vol] 9.0 mg/dL 8.5-10.1 [facility] Serum or plasma cholesterol measurement (mass/volume)Ordered By: Desmond Fraire on 07-05-2024 Cholesterol [Mass/Vol] 170 mg/dL <200 [facility] Comment on above: <200 mg/dL Desirable 200-240 mg/dL Borderline >240 mg/dL High Risk Serum or plasma creatinine m easurement (mass/volume)Ordered By: Desmond Fraire on 07-05-2024 Creatinine [Mass/Vol] 0.99 mg/dL 0.70-1.30 [facility] Comment on above: The validity of the calculated GFR & GFRAA in patients over 70 years has not been determined. Clinical correlation is essential. Serum or plasma urea nitroge n measurement (mass/volume)Ordered By: Desmond Fraire on 07-05-2024 Urea nitrogen [Mass/Vol] 19 mg/dL High 7-18 [facility] Sodium levelOrdered By: Desmond Fraire on 07-05-2024 Sodium [Moles/Vol] 139 mmol/L 136-145 [facility] TSH QnOrdered By: Desmond Fraire o n 07-05-2024 Thyroid Stimulating Hormone (TSH) 1.580 uIU/mL 0.358-3.740 [facility] Thyroid Stim Hormone (TSH)on 07-05-2024 TSH 1.580 uIU/mL Normal 0.358-3.740 [facility] Comment on above: Performed By: #### L 500.4050, L500.4100, L100.0100, L501.9520, L501.9985, L506.1000 ####[facility] [id number] [place], [address] Total proteinOrdered By: Desmond Fraire on 07-05-2024 Protein [Mass/Vol] 6.9 g/dL 6.4-8.2 [facility] Triglycerides measurementOrd ered By: Desmond Fraire on 07-05-2024 Triglyceride [Mass/Vol] 238 mg/dL High <199 [facility] Comment on above: The drugs N-Acetylcy steine and Metamizole may falsely depress this assay.Serum Triglycerides Reference Interval Normal <150 mg/dL Borderline high 150 - 199 mg/dL High 200 - 499 mg/dL Very High > or = 500 mg/dL Very low density lipoprotein (VLDL) cholesterol measurementOrdered By: Desmond Fraire on 07-05-2024 VLDL Cholesterol 48 mg/dL High 5-40 [facility] Vitamin D,25 Hydroxyon 07-05 Vitamin D 25-OH 26.6 ng/mL Normal [facility] Comment on above: Result Comment: Scarlet min D 25(OH) Status Range Deficiency <20 ng/mL (50nmol/L) Insufficiency 20 - 30 ng/mL (50 - 75 nmol/L) Sufficiency 30 - 100 ng/mL (75 - 250 nmol/L) Toxicity >100 ng/mL (>250 nmol/L) Performed By: #### L 500.4050, L500.4100, L100.0100, L501.9520, L501.9985, L506.1000 ####[facility] [address] [place], [address] White blood cell (WBC) count Ordered By: Desmond Fraire on 07-05-2024 WBC (Bld) [#/Vol] 10.9 10*3/uL 4.4-11.0 [facility] M100.678on 04-26-2024 M100.678 Pending SARS-CoV-2 (COVID 19) Negative INFLUENZA A Negative INFLUENZA B Negative RSV PCR Negative Normal [facility] Comment on above: Performed By: #### M 100.678 #### [facility] [address] [place], [place], [address] Orthopedic Visit Reporton Orthopedic Visit Report [facility] [facility] [address] [place], [place] [address] OFFICE VISIT Date of Service: 04/19/24 MR#: [id number] Acct: [id number] Name: AMANDA SANDOVAL Rep #: [id number] : 1960 Provider: Dr. Heath Fountain so, DO Age/Sex: 64/M Location: [facility] [place].MARTHA Status: Signed Intake Vital Signs 01/27/24 15:13 [...] medial f (more content not included)... Normal [facility] Extremity Lower without Cont raon 04-16-2024 Extremity Lower without Contra [facility] Imaging Services [address] [place], [place] [address] Extremity Lower without Contra MR#: [id number] Acct: [id number] Name: AMANDA SANDOVAL Rep #: [id number] : 1960 M 64 From: Marcelo Aparicio MD PCP: Dr. Desmond Fraire MD Status: REG CLI Study: Extremity Lower without Contra Date of Exam: 0 04/16/24 Exam# [id number] Ordering [place]: [place] [id number] STUDY: CT RIGHT KNEE WITHOUT CONTRAST REASON [...] Signed: Marcelo Aparicio MD at 8:42 EDT , CC: Dr. Desmond Fraire MD [employer]: Signed Normal [facility] Surgery Visit Reporton 01-26 Surgery Visit Report [facility] [address] [place] [address] OFFICE VISIT Date of Service: 01/27/24 MR#: [id number] Acct: [id number] Name: AMANDA SANDOVAL Rep #: [id number] : 1960 Provider: Dr. 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 Normal [facility] Inital Evaluation (1) - PTon 01-12-2024 Inital Evaluation (1) - PT [facility] [address] [place] [address] [address] [place] [address] / REHABILITATION SERVICES INITIAL EVALUATION MR#: [id number] Acct: [id number] Name: AMANDA SANDOVAL Rep #: [id number] : 1960 63 From: Kadeem Bernard PT Cert. T, OCS Referring Dr.: Dr. Desmond Fraire MD Status: REG RCR Insurance: [employer] [id number] [facility] PACKAGE PLAN Patient's Visit Information Visit Information Visit Information: AMANDA SANDOVAL is a 63 year old M referred to Physical Therapy by Dr. Desmond Fraire MD with a diagnosis of RIGHT KNE OSTEOARTHRITIS. Date of Evaluation: 01/12/24 Physical Therapist: Kadeem Androsik, PT, Cert MDT, OCS Visit Plan Frequency: [...] Patient goals to decrease pain. SOCIAL: VOCATION: [employer] Pain Right Back: Pain Intensity (Out of [...] to be FAXED BACK to us at [phone] for Medicare purposes. For Medicare only, by signing this I certify the plan of care. Please let me know if there are questions or concerns regarding this plan of care. Physician Signature: Date: 01/12/24 1833 CC: Dr. Desmond Fraire MD GABRIELA Signed Normal [facility] - Microbiology an d Antimicrobial susceptibilityOrdered By: Desmond Fraire on 08-08-2023 SARS-CoV-2 (COVID-19) RNA SHARON+probe Ql (Unsp spec) [facility] Absolute lymphocyte countOrd ered By: Desmond Fraire on 07-02-2023 Lymphocytes Auto (Unsp spec) [#/Vol] 1.74 10*3/uL 0.83-4.51 [facility] Basophil percentageOrdered B y: Desmond Fraire on 07-02-2023 Basophils/100 WBC (Bld) 0.4 % 0-1 [facility] Bilirubin [Mass/Vol] 0.60 mg/dL 0.20-1.00 [facility] Comment on above: For patients on eltr ombopag therapy, use of Dim[place] TBIL is not recommended. Chloride [Moles/Vol] 109 mmol/L 98-107 [facility] Eosinophils/100 WBC (Bld) 0.8 % 0-5 [facility] Glucose [Mass/Vol] 115 mg/dL 74-106 [facility] Comment on above: Fasting Glucose resu lt from 100 to 125 mg/dL suggests IMPAIRED HOMEOSTASIS per A.D.A. criteria. Neutrophils (Bld) [#/Vol] 7.1 10*3/uL 2.0-7.7 [facility] Neutrophils/100 WBC (Bld) 75.1 % 47-70 [facility] Potassium [Moles/Vol] 4.0 mmol/L 3.5-5.1 [facility] Protein [Mass/Vol] 7.2 g/dL 6.4-8.2 [facility] Sodium [Moles/Vol] 140 mmol/L 136-145 [facility] WBC (Bld) [#/Vol] 9.5 10*3/uL 4.4-11.0 [facility] Blood erythrocytes count (nu mber/volume)Ordered By: Desmond Fraire on 07-02-2023 RBC (Bld) [#/Vol] 5.32 10*6/uL 4.6-6.2 [facility] Blood hemoglobin measurement (mass/volume)Ordered By: Desmond Fraire on 07-02-2023 Hemoglobin (Bld) [Mass/Vol] 14.7 g/dL 13.0-16.5 [facility] Blood lymphocytes/100 leukoc ytesOrdered By: Desmond Fraire on 07-02-2023 Lymphocytes/100 WBC (Bld) 18.4 % 19-41 [facility] Blood monocytes/100 leukocyt esOrdered By: Desmond Fraire on 07-02-2023 Monocytes/100 WBC (Bld) 5.0 % 0-10 [facility] Blood platelet mean volumeOr dered By: Desmond Fraire on 07-02-2023 Platelet mean volume (Bld) [Entitic vol] 11.0 fL 6.2-12.0 [facility] Determination of erythrocyte mean corpuscular volume (MCV)Ordered By: Desmond Fraire on 07-02-2023 MCV (RBC) [Entitic vol] 88.9 fL 80-94 [facility] Hematocrit Auto (Bld) [Volum e fraction]Ordered By: Desmond Gab on 07-02-2023 Hematocrit (Bld) [Volume fraction] 47.3 % 40-54 [facility] - Chemistry and C hemistry - challengeOrdered By: [facility] 07-02-2023 ALP [Catalytic activity/Vol] 110 U/L 45-117 [facility] ALT [Catalytic activity/Vol] 22 U/L 16-61 [facility] CO2 [Moles/Vol] 24.0 mmol/L 21.0-32.0 [facility] Globulin (S) [Mass/Vol] 4.0 g/dL 2.2-4.2 [facility] Urea nitrogen/Creatinine [Mass ratio] 16.5 mg/mg 10-20 [facility] - Hematology and Cell countsOrdered By: Desmond Fraire 07-02-2023 Erythrocyte distribution width (RBC) [Entitic vol] 42.7 fL 35.1-43.9 [facility] Erythrocyte distribution width (RBC) [Ratio] 13.2 % 11.6-14.6 [facility] Immature granulocytes/100 WBC (Bld) 0.300 % 0.0-0.9 [facility] Comment on above: IG% - Immature Granu locytes (promyelocytes, myelocytes and metamyelocytes) > 1% indicates that a LEFT SHIFT is Present. MCH (RBC) [Entitic mass] 27.6 pg 27.0-32.0 [facility] Nucleated RBC/100 WBC (Bld) [Ratio] 0 % 0-5 [facility] MCHC Auto (RBC) [Mass/Vol]Or dered By: Desmond Fraire on 07-02-2023 MCHC (RBC) [Mass/Vol] 31.1 g/dL 32-36 [facility] No Panel InformationOrdered By: Desmond Fraire on 07-02-2023 Estimated GFR (MDRD) Amer 108 mL/min >60 [facility] Comment on above: GFR Calc Estimated GFR (MDRD) Non-Af Amer 89 mL/min >60 [facility] Comment on above: Non- GFR Calc Prostate Specific Antigen Total 4.39 ng/mL 0.0-4.0 [facility] Comment on above: This test was perfor med using the TPSA assay method for [employer] chemistry system. Values obtained with differentassay methods cannot be used interchangably.When changing PSA assays in the course of monitoring apatient, additional sequential testing should be carriedout to confirm baseline values. Thyroid Stimulating Hormone (TSH) 2.87 uIU/mL 0.358-3.74 [facility] Vitamin D 25-Hydroxy 10.0 ng/mL [facility] Comment on above: Vitamin D 25(OH) Sta tus Range Deficiency <20 ng/mL (50nmol/L) Insufficiency 20 - 30 ng/mL (50 - 75 nmol/L) Sufficiency 30 - 100 ng/mL (75 - 250 nmol/L) Toxicity >100 ng/mL (>250 nmol/L) Platelets bldOrdered By: Desmond Fraire on 07-02-2023 Platelets (Bld) [#/Vol] 218 10*3/uL 150-450 [facility] Serum or plasma albumin mak urement (mass/volume)Ordered By: Desmond Fraire on 07-02-2023 Albumin [Mass/Vol] 3.2 g/dL 3.2-5.0 [facility] Serum or plasma albumin/glob ulin mass ratioOrdered By: Desmond Fraire 07-02-2023 Albumin/Globulin [Mass ratio] 0.8 {ratio} 0.9-2.4 [facility] Serum or plasma calcium mak urement (mass/volume)Ordered By: Desmond Fraire on 07-02-2023 Calcium [Mass/Vol] 8.7 mg/dL 8.5-10.1 [facility] Serum or plasma creatinine m easurement (mass/volume)Ordered By: Desmond Fraire 07-02-2023 Creatinine [Mass/Vol] 0.91 mg/dL 0.70-1.30 [facility] Comment on above: The validity of the calculated GFR & GFRAA in patients over 70 years has not been determined. Clinical correlation is essential. Serum or plasma urea nitroge n measurement (mass/volume)Ordered By: Desmond Fraire on 07-02-2023 Urea nitrogen [Mass/Vol] 15 mg/dL 7-18 [facility] Thin prep Papanicolaou smear with manual screeningOrdered By: Desmond Fraire on 07-02-2023 Thin prep Papanicolaou smear with manual screening 16 U/L 15-37 [facility] Thin prep Papanicolaou smear with manual screening 7 5-15 [facility] Absolute lymphocyte countOrd ered By: Dr. Fraire on 12-31-2022 Lymphocytes Auto (Unsp spec) [#/Vol] 2.00 10*3/uL 0.83-4.51 [facility] Basophil percentageOrdered B y: Dr. Fraire on 12-31-2022 Basophils/100 WBC (Bld) 0.7 % 0-1 [facility] Bilirubin [Mass/Vol] 0.30 mg/dL 0.20-1.00 [facility] Comment on above: For patients on eltr ombopag therapy, use of Dimension [place] TBIL is not recommended. Chloride [Moles/Vol] 110 mmol/L 98-107 [facility] Eosinophils/100 WBC (Bld) 2.5 % 0-5 [facility] Glucose [Mass/Vol] 101 mg/dL 74-106 [facility] Comment on above: Fasting Glucose resu lt from 100 to 125 mg/dL suggests IMPAIRED HOMEOSTASIS per A.D.A. criteria. Neutrophils (Bld) [#/Vol] 6.3 10*3/uL 2.0-7.7 [facility] Neutrophils/100 WBC (Bld) 68.9 % 47-70 [facility] Potassium [Moles/Vol] 4.2 mmol/L 3.5-5.1 [facility] Protein [Mass/Vol] 6.8 g/dL 6.4-8.2 [facility] Sodium [Moles/Vol] 140 mmol/L 136-145 [facility] WBC (Bld) [#/Vol] 9.1 10*3/uL 4.4-11.0 [facility] Blood erythrocytes count (nu mber/volume)Ordered By: Dr. Fraire on 12-31-2022 RBC (Bld) [#/Vol] 5.19 10*6/uL 4.6-6.2 [facility] Blood hemoglobin measurement (mass/volume)Ordered By: Dr. Fraire on 12-31-2022 Hemoglobin (Bld) [Mass/Vol] 14.5 g/dL 13.0-16.5 [facility] Blood lymphocytes/100 leukoc ytesOrdered By: Dr. Fraire on 12-31-2022 Lymphocytes/100 WBC (Bld) 22.0 % 19-41 [facility] Blood monocytes/100 leukocyt esOrdered By: Dr. Fraire on 12-31-2022 Monocytes/100 WBC (Bld) 5.6 % 0-10 [facility] Blood platelet mean volumeOr dered By: Dr. Fraire on 12-31-2022 Platelet mean volume (Bld) [Entitic vol] 10.7 fL 6.2-12.0 [facility] Determination of erythrocyte mean corpuscular volume (MCV)Ordered By: Dr. Fraire on 12-31-2022 MCV (RBC) [Entitic vol] 88.4 fL 80-94 [facility] Hematocrit Auto (Bld) [Volum e fraction]Ordered By: Dr. Fraire on 12-31-2022 Hematocrit (Bld) [Volume fraction] 45.9 % 40-54 [facility] - Chemistry and C hemistry - challengeOrdered By: Dr. Fraire on 12-31-2022 ALP [Catalytic activity/Vol] 119 U/L 45-117 [facility] ALT [Catalytic activity/Vol] 21 U/L 16-61 [facility] CO2 [Moles/Vol] 26.0 mmol/L 21.0-32.0 [facility] Globulin (S) [Mass/Vol] 3.7 g/dL 2.2-4.2 [facility] Urea nitrogen/Creatinine [Mass ratio] 16.2 mg/mg 10-20 [facility] - Hematology and Cell countsOrdered By: Dr. Fraire on 12-31-2022 Erythrocyte distribution width (RBC) [Entitic vol] 43.3 fL 35.1-43.9 [facility] Erythrocyte distribution width (RBC) [Ratio] 13.3 % 11.6-14.6 [facility] Immature granulocytes/100 WBC (Bld) 0.300 % 0.0-0.9 [facility] Comment on above: IG% - Immature Granu locytes (promyelocytes, myelocytes and metamyelocytes) > 1% indicates that a LEFT SHIFT is Present. MCH (RBC) [Entitic mass] 27.9 pg 27.0-32.0 [facility] Nucleated RBC/100 WBC (Bld) [Ratio] 0 % 0-5 [facility] MCHC Auto (RBC) [Mass/Vol]Or dered By: Dr. Fraire on 12-31-2022 MCHC (RBC) [Mass/Vol] 31.6 g/dL 32-36 [facility] No Panel InformationOrdered By: Dr. Fraire on 12-31-2022 Estimated GFR (MDRD) Amer 91 mL/min >60 [facility] Comment on above: GFR Calc Estimated GFR (MDRD) Non-Af Amer 75 mL/min >60 [facility] Comment on above: Non- GFR Calc Prostate Specific Antigen Screen 4.17 ng/mL 0.00-4.00 [facility] Comment on above: This test was perfor med using the TPSA assay method for the[facility] system. Values obtained with differentassay methods cannot be used interchangably.When changing PSA assays in the course of monitoring apatient, additional sequential testing should be carriedout to confirm baseline values. Thyroid Stimulating Hormone (TSH) 1.83 uIU/mL 0.358-3.74 [facility] Platelets bldOrdered By: Dr. Fraire on 12-31-2022 Platelets (Bld) [#/Vol] 243 10*3/uL 150-450 [facility] Serum or plasma albumin mak urement (mass/volume)Ordered By: Dr. Fraire on 12-31-2022 Albumin [Mass/Vol] 3.1 g/dL 3.2-5.0 [facility] Serum or plasma albumin/glob ulin mass ratioOrdered By: Dr. Fraire on 12-31-2022 Albumin/Globulin [Mass ratio] 0.8 {ratio} 0.9-2.4 [facility] Serum or plasma calcium mak urement (mass/volume)Ordered By: Dr. Fraire on 12-31-2022 Calcium [Mass/Vol] 9.0 mg/dL 8.5-10.1 [facility] Serum or plasma creatinine m easurement (mass/volume)Ordered By: Dr. Fraire on 12-31-2022 Creatinine [Mass/Vol] 1.05 mg/dL 0.70-1.30 [facility] Comment on above: The validity of the calculated GFR & GFRAA in patients over 70 years has not been determined. Clinical correlation is essential. Serum or plasma urea nitroge n measurement (mass/volume)Ordered By: Dr. Fraire on 12-31-2022 Urea nitrogen [Mass/Vol] 17 mg/dL 7-18 [facility] Thin prep Papanicolaou smear with manual screeningOrdered By: Dr. Fraire on 12-31-2022 Thin prep Papanicolaou smear with manual screening 18 U/L 15-37 [facility] Thin prep Papanicolaou smear with manual screening 4 5-15 [facility] Absolute lymphocyte counton 06-26-2022 Lymphocytes Auto (Unsp spec) [#/Vol] 1.97 10*3/uL 0.83-4.51 [facility] Work Phone: Basophil percentageon 2021 Basophils/100 WBC (Bld) 0.4 % 0-1 [facility] Work Phone: Bilirubin [Mass/Vol] 0.50 mg/dL 0.20-1.00 [facility] Work Phone: Comment on above: For patients on eltr ombopag therapy, use of Dim[place] TBIL is not recommended. Chloride [Moles/Vol] 107 mmol/L 98-107 [facility] Work Phone: Eosinophils/100 WBC (Bld) 0.8 % 0-5 [facility] Work Phone: Glucose [Mass/Vol] 115 mg/dL 74-106 [facility] Work Phone: Comment on above: Fasting Glucose resu lt from 100 to 125 mg/dL suggests IMPAIRED HOMEOSTASIS per A.D.A. criteria. Neutrophils (Bld) [#/Vol] 7.6 10*3/uL 2.0-7.7 [facility] Work Phone: Neutrophils/100 WBC (Bld) 73.4 % 47-70 [facility] Work Phone: Potassium [Moles/Vol] 3.4 mmol/L 3.5-5.1 [facility] Work Phone: Protein [Mass/Vol] 6.7 g/dL 6.4-8.2 [facility] Work Phone: Sodium [Moles/Vol] 139 mmol/L 136-145 [facility] Work Phone: WBC (Bld) [#/Vol] 10.3 10*3/uL 4.4-11.0 [facility] Work Phone: Blood erythrocytes count (nu mber/volume)on 06-26-2022 RBC (Bld) [#/Vol] 5.12 10*6/uL 4.6-6.2 [facility] Work Phone: Blood hemoglobin measurement (mass/volume)on 06-26-2022 Hemoglobin (Bld) [Mass/Vol] 14.9 g/dL 13.0-16.5 [facility] Work Phone: Blood lymphocytes/100 leukoc yteson 06-26-2022 Lymphocytes/100 WBC (Bld) 19.2 % 19-41 [facility] Work Phone: [phone] Blood monocytes/100 leukocyt eson 06-26-2022 Monocytes/100 WBC (Bld) 5.6 % 0-10 [facility] Work Phone: Blood platelet mean volumeon 06-26-2022 Platelet mean volume (Bld) [Entitic vol] 11.3 fL 6.2-12.0 [facility] Work Phone: Determination of erythrocyte mean corpuscular volume (MCV)on 06-26-2022 MCV (RBC) [Entitic vol] 88.3 fL 80-94 [facility] Work Phone: Hematocrit Auto (Bld) [Volum e fraction]on 06-26-2022 Hematocrit (Bld) [Volume fraction] 45.2 % 40-54 [facility] Work Phone: Laboratory - Chemistry and C hemistry - challengeon 06-26-2022 ALP [Catalytic activity/Vol] 93 U/L 45-117 [facility] Work Phone: ALT [Catalytic activity/Vol] 22 U/L 16-61 [facility] Work Phone: CO2 [Moles/Vol] 25.0 mmol/L 21.0-32.0 [facility] Work Phone: Globulin (S) [Mass/Vol] 3.5 g/dL 2.2-4.2 [facility] Work Phone: Urea nitrogen/Creatinine [Mass ratio] 18.8 mg/mg 10-20 [facility] Work Phone: Laboratory - Hematology and Cell countson 06-26-2022 Erythrocyte distribution width (RBC) [Entitic vol] 42.9 fL 35.1-43.9 [facility] Work Phone: Erythrocyte distribution width (RBC) [Ratio] 13.2 % 11.6-14.6 [facility] Work Phone: Immature granulocytes/100 WBC (Bld) 0.600 % 0.0-0.9 [facility] Work Phone: Comment on above: IG% - Immature Granu locytes (promyelocytes, myelocytes and metamyelocytes) > 1% indicates that a LEFT SHIFT is Present. MCH (RBC) [Entitic mass] 29.1 pg 27.0-32.0 [facility] Work Phone: Nucleated RBC/100 WBC (Bld) [Ratio] 0 % 0-5 [facility] Work Phone: MCHC Auto (RBC) [Mass/Vol]on 06-26-2022 MCHC (RBC) [Mass/Vol] 33.0 g/dL 32-36 [facility] Work Phone: No Panel Informationon 06-26 Estimated GFR (MDRD) Amer 101 mL/min >60 [facility] Work Phone: Comment on above: GFR Calc Estimated GFR (MDRD) Non-Af Amer 84 mL/min >60 [facility] Work Phone: Comment on above: Non- GFR Calc Thyroid Stimulating Hormone (TSH) 1.74 uIU/mL 0.358-3.74 [facility] Work Phone: Platelets bldon 06-26-2022 Platelets (Bld) [#/Vol] 229 10*3/uL 150-450 [facility] Work Phone: Serum or plasma albumin mak urement (mass/volume)on 06-26-2022 Albumin [Mass/Vol] 3.2 g/dL 3.2-5.0 [facility] Work Phone: Serum or plasma albumin/glob ulin mass ratioon 06-26-2022 Albumin/Globulin [Mass ratio] 0.9 {ratio} 0.9-2.4 [facility] Work Phone: Serum or plasma calcium mak urement (mass/volume)on 06-26-2022 Calcium [Mass/Vol] 9.1 mg/dL 8.5-10.1 [facility] Work Phone: Serum or plasma creatinine m easurement (mass/volume)on 06-26-2022 Creatinine [Mass/Vol] 0.96 mg/dL 0.70-1.30 [facility] Work Phone: Comment on above: The validity of the calculated GFR & GFRAA in patients over 70 years has not been determined. Clinical correlation is essential. Serum or plasma urea nitroge n measurement (mass/volume)on 06-26-2022 Urea nitrogen [Mass/Vol] 18 mg/dL 7-18 [facility] Work Phone: Thin prep Papanicolaou smear with manual screeningon 06-26-2022 Thin prep Papanicolaou smear with manual screening 10 U/L 15-37 [facility] Work Phone: Thin prep Papanicolaou smear with manual screening 7 5-15 [facility] Work Phone: CNOVon 04-06-2022 CNOV Office Visit (UCWSTR ) AMANDA SANDOVAL ([id number]) 1960 M Date Time Provider Department 04/06/22 9:15 AM DENAE SONI During your visit today, we recorded the following information about you: Temperature Pulse Respiration Blood pressure 97 degrees 78/minute 18/minute 142/84 Weight 127.5 kg Denae Soni APRN.CNP 04/06/2022 9:50 AM Signed This note was created using Colppyriter. Subjective Amanda Sandoval is a 62 year [...] Normal hear (more content not included)... Normal [facility] Absolute lymphocyte counton 12-26-2021 Lymphocytes Auto (Unsp spec) [#/Vol] 2.01 10*3/uL 0.83-4.51 [facility] Work Phone: Basophil percentageon 2021 Basophils/100 WBC (Bld) 0.6 % 0-1 [facility] Work Phone: Bilirubin [Mass/Vol] 0.30 mg/dL 0.20-1.00 [facility] Work Phone: Comment on above: For patients on eltr ombopag therapy, use of Dimension [place] TBIL is not recommended. Chloride [Moles/Vol] 108 mmol/L 98-107 [facility] Work Phone: Eosinophils/100 WBC (Bld) 1.9 % 0-5 [facility] Work Phone: Glucose [Mass/Vol] 106 mg/dL 74-106 [facility] Work Phone: Comment on above: Fasting Glucose resu lt from 100 to 125 mg/dL suggests IMPAIRED HOMEOSTASIS per A.D.A. criteria. Neutrophils (Bld) [#/Vol] 6.1 10*3/uL 2.0-7.7 [facility] Work Phone: [phone] Neutrophils/100 WBC (Bld) 68.1 % 47-70 [facility] Work Phone: Potassium [Moles/Vol] 4.2 mmol/L 3.5-5.1 [facility] Work Phone: [phone] Protein [Mass/Vol] 6.9 g/dL 6.4-8.2 [facility] Work Phone: [phone] Sodium [Moles/Vol] 141 mmol/L 136-145 [facility] Work Phone: WBC (Bld) [#/Vol] 8.9 10*3/uL 4.4-11.0 [facility] Work Phone: Blood erythrocytes count (nu mber/volume)on 12-26-2021 RBC (Bld) [#/Vol] 4.84 10*6/uL 4.6-6.2 [facility] Work Phone: [phone] Blood hemoglobin measurement (mass/volume)on 12-26-2021 Hemoglobin (Bld) [Mass/Vol] 14.1 g/dL 13.0-16.5 [facility] Work Phone: Blood lymphocytes/100 leukoc yteson 12-26-2021 Lymphocytes/100 WBC (Bld) 22.6 % 19-41 [facility] Work Phone: Blood monocytes/100 leukocyt eson 12-26-2021 Monocytes/100 WBC (Bld) 6.5 % 0-10 [facility] Work Phone: Blood platelet mean volumeon 12-26-2021 Platelet mean volume (Bld) [Entitic vol] 11.5 fL 6.2-12.0 [facility] Work Phone: Determination of erythrocyte mean corpuscular volume (MCV)on 12-26-2021 MCV (RBC) [Entitic vol] 90.5 fL 80-94 [facility] Work Phone: Hematocrit Auto (Bld) [Volum e fraction]on 12-26-2021 Hematocrit (Bld) [Volume fraction] 43.8 % 40-54 [facility] Work Phone: Laboratory - Chemistry and C hemistry - challengeon 12-26-2021 ALP [Catalytic activity/Vol] 93 U/L 45-117 [facility] Work Phone: ALT [Catalytic activity/Vol] 26 U/L 16-61 [facility] Work Phone: CO2 [Moles/Vol] 30.0 mmol/L 21.0-32.0 [facility] Work Phone: Globulin (S) [Mass/Vol] 3.7 g/dL 2.2-4.2 [facility] Work Phone: Urea nitrogen/Creatinine [Mass ratio] 15.4 mg/mg 10-20 [facility] Work Phone: Laboratory - Hematology and Cell countson 12-26-2021 Erythrocyte distribution width (RBC) [Entitic vol] 42.1 fL 35.1-43.9 [facility] Work Phone: Erythrocyte distribution width (RBC) [Ratio] 12.8 % 11.6-14.6 [facility] Work Phone: Immature granulocytes/100 WBC (Bld) 0.300 % 0.0-0.9 [facility] Work Phone: Comment on above: IG% - Immature Granu locytes (promyelocytes, myelocytes and metamyelocytes) > 1% indicates that a LEFT SHIFT is Present. MCH (RBC) [Entitic mass] 29.1 pg 27.0-32.0 [facility] Work Phone: Nucleated RBC/100 WBC (Bld) [Ratio] 0 % 0-5 [facility] Work Phone: MCHC Auto (RBC) [Mass/Vol]on 12-26-2021 MCHC (RBC) [Mass/Vol] 32.2 g/dL 32-36 [facility] Work Phone: No Panel Informationon 12-26 Estimated GFR (MDRD) Amer 93 mL/min >60 [facility] Work Phone: Comment on above: GFR Calc Estimated GFR (MDRD) Non-Af Amer 76 mL/min >60 [facility] Work Phone: Comment on above: Non- GFR Calc Prostate Specific Antigen Screen 2.90 ng/mL 0.00-4.00 [facility] Work Phone: Comment on above: This test was perfor med using the TPSA assay method for [employer] chemistry system. Values obtained with differentassay methods cannot be used interchangably.When changing PSA assays in the course of monitoring apatient, additional sequential testing should be carriedout to confirm baseline values. Thyroid Stimulating Hormone (TSH) 2.15 uIU/mL 0.358-3.74 [facility] Work Phone: Vitamin D 25-Hydroxy 10.1 ng/mL [facility] Work Phone: Comment on above: Vitamin D 25(OH) Sta tus Range Deficiency <20 ng/mL (50nmol/L) Insufficiency 20 - 30 ng/mL (50 - 75 nmol/L) Sufficiency 30 - 100 ng/mL (75 - 250 nmol/L) Toxicity >100 ng/mL (>250 nmol/L) Platelets bldon 12-26-2021 Platelets (Bld) [#/Vol] 248 10*3/uL 150-450 [facility] Work Phone: Serum or plasma albumin mak urement (mass/volume)on 12-26-2021 Albumin [Mass/Vol] 3.2 g/dL 3.2-5.0 [facility] Work Phone: Serum or plasma albumin/glob ulin mass ratioon 12-26-2021 Albumin/Globulin [Mass ratio] 0.9 {ratio} 0.9-2.4 [facility] Work Phone: Serum or plasma calcium mak urement (mass/volume)on 12-26-2021 Calcium [Mass/Vol] 8.9 mg/dL 8.5-10.1 [facility] Work Phone: Serum or plasma creatinine m easurement (mass/volume)on 12-26-2021 Creatinine [Mass/Vol] 1.04 mg/dL 0.70-1.30 [facility] Work Phone: Comment on above: The validity of the calculated GFR & GFRAA in patients over 70 years has not been determined. Clinical correlation is essential. Serum or plasma urea nitroge n measurement (mass/volume)on 12-26-2021 Urea nitrogen [Mass/Vol] 16 mg/dL 7-18 [facility] Work Phone: Thin prep Papanicolaou smear with manual screeningon 12-26-2021 Thin prep Papanicolaou smear with manual screening 21 U/L 15-37 [facility] Work Phone: Thin prep Papanicolaou smear with manual screening 3 5-15 [facility] Work Phone: Vital Signs Date Time Vital Sign Value Performing Clinician Honeyi justin 09-11-2024 11:51-0500 Body temperature 98.5 [degF] Dr. Desmond Fraire MD Work Phone: [facility] 09-11-2024 11:51-0500 Diastolic blood pressure 74 mm[Hg] Dr. Desmond Fraire MD Work Phone: [facility] 09-11-2024 11:51-0500 Heart rate 74 /min Dr. Desmond Fraire MD Work Phone: [facility] 09-11-2024 11:51-0500 Respiratory rate 14 /min Dr. Desmond Fraire MD Work Phone: [facility] 09-11-2024 11:51-0500 SaO2% (BldA) [Mass fraction] 96 % Dr. Desmond Fraire MD Work Phone: [facility] 09-11-2024 11:51-0500 Systolic blood pressure 127 mm[Hg] Dr. Desmond Fraire MD Work Phone: [facility] 09-11-2024 09:45-0500 Body height [address] Desmond Fraire MD Work Phone: [facility] 09-11-2024 09:45-0500 Body mass index (BMI) [Ratio] 45.8 kg/m2 Dr. Desmond Fraire MD Work Phone: [facility] 09-11-2024 09:45-0500 Body weight 124.[address] Desmond Fraire MD Work Phone: [facility] 09-05-2023 09:41-0500 Body temperature 98 [degF] Dr. Desmond Fraire Work Phone: [facility] 09-05-2023 09:41-0500 Diastolic blood pressure 65 mm[Hg] Dr. Desmond Fraire Work Phone: [facility] 09-05-2023 09:41-0500 Heart rate 78 /min Dr. Desmond Fraire Work Phone: [facility] 09-05-2023 09:41-0500 Respiratory rate 16 /min Dr. Desmond Fraire Work Phone: [facility] 09-05-2023 09:41-0500 SaO2% (BldA) [Mass fraction] 99 % Dr. Desmond Fraire Work Phone: [facility] 09-05-2023 09:41-0500 Systolic blood pressure 113 mm[Hg] Dr. Desmond Fraire Work Phone: [facility] 09-05-2023 07:48-0500 Body height 165.[address] Desmond Fraire Work Phone: [facility] 09-05-2023 07:48-0500 Body mass index (BMI) [Ratio] 44.1 kg/m2 Dr. Desmond Fraire Work Phone: [facility] 09-05-2023 07:48-0500 Body weight 120.[address] Desmond Fraire Work Phone: [facility] 07-31-2023 13:11-0500 Body height 165.[address] Desmond Fraire Work Phone: [facility] 07-31-2023 13:11-0500 Body mass index (BMI) [Ratio] 43.7 kg/m2 Dr. Desmond Fraire Work Phone: [facility] 07-31-2023 13:11-0500 Body weight 119.[address] Desmond Fraire Work Phone: [facility] 04-06-2022 09:26-0400 Body temperature 97 [degF] Denae Soni ADMINISTRATIVE AND PROGRAM SPECIALIST.[employer] Work Phone: [facility] 04-06-2022 09:26-0400 Body weight 127.46 kg Denae Soni ADMINISTRATIVE AND PROGRAM SPECIALIST.[employer] Work Phone: [facility] 04-06-2022 09:26-0400 Diastolic blood pressure 84 mm[Hg] Denae Soni ADMINISTRATIVE AND PROGRAM SPECIALIST.[employer] Work Phone: [facility] 04-06-2022 09:26-0400 Heart rate 78 /min Denae Soni ADMINISTRATIVE AND PROGRAM SPECIALIST.[employer] Work Phone: [facility] 04-06-2022 09:26-0400 Respiratory rate 18 /min Denae Soni ADMINISTRATIVE AND PROGRAM SPECIALIST.[employer] Work Phone: [facility] 04-06-2022 09:26-0400 SaO2% (BldA) [Mass fraction] 98 % Denae Soni ADMINISTRATIVE AND PROGRAM SPECIALIST.[employer] Work Phone: [facility] 04-06-2022 09:26-0400 Systolic blood pressure 142 mm[Hg] Denae Soni ADMINISTRATIVE AND PROGRAM SPECIALIST.[employer] Work Phone: [facility] Encounters Encounter Date Encounter Type Care Provider Facility Start: 01-05-2025 ambulatory Desmond Chi Gab Facility:[facility] Start: 01-03-2025 ambulatory Desmond Chi Gab Facility:[facility] Start: 12-23-[address] Desmond george MD -Physical Therapy Work Phone: Start: 12-22-2024 End: 12-22-[address] Desmond Fraire MD Work Phone: [facility] Work Phone: Start: 12-22-2024 End: 12-22-[address] Brenden Amador MD -Radiology [facility] Work Phone: Start: 12-22-2024 End: 12-22-2024 ambulatory Brenden Amador Facility:[facility] Start: 12-15-2024 End: 12-15-[address] Desmond Fraire MD Work Phone: [facility] Work Phone: Start: 12-15-2024 End: 12-15-[address] Desmond Fraire MD -Laboratory Work Phone: Start: 12-15-2024 End: 12-15-2024 ambulatory Desmond Anisha Gab Facility:[facility] Start: 12-10-2024 End: 12-13-2024 ambulatory DESMOND ANISHA [facility] Start: 10-21-2024 End: 10-21-[address] Desmond Fraire MD Work Phone: [facility] Work Phone: Start: 10-21-2024 End: 10-21-[address] Desmond Fraire MD -Laboratory Work Phone: Start: 10-21-2024 End: 10-21-2024 ambulatory Desmond Fraire Facility:[facility] Start: 10-11-2024 End: 10-11-[address] Desmond Fraire MD Work Phone: [facility] Work Phone: Start: 10-11-2024 End: 10-11-[address] Desmond Fraire MD -Laboratory, Phy Office 3rd Flr Start: 10-11-2024 End: 10-11-2024 ambulatory Desmond Chi Gab Facility:[facility] Start: 09-11-2024 End: 09-11-2024 Emergency department patient visit Dr. Aldair Bryan MD -Emergency Department Work Phone: Start: 09-02-2024 End: 09-02-[address] Desmond Fraire MD -Cat Scan, [facility] Work Phone: Start: 09-02-2024 End: 09-02-2024 ambulatory Desmond Chi Gab Facility:[facility] Start: 08-31-2024 End: 08-31-[address] Desmond Fraire MD -Laboratory, Phy Office 3rd Flr Start: 08-31-2024 End: 08-31-2024 ambulatory Desmond Chi Gab Facility:[facility] Start: 08-06-2024 End: 08-06-[address] Guillermo Lai MD -Cat Scan, [facility] Work Phone: Start: 08-06-2024 End: 08-06-2024 ambulatory Desmond Chi Gab Facility:[facility] Start: 07-05-2024 End: 07-05-2024 Patient encounter procedure Najma Delaney -Laboratory, Phy Office 3rd Flr Start: 07-05-2024 End: 07-05-2024 ambulatory Najma [place] Facility:[facility] Start: 04-26-2024 End: 04-26-2024 ambulatory Desmond Chi Gab Facility:[facility] Start: 04-19-2024 End: 04-19-2024 ambulatory Desmond Chi Gab Facility:[facility] Start: 04-16-2024 End: 04-16-2024 ambulatory Desmond Chi Gab Facility:[facility] Start: 02-05-2024 End: 02-05-2024 ambulatory Desmond Chi Gab Facility:[facility] Start: 01-27-2024 End: 01-27-2024 ambulatory Desmond Chi Gab Facility:[facility] Start: 09-05-2023 Non-patient / Non-visit Dr. Edson Fraire Work Phone: [facility] Start: 09-05-2023 End: 09-05-2023 Admission to same day surgery center Dr. Desmond Fraire Work Phone: [facility]-Endoscopy Work Phone: Start: 09-05-2023 End: 09-05-[address] Desmond Fraire Work Phone: [facility] Work Phone: Start: 08-08-2023 End: 08-08-[address] Desmond Fraire Work Phone: [facility] Work Phone: Start: 08-08-2023 End: 08-08-[address] Desmond Fraire Work Phone: [facility]-Pulmonary Services/Neurology Work Phone: Start: 07-31-2023 Non-patient / Non-visit Dr. Edson Fraire Work Phone: [facility] Work Phone: Start: 07-02-2023 End: 07-02-2023 ambulatory [facility] Work Phone: Start: 07-02-2023 End: 07-02-2023 Patient encounter procedure [facility]-Laboratory, Phy Office 3rd Flr Start: 12-31-2022 End: 12-31-2022 ambulatory [facility] Work Phone: Start: 12-31-2022 End: 12-31-2022 Patient encounter procedure [facility]-Laboratory Start: 06-26-2022 End: 06-26-2022 Patient encounter procedure [facility]-Laboratory, Phy Office 3rd Flr Start: 04-12-2022 End: 04-12-2022 ambulatory [facility] Work Phone: Start: 04-12-2022 End: 04-12-2022 Patient encounter procedure [facility]-Radiology, [facility] Start: 04-06-2022 End: 04-06-2022 ambulatory Facility:[facility] Start: 04-06-2022 End: 04-06-2022 Patient encounter procedure Denea Soni ADMINISTRATIVE AND PROGRAM SPECIALIST.[employer] Work Phone: [facility] Comment on above: Acute left-sided tho racic back pain (Primary Dx) Start: 03-22-2022 End: 03-22-2022 [facility] Start: 03-06-2022 End: 03-06-[address] Desmond Fraire Work Phone: [facility] Work Phone: Start: 03-06-2022 End: 03-06-[address] Desmond Fraire Work Phone: [facility]-Radiology, [facility] Start: 02-06-[address] Desmond regalado Work Phone: [facility]-Physical Therapy Start: 01-02-2022 End: 01-02-[address] Desmond Fraire Work Phone: [facility]-Pulmonary Services/Neurology Start: 01-01-[address] Desmond regalado Work Phone: [facility]-Physical Therapy Start: 12-26-2021 End: 12-26-[address] Desmond Fraire Work Phone: [facility]-Laboratory, Phy Office 3rd Flr Start: 11-23-2021 Non-patient / Non-visit Dr. Edson Fraire Work Phone: [facility] Start: 11-23-2021 End: 11-23-[address] Desmond Fraire Work Phone: [facility]-Cardiovascular Services Procedures Date Procedure Procedure Detail Performing Clinician Start: 12-22-2024 Plain x-ray of pelvi s and lower extremity Dr. Desmond Fraire MD Work Phone: Start: 12-15-2024 Urine microalbumin/c reatinine ratio measurement Dr. Desmond Fraire MD Work Phone: Start: 12-10-2024 Urinalysis DESMOND FRAIRE Comment on above: Result Comment: URIN ALYSIS Performed By: #### [id number] ####[facility] [place],[address] [place] [address] Start: 10-21-2024 Free prostate specif ic antigen level Dr. Desmond Fraire MD Work Phone: Comment on above: [employer] methodol ogy. Start: 10-21-2024 Prostate specific an tigen measurement Dr. Desmond Fraire MD Work Phone: Comment on above: [employer]CL[employer] methodol ogy.According to the [employer], Serum PSAshould decrease and remain at undetectable levels afterradical prostatectomy. The AUA defines biochemicalrecurrence as an initial PSA value 0.200 ng/mL or greaterfollowed by a subsequent confirmatory PSA value 0.200 ng/mLor greater. Values obtained with different assay methods orkits cannot be used interchangeably. Results cannot beinterpreted as absolute evidence of the presence or absenceof malignant disease. Start: 10-11-2024 SARS-CoV-2, Influenz a & RSV (PCR) Dr. Desmond Fraire MD Work Phone: Start: 09-11-2024 Plain chest X-ray Dr. Mamta Fraire MD Work Phone: Start: 09-11-2024 CT of head without contrast Dr. Desmond Fraire MD Work Phone: Start: 09-11-[address] Desmond Fraire MD Work Phone: Start: 09-11-2024 Measurement of renal function Dr. Desmond Fraire MD Work Phone: Comment on above: GFR Calc Start: 09-02-2024 CT angiography of ch est with contrast Dr. Desmond Fraire MD Work Phone: Start: 08-31-2024 D-dimer assay, quantitative Dr. Desmond Fraire MD Work Phone: Comment on above: D-Dimer ELEVATED (>0 .49): Additional studies and clinicalassessments are indicated to conclude diagnosis of:Deep Vein Thrombosis (DVT) or Pulmonary Embolism (PE)CRITICAL VALUE CALLED TO DR. FRAIRE08/31/24 7954 Otilia Staley.RESULTS READ BACK BY SAME. Start: 08-31-2024 SARS-CoV-2, Influenz a & RSV (PCR) Dr. Desmond Fraire MD Work Phone: Start: 08-06-[address] Desmond grove MD Work Phone: Start: 09-05-[address] Desmond grove Work Phone: Start: 08-08-2023 SARS-CoV-2, Influenz a & RSV (PCR) Dr. Desmond Fraire Work Phone: Start: 04-12-2022 Radiography of thoracic spine Start: 03-22-2022 CT of lumbar spine Start: 03-06-2022 Plain X-ray of femur Dr Erasto rFaire Work Phone: Start: 11-23-2021 X-ray of lumbosacral spine Dr. Desmodn Fraire Work Phone: Plan of Treatment Date Care Activity Detail Author Start: 09-11-2024 [facility] Start: 09-05-2023 Patient discharge [facility] Start: 03-21-2022 Influenza vaccination INFLUENZA (#1) [facility] Start: 2013 PROSTATE CANCER SCREENING DISCUSSION PROSTATE CANCER SCREENING DISCUSSION [facility] Start: 01-23-2008 SHINGRIX VACCINE (1 of 2) SHINGRIX VACCINE (1 of 2) [facility] Start: 2003 COLOGUARD (FIT-DNA) COLOGUARD (FIT-DNA) [facility] Start: 2003 Colonoscopy COLONOSCOPY [facility] Start: 2003 COLORECTAL CANCER SCREENING COLORECTAL CANCER SCREENING [facility] Start: [address] COLONOGRAPHY [facility] Start: 2003 DIABETES SCREEN DIABETES SCREEN [facility] Start: 2003 FECAL OCCULT BLOOD FECAL OCCULT BLOOD [facility] Start: 2003 SIGMOIDOSCOPY SIGMOIDOSCOPY [facility] Start: 1993 LIPID SCREEN LIPID SCREEN [facility] Start: 1977 Urine microalbumin profile DTAP,TDAP,TD (1 - Tdap) [facility] Start: 01-23-1976 HEPATITIS C SCREENING HEPATITIS C SCREENING [facility] Start: 01-23-1976 HIV SCREENING HIV SCREENING [facility] Start: 1970 Adult depression screening assessment DEPRESSION SCREENING [facility] Start: 1960 COVID-19 VACCINE (#1) COVID-19 VACCINE (#1) [facility] Colonoscopy [facility] Patient Education ED High Blood Pressure Hypertension ED Pain, Acute, Uncertain Cause [facility] Work Phone: Patient referral [facility] Work Phone: Payers Date Payer Category Payer Unknown 2024 Self-pay [id number] 2024 Unknown [id number] 2024 Unknown 0000 2022 Private Health Insurance [employer] PPO [id number] 2022-Present [phone] [address] [facility] [place] [address] PPO [id number] 2022 Private Health Insurance [id number] 1960 Unknown [id number] [facility] [id number] Unknown [id number] Unknown [id number] Unknown [id number] Unknown [id number] [id number]. 462 Unknown [id number] 2.16.840.1.749407.3.579.2. 462 Unknown [id number] 2.16.840.1.664231.3.579.2. 462 Unknown [id number] 2.16.840.1.382175.3.579.2. 462 Unknown [id number] 2.16.840.1.070989.3.579.2. 462 Unknown [id number] 2.16.840.1.605358.3.579.2. 462 Unknown [id number] 2.16.840.1.182197.3.579.2. 462 Unknown [id number] 2.16.840.1.178059.3.579.2. 462 Unknown [id number] 2.16.840.1.737880.3.579.2. 462 Unknown [id number] 2.16840.1.911391.3.579.2. 462 Unknown [id number] 2.16.840.1.799364.3.579.2. 462 Unknown [id number] 2.16.840.1.534633.3.579.2. 462 Unknown [id number] 2.16.840.1.162850.3.579.2. 462 Unknown [id number] 2.16840.1.648889.3.579.2. 462 Social History Date Type Detail Facility Start: 01-26-2019 End: 01-26-2019 Tobacco smoking status OHIS Unknown if ever smoked [facility] Start: 11-17-2018 Non-smoker [facility] Start: 1960 Sex Assigned At Male [facility] Start: 04-06-2022 End: 09-11-2024 Tobacco smoking status OHIS Ex-smoker [facility] Work Phone: History of tobacco use Current smoker [facility] Work Phone: History of tobacco use Cigarette Smoker [facility] Work Phone: Start: 1960 Sex Assigned At Not on file [facility] Start: 10-18-2024 End: 10-26-2024 Sex Male (finding) [facility] NEGATED: Highlighted rowStart: NINF History of tobacco use Passive smoker [facility] Work Phone: Medical Equipment Procedure Code [...] Cognitive function Level Of Cons ciousness Awake;Alert [facility] Work Phone: 09-05-2023 Cognitive function Voice/Name [facility] Work Phone: Radiology Diagnostic study note 12-23-2024 Note Date & Type Note Facility 12-23-2024 Radiology Diagnostic study note [facility] Imaging Services [address] [place] [place], [place] [address] HIP, UNI W/ Pelvis 2-3 Views MR#: [id number] Acct: [id number] Name: AMANDA SANDOVAL Rep #: [id number] : 1960 M 64 From: Constance Moise MD PCP: Dr. Desmond Fraire MD Status: REG C YUSRA Study:HIP, UNI W/ Pelvis 2-3 Views Date of Ex am: 12/22/24 Exam# [id number] Ordering Dr: Aleisha Amador MD PROCEDURE: HIP, UNI W/ PELVIS 2-3 VIEWS 12/22/2024 REASON FOR EXAM: PAIN TECHNIQUE: Three views of the left hip COMPARISON: None FINDINGS: No displaced fracture or traumatic malalignment. Mild joint space narrowing in both hips. Phleboliths project over the pelvis. There are punctate metallic fragments in the right thigh. RAD/HIP, UNI W/ Pelvis 2-3 Views IMPRESSION: 1. No displaced fracture. 2. Mild bilateral hip osteoarthritis. 3. Punctate metallic fragments in the right thigh soft tissues. Reading Location: [id number] CC: Dr. Brenden Amador MD; Dr. Desmond Fraire MD ~ [employer]: Signed [facility] Procedure note 09-05-2023 Note Date & Type Note Facility 09-05-2023 Procedure note [facility] Procedure note 09-05-2023 Note Date & Type Note Facility 09-05-2023 Procedure note [facility] Progress note 04-06-2022 Note Date & Type Note Facility 04-06-2022 Note HNO ID: [id number] Author: Denae Soni APRN.[employer] Service: ? Author Type: Nurse Practitioner Type: Progress Notes Filed: 04/06/2022 9:50 AM Note Text: This note was created using [employer]. Subjective Amanda Sandoval is a 62 year [...] Abdominal: General: Ab (more content not included)... [facility] History of Present illness Narrative 04-06-2022 Denae Soni APRN.[facility] - 04/06/2022 9:32 AM EDT Note Date & Type Note Facility 04-06-2022 History of Presen t illness Narrative This note was created using [employer]. Subjective Amanda Sandoval is a 62 year [...] if symptoms persist or worsen Denae Soni APRN.[facility] documented in this encounter [facility] Evaluation note Note Date & Type Note Facility Evaluation note No assessment information availa [facility] Work Phone: Evaluation note Note Date & Type Note Facility Evaluation note Diagnosis Acute left-sided thoracic back pain- Primary documented in this encounter [facility] Evaluation note Note Date & Type Note Facility Evaluation note Diagnosis Onset Date Encounter for screening for malignant neoplasm of colon acute History of colon polyps acut [facility] Work Phone: History and physical note Note Date & Type Note Facility History and physical note Note Date/Time September 05, 2023 8:34am [facility] Medical Records Department [address] [place] [address] History & Physical Exam 09/05/23 0831 MR#: [id number] Acct: [id number] Name: AMANDA SANDOVAL Rep #:[id number] : 1960 63 From: Payam Lomas PCP: Dr. Desmond Fraire MD Status:REG S [place] Location: [address] - General General Date of Admission: [...] remote smoking history of 40 pack years. [facility] Medical History (Updated 09/05/23 @ 08:33 [...] UPSET Discharge Is Pt Admitted From a [place] [facility], or a Jail: No After D/C, Where Do you Plan to Go: Return Home From the [facility] History Number of Risk Factors: 5 [...] Marino MD; Dr. Desmond Fraire MD~ Signed [facility] Work Phone: Reason for referral (narrative) Note Date & Type Note Facility Reason for referral (narrative) No reason for referral information available [facility] Work Phone: Chief Complaint and Reason for Visit Chief Complaint LUMBAR Chief Complaint LUMBAR R LUMBAR RADICULOPATHY, R FOOT NUMB/PAIN. RX HERE Plantar fascial fibromatosis Chief Complaint LUMBAR Plantar fascial fibromatosis R LUMBAR RADICULOPATHY, R FOOT NUMB/PAIN. RX HERE LEG XRAY-CLEARANCE FOR MRI 8/19 CK Chief Complaint Plantar fascial fibr omatosis R LUMBAR RADICULOPATHY, R FOOT NUMB/PAIN. RX HERE LEG XRAY-CLEARANCE FOR MRI 8/19 CK SPINAL STENOSIS Chief Complaint LEG XRAY-CLEARANCE F OR MRI 8/19 CK SPINAL STENOSIS Chief Complaint Amb Documentation CHILLS WITHOUT FEVER Chief Complaint Amb Documentation CHILLS WITHOUT FEVER Reason for Visit Encounter for screen ing for malignant neoplasm of colon History of colon polyps Chief Complaint Admit Date HISTORY OF NICOTINE DEPENDENCY July 212024 6:46am ELEVATED D-DIMER September 02, 2024 12:50pm hypertension September 11, 2024 9:44am Chief Complaint Admit Date ELEVATED D-DIMER February 13th, 2025 12:50pm hypertension September 11, 2024 9:44am L HIP PAIN December 22, 2024 11:02 am BACK PAIN. RX HERE December 23, 2024 3:47p m Chief Complaint Admit Date ELEVATED D-DIMER September 02, 2024 12:50pm hypertension September 11, 2024 9:44am Advance Directives No Advanced Directives Records Found Advance Directive Response Recorded Date/ Time Living Will No November 17, 2018 8:48am Power of Public Information Officer No November 17 8:48am Advance Directive Response Recorded Date/ Time Living Will No November 17, 2018 7:48am Power of Public Information Officer No November 17 7:48am Advance Directive Response Recorded Date/ Time Living Will No August 29 24 1:16pm Power of Public Information Officer No August 29, 2023 1:16pm Advance Directive Response Recorded Date/ Time Living Will No September 11 025 10:53am Do you have a Healthcare Power of Public Information Officer? No September 11, 2024 10:53am Summary Purpose [...] or prosecute any alcohol or drug abuse patient.[facility] Reason for Visit (unrecogniz ed section and content) Reason Comments Back Pain upper back, left alisha e shoulder pain x 5 days (unrecognized sect ion and content) No Status Records FoundNo Status Records FoundNo Status Records Found INFORMATION SOURCE (unrecogn ized section and content) DATE CREATED AUTHOR 04/20/2022 [facility] DATE CREATED AUTHOR AUTHOR'S ORGANIZ ATION 12/23/2024 [facility] DATE CREATED AUTHOR AUTHOR'S ORGANIZ ATION 01/05/2025 [facility] Care Teams (unrecognized sec tion and content) [...] Desmond Fraire MD Primary Care Provider Active [facility] Attending Provider Active Team Status: Inactive Member Role Status Dates Dr. Desmond Fraire MD Primary Care Provider, Attending Provider Active Team Status: Active Member Role Status Dates Dr. Desmond Fraire MD Primary Care Provider, Referring Provider Active Dr. Payam Marino MD Attending Provider, Other Provi abran Active Team Status: Inactive Member Role Status Dates Dr. Desmond Friare MD Primary Care Provider, Referring Provider Active [...] September 02, 2024 Dr. Desmond Fraire MD Referring Provider Active Start: September [...] October 21, 2024 End: October 21, 2024 Team Status: Inactive Member Role Status Dates Dr. Desmond Fraire MD Primary Care Provider Active Start: December 15, 2024 End: December 15, 2024 Dr. Desmond Fraire MD Attending Provider Active Start: December 15, 2024 End: December 15, 2024 Dr. Desmond Fraire MD Referring Provider Active Start: December 15, 2024 End: December 15, 2024 Team Status: Inactive Member Role Status Dates Dr. Desmond Fraire MD Primary Care Provider Active Start: December 22, 2024 End: December 22, 2024 Dr. Brenden Amador MD Attending Provider Active Start: December 22, 2024 End: December 22, 2024 Dr. Brenden Amador MD Referring Provider Active Start: December 22, 2024 End: December 22, 2024 Team Status: Active Member Role Status Dates Dr. Desmond Fraire MD Primary Care Provider Active Start: December 23, 2024 Dr. Desmond Fraire MD Attending Provider Active Start: December 23, 2024 Dr. Desmond Fraire MD Referring Provider Active Start: December 23, 2024 FOR RECORDS PERTAINING TO PATIENTS WHO [...] BE BASED ON THE PRIMARY CLINICAL RECORDS. [facility] [employer] provides no warranty or guarantee of the accuracy or completeness of information in this document.
[2025-01-06 20:26] LABS: Microalbumin,Random Urine 27.8 mg/L (NO RANGE EST.); Microalbumin:Creatinine Ratio 10.4 mg/g CRE
== END | disposition home or self-care (01) ==
LOC: LAB 15:17
PROVIDERS: PCP Family Medicine Geriatric Medicine; Referring Provider Family Medicine Geriatric Medicine; Visit Provider Family Medicine Geriatric Medicine
DX: E78.5 Hyperlipidemia, unspecified (principal); E11.65 Type 2 diabetes mellitus with hyperglycemia; I10 Essential (primary) hypertension; E55.9 Vitamin D deficiency, unspecified
CPT/HCPCS: 82043; 82570

== ENCOUNTER 2025-01-12 14:00 | Outpatient (RCR) | payer OTHER, SELFPAY ==
--- NOTE | 2024-12-23 17:21 | HP.PTEVAL_ITS ---
Patient's Visit Information Visit Information Visit Information: AMANDA SANDOVAL is a 64 year old M referred to Physical Therapy by Dr. Desmond De Guzman MD with a diagnosis of SPINAL STENOSIS ,LEFT SIDE SCIATICA. Date of Evaluation: 12/23/24 Physical Therapist: Kadeem Bernard PT, Cert MDT, OCS Visit Plan Frequency: 2x /Week Duration: 4 Weeks Plan: PRECAUTION: LATEX ALERGY PT INTERVENTIONS LUMBAR FLEXION ,LE FLEXABILITY ,DLS ,POSTURAL EX'S ,ACTIVITY MODIFICATION AND MODALITIES Subjective Subjective: This 64 y/o male presents to physical therapy with stenosis ,left leg lumbar radiculopathy. Patient has low back pain with radicular symptoms ,initially in back then progressed to leg ~ December 03. Patient went to ER had Blood surgery 84 thus admitted ,December 11 then d/c December 13. Patient seen recommended and provided pain medication and had gabapentin. Patient has h/o x- rays CT scan showed Marked narrowing of the L5-S1 intervertebral disc space with mild degenerative changes of the left L5-S1 facet/stenosis . Patient had pain located pain lumbar sacral region lateral hip ,to knee. Aggravating standing 10mins ,getting out of car ,bending ,unable to lift. Patient alleviating factors rest. Coughing/sneezing-. Bowel/bladder-. Patient symptoms affects sleeping. Patient has paresthesia in foot . Patient sees chiropractor which is helping . Patient condition affects affects QOL and function /job demands. Patient goals to decrease pain for ADL VOCATION: [employer]. Social: Pain Bilateral Back: Pain Intensity (Out of 10): 5 Pain Intensity Range: 10 Left Lower Extremity: Pain Intensity (Out of 10): 4 Pain Intensity Range: 10 Objective Objective: POSTURE: mild forward posture GAIT: reciprocal pattern slight antalgic NEURO: c/o occasional paresthesia in left foot ,reflexes L3-4,L4-5 ,L5-S1 1/3 PALAPTION: unremarkable FLEXABILITY: hamstrings mod tight HIP PROM: flexion 110 degrees ,IR 40 degrEES MMT: quads/hams 4/5 ,hip flexion right 4/5 ( peak force ) left 25.5 ,ankle 4/5 LUMBAR ROM: flexion mod loss ,extension mod loss ,side glides mod loss Special Tests L/S Slump test left side: Negative L/S Slump test right side: Negative L/S Left Straight Leg Raise: Positive L/S Right Straight Leg Raise: Negative Lumbar Standing: Flexion - Mechanical Response: No effect Lumbar Standing: Flexion - Symptoms During Testing: Increases Lumbar Standing: Flexion - Symptoms After Testing: No worse Lumbar Standing: Extension - Mechanical Response: No effect Lumbar Standing: Extension - Symptoms During Testing: Increases Lumbar Standing: Extension - Symptoms After Testing: No worse Lumbar Standing: Right Side Glides - Mechanical Response: No effect Lumbar Standing: Right Side Child[place] - Symptoms During Testing: No effect Lumbar Standing: Right Side [place] - Symptoms After Testing: No effect Lumbar Standing: Left Side [place] - Mechanical Response: No effect Lumbar Standing: Left Side [place] - Symptoms During Testing: No effect Lumbar Standing: Left Side Child[place] - Symptoms After Testing: No effect Balance/Special Test Scores Oswestry Low Back Score: 29 Goals Goal 1:: Patient to be I with HEP for back Goal Time Frame: 4-6 Weeks Goal 2:: Patient to improve lumbar ROM for function of recovery for ADLS Goal Time Frame: 4-6 Weeks Goal 3:: Patient to improve left hip strength peak force by 5-8# to improve gait and 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 Goal Time Frame: 4-6 Weeks Goal 4:: Patient to improve lumbar ROM for function of recovery to put on shoes on Goal Time Frame: 4-6 Weeks Goal 5:: Patient to improve back oswestry score by 5 points to improve QOL and function Goal Time Frame: 4-6 Weeks Rehabilitation Potential Physical Therapy Diagnosis: This patient has left lumbar radiculopathy with possible stenosis with pain worse with standing ,bending/lifting increases with positioning and motion testing thus benefit from skilled Rehabilitation Potential: Good Anticipated Interventions Patient/Client Instruction: Educate patient on: Condition and Plan of Care For the Purpose of:: To decrease pain, To improve muscle performance and motor function, To improve ability to perform ADL's, To increase tolerance to activity/condition/position, To improve performance and independence with ADL's, To improve ability of physical actions for home/community/work/leisure, To improve gait and locomotor functions, To decrease soft tissue restriction, To increase flexibility/ROM, To improve endurance, To improve balance, To improve safety with gait, To reduce risk of recurrence and To improve tolerance to ADL's Therapeutic Exercise to Include: Strength training, Body mechanics, Postural training, Flexibilty training and Dynamic Lumbar Stabilization Comment: BLE For the Purpose of:: To decrease pain, To increase ROM, To improve muscle performance and motor function, To improve ability to perform ADL's, To increase tolerance to activity/condition/position, To improve ability of physical actions for home/community/work/leisure, To improve gait and locomotor functions, To improve health of tissue, To decrease soft tissue restriction and To improve endurance TENS: Yes IF ES: Yes Cryotherapy (ice pack, ice massage): Yes Thermo therapy (hot pack): Yes Ultrasound (thermal/non thermal): Yes For the Purpose of:: To decrease pain, To increase ROM, To improve nutrient delivery to tissue, To increase oxygenation perfusion, To improve health of tissue and To decrease soft tissue restriction Text: Thank you for the opportunity to evaluate your patient. For Medicare and Medicare HMO plans, please review the plan of care and approve it. It will need to be FAXED BACK to us at [phone] for Medicare purposes. For Medicare only, by signing this I certify the plan of care. Please let me know if there are questions or concerns regarding this plan of care. Physician Signature: Date:
--- NOTE | 2025-03-28 17:50 | HP.PT.NRP ---
Patient Information Patient Information: AMANDA SANDOVAL was seen in my office for initial evaluation on 12/23/24. The following Plan of Care was established for this patient: POC Established Initial Frequency: 2x /Week Initial Duration: 4 Weeks Anticipated Interventions Patient/Client Instruction: Educate patient on: Condition and Plan of Care For the Purpose of:: To decrease pain, To improve muscle performance and motor function, To improve ability to perform ADL's, To increase tolerance to activity/condition/position, To improve performance and independence with ADL's, To improve ability of physical actions for home/community/work/leisure, To improve gait and locomotor functions, To decrease soft tissue restriction, To increase flexibility/ROM, To improve endurance, To improve balance, To improve safety with gait, To reduce risk of recurrence and To improve tolerance to ADL's Therapeutic Exercise to Include: Strength training, Body mechanics, Postural training, Flexibilty training and Dynamic Lumbar Stabilization For the Purpose of:: To decrease pain, To increase ROM, To improve muscle performance and motor function, To improve ability to perform ADL's, To increase tolerance to activity/condition/position, To improve ability of physical actions for home/community/work/leisure, To improve gait and locomotor functions, To improve health of tissue, To decrease soft tissue restriction and To improve endurance TENS: Yes IF ES: Yes Cryotherapy (ice pack, ice massage): Yes Thermo therapy (hot pack): Yes Ultrasound (thermal/non thermal): Yes For the Purpose of:: To decrease pain, To increase ROM, To improve nutrient delivery to tissue, To increase oxygenation perfusion, To improve health of tissue and To decrease soft tissue restriction Last Seen Last Seen: This patient was last seen in our office . Pertinent comments regarding their Physical therapy will appear below: Patient seen for lumbar pain doing well ,thus d/c to HEP At this point I will be discontinuing this patient from physical therapy. I would be happy to see this patient again in the future if found appropriate by the physician. Thank you! Kadeem Bernard, PT, Cert MDT, OCS Balance/Gait/Functional tests Balance/Special Test Scores Oswestry Low Back Score: 29
== END 2025-01-12 19:00 | disposition home or self-care (01) ==
LOC: PT 14:00
PROVIDERS: PCP Family Medicine Geriatric Medicine; Referring Provider Family Medicine Geriatric Medicine; Visit Provider Family Medicine Geriatric Medicine
DX: M48.061 Spinal stenosis, lumbar region without neurogenic claudication (principal); M54.32 Sciatica, left side
CPT/HCPCS: 97110; 97162

== ENCOUNTER 2025-02-02 15:51 | Outpatient (RCR) | payer OTHER, SELFPAY | END 2025-02-17 23:59 | LOC: NS 15:51 | PROVIDERS: PCP Family Medicine Geriatric Medicine; Referring Provider Family Medicine Geriatric Medicine; Visit Provider Family Medicine Geriatric Medicine | DX: Z71.3 Dietary counseling and surveillance (principal); E11.65 Type 2 diabetes mellitus with hyperglycemia | CPT/HCPCS: 97802 ==

== ENCOUNTER → 2025-02-23 | Outpatient (CLI) | payer OTHER, SELFPAY | END | disposition home or self-care (01) | LOC: POLAB3 14:16 | PROVIDERS: PCP Family Medicine Geriatric Medicine; Visit Provider Family Medicine Geriatric Medicine | DX: E11.65 Type 2 diabetes mellitus with hyperglycemia (principal) | CPT/HCPCS: 36415; 83036 ==

== ENCOUNTER 2025-03-15 15:26 | Outpatient (RCR) | payer OTHER, SELFPAY | END 2025-03-20 23:59 | LOC: NS 15:26 | PROVIDERS: PCP Family Medicine Geriatric Medicine; Referring Provider Family Medicine Geriatric Medicine; Visit Provider Family Medicine Geriatric Medicine | DX: Z71.3 Dietary counseling and surveillance (principal); E11.65 Type 2 diabetes mellitus with hyperglycemia | CPT/HCPCS: 97803 ==

== ENCOUNTER → 2025-06-02 | Outpatient (CLI) | payer OTHER, SELFPAY ==
--- NOTE | 2025-06-02 12:50 | RAD_ITS ---
PROCEDURE: L/S SPINE MIN 4 VIEWS 06/02/2025 REASON FOR EXAM: LOW BACK PAIN, UNSPECIFIED TECHNIQUE: Procedure Code: RADSPLS Modality: DX Procedure: L/S SPINE MIN 4 VIEWS COMPARISON: None FINDINGS: There are no sacral fractures. SI joints are unremarkable. There are 5 lumbar-type vertebral bodies below the last set of paired ribs. There is a dextroscoliosis of the lumbar spine. There is no spondylolysis. There is no spondylolisthesis. Mild spondylosis is noted. Degenerative disc disease is seen involving all levels. There is some facet hypertrophy at all levels. Arteriosclerotic vascular disease of the aorta is noted. RAD/L/S Spine Min 4 Views IMPRESSION: There is a dextroscoliosis of the lumbar spine. There is no spondylolysis. There is no spondylolisthesis. Mild spondylosis is noted. Degenerative disc disease is seen involving all levels. There is some facet hy pertrophy at all levels. Reading Location: [id number]
== END | disposition home or self-care (01) ==
LOC: RAD 12:45
PROVIDERS: PCP Family Medicine Geriatric Medicine; Referring Provider Family Medicine Geriatric Medicine; Visit Provider Family Medicine Geriatric Medicine
DX: M54.59 Other low back pain (principal)
CPT/HCPCS: 72110

== ENCOUNTER → 2025-07-06 | Outpatient (CLI) | payer OTHER, SELFPAY ==
[2025-07-06 16:58] LABS: Hematocrit 42.0 % (40-54); Hemoglobin 13.4 g/dL (13.0-16.5); Immature Granulocytes Count 0.030 X10^3/uL (0.0-0.0); Mean Corp Hgb Conc 31.9 g/dL (32-36); Mean Corpuscular Volume 89.6 fL (80-94); Mean Platelet Vol. 10.6 fl (6.2-12.0); NRBC Flagged by Analyzer 0 % (0-5); Platelet Count 267 K/mm3 (150-450); RBC Distribution Width CV 14.3 % (11.6-14.6); RBC Distribution Width SD 46.5 fl (35.1-43.9); Red Blood Count 4.69 M/mm3 (4.6-6.2); White Blood Count 9.0 K/mm3 (4.4-11.0)
[2025-07-06 17:41] LABS: AST(SGOT) 16 U/L (<=37); Alanine Aminotransfer ALT/SGPT 12 U/L (<=46); Albumin, Serum 3.9 g/dL (3.4-4.8); Alkaline Phosphatase 68 U/L (40-129); Anion Gap 11 (5-15); BUN 29 mg/dL (4-19); BUN/Creat Ratio 25.2 RATIO (10-20); Calcium,Total 9.4 mg/dL (7.6-11.0); Carbon Dioxide 26.0 mmol/L (21.0-32.0); Chloride 105 mmol/L (98-108); Globulin 2.5 g/dL (2.2-4.2); Glucose 100 mg/dL (70-99); Potassium 4.5 mmol/L (3.3-5.1); Vitamin D,25 Hydroxy 29.9 ng/mL (30-100)
[2025-07-06 18:20] LABS: Cholesterol 168 mg/dL (<=200); Low Density Lipoprotein Calc. 94 mg/dL; Triglycerides 110 mg/dL; Very Low Density Lipoprotein 22 mg/dL (5-40); cholesterol:hdl ratio screen 3.10
[2025-07-07 00:30] LABS: Xtra Tube Kwok EXTRA TUBE
[2025-07-07 00:32] LABS: Xtra Tube Kwok EXTRA TUBE
== END | disposition home or self-care (01) ==
PROVIDERS: PCP Family Medicine Geriatric Medicine; Visit Provider Family Medicine Geriatric Medicine
DX: E11.65 Type 2 diabetes mellitus with hyperglycemia (principal); E55.9 Vitamin D deficiency, unspecified; E78.5 Hyperlipidemia, unspecified; I10 Essential (primary) hypertension
CPT/HCPCS: 36415; 80053; 80061; 82306; 83036; 84443; 85025